=== PATIENT | female | born 1985 | race Caucasian/White ===

== ENCOUNTER 2019-05-02 17:43 | Emergency (ER) | payer MEDICAID ==
[~2019-05-02] VITALS: Ht 160 cm; Wt 68.0 kg
[~2019-05-02 17:43] MED LIST: ACET1TAB43 PO; ACHD5005 PO; AMOX1TAB12; ATOM80CA PO; CEFD300C3 PO; CIPR500T78 PO; CITA10TA PO; CLIN300C3 PO; CODE-54 PO; CPR500T PO; CYAN10007 PO; DEXT10TA24; DOXY100C2 PO; DULO60CA58 PO; DULO60CA6 PO; FLUC150T2; FLUT16SP22; FRS325T PO; HYDR-3730 PO; LAMO100T; LORA1TAB PO; METR-145 PO; METR500T PO; MULT-963 PO; MUPI22OI2; NORG1TAB19; ONDA4TAB11 PO; ONDA8TAB13 PO; PREN1TAB25 PO; PYRI100T2 PO; SULF1TAB35 PO; TRAM-42 PO; TRAM50TA2 PO; VILA1TAB PO; VORT20TA
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
--- NOTE | 2019-05-02 18:00 | NUR ---
SOMEONE CAME AND GOT PT 1/2 WAY THRU MY TRIAGE.
--- NOTE | 2019-05-02 18:49 | ED GU-Female ---
General Chief Complaint: ACIDIZER Stated Complaint: VAG BLEEDING/BILAT LEG NUMBNESS/PELVIC PAIN Nursing Triage Note: PT BROUGHT TO RM 9 BY WHEELCHAIR WITH COMPLAINT OF VAGINAL BLEEDING AND DISCHARGE, SOA, AND OVERALL FEELING OF MALAISE. PT STATE SYMPTOMS HAVE BEEN GOING ON FOR MONTHS. STATES SHE HAS HAD IRREGULAR VAGINAL BLEEDING. STATES SHE IS CONCERNED THAT SHE HAS AN OLD TAMPON IN VAGINAL VAULT. STATES SHE HAS HAD THIS ISSUE IN THE PAST. STATES SHE WENT TO DR PATEL ON THURSDAY, AND THERE WAS CONCERN FOR POSSIBLE PNEUMONIA OR RIGHT LUNG COLLAPSE. Nursing Sepsis Screen: No Definite Risk Source: patient Exam Limitations: no limitations History of Present Illness Date Seen by Provider: May 02, 2019 Time Seen by Provider: 18:10 Initial Comments This 34-year-old woman presents to the emergency room with complaints of pelvic and vaginal pain. She thinks she may have lost a tampon in the vagina. She has generally been feeling ill over the past couple of days. She has had pain after intercourse with her new partner. She also believes there has been some infidelity with her current partner. She had pain with placing a tampon during her last period which was one week ago. She has had some vaginal discharge as well. She denies . She also states on a recent visit to Dr. Patel he expressed some concern she might have pneumonia. She states they "got into it" and she left the appointment without any treatment. She denies any fever. She has had occasional mild cough. Allergies and Home Medications Allergies Coded Allergies: No Known Drug Allergies (Unverified , 01/12/13) Home Medications Sulfamethoxazole/Trimethoprim 1 Each Tablet, 1 EACH PO BID Prescribed by: RD VELIZ on 01/27/16 0800 Patient Home Medication List Home Medication List Reviewed: Yes Review of Systems Review of Systems Constitutional: see HPI EENTM: no symptoms reported Respiratory: see HPI Cardiovascular: no symptoms reported Gastrointestinal: no symptoms reported Genitourinary: see HPI : No LMP: Apr 25, 2019 Musculoskeletal: no symptoms reported Skin: no symptoms reported Psychiatric/Neurological: No Symptoms Reported Endocrine: No Symptoms Reported Hematologic/Lymphatic: No Symptoms Reported Past Imlhftd-Lnuwge-Fafzlw Hx Past Med/Social Hx: Reviewed and Corrections made Patient Social History Alcohol Use: Denies Use Recreational Drug Use: No Smoking Status: Current Everyday Smoker Type Used: Cigarettes Recent Foreign Travel: No Contact w/Someone Who Travel: No Recent Infectious Disease Expo: No Immunizations Up To Date Tetanus Booster (TDap): Unknown Past Medical History Surgeries: Yes (GASTRIC BYPASS 05/30, EAR TUBES) Abdominal, Ear Surgery, Gallbladder Respiratory: No Cardiac: No Neurological: No Reproductive Disorders: No Female Reproductive Disorders: Denies Sexually Transmitted Disease: No HIV/AIDS: No Gastrointestinal: Yes (gastro-bypass 2004) Gall Bladder Disease Musculoskeletal: No Endocrine: No HEENT: Yes Chronic Ear Infection Loss of Vision: Denies Hearing Impairment: Denies Cancer: No Psychosocial: Yes Anxiety, Depression Integumentary: No Blood Disorders: Yes (ANEMIA) Adverse Reaction/Blood Tranf: No Family Medical History Not obtainable due to adoption No Pertinent Family Hx Physical Exam Vital Signs Vital Signs - First Documented 05/02/19 17:57 Temp 97.5 Pulse 88 Resp 16 B/P (MAP) 112/75 (87) Pulse Ox 100 O2 Delivery Room Air Capillary Refill : Less Than 3 Seconds Height, Weight, BMI Height: 5'3.00" Weight: 150lbs. oz. 68.818966ic; BMI Method:Stated General Appearance: WD/WN, no apparent distress HEENT: PERRL/EOMI, normal ENT inspection Neck: normal inspection Cardiovascular: regular rate, rhythm, no edema, no murmur Respiratory: lungs clear, normal breath sounds, no respiratory distress, no accessory muscle use Gastrointestinal: normal bowel sounds, non tender, soft Pelvic: normal external exam, no cerv. motion tender, discharge (copious purulent discharge pooled in the vagina), other (no vaginal foreign bodies) Extremities: normal inspection, no pedal edema Neurologic/Psychiatric: education adviser II-XII nml as tested, no motor/sensory deficits, alert, normal mood/affect, oriented x 3 Skin: normal color, warm/dry Progress/Results/Core Measures Suspected Sepsis Recent Fever Within 48 Hours: No Infection Criteria Present: None New/Unexplained Altered Menta: No Sepsis Screen: No Definite Risk SIRS Temperature:97.4 Pulse: 83 Respiratory Rate: 17 Blood Pressure 102 /55 Mean: 71 Results/Orders Lab Results Laboratory Tests Test 05/02/19 18:43 Range/Units My Orders Orders - RD ROSE MD Urine Bedside (05/02/19 18:18) Wet Prep (05/02/19 18:18) Neisseria Gonorrhea Swab (05/02/19 18:18) Genital Culture (05/02/19 18:18) Lisa Prep (05/02/19 18:18) Chlamydia Trachomatis Swab (05/02/19 18:18) Azithromycin Tablet (Zithromax Tablet) (05/02/19 19:00) Ceftriaxone For Im Use (Rocephin For Im (05/02/19 19:00) Lidocaine 1% Inj 20 Ml (Xylocaine 1% Inj (05/02/19 19:00) Hcg,Qualitative Urine (05/02/19 18:50) Ua Culture If Indicated (05/02/19 18:50) Ondansetron Oral Dissolve Tab (Zofran (05/02/19 19:00) Metronidazole Tablet (Flagyl Tablet) (05/02/19 19:00) Vital Signs/I&O 05/02/19 05/02/19 05/02/19 17:57 18:00 19:22 Temp 97.5 97.4 97.4 Pulse 88 83 83 Resp 16 17 17 B/P (MAP) 112/75 (87) 102/55 (71) 102/55 (71) Pulse Ox 100 100 100 O2 Delivery Room Air Room Air Capillary Refill : Less Than 3 Seconds Blood Pressure Mean: 71 Progress Note #1: Time: 19:00 Progress Note White cells and Trichomonas were seen on the vaginal smear. Patient will be emp irically treated with Rocephin, azithromycin, and Flagyl. Progress Note #2: Time: 19:22 Progress Note Patient became belligerent and angry at waiting for her treatments. She refused to give a urine sample. She refused to wait to have results communicated to her before leaving. I pleaded with the patient to wait for her treatments as she had an infection that needed treated. She refused and walked out of the ER without her discharge papers or treatment. She left AGAINST MEDICAL ADVICE. Departure Impression Primary Impression: Pelvic pain Additional Impressions: Trichomonas infection Left against medical advice Disposition: AGAINST MEDICAL ADVICE Condition: Stable/Unchanged Departure-Patient Inst. Referrals: WINIFRED PATEL MD (PCP/Family) Primary Care Physician Patient Instructions: Sexually-Transmitted Diseases, Trichomoniasis Add. Discharge Instructions: You were treated for possible gonorrhea, chlamydia, and Trichomonas today in the emergency room. Abstain from sexual intercourse or any placement of intravaginal objects including tampons until cleared by your physician. Your physician will need to review the final vaginal culture results before you're cleared for sexual activity. Disposes of any intravaginal items that may cause reinfection. Noti fy any partners you have had that they need to be screened for Trichomonas and other sexually transmitted infections. Return to care if you have worsening symptoms. All discharge instructions reviewed with patient and/or family. Voiced understanding. Copy Copies To 1: WINIFRED PATEL MD, JOSHUA T MD May 02, 2019 18:49
[2019-05-02 19:22] VITALS: BP 102/55
[2019-05-02] MEDS: metroNIDAZOLE 500 MG (FLAGYL) TAB PO ONE (19:24)
[2019-05-02] MEDS: LIDOCAINE 1% INJ 20 ML 20 ML VIAL INJ ONE (19:24)
[2019-05-02] MEDS: cefTRIAXone 1,000 MG/2.86 ml vial (IM ONLY) IM ONE (19:24)
[2019-05-02] MEDS: AZITHROMYCIN 250 MG TAB (ZITHROMAX) PO ONE (19:24)
[2019-05-02] MEDS: ONDANSETRON 4 MG (ZOFRAN) ORAL DISSOLVE TAB SL ONE (19:25)
--- NOTE | 2019-05-02 19:25 | NUR ---
PT LEFT AMA PRIOR TO MEDICATION ADMINISTRATION AND DISCHARGE INFORMATION. THIS RN AND PROVIDER FOLLOWED PATIENT TO TRY AND PROVIDED MEDICAL INFO BUT PT REFUSED.
== END 2019-05-02 19:23 | disposition left against medical advice (07) ==
LOC: EDUNIT# 17:43 → ER 17:44
DX: A59.01 Trichomonal vulvovaginitis (principal); F41.9 Anxiety disorder, unspecified; F32.9 Major depressive disorder, single episode, unspecified; F17.210 Nicotine dependence, cigarettes, uncomplicated; Z98.84 Bariatric surgery status
CPT/HCPCS: 36415; 87070; 87205; 87210; 87220; 87491; 87591; 99282

== ENCOUNTER 2019-05-06 00:53 | Emergency (ER) | payer MEDICAID ==
[~2019-05-06] VITALS: Ht 157.5 cm; Wt 68.0 kg
[2019-05-06 01:39] LABS: BILIRUBIN,URINE NEGATIVE (NEGATIVE); CLARITY,URINE CLEAR; COLOR,URINE YELLOW; GLUCOSE, URINE (UA) NEGATIVE (NEGATIVE); KETONES,URINE NEGATIVE (NEGATIVE); LEUKOCYTE ESTERASE ,URINE 3+ (NEGATIVE); NITRITE,URINE NEGATIVE (NEGATIVE); PH,URINE 6 (5-9); PROTEIN,URINE NEGATIVE (NEGATIVE); UROBILINOGEN,URINE NORMAL (NORMAL)
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
[2019-05-06 01:48] LABS: BACTERIA,URINE TRACE /HPF; RBC,URINE 0-2 /HPF; TRICHOMONAS,URINE MODERATE /HPF
[2019-05-06 01:58] LABS: AMPHETAMINE SCREEN, URINE POSITIVE (NEGATIVE); BARBITURATE SCREEN URINE NEGATIVE (NEGATIVE); BENZODIAZEPINES SCREEN URINE NEGATIVE (NEGATIVE); CANNABINOID SCREEN, URINE NEGATIVE (NEGATIVE); COCAINE SCREEN URINE NEGATIVE (NEGATIVE); METHADONE STAT NEGATIVE (NEGATIVE); METHAMPHETAMINE SCREEN URINE S POSITIVE (NEGATIVE); OPIATE SCREEN URINE POSITIVE (NEGATIVE); OXYCODONE STAT NEGATIVE (NEGATIVE); PROPOXYPHENE STAT NEGATIVE (NEGATIVE); TRICYCLIC ANTIDEPRESSANTS SCRE NEGATIVE (NEGATIVE)
[2019-05-06] MEDS ORDERED: METR500T PO (02:11)
[2019-05-06 02:17] VITALS: BP 120/81
== END 2019-05-06 02:17 | disposition home or self-care (01) ==
LOC: EDUNIT# 00:53 → ER 00:56
DX: A59.8 Trichomoniasis of other sites (principal); F41.9 Anxiety disorder, unspecified; F32.9 Major depressive disorder, single episode, unspecified; F17.210 Nicotine dependence, cigarettes, uncomplicated; Z98.84 Bariatric surgery status
CPT/HCPCS: 80306; 81000; 84703

== ENCOUNTER 2020-02-15 11:47 | Outpatient (CLI) | payer MEDICAID ==
[~2020-02-15] VITALS: Ht 157.5 cm; Wt 80.8 kg
[~2020-02-15 11:47] MED LIST changes: -DULO60CA58 PO; +DULO60CA59 PO; -LAMO100T; +LAMO100T5; +TRM50T PO
--- NOTE | 2020-02-15 11:53 | NUR ---
JHONNY MENDOZA presented to unit via ambulation from ED, with c/o decreased FM Pt. weighed, gowned, voided, and to bed. EFHM and TOCO applied, VS taken. Pt. oriented to bed controls, call light, TV, heat, and A/C controls.
--- NOTE | 2020-02-15 12:00 | NUR ---
pt reports decreased FM today- see's and @ [facility].
[2020-02-15 12:08] VITALS: BP 112/60
[2020-02-15 12:27] VITALS: BP 112/60
--- NOTE | 2020-02-15 12:34 | NUR ---
was called r/t admission c/o's. status reviewed, dismissal orders received.
[2020-02-15] MEDS ORDERED: FERR-84 PO (12:43)
[2020-02-15] MEDS ORDERED: FOLI0.4T2 PO (12:43)
[2020-02-15] MEDS ORDERED: SERT20OR PO (12:43)
[2020-02-15] MEDS ORDERED: PREN1TAB79 PO (12:43)
--- NOTE | 2020-02-15 12:45 | NUR ---
monitors dc'd. audible FM noted by RN. pt "not feeling" kicks. monitor tracing reviewed. FHR 150's. variability appropriate for gestation. no ctx's noted . Reactive NST.
--- NOTE | 2020-02-15 12:46 | NUR ---
dismissal instructions given. reviewed sx's to RTC. signature page signed, placed on chart.
--- NOTE | 2020-02-15 12:50 | NUR ---
pt ambulated to private vehicle with no sx's of distress noted.
--- NOTE | 2020-02-16 08:19 | Physician Query-Final Dx ---
AUGUSTINE BOWSER 02/16/20 0819: Clinic Account Progress/Dx Physician Query: Please give diagnosis Please include # weeks gestation Date of Service Feb 15, 2020 at 11:47 TIFFANY BRAVO MD 02/24/20 0715: Clinic Account Progress/Dx DIAGNOSIS: Diagnosis 1. IUP in 3rd trimester 2. Decreased movement-reassuring AUGUSTINE BOWSER Feb 16, 2020 08:19 TIFFANY BRAVO MD February 24, 2020 07:15
== END 2020-02-15 12:50 | disposition home or self-care (01) ==
LOC: WSo 11:47 → LDRP 11:49 → WSo 12:50
PROVIDERS: ATTEND Family Medicine
DX: O36.8130 Decreased fetal movements, third trimester, not applicable or unspecified (principal)
CPT/HCPCS: 99213

== ENCOUNTER 2020-03-27 20:47 | Outpatient (CLI) | payer MEDICAID ==
[~2020-03-27] VITALS: Ht 160 cm; Wt 84.4 kg
[2020-03-27] MEDS: NS IV 1000 ML 1,000 ML IV ONE ×2 (00:07→20:45)
[~2020-03-27 20:47] MED LIST changes: +FERR-84 PO; +FOLI0.4T2 PO; +PREN1TAB79 PO; +SERT20OR PO
--- NOTE | 2020-03-27 20:55 | NUR ---
JHONNY MENDOZA presented to unit via from ED, accompanied by mom, with c/o FLUID LEAKING. JHONNY MENDOZA weighed, gowned, voided, and to bed. EFHM and TOCO applied, VS taken. JHONNY MENDOZA oriented to bed controls, call light, TV, heat, and A/C controls.
[2020-03-27 21:00] VITALS: BP 108/75
--- NOTE | 2020-03-27 21:12 | NUR ---
DR SHER CALLED WITH REPORT OF PT ARRIVAL AND C/O GIVEN. NEW ORDERS RECEIVED.
[2020-03-27] MEDS ORDERED: NS IV 1000 ML 1,000 ML ONE (21:15)
[2020-03-27 22:00] VITALS: BP 108/75
[2020-03-27 22:25] LABS: BILIRUBIN,URINE 2+ (NEGATIVE); CLARITY,URINE SL CLOUDY; COLOR,URINE YELLOW; GLUCOSE, URINE (UA) NEGATIVE (NEGATIVE); KETONES,URINE 1+ (NEGATIVE); LEUKOCYTE ESTERASE ,URINE TRACE (NEGATIVE); NITRITE,URINE NEGATIVE (NEGATIVE); PROTEIN,URINE 3+ (NEGATIVE)
[2020-03-27 22:34] LABS: BACTERIA,URINE MODERATE /HPF; SQUAMOUS EPITHELIAL CELL,UR 25-50 /HPF
[2020-03-27] MEDS ORDERED: D5 LR IV SOLUTION 1,000 ML IV SCH (23:00)
[2020-03-27] MEDS ORDERED: diphenhydrAMINE 25 MG TAB (BENADRYL) PO ONE (23:00)
--- NOTE | 2020-03-28 07:24 | NUR ---
DR. SHER NOTIFIED OF WET PREP RESULTS. WILL SEND SCRIPT OVER TO PHARMACY. PT TO EAT AND BE DISCHARGED HOME.
[2020-03-28] MEDS ORDERED: metroNIDAZOLE 500 MG (FLAGYL) TAB PO NR (07:45)
[2020-03-28] MEDS ORDERED: METR-145 PO (07:49)
--- NOTE | 2020-03-28 08:07 | Physician Query-Final Dx ---
AUGUSTINE BOWSER 03/28/20 0807: Clinic Account Progress/Dx Physician Query: Please give diagnosis Please include # weeks gestation Date of Service Mar 27, 2020 at 20:47 FERN SHER DO 03/30/20 1308: Clinic Account Progress/Dx DIAGNOSIS: Diagnosis 33 week gestation bacterial vaginosis contractions AUGUSTINE BOWSER Mar 28, 2020 08:07 FERN SHER DO Mar 30, 2020 13:08
--- NOTE | 2020-03-28 08:35 | NUR ---
DISCHARGE PAPERS PROVIDED AND REVIEWED WITH PT, PT VERBALIZES UNDERSTANDING. QUESTIONS ANSWERED. PAPER SIGNED.
--- NOTE | 2020-03-28 08:40 | NUR ---
DR. SHER CALLED UNIT WHILE IN ROOM WITH PT. @ OFFICE AND HAS DISCOVERED THAT PT HAS A HX OF LABOR AND WAS UNAWARE. NO CHANGE IN POC, ENCOURAGED PT TO CALL IF CONDITION CHANGES; PT VERBALIZES UNDERSTANDING. MOTHER @ BEDSIDE.
--- NOTE | 2020-03-28 08:50 | NUR ---
PT DISCHARGED FROM -319 TO PERSONAL AUTO VIA AMBULATORY IN STABLE CONDITION ACC BY PT'S MOTHER.
== END 2020-03-28 08:50 | disposition home or self-care (01) ==
LOC: LDRP 20:47 → WSo 20:47
PROVIDERS: ATTEND Obstetrics & Gynecology
DX: O42.90 Premature rupture of membranes, unspecified as to length of time between rupture and onset of labor, unspecified weeks of gestation (principal); Z3A.00 Weeks of gestation of pregnancy not specified
CPT/HCPCS: 81000; 87088; 87210; 96360; 96361; 99214

== ENCOUNTER 2020-05-03 17:54 | Outpatient (CLI) | payer MEDICAID ==
[~2020-05-03] VITALS: Ht 154.9 cm; Wt 91.5 kg
--- NOTE | 2020-05-03 18:00 | NUR ---
KELLYJHONNY presented to unit via ambulation from ED, accompanied by mother, with c/o vaginal bleeding and contractions. Pt. weighed, gowned, voided, and to bed. EFHM and TOCO applied, VS taken. Pt. oriented to bed controls, call light, TV, heat, and A/C controls.
--- NOTE | 2020-05-03 18:03 | NUR ---
pt reports seeing ISA Medrano in office today, SVE 2cm. unable to give contraction frequency upon admission. describes vaginal bleeding as dark red.
[2020-05-03 18:05] VITALS: BP_SYST 108; BP_DIAS 0; BP_DIAS 70
--- NOTE | 2020-05-03 18:16 | NUR ---
pt placed on bedpan, SVE per this RN. unable to determine cervical dilation r/t moving up bed, clamping legs closed.
--- NOTE | 2020-05-03 18:18 | NUR ---
up to BR
--- NOTE | 2020-05-03 18:27 | NUR ---
SVe per Dr. Galindo. 2cm, thick, posterior.
--- NOTE | 2020-05-03 20:18 | NUR ---
discharge packet given and expalined, PT Ambulatory off unit accompanied by mother. no ss distress. no concerns voiced from pt.
--- NOTE | 2020-05-04 08:32 | Physician Query-Final Dx ---
AUGUSTINE BOWSER 05/04/20 0832: Clinic Account Progress/Dx Physician Query: Please give diagnosis Please include # weeks gestation Date of Service May 03, 2020 at 17:54 JOYCE SHELTON DO 05/04/20 1059: Clinic Account Progress/Dx DIAGNOSIS: Diagnosis 38 week IUP Vaginal spotting Contractions AUGUSTINE BOWSER May 04, 2020 08:32 JOYCE SHELTON DO May 04, 2020 10:59
== END 2020-05-03 20:18 | disposition home or self-care (01) ==
LOC: LDRP 17:54 → WSo 17:54
PROVIDERS: ATTEND Obstetrics & Gynecology
DX: O26.853 Spotting complicating pregnancy, third trimester (principal); O62.9 Abnormality of forces of labor, unspecified; Z3A.38 38 weeks gestation of pregnancy
CPT/HCPCS: 99213

== ENCOUNTER 2020-05-08 05:57 | Inpatient (IN) | payer MEDICAID ==
[2020-05-08] VITALS (61 sets, daily range): BP systolic 93–132; BP diastolic 50–84
[~2020-05-08] VITALS: Ht 160 cm; Wt 92.0 kg
--- NOTE | 2020-05-08 06:00 | NUR ---
JHONNY MENDOZA presented to unit via ambulatory from ED, accompanied by mother, with c/o 39WKS induction. JHONNY MENDOZA weighed, gowned, voided, and to bed. EFHM and TOCO applied, VS taken. JHONNY MENDOZA oriented to bed controls, call light, TV, heat, and A/C controls.
--- OUTSIDE RECORDS SUMMARY | 2020-05-08 06:35 | XMS REPORT | Encounter Summary ---
Author Author [facility] Address Unknown Phone Unavailable Care Team Providers Care Planer Hand Name Role Phone FloresDelmar PCP Encounter Details Care Team Description Date Type Department Amador Valverde DO [address] [facility] [address] [place] [address] Iron deficiency anemia, unspecified iron deficiency anemia type (Primary Dx) 02/24/2020 Orders Only [facility] [address] 5 Pod C [id number] Social History Date Tobacco Use Types Packs/Day Years Used Never Smoker Smokeless Tobacco: Never Used Sex Assigned at Date Recorded Female 01/09/2020 10:13 AM CDT Industry Job Start Date Occupation Not on file Not on file Not on file Travel End Travel History Travel Start No recent travel history available. Date Recorded COVID-19 Exposure Response 01/26/2020 9:36 AM CDT In the last month, have you been in contact with No / Unsure someone who was confirmed or suspected to have Coronavirus / COVID-19? documented as of this encounter Functional Status Date of Assessment Functional Status Response 01/23/2020 Does the patient have a hearing impairment: No 01/23/2020 Does the patient have a visual impairment: No 01/23/2020 Does the patient have impaired ambulation: No 01/23/2020 Does the patient have an activity of daily living No (ADL) impairment: 01/23/2020 Does the patient have an instrumental activity of No daily living (IADL) impairment: Date of Assessment Cognitive Status Response 01/23/2020 Does the patient have a cognitive impairment: No documented as of this encounter Plan of Treatment Not on filedocumented as of this encounter Results * ULTRASOUND [facility] ORDER (02/27/2020 9:34 AM CDT) Specimen Impressions Performed At IMPRESSION: [facility] Adequate interval growth. Within the limits of this examination, no structural abnormalities noted. Umbilical artery Doppler assessment is reassuring. RECOMMENDATIONS: Repeat growth in 4 weeks. Thank-you for allowing us to participat e in the care of your patient. If you have any questio ns regarding this visit, please do not hesitate to call. Narrative Performed At [facility] REPORT (Signed Final 02/27/2020 02:57 pm) PATIENT INFO: ID #: [id number] : [birth year] (35 yrs)(F) Name: GEORGIANA SAVAGE Visit Date: 02/27/2020 09:34 am PERFORMED BY: Performed By: Karolyn Constantino RDMS, T, RDCS Attending: Amador Valverde D.O. Referred By: NORA SANTIAGO MD Ref. Address: [facility] Location: Out-Patient [facility] SERVICE(S) PROVIDED: Ultrasound, Follow-up [id number] Umbilical Cord Doppler 62677 INDICATIONS: Previous gastric bypass affecting pre gnancy, O99.842 2nd trimester Maternal Anemia; second trimester O99.012 EVALUATION: Num Of Fetuses: 1 Preg. Location: Intrauterin e Heart Rate(bpm): 153 Cardiac Activity: Observed Presentation: Breech Placenta: Anterior Amniotic Fluid RICHARD FV: Within normal limits RICHARD Sum(cm) Lar gest Pocket(cm) 21.94 6.03 RUQ(cm) RLQ(cm) LUQ(c m) LLQ(cm) 4.92 5.93 5 .06 6.03 BIOMETRY: BPD: 71.7 mm G.Age: 28w 5d OFD: 97.3 mm HC: 270.6 mm G.Age: 29w 4d 37 % AC: 243.5 mm G.Age: 28w 5d 36 % FL: 53.3 mm G.Age: 28w 2d 21 % HUM: 48.1 mm G.Age: 28w 1d 32 % CER: 34.7 mm G.Age: 29w 2d 71 % CI: 73.7 % 70 - 86 FL/HC: 19.7 % 19.6 - 20.8 HC/AC: 1.11 0.99 - 1.21 FL/BPD: 74.3 % 71 - 87 FL/AC: 21.9 % 20 - 24 Est. FW: 1254 gm 2 lb 12 oz 32 % GESTATIONAL AGE: U/S Today: 28w 6d TRACY: 05/15/20 Best: 28w 6d Det. By: Early TRACY: 05/15/20 Ultrasound (11/02/19) ANATOMY: Cranium: Appears n ormal Cavum: Appears normal Ventricles: Appears no rmal Choroid Plexus: Normal; no c ysts Cerebellum: Appears no rmal Posterior Fossa: Appears louie l Heart: 4 chambe r view and axis RVOT: Appears normal LVOT: Appears normal Aortic Arch: Appears nor mal Ductal Arch: Appears nor mal Diaphragm: Within Nor mal Limits Stomach: Visualize d Abdomen: No abnorm alities seen Abdominal Wall: Appears norm al Cord Vessels: [address] Kidneys: Visualize d Bladder: Visualize d Spine: No abnor malities seen Upper Extremities: Present Lower Extremities: Present Other: Limited views of face du e to position DOPPLER - VESSELS: Umbilical Artery S/D %tile RI PI PSV (cm/s) 3.23 62 0.68 1.04 42.45 Middle Cerebral Artery S/D RI PI %tile PSV MoM (cm/s) 11.4 0.92 2.71 90 50.36 1.34 8 Cerebroplacental Ratio MCA PI / UA PI %tile 2.61 78 CERVIX UTERUS ADNEXA: Uterus Within Normal Limits COMMENTS: Procedure orders were added/modified by the attending physician listed above with p stefany from the referring physician. Previously ent ered orders will not be altered. Sidney Claudio Electronically Signed Final Report 0 02/27/2020 02:57 pm Performing Organization Address City/State/Zipcode Ph one Number [facility] [id number] [place], [place] [address] [address] documented in this encounter Visit Diagnoses Diagnosis Iron deficiency anemia, unspecified iro n deficiency anemia type documented in this encounter
--- OUTSIDE RECORDS SUMMARY | 2020-05-08 06:35 | XMS REPORT | Encounter Summary ---
Author Author [facility] Organization [facility] Address Unknown Phone Unavailable Care Team Providers Care Sports Apparel Internship Name Role Phone Delmar Flores PCP Reason for Visit * Reason Comments Ultrasound Encounter Details Care Team Description Date Type Department Amador Valverde DO [address] Ortho/Med Pavilion Lvl [address] [place] [id number] Iron deficiency anemia, unspecified iron deficiency anemia type 02/27/2020 Clinical [facility] [address] [place] [id number] Social History Date Tobacco Use Types Packs/Day Years Used Never Smoker Smokeless Tobacco: Never Used Sex Assigned at Date Recorded Female 01/09/2020 10:13 AM CDT Industry Job Start Date Occupation Not on file Not on file Not on file Travel End Travel History Travel Start No recent travel history available. Date Recorded COVID-19 Exposure Response 02/27/2020 9:28 AM CDT In the last month, have [...] impairment: No documented as of this encounter Progress Notes * Karolyn Constantino RDMS,RVT - 02/27/2020 10:00 AM CDT Georgiana Savage presents for an ultrasound encounter. Past Medical, Surgical, Family & Social History; Medications & Allergies contained in the electronic record below were not reviewed today and may not be up-to-date. Please see A/S OBGYN report for all documentation related to this encounter. 02/27/2020 Karolyn Constantino RDMS,RVT documented in this encounter Plan of Treatment Not on filedocumented as of this encounter Procedures Comments Procedure Name Priority Date/Time Associated Diag nosis [place] US PREG UTERUS REAL Routine 02/27/2020 Iron de ficiency anemia, TIME F/U TRNSABDL PER 9:34 AM CDT unspecified iro n FETUS deficiency anemia type documented in this encounter Results * ULTRASOUND [facility] ORDER (02/27/2020 9:34 AM CDT) Specimen Impressions Performed At IMPRESSION: [facility] Adequate interval growth. Within the limits of this examination, no structural abnormalities noted. Umbilical artery Doppler assessment is reassuring. RECOMMENDATIONS: Repeat growth in 4 weeks. Thank-you for allowing us to participat e in the care of your patient. If you have any jane ns regarding this visit, please do not hesitate to call. Narrative Performed At [facility] REPORT (Signed Final 02/27/2020 02:57 pm) PATIENT INFO: ID #: [id number] : [birth year] (35 yrs)(F) Name: GEORGIANA SAVAGE Visit Date: 02/27/2020 09:34 am PERFORMED BY: Performed By: Karolyn Constantino RDMS, VITA Mckay, RDCS Attending: Amador Valverde D.O. Referred By: NORA SANTIAGO MD Ref. Address: [facility] Location: Out-Patient [facility] SERVICE(S) PROVIDED: Ultrasound, Follow-up 14628 Umbilical Cord Doppler 355[address] INDICATIONS: Previous gastric bypass affecting pre gnancy, [...] the attending physician listed above with p ermission from the referring physician. Previously ent ered orders will not be altered. Sidney Claudio Electronically Signed Final Report 0 02/27/2020 02:57 pm Performing Organization Address City/State/Zipcode Ph one Number [facility] [address] [place], [place] [address] [address] documented in this encounter Visit Diagnoses Diagnosis Iron deficiency anemia, unspecified iro n deficiency anemia type documented in this encounter
--- OUTSIDE RECORDS SUMMARY | 2020-05-08 06:35 | XMS REPORT | Clinical Summary ---
Author Author [facility] Organization [facility] Address Unknown Phone Unavailable Care Team Providers Care Batch Attendant Name Role Phone Delmar Flores PCP Source Comments Some departments are not documenting in the electronic medical record. If you d o not see the information that you expected, contact Release of Information in [facility] [employer] Information Management department at [phone] for further assistan ce in locating additional records.[facility] Allergies No Known Allergies Medications End Date Status Medication Sig Dispensed Refills Start Date Active vit Take by 0 calc,iron,folic ( mouth. VITAMIN PO) Active ferrous sulfate (IRON PO) Take by 0 mouth. Active FOLIC ACID PO Take by 0 mouth. Active sertraline (ZOLOFT) 100 Take 100 mg 0 mg tablet by mouth daily. Active Problems Problem Noted Date Iron deficiency anemia 12/27/2019 High-risk 12/27/2019 H/O gastric bypass 12/27/2019 19 weeks gestation of 12/26/2019 History of Garret-en-Y gastric bypass 12/26/2019 Iron deficiency anemia secondary to inadequate dietar y iron intake 12/26/2019 Major depressive disorder with single episode, in rem ission 12/26/2019 Estimated Date of Delivery Comments Yes 05/15/2020 Based on Ultrasound Encounters Care Team Description Date Type Specialty Amador Valverde DO High-risk in third trimester ( Primary Dx); 19 weeks gestation of 02/27/2020 Routine High Risk Amador Valverde DO Iron deficiency anemia, unspecified iron deficiency anemia type 02/27/2020 Clinical High Risk Support 02/27/2020 Travel Amador Valverde DO Iron deficiency anemia, unspecified iron deficiency anemia type (Primary Dx) 02/24/2020 Orders Only High Risk Elvira Irving MD Pre-Visit Planning 02/24/2020 Telephone High Risk Elvira Irving MD 02/15/2020 Documentation High Risk from Last 3 Months Social History Date Tobacco Use Types Packs/Day Years Used Never Smoker Smokeless Tobacco: Never Used Estimated Date of Delivery Comments Yes 05/15/2020 Based on Ultrasound Sex Assigned at Date Recorded Female 01/09/2020 10:13 AM CDT Industry Job Start Date Occupation Not on file Not on file Not on file Travel End Travel History Travel Start No recent travel history available. Last Filed Vital Signs Reading Time Taken Comments Vital Sign 94/49 02/27/2020 9:42 AM CDT Blood Pressure 76 02/27/2020 9:42 AM CDT Pulse 36.9 C (98.5 F) 01/23/2020 7:40 AM CDT Temperature 16 01/23/2020 7:40 AM CDT Respiratory Rate 99% 01/23/2020 7:40 AM CDT Oxygen Saturation - - Inhaled Oxygen Concentration 82.4 kg (181 lb 9.6 oz) 02/27/2020 9:42 AM CDT Weight 154.9 cm (5' 1") 02/27/2020 9:42 AM CDT Height 34.31 02/27/2020 9:42 AM CDT Body Mass Index Plan of Treatment Health Maintenance Due Date Last Done Comments HIV SCREENING 2002 DTAP/TDAP VACCINES (1 - 2005 Tdap) HEPATITIS C SCREENING 2005 PHYSICAL (COMPREHENSIVE) 2005 EXAM CERVICAL CANCER SCREENING 01/20/2008 INFLUENZA VACCINE 07/26/2020 Procedures Comments Procedure Name Priority Date/Time Associated Diag nosis [place] US PREG UTERUS REAL Routine 02/27/2020 Iron de ficiency anemia, TIME F/U TRNSABDL PER 9:34 AM CDT unspecified iro n FETUS deficiency anemia type POC URINE DIPSTICK MANUAL Routine 02/27/2020 High -risk in READ third trimester from Last 3 Months Results * ULTRASOUND [facility] ORDER (02/27/2020 9:34 AM CDT) [...] 02/27/2020 02:57 pm) PATIENT INFO: ID #: [id number] : [birth year] (35 yrs)(F) Name: GEORGIANA SAVAGE Visit Date: 02/27/2020 09:34 am PERFORMED BY: Performed By: Karolyn Constantino RDMS, VITA Mckay, RDISIDRO Attending: Amador Vavlerde D.O. Referred By: NORA SANTIAGO MD Ref. Address: [facility] Location: Out-Patient [facility] SERVICE(S) PROVIDED: Ultrasound, Follow-up 28069 Umbilical Cord Doppler [id number] INDICATIONS: Previous gastric bypass affecting pre gnancy, [...] Address City/State/Zipcode Ph one Number [facility] [address] [place], [place] [address] [address] * POC URINE DIPSTICK MANUAL READ (02/27/2020) Pathologist [facility] Urine Glucose NegComment: Lot#[id number] IN CLINIC POC Exp-04/24/2021 Urine Bilirubin IN CLINIC POC Urine Ketone Neg IN CLINIC POC Urine Specific IN CLINIC [place] POC Urine Blood POC Neg IN CLINIC Urine PH POC IN CLINIC Urine Protein Neg IN CLINIC POC Urine IN CLINIC Urobilinogen POC Urine Nitrite IN CLINIC POC Urine Neg IN CLINIC Leukocytes POC Color,UA IN CLINIC Turbidity,UA IN CLINIC Specimen Urine - Urine Performing Organization Address City/State/Zipcode Ph one Number IN CLINIC from Last 3 Months Insurance Type Payer Benefit Subscriber ID Effective Phone Address Plan / Dates Group Medicaid UHC MEDICAID [place] UHC xxxxxxxxxxx [id number] [place] [place] (Home) [place] [address] Advance Directives 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
--- OUTSIDE RECORDS SUMMARY | 2020-05-08 06:35 | XMS REPORT | Encounter Summary ---
Author Author [facility] Organization [facility] Address Unknown Phone Unavailable Care Team Providers Care Quality Control Representative Name Role Phone MarkPratikDelmar PCP Reason for Visit * Reason Comments Anemia Encounter Details Care Team Description Date Type Department Socrates Polo MD [address] Ortho/Med Pavilion Lvl [address] [place] [address] Anemia 01/30/2020 Telephone [facility] [address] [place] [address] Social History Date Tobacco Use Types Packs/Day [...] impairment: No documented as of this encounter Miscellaneous Notes * Telephone Encounter - Roxanne Kohli RN - 01/30/2020 2:45 PM CDT I called pt to discuss labs and appt change. Pt answered and when I started spe aking she hung up. Called pt again. No answer, voicemail full. * Telephone Encounter - Roxanne Kohli RN - 01/30/2020 2:41 PM CDT ----- Message from Margaux Jacobo MD sent at 01/30/2020 12:19 PM CDT ----- Regarding: Patient to reschedule Good morning! This patient is scheduled for clinic next Thursday. I talked to Dr Valle and plan is to space out her visits in the time of COVID. Therefor, can we call the patient and reschedule her as follows: Change her clinic and growth ultrasound to week of 03/02/20 (she should be about 2 8 wga at this time). I am ordering iron studies and a CBC for her to complete in the next two weeks a s well if we can notify her to do this as well. Thank you my heroes!! Margaux Jacobo MD documented in this encounter Plan of Treatment Not on filedocumented as of this encounter Visit Diagnoses Not on filedocumented in this encounter
--- OUTSIDE RECORDS SUMMARY | 2020-05-08 06:35 | XMS REPORT | Encounter Summary ---
Author Author [facility] Organization [facility] Address Unknown Phone Unavailable Care Team Providers Care Civil Estimator Name Role Phone FloresDelmar PCP Reason for Visit * Reason Comments High Risk Maternal Anemia Encounter Details Care Team Description Date Type Department Santos Newton DO [address] Ortho/Med Pavilion Lvl [address] [place] [address] High-risk in third trimester ( Primary Dx); 19 weeks gestation of 02/27/2020 Routine [facility] [address] [place] [address] Social History Date Tobacco Use [...] / COVID-19? documented as of this encounter Last Filed Vital Signs Reading Time Taken Comments Vital Sign 94/49 02/27/2020 9:42 AM CDT Blood Pressure 76 02/27/2020 9:42 AM CDT Pulse - - Temperature - - Respiratory Rate - - Oxygen Saturation - - Inhaled Oxygen Concentration 82.4 kg (181 lb 9.6 oz) 02/27/2020 9:42 AM CDT Weight 154.9 cm (5' 1") 02/27/2020 9:42 AM CDT Height 34.31 02/27/2020 9:42 AM CDT Body Mass Index documented in this encounter Functional Status Date of Assessment [...] as of this encounter Progress Notes * More Raphael MD - 02/27/2020 10:30 AM CDT pickling solution maker - Return Visit HPI: Georgiana Savage is a 35 y.o. F at 28w6d by 12 wk U/S (OSH). Estimated Date of Delivery: 05/15/20. She presents today for follow-up, primary OB is a yuval avalos from Dr. Galindo. She also has possible alpha-thalassemia trait, previou s gastric bypass surgery (linn-en-Y), history of substance use disorder, anxiety /depression, history of labor with delivery at 36 weeks. She has no concerns today and is feeling well. Wonders about transferring care t [facility] as drive is only 40 minutes to there from [place], [place] vs 2.5 hrs to [facility]. +FM, -VB, -CTX, -LOF Objective: BP 94/49 (BP Source: Arm, Right Upper, Patient Position: Sitting) | Pulse 76 | Ht 154.9 cm (61") | Wt 82.4 kg (181 lb 9.6 oz) | BMI 34.31 kg/m Gen: NAD CV: regular rate Lungs: non-labored Abd: soft, nttp, gravid Ext: no LE edema, nttp BLE Labs: Outside records reviewed Blood type A POS Ab Neg Rubella Immune HepB Neg Syph Ab Neg GC/CT Neg/Neg HIV Neg Urine culture - results requested 11/30/19 quad DS (age related risk 1 in 460). Negative NIPS (innatal). Bailey ier screening neg (including neg alpha thal sequencing) SONO: 12/26/19 19w6d, EFW 42%, normal anatomy.CL 3.6 cm 01/26/20: EFW 647g, 31%ile, RICHARD 18, placenta anterior 02/27/20: in process Assessment 35 y.o. F @28w6d by 12wk U/S. Estimated Date of Delivery: 05/15/20 H/o Gastric Bypass H/o delivery H/o LEEOleg 2003 Anemia - likely iron deficiency, poor absorption due to gastric bypass. Anxiety/depression Obesity Rh positive Plan: Anemia, likely iron or GI absorption issue: Microcytic anemia, Hgb 8.6, MCV 75. Hgb 9.8, MCV 39.4 (02/14/20) Neg alpha thal genetic testing (Progenity testing) Reports she has had anemia in the past requiring blood transfusions Hemoglobin electrophoresis shows normal HgbA1, HgbA2 Ordered CBC, iron studies, B12, folate, MMA, homocysteine, intrinsic factor t castillo. Results c/w iron deficiency and mild B12 deficiency. Recommend cont PO iron, ascorbic acid, and B12 replacement. S/p IV Iron infus ion Anxiety/Depression: Assess mood at each visit - stable today Medications: Zoloft 100 mg QD History of gastric bypass: Gastric bypass in 2004 (age 18) Currently taking iron TID with orange juice, folic acid QD Check iron, vitamin D, B12, folate q trimester. 12/26/19: B12 low; iron studies with low iron, ferritin, %sat, high TIBC; folat e WNL 02/14/20: Recommend growth ultrasounds every 4 weeks History of late delivery: Previously counseled by Dr. Valle on 17-OHP injections and why we don't typical ly recommend them - she stopped them. Cervical length at 20 weeks was 3.69 cm Given the late gestational age (34-36 weeks, previously documented as 34 weeks, patient states 36 weeks), with reassuring CL, we did not recommend fu rther surveillance or interventions for PTB prevention. , Dr. Galindo Primary: PNV NIPS low risk Recommend msAFP @15-22wga Detailed US: LVEF, otherwise WNL 2hr GTT, CBC, Ab screen, syph ab @28 wks Recommend flu shot during flu season - patient declines Recommend Tdap in 3rd trimester, needs 28 week labs drawn - pt to call Dr. Randi bourne for scheduling of these labs and appointment Collect GBS @ 36wga PP BCM: to be determined Third trimester anesthesia consult needed: N Primary OB: Dr. Galindo Discussed with patient no longer needs regular HROB appointments at . Recommen d continued monitoring of Vitamin levels and Hgb - with IV Iron PRN. If High Ris k assistance is needed, can call or patient can be seen in [place] if easier. D/w Dr. Abram Raphael MD PGY-2, Obstetrics and Gynecology Attending Attestation I was present and participated in the discussion and evaluation of the patient a nd agree with Dr. Raphael's note as documented. I spent 25 minutes counseling and coordinating care for Catrina of which >50% of that time (15 minutes) was spent in direct face to face consultation with the patient. documented in this encounter Miscellaneous Notes * Addendum Note - Santos Newton DO - 02/27/2020 10:30 AM CDT Addended by: SANTOS NEWTON on: 02/27/2020 02:38 PM Modules accepted: Level of Service documented in this encounter Plan of Treatment Not on filedocumented as of this encounter Procedures Comments Procedure Name Priority Date/Time Associated Diag nosis POC URINE DIPSTICK MANUAL Routine 02/27/2020 High -risk in READ third trimester documented in this encounter Results * POC URINE DIPSTICK MANUAL READ (02/27/2020) Urine Glucose NegComment: Lot#[id number] IN CLINIC POC Exp-04/24/2021 Urine Bilirubin IN CLINIC POC Urine Ketone Neg IN CLINIC POC Urine Specific IN CLINIC [place] POC Urine Blood POC Neg IN CLINIC Urine PH POC IN CLINIC Urine Protein Neg IN CLINIC POC Urine IN CLINIC Urobilinogen POC Urine Nitrite IN CLINIC POC Urine Neg IN CLINIC Leukocytes POC Color,UA IN CLINIC Turbidity,UA IN CLINIC Specimen Urine - Urine Performing Organization Address City/State/Zipcofl Ph one Number IN CLINIC documented in this encounter Visit Diagnoses Diagnosis 19 weeks gestation of state, incidental High-risk in third trimester documented in this encounter
--- OUTSIDE RECORDS SUMMARY | 2020-05-08 06:35 | XMS REPORT | Encounter Summary ---
Author Author [facility] Organization [facility] Address Unknown Phone Unavailable Care Team Providers Care Tax Map Technician Name Role Phone Delmar Flores PCP Encounter Details Care Team Description Date Type Department 02/27/2020 Travel Social History Date Tobacco Use Types Packs/Day [...]
--- OUTSIDE RECORDS SUMMARY | 2020-05-08 06:35 | XMS REPORT | Encounter Summary ---
Author Author [facility] Organization [facility] Address Unknown Phone Unavailable Care Team Providers Care Collections Officer Name Role Phone MarkPratikDelmar PCP Reason for Visit * Reason Comments Pre-Visit Planning Encounter Details Care Team Description Date Type Department Elvira Irving MD [address] Ortho/Med Pavilion Lvl [address] [place] [address] Pre-Visit Planning 02/24/2020 Telephone [facility] [address] [place] [id number] Social History Date Tobacco Use Types Packs/Day [...] encounter Miscellaneous Notes * Telephone Encounter - Azul Barr RN - 02/24/2020 9:26 AM CDT Appointment information: Next Visit Date & Time 02/27/2020 10:00 AM Provider SAVI HOPSON [address] [facility] Dept. MPBGYN Swab status: No COVID symptoms? No Patient experiencing any life-threatening symptoms? No Extreme difficulty breathing, blue lips/face, severe/constant pain or pressure i n the chest, altered mental status, slurred speech, seizure, coughing up blood, too weak to stand, etc. - If yes, 911 or ED recommended. Screening: GREEN (COVID recovered, no COVID suspected) The following education provided to the patient: Please plan to keep your appointment as scheduled. For your safety and the safet y of everybody entering the health system, we have adjusted our appointment chec k in process. Wear a mask when in the building if you have one, if you do not o ne will be provided to you. Once you have arrived, go straight to the temperatVigo e screening station. The staff at the temperature screening station will provide instructions for proceeding to the clinic. Upon arrival in the clinic, you will be escorted to an exam room or treatment area to complete the appointment check- in. Your clinic team will give directions for how to proceed once your appoint ment is completed. Do you have any questions? As a reminder, our visitor policy has been changed to better protect our patient s and staff. No visitors are allowed unless there has been a pre-approved except ion. We recognize this is difficult and encourage you to utilize [employer] or a s peaker phone function during your visit. We also encourage family and friends t o return home to await news of their loved ones, but they may wait in their vehi nirav if they wish. Unless you have a scheduled pediatric appointment, visitors un myron the age of 14 will not be allowed in clinic until further notice. documented in this encounter Plan of Treatment Not on filedocumented as of this encounter Visit Diagnoses Not on filedocumented in this encounter
--- OUTSIDE RECORDS SUMMARY | 2020-05-08 06:35 | XMS REPORT | Encounter Summary ---
Author Author [facility] Organization [facility] Address Unknown Phone Unavailable Care Team Providers Care Stereotype Caster Name Role Phone FloresDelmar PCP Encounter Details Care Team Description Date Type Department Elvira Irving MD [address] Ortho/Med Pavilion Lvl 5C [place] [address] 02/15/2020 Documentation [facility] [address] [place] [address] Social History Date Tobacco Use [...] as of this encounter Progress Notes * Glenna Lemus BSN - 02/15/2020 7:57 AM CDT CBC and iron study results sent to us from [facility]. Results sent t o the front end java developer to be scanned into chart. documented in this encounter Plan of Treatment Not on filedocumented as of this encounter Visit Diagnoses Not on filedocumented in this encounter
--- OUTSIDE RECORDS SUMMARY | 2020-05-08 06:35 | XMS REPORT | Encounter Summary ---
Author Author [facility] Organization [facility] Address Unknown Phone Unavailable Care Team Providers Care Tight Barrel Inspector Name Role Phone FloresDelmar PCP Encounter Details Care Team Description Date Type Department Socrates Polo MD [address] Ortho/Med Pavilion Lvl [address] [place] [address] 01/31/2020 Documentation [facility] [address] [place] [address] Social History Date Tobacco Use [...] Progress Notes * Glenna Lemus BSN - 01/31/2020 11:11 AM CDT Informed patient that Dr. Jacobo wants her to get a CBC and iron study drawn wi thin the next two weeks. Orders have been placed. Patient [place] [address] [place] from [facility] and would prefer to get labs drawn at [facility] which is much closer to her. Called to inform lab at [facility] and sent orders over to them. Also requested results when they are ready. Patient will get this done within two weeks from today. Fax#[phone] Future Appointments Date Time Provider Department Center 02/27/2020 10:00 AM OBGYZackery [facility] 4 MP[facility] FOOD AND BEVERAGE MANAGER 02/27/2020 10:30 AM [facility] MPBGYN FOOD AND BEVERAGE MANAGER documented in this encounter Plan of Treatment Not on filedocumented as of this encounter Visit Diagnoses Not on filedocumented in this encounter
--- OUTSIDE RECORDS SUMMARY | 2020-05-08 06:35 | XMS REPORT | Encounter Summary ---
Author Author [facility] Organization [facility] Address Unknown Phone Unavailable Care Team Providers Care Grade Recorder Name Role Phone MarkPratikDelmar PCP Encounter Details Care Team Description Date Type Department Margaux Jacobo MD [address] [place] [address] Anemia complicating , second tr imester (Primary Dx) 01/30/2020 Orders Only [facility] [address] [facility] [address] [place] [address] Social History Date Tobacco Use [...] as of this encounter Plan of Treatment Order Schedule Name Type Priority Associated Diag noses Expected: 01/30/2020 (Approximate), Expi res: 01/29/2021 CBC Lab Routine Anemia complica ting , second trimester Expected: 01/30/2020 (Approximate), Expi res: 01/29/2021 IRON + BINDING CAPACITY + Lab Routine Anem ia complicating %SAT+ FERRITIN , second trimester documented as of this encounter Visit Diagnoses Diagnosis Anemia complicating , second t rimester documented in this encounter
--- OUTSIDE RECORDS SUMMARY | 2020-05-08 06:36 | XMS REPORT | Encounter Summary ---
Author Author [facility] Address Unknown Phone Unavailable Care Team Providers Care Manager Medicare Marketing Name Role Phone Delmar Flores PCP Reason for Visit * Reason Comments Infusion Therapy * Treatment (Routine) Referred By Contact Referred To Contact Status Reason Specialty Diagnoses / Procedures [facility]5 Supervisor Type [facility] [address] [place] [address] [facility] Infusion Cl [address] [address] Closed Infusion Diagnoses Iron deficiency anemia, unspecified iron deficiency anemia type High-risk H/O gastric bypass Other vitamin B12 deficiency anemias P rocedures iron dextran (INFED) cyanocobalamin (RUBRAMIN) Encounter Details Care Team Description Date Type Department Srinivasa Valle MD [address] [facility] [address] [place] [address] [phone] Iron deficiency anemia, unspecified iron deficiency anemia type (Primary Dx); High-risk in second trimester; H/O gastric bypass 01/23/2020 Infusion [facility] [address] [id number] Social History Date Tobacco Use Types Packs/Day Years Used Never Smoker Smokeless Tobacco: Never Used Sex Assigned at Date Recorded Female 01/09/2020 10:13 AM CDT Industry Job Start Date Occupation Not on file Not on file Not on file Travel End Travel History Travel Start No recent travel history available. Date Recorded COVID-19 Exposure Response 01/23/2020 7:11 AM CDT In the last month, have you been in contact with No / Unsure someone who was confirmed or suspected to have Coronavirus / COVID-19? documented as of this encounter Last Filed Vital Signs Reading Time Taken Comments Vital Sign 94/51 01/23/2020 10:46 AM CDT Blood Pressure 69 01/23/2020 10:46 AM CDT Pulse 36.9 C (98.5 F) 01/23/2020 7:40 AM CDT Temperature 16 01/23/2020 7:40 AM CDT Respiratory Rate 99% 01/23/2020 7:40 AM CDT Oxygen Saturation - - Inhaled Oxygen Concentration 77.3 kg (170 lb 6.4 oz) 01/23/2020 7:40 AM CDT Weight 154.9 cm (5' 1") 01/23/2020 7:40 AM CDT Height 32.2 01/23/2020 7:40 AM CDT Body Mass Index documented in [...] impairment: No documented as of this encounter Patient Instructions * Patient Instructions* Alexys Reed RN - 01/23/2020 7:45 AM CDT Iron Dextran injection Brand Name: INFeD What is this medicine? IRON DEXTRAN (AHY imer DEX villanueva) is an iron complex. Iron is used to make healthy red blood cells, which carry oxygen and nutrients through the body. This medici ne is used to treat people who cannot take iron by mouth and have low levels of iron in the blood. How should I use this medicine? This medicine is for injection into a vein or a muscle. It is given by a health school childcare attendant in a hospital or clinic setting. Talk to your boring mill operator regarding the use of this medicine in children. While this drug may be prescribed for children as young as 4 months old for selected c onditions, precautions do apply. What side effects may I notice from receiving this medicine? Side effects that you should report to your doctor or health school childcare attendant a s soon as possible: allergic reactions like skin rash, itching or hives, swelling of the face, li ps, or tongue blue lips, nails, or skin breathing problems changes in blood pressure chest pain confusion fast, irregular heartbeat feeling faint or lightheaded, falls fever or chills flushing, sweating, or hot feelings joint or muscle aches or pains pain, tingling, numbness in the hands or feet seizures unusually weak or tired Side effects that usually do not require medical attention (report to your docto r or health school childcare attendant if they continue or are bothersome): change in taste (metallic taste) diarrhea headache irritation at site where injected nausea, vomiting stomach upset What may interact with this medicine? Do not take this medicine with any of the following medications: deferoxamine dimercaprol other iron products This medicine may also interact with the following medications: chloramphenicol deferasirox What if I miss a dose? It is important not to miss your dose. Call your doctor or health care profsubhash farooq if you are unable to keep an appointment. Where should I keep my medicine? This drug is given in a hospital or clinic and will not be stored at home. What should I tell my health care provider before I take this medicine? They need to know if you have any of these conditions: anemia not caused by low iron levels heart disease high levels of iron in the blood kidney disease liver disease an unusual or allergic reaction to iron, other medicines, foods, dyes, or pre servatives or trying to get breast-feeding What should I watch for while using this medicine? Visit your doctor or health school childcare attendant regularly. Tell your doctor if you r symptoms do not start to get better or if they get worse. You may need blood w ork done while you are taking this medicine. You may need to follow a special diet. Talk to your doctor. Foods that contain i riley include: whole grains/cereals, dried fruits, beans, or peas, leafy green veg etables, and organ meats (liver, kidney). Long-term use of this medicine may increase your risk of some cancers. Talk to y our doctor about how to limit your risk. NOTE:This sheet is a summary. It may not cover all possible information. If you have questions about this medicine, talk to your doctor, pharmacist, or health c are provider. Copyright 2020 [employer] documented in this encounter Plan of Treatment Not on filedocumented as of this encounter Visit Diagnoses Diagnosis Iron deficiency anemia, unspecified iro n deficiency anemia type High-risk in second trimester H/O gastric bypass Bariatric surgery status documented in this encounter Administered Medications Action Date Dose Rate Site Medication Order MAR Action 01/23/2020 8:52 AM CDT 500 mg acetaminophen (TYLENOL) tablet 500 mg Given 500 mg, Oral, ONCE, 1 dose, 01/23/20 at 0921, TOTAL ACETAMINOPHEN DOSE NOT T O EXCEED 4GM DAILY, 01/23/2020 7:55 AM CDT 1,000 mcg Arm, Lef t cyanocobalamin (RUBRAMIN) injection Given 1,000 mcg 1,000 mcg, Intramuscular, ONCE, 1 dose, Thu01/23/20 at 0807 01/23/2020 8:52 AM CDT 25 mg diphenhydrAMINE (BENADRYL) capsule 25 mg Given 25 mg, Oral, ONCE, 1 dose, Thu01/23/20 at 0921 01/23/2020 7:58 AM CDT 25 mg 202 mL/hr iron dextran (INFED) 25 mg in sodium Given - New chloride 0.9% (NS) 50.5 mL IVPB Bag 25 mg, 50.5 mL, at 202 mL/hr, Administe r over 15 Minutes, Intravenous, ONCE, 1 dose, Thu01/23/20 at 0807, 1) No pre-medications are to be given prior t o the test dose. 2) Infuse over 15 minutes. 3) Observe for 1 hour for any reaction to the infusion. 4) If no reaction, proceed with pre-medications for the full dose., 01/23/2020 9:34 AM CDT 975 mg 520 mL/hr iron dextran (INFED) 975 mg in sodium Given - New chloride 0.9% (NS) 519.5 mL IVPB Bag 975 mg, 519.5 mL, at 520 mL/hr, Administer over 1 Hours, Intravenous, ONCE, 1 dose, Thu01/23/20 at 0951, Infuse over 1 hour if patient tolerates test dose., documented in this encounter
--- OUTSIDE RECORDS SUMMARY | 2020-05-08 06:36 | XMS REPORT | Encounter Summary ---
Author Author [facility] Organization [facility] Address Unknown Phone Unavailable Care Team Providers Care Car Wash Manager Name Role Phone MarkDelmar PCP Reason for Visit * Reason Comments Ultrasound Encounter Details Care Team Description Date Type Department Shaka Ponce DO [address] Orth[facility] Lvl 5C [place] [address] High-risk in second trimester; Bariatric surgery status complicating , second trimester; Encounter for screening for malformations; Encounter for screening for cervical length; Anemia complicating , second trimester 12/26/2019 Clinical [facility] [address] [place] [address] Social History Date Tobacco Use Types Packs/Day Years Used Never Smoker Smokeless Tobacco: Never Used Sex Assigned at Date Recorded Female Industry Job Start Date Occupation Not on file Not on file Not on file Travel End Travel History Travel Start No recent travel history available. documented as of this encounter Progress Notes * Tanvi Peterson - 12/26/2019 10:45 AM LAPEL PADDER Georgiana Savage presents for an ultrasound encounter. Past Medical, Surgical, Family & Social History; Medications & Allergies contained in the electronic record below were not reviewed today and may not be up-to-date. Please see A/S OBGYN report for all documentation related to this encounter. 12/26/2019 Tanvi Peterson L PADDER documented in this encounter Plan of Treatment Not on filedocumented as of this encounter Procedures Comments Procedure Name Priority Date/Time Associated Diag nosis ULTRASOUND [facility] CLINIC Routine 12/26/2019 High-ri sk in ORDER 10:32 AM LAPEL PADDER second trimester Bariatric surgery status complicating , second trimester Encounter for screening for malformations Encounter for screening for cervical length Anemia complicating , second trimester documented in this encounter Results * ULTRASOUND [facility] CLINIC ORDER (12/26/2019 10:32 AM LAPEL PADDER) Specimen Impressions Performed At IMPRESSION: [facility] fetus with biometry consisten t an TRACY of 05/16/2020. Echogenic cardiac foci noted. German byrd had normal NIPS testing, this is likely a normal v ariant. Within the limits of this examination, no structural abnormalities noted. Umbilical and uterine artery Doppler as sessment is reassuring. Normal cervical length suggests a reduc ed risk for spontaneous . RECOMMENDATIONS: Repeat growth every 4 weeks carmen cates to history of gastric bypass. These can be perform ed in your office. Thank-you for allowing us to participat e in the care of your patient. If you have any questio ns regarding this visit, please do not hesitate to call. Narrative Performed At [facility] REPORT (Signed Final 12/26/2019 04:44 pm) PATIENT INFO: ID #: [id number] : [phone] (34 yrs)(F) Name: GEORGIANA SAVAGE Visit Date: 12/26/2019 10:32 am PERFORMED BY: Performed By: Tanvi JEFFERSON, LINWOOD Attending: Shaka Olivas Referred By: Moses Galindo MD Ref. Address: [address], [facility] [address] Location: Out-Patient [facility]FC SERVICE(S) PROVIDED: Ultrasound, after first trimester > o r = 14 weeks 0 [id number] days Maternal Uterine Artery Doppler [address] Ultrasound, transvaginal, [address] INDICATIONS: Previous gastric bypass affecting pre gnancy, O99.842 2nd trimester Encounter for screening for Z36.3 malformations Encounter for screening for Z36.86 cervical length Maternal Anemia; second trimester O99.012 EVALUATION: Num Of Fetuses: 1 Preg. Location: Intrauterin e Heart Rate(bpm): 157 Cardiac Activity: Observed Presentation: Cephalic Placenta: Anterior P. Cord Insertion: Normal Amniotic Fluid RICHARD FV: Within normal limits BIOMETRY: BPD: 45.2 mm G.Age: 19w 5d OFD: 60.7 mm HC: 169.1 mm G.Age: 19w 4d 28 % AC: 151.4 mm G.Age: 20w 2d 61 % FL: 29.7 mm G.Age: 19w 1d 20 % HUM: 28.2 mm G.Age: 19w 1d 33 % CER: 21.4 mm G.Age: 20w 2d 59 % CI: 74.5 % 70 - 86 FL/HC: 17.6 % 16.8 - 19.8 HC/AC: 1.12 1.09 - 1.39 FL/BPD: 65.7 % FL/AC: 19.6 % 20 - 24 Est. FW: 312 gm 0 lb 11 oz 42 % GESTATIONAL AGE: U/S Today: 19w 5d TRACY: 05/16/20 Best: 19w 6d Det. By: Early TRACY: 05/15/20 Ultrasound (11/02/19) 2ND TRIMESTER GENETIC SONOGRAM - TRISOM Y 21 SCREENING: Age At TRACY: 35 Risk=1: 389 NB: 5.95 mm 29 % NFT: 4.1 mm Echogenic cardiac focus: Yes LR : 5.83 Ventriculomegaly of >= 10 mm: No LR : 0.94 Nuchal fold thickening >= 6 mm: No LR : 0.8 Echogenic bowel: No LR : 0.9 Mild hydronephrosis: No LR : 0.92 Short humerus: No LR : 0.74 Short femur: No LR : 0.8 Aberrant right subclavian artery: No LR : 0.71 Hypoplastic/absent Nasal bone: No LR : 0.46 9 Of 9 Criteria Were Visualized and 1 A bnormal(s) Were Seen. Ultrasound Modified Risk for Down Syndrome = 1:554 ANATOMY: Cranium: Appears n ormal Cavum: Appears normal Ventricles: Within Nor mal Limits Choroid Plexus: Normal; no c ysts Cerebellum: Normal siz e and shape Posterior Fossa: Within Normal Limits Nuchal Fold: Within Norm al Limits Face: Normal profile (nasal bone/chin) Lips: Appears normal Palate: Appears normal Heart: 4 chambe r view and axis RVOT: Appears normal LVOT: Appears normal Aortic Arch: Appears nor mal Ductal Arch: Appears nor mal Diaphragm: Within Nor mal Limits Stomach: Visualize d Abdomen: No abnorm alities seen Abdominal Wall: Appears norm al Cord Vessels: [address] Kidneys: Visualize d Bladder: Visualize d Spine: No abnor malities seen Upper Extremities: Present Lower Extremities: Legs and feet appear normal DOPPLER - VESSELS: Umbilical Artery S/D %tile RI PI PSV (cm/s) 3.04 9 0.67 1.09 24.82 Middle Cerebral Artery S/D RI PI PSV MoM (cm/s) 5.11 0.8 1.73 21.17 < 1 Cerebroplacental Ratio MCA PI / UA PI 1.59 DOPPLER - UTERINE ARTERY: Right S/D Ratio: 2.07 RI: 0.52 PI: 0.78 9 %Tile Left S/D Ratio: 3.09 RI: 0.68 PI: 1.28 65 %Tile Right Notching: No early diastoli c notching seen. Left Notching: No early diastol ic notching seen. CERVIX UTERUS ADNEXA: Cervix Length: 3.69 cm. Closed. Measured transvaginally. Uterus Within Normal Limits Left Ovary Size(cm) 3.55 x 1.55 Appears normal Right Ovary Not seen. Adnexa No adnexal masses noted COMMENTS: Procedure orders were added/modified by the attending physician listed above with p ermission from the referring physician. Previously ent ered orders will not be altered. Sidney Medrano Electronically Signed Final Report 0 12/26/2019 04:44 pm Performing Organization Address [facility] Number [place] [facility] [id number] [place] [id number] [address] documented in this encounter Visit Diagnoses Diagnosis High-risk in second trimester Bariatric surgery status complicating p regnancy, second trimester Encounter for screening for m alformations Encounter for screening for c ervical length Anemia complicating , second t rimester documented in this encounter
--- OUTSIDE RECORDS SUMMARY | 2020-05-08 06:36 | XMS REPORT | Encounter Summary ---
Author Author [facility] Organization [facility] Address Unknown Phone Unavailable Care Team Providers Care First Line Supervisor Name Role Phone FloresDelmar PCP Reason for Visit * Reason Comments High Risk Encounter Details Care Team Description Date Type Department Srinivasa Valle MD [address] [facility] Lvl [address] [place] [id number] High-risk in third trimester ( Primary Dx); Iron deficiency anemia, unspecified iron deficiency anemia type; 19 weeks gestation of ; History of Linn-en-Y gastric bypass; Iron deficiency anemia secondary to inadequate dietary iron intake; Major depressive disorder with single episode, in remission (HCC); H/O gastric bypass 12/26/2019 Office Visit [facility] [address] [place] [address] Social History Date Tobacco Use Types Packs/Day Years Used Never Smoker Smokeless Tobacco: Never Used Sex Assigned at Date Recorded Female Industry Job Start Date Occupation Not on file Not on file Not on file Travel End Travel History Travel Start No recent travel history available. documented as of this encounter Last Filed Vital Signs Reading Time Taken Comments Vital Sign 109/61 12/26/2019 10:15 AM PURCHASING SPECIALIST Blood Pressure 83 12/26/2019 10:15 AM PURCHASING SPECIALIST Pulse - - Temperature - - Respiratory Rate - - Oxygen Saturation - - Inhaled Oxygen Concentration 74.1 kg (163 lb 6.4 oz) 12/26/2019 10:15 AM PURCHASING SPECIALIST Weight 154.9 cm (5' 1") 12/26/2019 10:15 AM PURCHASING SPECIALIST Height 30.87 12/26/2019 10:15 AM PURCHASING SPECIALIST Body Mass Index documented in this encounter Progress Notes * Glenna Lemsu BSN - 12/26/2019 10:00 AM PURCHASING SPECIALIST Patient's most recent iron and b12 lab results indicated a deficiency. Dr. Leonard barakat equested for patient to receive one dose of 1000 mg of iv iron (dextran) and 100 mcg of iv b12 infusions. Orders placed and reviewed by pharmacist. Patient will need to get levels re-checked sometime within two weeks-one month post infusion. Will continue to monitor and treat appropriately. HASING SPECIALIST * Srinivasa Valle MD - 12/26/2019 10:00 AM PURCHASING SPECIALIST production analyst - Initial Visit HPI: Georgiana Savage is a 34 y.o. F at 19w6d by 12 wk U/S (OSH). Estimated Date of Delivery: 05/15/20. She presents today as a referral from Dr. Galindo for an initial HR appt for possible alpha-thalassemia trait, previous gastric bypass surgery (linn-en-Y), history of substance use disorder, anxiety/depression, h istory of labor with delivery at 34 weeks. She has no concerns today and is feeling well. +FM, -VB, -CTX, -LOF Obstetrical History: Year GA Delivery Wt Notes/Complications 2014 34 weeks Vaginal 5 lb. 12 oz. 2018 Gynecologic History: Pap: last pap smear done at 12wga with Dr. Galindo, normal per pt; remote history of LEEP in 2003 STDs: No history of STD; has been tested in this , all negative Menses: Menstrual History Age at menarche Duration of menses Length of Cycle Menopause? Age at menopause Past Medical History: Anemia requiring transfusion Anxiety/depression Past Surgical History: Cholecystectomy (2016) Gastric bypass linn en y, (2005) LEEP (2004) Family History: Neg for anemia Social History: Reports a history of tobacco use - denies current use Reports a history of substance abuse - denies current use Alcohol - denies current use Per records, substance use stopped at age 31 Allergies: No Known Allergies Medications: Outpatient Encounter Medications as of 12/26/2019 Medication Sig Dispense Refill ferrous sulfate (IRON PO) Take by mouth. FOLIC ACID PO Take by mouth. vit calc,iron,folic ( VITAMIN PO) Take by mouth. No facility-administered encounter medications on file as of 12/26/2019. Objective: Blood pressure 109/61, pulse 83, height 154.9 cm (61"), weight 74.1 kg (163 lb 6 .4 oz). Body mass index is 30.87 kg/m. Gen: NAD CV: regular rate Lungs: non-labored Abd: soft, nttp, gravid Ext: no LE edema, nttp BLE SSE: Deferred SVE: Deferred Labs: Outside records reviewed Blood type A POS Ab Neg Rubella Immune HepB Neg Syph Ab Neg GC/CT Neg/Neg HIV Neg Urine culture - results requested 11/30/19 quad DS 400, carrier screening neg (including neg alpha thal sequencing ), NIPS wnl 12/15/19 Hemoglobin 8.3, MCV 78 SONO: 12/26/19 19w6d, EFW 42%, normal anatomy. Assessment 34 y.o. F @ 19w6d by 12wk U/S. Estimated Date of Delivery: 05/15/20 H/o Gastric Bypass H/o delivery Anemia - likely iron deficiency, poor absorption due to gastric bypass. Anxiety/depression Obesity Rh positive Plan: Anemia, likely iron or absorption issue: Neg alpha thal genetic testing (THYME testing) Reports she has had anemia in the past requiring blood transfusions Hemoglobin electrophoresis shows normal HgbA1, HgbA2 Obtain CBC, iron studies, B12, folate, MMA, homocysteine, intrinsic factor to day. May need several IV iron infusions Anxiety/Depression: Assess mood at each visit - stable today Medications: Zoloft 100 mg QD History of gastric bypass: Gastric bypass in 2004 (age 18) Reports weight gain this - 10 lb. Since October Currently taking iron TID with orange juice, folic acid QD Recommend growth ultrasounds every 4 weeks History of delivery: Cervical length today - 3.69 cm , Dr. Galindo Primary: PNV PNLs reviewed - will request urine culture and pap smear results NIPS low risk Recommend msAFP @15-22wga - ordered today Detailed US @18-20wga 2hr GTT, CBC, Ab screen, syph ab @28 wks Recommend flu shot during flu season - patient declines Recommend Tdap in 3rd trimester Collect GBS @35wga PP BCM: to be determined Third trimester anesthesia consult needed: N Primary OB: Dr. Galindo RTC in 2 weeks. Srinivasa Valle MD HASING SPECIALIST * Debbie Sher MA - 12/26/2019 10:00 AM PURCHASING SPECIALIST 1. Have you or your sexual partner traveled away from [facility] in the last 12 w eeks? No HASING SPECIALIST documented in this encounter Miscellaneous Notes * Addendum Note - Glenna Lemus BSN - 12/26/2019 10:00 AM PURCHASING SPECIALIST Addended by: GLENNA LEMUS on: 12/27/2019 03:56 PM Modules accepted: Orders HASING SPECIALIST * Addendum Note - Glenna Lemus BSN - 12/26/2019 10:00 AM PURCHASING SPECIALIST Addended by: GLENNA LEMUS on: 12/27/2019 02:35 PM Modules accepted: Orders HASING SPECIALIST documented in this encounter Plan of Treatment Not on filedocumented as of this encounter Procedures Comments Procedure Name Priority Date/Time Associated Diag nosis HC IRON BINDING CAPACITY Routine 12/26/2019 Iron deficiency anemia, + %SAT 11:33 AM PURCHASING SPECIALIST unspecified iron deficiency anemia type HC METHYLMALONIC Routine 12/26/2019 Iron deficien cy anemia, ACID;QUANT 11:33 AM PURCHASING SPECIALIST unspecified iron deficiency anemia type HC ANTI-INTRINSIC FACTOR, Routine 12/26/2019 Iron deficiency anemia, SERUM 11:33 AM PURCHASING SPECIALIST unspecified iron deficiency anemia type HC CBC,AUTOMATED Routine 12/26/2019 Iron deficien cy anemia, 11:33 AM PURCHASING SPECIALIST unspecified iron deficiency anemia type HC HOMOCYSTEINE, PLASMA Routine 12/26/2019 Iron d eficiency anemia, 11:33 AM PURCHASING SPECIALIST unspecified iron deficiency anemia type HC FOLATE, SERUM Routine 12/26/2019 Iron deficien cy anemia, 11:33 AM PURCHASING SPECIALIST unspecified iron deficiency anemia type HC VITAMIN B12 Routine 12/26/2019 Iron deficiency anemia, 11:33 AM PURCHASING SPECIALIST unspecified iron deficiency anemia type POC URINE DIPSTICK MANUAL Routine 12/26/2019 High -risk in READ 10:17 AM PURCHASING SPECIALIST third trimester documented in this encounter Results * CBC (12/26/2019 11:33 AM PURCHASING SPECIALIST) [facility] White Blood 6.4 4.5 - 11.0 K/UL [facility] Cells RBC 3.64 (L) 4.0 - 5.0 M/UL [facility] Hemoglobin 8.6 (L) 12.0 - 15.0 GM/DL [facility] Hematocrit 27.3 (L) 36 - 45 % [facility] MCV 74.9 (L) 80 - 100 FL [facility] MCH 23.6 (L) 26 - 34 PG [facility] MCHC 31.5 (L) 32.0 - 36.0 G/DL [facility] RDW 21.6 (H) 11 - 15 % [facility] Platelet Count 204 150 - 400 K/UL [facility] MPV 8.5 7 - 11 FL [facility] Specimen Blood Performing Organization Address [facility] Ph one Number [facility] MAIN [facility] [address] [place] [address] * INTRINSIC FACTOR BLOCKING AB (12/26/2019 11:33 AM PURCHASING SPECIALIST) [facility] Intrinsic Negative REFERENCE LAB Factor Antibody Reference range: Negative Positive in 50% of persons with pernicious anemia. [facility], [address] [place] [id number] Specimen Blood Performing Organization Address [facility] Ph one Number REFERENCE LAB REFERENCE LAB See results for address. * METHYLMALONIC ACID QUANT (12/26/2019 11:33 AM PURCHASING SPECIALIST) [facility] Methylmalonic 0.46 (H) REFERENCE LAB Acid Comment: Reference range: <=0.40 Unit: nmol/mL In this sample, the concentration of methylmalonic acid (MMA) was minimally elevated. As the upper limit of the reference range varies in different laboratories from 0.4 to 0.6 nmol/mL. This finding could be considered normal, especially if the patient does not show other signs of vitamin B12 deficiency. ADDITIONAL INFORMATION This test was developed and its performance characteristics determined by [facility] in a manner consistent with CLIA requirements. This test has not been cleared or approved by the U.S. Food and Drug Administration. [facility] Specimen Blood Performing Organization Address [facility] one Number REFERENCE LAB REFERENCE LAB See results for address. * FOLATE, SERUM (12/26/2019 11:33 AM PURCHASING SPECIALIST) Pathologist [facility] Serum Folate >22.3Comment: NOTE NEW >3.9 NG/ML MAIN LAB REFERENCE RANGES Specimen Blood Performing Organization Address [facility] one Number MAIN LAB [address] [place] [address] * VITAMIN B12 (12/26/2019 11:33 AM PURCHASING SPECIALIST) Vitamin B12 131 (L) 180 - 914 PG/ML MAIN LAB Specimen Blood Performing Organization Address [facility] one Number MAIN LAB [address] [place] [address] * HOMOCYSTEINE (12/26/2019 11:33 AM PURCHASING SPECIALIST) [facility] Homocysteine 7.7 5 - 15 UMOL/L MAIN LAB Specimen Blood Performing Organization Address [facility] one Number MAIN LAB [address] [place] [address] * IRON + BINDING CAPACITY + %SAT+ FERRITIN (12/26/2019 11:33 AM PURCHASING SPECIALIST) Iron 20 (L) 50 - 160 MCG/DL MAIN LAB Iron 630 (H) 270 - 380 MCG/DL MAIN LAB Binding-TIBC % Saturation 3 (L) 28 - 42 % MAIN LAB Ferritin 9 (L) 10 - 200 NG/ML MAIN LAB Specimen Blood Performing Organization Address [facility] one Number MAIN LAB [address] [place] [address] * POC URINE DIPSTICK MANUAL READ (12/26/2019 10:17 AM PURCHASING SPECIALIST) Urine Glucose negComment: Lot#[id number] IN CLINIC POC exp-02/22/2021 Urine Bilirubin IN CLINIC POC Urine Ketone neg IN CLINIC POC Urine Specific IN CLINIC [place] POC Urine Blood POC neg IN CLINIC Urine PH POC IN CLINIC Urine Protein neg IN CLINIC POC Urine IN CLINIC Urobilinogen POC Urine Nitrite IN CLINIC POC Urine neg IN CLINIC Leukocytes POC Color,UA IN CLINIC Turbidity,UA IN CLINIC Specimen Urine - Urine Performing Organization Address City/State/[facility] Ph one Number IN CLINIC documented in this encounter Visit Diagnoses Diagnosis High-risk in third trimester Iron deficiency anemia, unspecified iro n deficiency anemia type 19 weeks gestation of state, incidental History of Linn-en-Y gastric bypass Bariatric surgery status Iron deficiency anemia secondary to jose dequate dietary iron intake Major depressive disorder with single e pisode, in remission (HCC) H/O gastric bypass Bariatric surgery status documented in this encounter
--- OUTSIDE RECORDS SUMMARY | 2020-05-08 06:36 | XMS REPORT | Encounter Summary ---
Author Author [facility] Organization [facility] Address Unknown Phone Unavailable Care Team Providers Care Income Tax Auditor Name Role Phone Delmar Flores PCP Encounter Details Care Team Description Date Type Department Memo Mccain RPH 01/17/2020 Orders Only The [address] [address] Social History Date Tobacco Use Types Packs/Day Years Used Never Smoker Smokeless Tobacco: Never Used Sex Assigned at Date Recorded Female 01/09/2020 10:13 AM CDT Industry Job Start Date Occupation Not on file Not on file Not on file Travel End Travel History Travel Start No recent travel history available. documented as of this encounter Plan of Treatment Not on filedocumented as of this encounter Visit Diagnoses Not on filedocumented in this encounter
--- OUTSIDE RECORDS SUMMARY | 2020-05-08 06:36 | XMS REPORT | Encounter Summary ---
Author Author [facility] Organization [facility] Address Unknown Phone Unavailable Care Team Providers Care Real Estate Sales Manager Name Role Phone Delmar Flores PCP Encounter Details Care Team Description Date Type Department 01/09/2020 Travel Social History Date Tobacco Use Types [...]
--- OUTSIDE RECORDS SUMMARY | 2020-05-08 06:36 | XMS REPORT | Encounter Summary ---
Author Author [facility] Organization [facility] Address Unknown Phone Unavailable Care Team Providers Care Paint Roller Assembler Name Role Phone Delmar Flores PCP Encounter Details Care Team Description Date Type Department Socrates Polo MD [address] Ortho[facility]Med Pavilion Lvl [address] [place] [address] 12/28/2019 Documentation [facility] [address] [place] [address] Social History Date Tobacco Use [...]
--- OUTSIDE RECORDS SUMMARY | 2020-05-08 06:36 | XMS REPORT | Encounter Summary ---
Author Author [facility] Organization [facility] Address Unknown Phone Unavailable Care Team Providers Care Liquor Maker Name Role Phone Delmar Flores PCP Encounter Details Care Team Description Date Type Department 01/23/2020 Travel Social History Date Tobacco Use Types [...]
--- OUTSIDE RECORDS SUMMARY | 2020-05-08 06:36 | XMS REPORT | Encounter Summary ---
Author Author [facility] Organization [facility] Address Unknown Phone Unavailable Care Team Providers Care Pointer Helper Name Role Phone Delmar Flores PCP Encounter Details Care Team Description Date Type Department 01/26/2020 Travel Social History Date Tobacco Use Types [...]
--- OUTSIDE RECORDS SUMMARY | 2020-05-08 06:36 | XMS REPORT | Encounter Summary ---
Author Author [facility] Organization [facility] Address Unknown Phone Unavailable Care Team Providers Care Physician Office Assistant Name Role Phone FloresDelmar PCP Reason for Visit * Reason Comments High Risk Encounter Details Care Team Description Date Type Department Elvira Irving MD [address] Orth[facility] Lvl [address] [place] [phone] 19 weeks gestation of 01/09/[address] [facility] [address] [place] [id number] Social History Date Tobacco Use Types Packs/Day [...] Signs Reading Time Taken Comments Vital Sign 120/57 01/09/2020 10:07 AM CDT Blood Pressure 97 01/09/2020 10:07 AM CDT Pulse - - Temperature - - Respiratory Rate - - Oxygen Saturation - - Inhaled Oxygen Concentration 76.7 kg (169 lb 3.2 oz) 01/09/2020 10:07 AM CDT Weight 154.9 cm (5' 1") 01/09/2020 10:07 AM CDT Height 31.97 01/09/2020 10:07 AM CDT Body Mass Index documented in this encounter Progress Notes * Debbie Sher MA - 01/09/2020 11:00 AM CDT 1. Have you or your sexual partner traveled away from [place] in the last 12 w eeks? No * Elvira Irving MD - 01/09/2020 11:00 AM CDT production tester - Return Visit HPI: Georgiana Savage is a 34 y.o. F at 21w6d by 12 wk U/S (OSH). Estimated Date of Delivery: 05/15/20. She presents today for follow-up, primary OB is a r charisseal from Dr. Galindo. She also has possible alpha-thalassemia trait, previou s gastric bypass surgery (linn-en-Y), history of substance use disorder, anxiety /depression, history of labor with delivery at 36 weeks. Of not e, we have documented a 34 week delivery - but she reports to me today that she thought she was 36 weeks. Infant weighed 5 lbs 12 oz. She has no concerns today and is feeling well. Brought in her Nichole injections for us to dispose of since we have recommended that she discontinue these. She i s very relieved that she does not have to take them! +FM, -VB, -CTX, -LOF Obstetrical History: Year GA Delivery Wt Notes/Complications 2014 36 weeks Vaginal 5 lb. 12 oz. 2018 Gynecologic History: Pap: last pap smear done at 12wga with Dr. Galindo, normal per pt; remote history of LEEP in 2003 STDs: No history of STD; has been tested in this , all negative Past Medical History: Anemia requiring transfusion Anxiety/depression Past Surgical History: Cholecystectomy (2016) Gastric bypass linn en y, (2005) LEEP (2003) Family History: Neg for anemia Social History: Reports a history of tobacco use - denies current use Reports a history of substance abuse - denies current use Alcohol - denies current use Per records, substance use stopped at age 31 Allergies: No Known Allergies Medications: Outpatient Encounter Medications as of 01/09/2020 Medication Sig Dispense Refill ferrous sulfate (IRON PO) Take by mouth. FOLIC ACID PO Take by mouth. vit calc,iron,folic ( VITAMIN PO) Take by mouth. sertraline (ZOLOFT) 100 mg tablet Take 100 mg by mouth daily. No facility-administered encounter medications on file as of 01/09/2020. Objective: BP 120/57 (BP Source: Arm, Right Upper, Patient Position: Sitting) | Pulse 97 | Ht 154.9 cm (61") | Wt 76.7 kg (169 lb 3.2 oz) | BMI 31.97 kg/m Gen: NAD CV: regular rate Lungs: non-labored Abd: soft, nttp, gravid Ext: no LE edema, nttp BLE SSE: Deferred SVE: Deferred FHR: 155 Labs: Outside records reviewed Blood type A POS Ab Neg Rubella Immune HepB Neg Syph Ab Neg GC/CT Neg/Neg HIV Neg Urine culture - results requested 11/30/19 quad DS (age related risk 1 in 460). Negative NIPS (innatal). Bailey ier screening neg (including neg alpha thal sequencing) SONO: 12/26/19 19w6d, EFW 42%, normal anatomy.CL 3.6 cm Assessment 34 y.o. F @21w6d by 12wk U/S. Estimated Date of Delivery: 05/15/20 H/o Gastric Bypass H/o delivery Anemia - likely iron deficiency, poor absorption due to gastric bypass. Anxiety/depression Obesity Rh positive Plan: Anemia, likely iron or GI absorption issue: Microcytic anemia, Hgb 8.6, MCV 75. Neg alpha thal genetic testing (Progenity testing) Reports she has had anemia in the past requiring blood transfusions Hemoglobin electrophoresis shows normal HgbA1, HgbA2 Last visit we ordered CBC, iron studies, B12, folate, MMA, homocysteine, intr insic factor today. Results c/w iron deficiency and mild B12 deficiency. Recommend cont iron, ascorbic acid, and B12 replacement. Scheduled for IV iro n transfusion on 01/23/2020. Anxiety/Depression: Assess mood at each visit - stable today Medications: Zoloft 100 mg QD History of gastric bypass: Gastric bypass in 2004 (age 18) Currently taking iron TID with orange juice, folic acid QD Check iron, vitamin D, B12, folate q trimester. Recommend growth ultrasounds every 4 weeks History of late delivery: Previously counseled by Dr. Valle on 17-OHP injections and why we don't typical ly recommend them - she stopped them. Cervical length at 20 weeks was 3.69 cm Given the late gestational age (34-36 weeks, previously documented as 34 weeks, today patient states 36 weeks), with reassuring CL, we did not recomm end further surveillance or interventions for PTB prevention. , Dr. Galindo Primary: PNV PNLs reviewed - will request urine culture and pap smear results NIPS low risk Recommend msAFP @15-22wga Detailed US @18-20wga 2hr GTT, CBC, Ab screen, syph ab @28 wks Recommend flu shot during flu season - patient declines Recommend Tdap in 3rd trimester Collect GBS @35wga PP BCM: to be determined Third trimester anesthesia consult needed: N Primary OB: Dr. Galindo RTC in 4 weeks. Continue to see Dr. Galindo for routine OB care. Margie Osborn MD I saw and evaluated Georgiana with Dr. Osborn and agree with the documented as sessment and plan. No further surveillance or intervention for PTB prevention gi ector late with long cervical length at 20 weeks. Continue routine care. IV iron infusions scheduled due to iron deficient microcytic ane kristy. Repeat CBC, iron studies with folate, B12, vitamin D in third trimester. A total of 15 minutes were spent with the patient, > 50% was spent in [id number] counseling on the risks and management of the above complications in . Elvira Irving MD Maternal- Medicine documented in this encounter Plan of Treatment Not on filedocumented as of this encounter Procedures Comments Procedure Name Priority Date/Time Associated Diag nosis POC URINE DIPSTICK MANUAL Routine 01/09/2020 19 w eeks gestation of READ 10:11 AM CDT documented in this encounter Results * POC URINE DIPSTICK MANUAL READ (01/09/2020 10:11 AM CDT) Urine Glucose negComment: Lot#[id number] IN CLINIC POC exp-03/25/2021 Urine Bilirubin IN CLINIC POC Urine Ketone neg IN CLINIC POC Urine Specific IN CLINIC [place] POC Urine Blood POC neg IN CLINIC Urine PH POC IN CLINIC Urine Protein neg IN CLINIC POC Urine IN CLINIC Urobilinogen POC Urine Nitrite IN CLINIC POC Urine neg IN CLINIC Leukocytes POC Color,UA IN CLINIC Turbidity,UA IN CLINIC Specimen Urine - Urine Performing Organization Address City/State/Zipcode Ph one Number IN CLINIC documented in this encounter Visit Diagnoses Diagnosis 19 weeks gestation of state, incidental documented in this encounter
--- OUTSIDE RECORDS SUMMARY | 2020-05-08 06:36 | XMS REPORT | Encounter Summary ---
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 Caf[facility] Cl [address] Level 5 Pod [place] [address] Closed High Risk Diagnoses GROWTH/FU P rocedures SONOGRAM Encounter Details Care Team Description Date Type Department Doctor, Miscellaneous Feliberto Aleman MD [address] Ortho[facility] Pavilion Lvl 1 [place] [address] History of Garret-en-Y gastric bypass (Zulema charan Dx); Bariatric surgery status complicating , second trimester; Anemia complicating , second trimester 01/26/2020 Clinical [facility] [address] Level 5 [address] [place] [address] Social History Date Tobacco Use [...] as of this encounter Progress Notes * Heide Hernandez - 01/26/2020 10:30 AM CDT Georgiana Savage presents for an ultrasound encounter. Past Medical, Surgical, Family & Social History; Medications & Allergies contained in the electronic record below were not reviewed today and may not be up-to-date. Please see A/S OBGYN report for all documentation related to this encounter. 01/26/2020 Heide Hernandez documented in this encounter Plan of Treatment Not on filedocumented as of this encounter Procedures Comments Procedure Name Priority Date/Time Associated Diag nosis [facility]OUND [facility] Routine 01/26/2020 History of Garret-en-Y ORDER 9:48 AM CDT gastric bypass Bariatric surgery status complicating , second trimester Anemia complicating , second trimester documented in this encounter Results * [facility] ORDER (01/26/2020 9:48 AM CDT) Specimen Impressions Performed At IMPRESSION: [facility] Adequate interval growth. Within the limits of this examination, no structural abnormalities noted. Umbilical artery Doppler assessment is reassuring. RECOMMENDATIONS: Repeat growth in 6 weeks. (Appointment given) Thank-you for allowing us to participat e in the care of your patient. If you have any questio ns regarding this visit, please do not hesitate to call. Narrative Performed At [facility]PORT (Signed Final 01/30/2020 08:08 am) PATIENT INFO: ID #: [id number] : [birth year] (35 yrs)(F) Name: GEORGIANA SAVAGE Visit Date: 01/26/2020 09:48 am PERFORMED BY: Performed By: Heide Daniels i RDMS, RVT, RDCS Attending: Socrates Olivas Referred By: NORA SANTIAGO MD Ref. Address: [facility] Location: Out-Patient [facility](S) PROVIDED: Ultrasound, Follow-up 88289 Umbilical Cord Doppler 48436 INDICATIONS: Previous gastric bypass affecting pre gnancy, O99.842 2nd trimester Maternal Anemia; second trimester O99.012 EVALUATION: Num Of Fetuses: 1 Heart Rate(bpm): 161 Cardiac Activity: Observed Presentation: Transverse Lie, head to left Placenta: Anterior P. Cord Insertion: Normal Amniotic Fluid RICHARD FV: Within normal limits RICHARD Sum(cm) Lar gest Pocket(cm) 18.66 5.86 RUQ(cm) RLQ(cm) LUQ(c m) LLQ(cm) 5.86 4.65 4 .42 3.73 BIOMETRY: BPD: 59.5 mm G.Age: 24w 2d OFD: 78.2 mm HC: 216 mm G.Age: 23w 4d 13 % AC: 197.3 mm G.Age: 24w 3d 45 % FL: 41.4 mm G.Age: 23w 3d 15 % HUM: 38.7 mm G.Age: 23w 5d 29 % CER: 27.7 mm G.Age: 24w 5d 64 % CI: 76.1 % 70 - 86 FL/HC: 19.2 % 18.7 - 20.9 HC/AC: 1.09 1.05 - 1.21 FL/BPD: 69.6 % 71 - 87 FL/AC: 21.0 % 20 - 24 Est. FW: 647 gm 1 lb 7 oz 31 % GESTATIONAL AGE: U/S Today: 24w 0d TRACY: 05/17/20 Best: 24w 2d Det. By: Early TRACY: 05/15/20 Ultrasound (11/02/19) ANATOMY: Cranium: Appears n ormal Ventricles: Appears no rmal Cerebellum: Appears no rmal Posterior Fossa: Appears louie l Heart: 4 chambe r view and axis RVOT: Appears normal LVOT: Appears normal Aortic Arch: Appears nor mal Ductal Arch: Appears nor mal Stomach: Visualize d Kidneys: Visualize d Bladder: Visualize d DOPPLER - VESSELS: Umbilical Artery S/D %tile RI PI PSV (cm/s) 2.81 20 0.64 1.03 37.15 Middle Cerebral Artery S/D RI PI %tile PSV MoM (cm/s) 6.08 0.83 2.02 64 32.8 1.07 Cerebroplacental Ratio MCA PI / UA PI %tile 1.96 66 COMMENTS: Procedure orders were added/modified by the attending physician listed above with p ermission from the referring physician. Previously ent ered orders will not be altered. Socrates Polo M.D. Electronically Signed Final Report 0 01/30/2020 08:08 am Performing Organization Address City/State/[facility] Ph one Number [facility] [address] [place], [place] [address] [address] documented in this encounter Visit Diagnoses Diagnosis History of Garret-en-Y gastric bypass Bariatric surgery status Bariatric surgery status complicating p regnancy, second trimester Anemia complicating , second t rimester documented in this encounter
--- OUTSIDE RECORDS SUMMARY | 2020-05-08 06:36 | XMS REPORT | Encounter Summary ---
Author Author [facility] Organization [facility] Address Unknown Phone Unavailable Care Team Providers Care Dental Prosthetist Name Role Phone PCP Unavailable Encounter Details Care Team Description Date Type Department Srinivasa Valle MD [address] Ortho[facility] Pavilion Lvl 5C [place] [address] High-risk in second trimester (Primary Dx) 12/23/2019 Orders Only [facility] [address] [place] [address] Social History Date Tobacco Use Types Packs/Day Years Used Never Assessed Sex Assigned at Date Recorded Female Industry Job Start Date Occupation Not on file Not on file Not on file Travel End Travel History Travel Start No recent travel history available. documented as of this encounter Plan of Treatment Not on filedocumented as of this encounter Results * [facility]ASOUND [facility] ORDER (12/26/2019 10:32 AM DIRECTOR OF CREATIVE SERVICES) Specimen Impressions Performed At IMPRESSION: [facility] [...] not hesitate to call. Narrative Performed At [facility] (Signed Final 12/26/2019 04:44 pm) PATIENT INFO: ID #: [id number] : [birth year] (34 yrs)(F) Name: GEORGIANA SAVAGE Visit Date: 12/26/2019 10:32 am PERFORMED BY: Performed By: Tanvi JEFFERSON RDCS Attending: Shaka Olivas Referred By: Moses Galindo MD Ref. Address: Via [address] [address] Location: Out-Patient [facility] SERVICE(S) PROVIDED: Ultrasound, after first trimester > o r = 14 weeks 0 6[address] days Maternal Uterine Artery Doppler 21327 Ultrasound, transvaginal, [address] INDICATIONS: Previous gastric bypass affecting pre gnancy, [...] - TRISOM Y 21 SCREENING: Age At RTACY: 35 Risk=1: 389 NB: 5.95 mm 29 [...] 0 12/26/2019 04:44 pm Performing Organization Address City/State/Zipcode Ph one Number [facility] [address] [place], [place] [address] [address] documented in this encounter Visit Diagnoses Diagnosis High-risk in second trimester documented in this encounter
--- OUTSIDE RECORDS SUMMARY | 2020-05-08 06:37 | XMS REPORT ---
Author Author Georgiana HARKINS Organization [facility] Address [address] [place] [address] Care Team Providers Care Mathematics Faculty Member Name Role Phone STEPHANY HARKINS Unavailable PROBLEMS Type Condition ICD9-CM Code XTR02-PH Code Onset Dates Condition S tatus SNOMED Code Problem Attention-deficit hyperactivity disorder, combined type F90.2 Active 18163640 Problem Chronic fatigue R53.82 Active 8422 9001 Problem Bipolar II disorder F31.81 Active 33137743 Problem Iron deficiency anemia due to chronic blood loss D 50.0 Active [id number] ALLERGIES No Information ENCOUNTERS Encounter Location Date Diagnosis [facility] [address] [id number] [address] [place] [address] Aug, [facility] [address] [id number] [address] [place] [address] Jan, Iron deficiency anemia due t o chronic blood loss D50.0 ; Chronic fatigue R53.82 ; Arthralgia, unspecified joint M25.50 ; Hair loss L65.9 ; S/P gastric bypass Z98.84 ; Vesicles R23.8 and Recurrent acute suppurative otitis media of right ear without spontaneous rupture of tympanic membrane H66.004 [facility] [address] [id number] [address] [place] [address] February, [facility] [address] [id number] [address] [place] [address] February, Attention-deficit hyperactiv ity disorder, combined type F90.2 [facility] [address] [facility] [id number] [address] [place] [address] February, [facility] [address] [id number] [address] [place] [address] Dec, Bipolar II disorder F31.81 [place] [id number] [place] [address] Oct, [place] [address] [place] [id number] [address] [place] [address] Oct, Bipolar II disorder F31.81 a nd Attention-deficit hyperactivity disorder, combined type F90.[address] [address] Oct, Encounter to establish care Z76.89 ; Iron deficiency anemia due to chronic blood loss D50.0 and Bipolar II disorder F31.81 [place] [address] [address] Apr, Well woman exam with routine gynecological exam Z01.419 ; Screen for STD (sexually transmitted disease) Z11.3 ; Screening breast examination Z12.39 and Encounter for initial prescription of contraceptive pills Z30.011 [place] [address] [place] [id number] [address] [place] [address] Jan, Bipolar II disorder F31.81 [place] [address] [address] Apr, Fatigue 780.[address] [address] Apr, Iron deficiency 280.[address] [address] Apr, Vitamin B 12 deficiency 266. 2 and Iron deficiency 280.9 [place] [address] [place] [id number] [place] [address] Apr, Joint pain 719.40 [place] [id number] [address] [place] [address] Apr, [place] [address] [place] [place] [id number] [address] [place] [address] Apr, Fatigue 780.79 and Bilateral knee pain 719.46 [facility] [address] [id number] [address] [place] [address] February, General counseling on prescr iption of oral contraceptives V25.01 [facility] [address] [id number] [address] [place] [address] February, Cough 786.2 [facility] [address] [facility] [id number] [address] [place] [address] February, Sinusitis 473.9 ; Suppurativ e otitis media of left ear 382.4 ; Otalgia of both ears 388.70 and Allergic rhinitis 477.9 [facility] [address] [id number] [address] [place] [address] Jan, [facility] [address] [facility] [id number] [address] [place] [address] Jan, [facility] [address] [facility] [id number] [address] [place] [address] Oct, [facility] [address] [id number] [address] [place] [address] Oct, [facility] [address] [id number] [address] [place] [address] Sep, [facility] [address] [id number] [address] [place] [address] Sep, [facility] [address] [id number] [address] [place] [address] Sep, [facility] [address] [id number] [address] [place] [address] Sep, [facility] [address] [id number] [address] [place] [address] Jun, [facility] [address] [id number] [address] [place] [address] Jun, [facility] [address] [facility] [id number] [address] [place] [address] Jun, [facility] [address] [id number] [address] [place] [address], [place] [address] Jun, [facility] [address] [id number] [address] [place] [address], [place] [address] May, [facility] [address] [id number] [address] [place] [address], [place] [address] May, [facility] [address] [id number] [address] [place] [address], [place] [address] May, [facility] [address] [id number] [address] [place] [address], [place] [address] May, [facility] [address] [id number] [address] [address], [place] [address] May, [facility] [address] [id number] [address] [address], [place] [address] May, [facility] [address] [id number] [address] [address], [place] [address] May, [facility] [address] [id number] [address] [address], [place] [address] May, [facility] [address] [id number] [address] [address], [place] [address] May, [facility] [address] [id number] [address] [address], [place] [address] May, [facility] [address] [id number] [address] [address], [place] [address] May, [facility] [address] [id number] [address] [address], [place] [address] May, [facility] [address] [id number] [address] [address], [place] [address] May, [facility] [address] [id number] [address] [address], [place] [address] May, [facility] [address] [id number] [address] [address], [place] [address] May, [facility] [address] [id number] [facility] [place] [address] May, [facility] [address] [id number] [address] [address], [place] [address] May, [facility] [address] [id number] [address] [address], [place] [address] May, [facility] [address] [id number] [address] [address], [place] [address] Apr, [facility] [address] [id number] [address] [address], [place] [address] Apr, [facility] [address] [id number] [address] [address], [place] [address] Apr, [facility] [address] [id number] [address] [address], [place] [address] Apr, [facility] [address] [id number] [address] [address], [place] [address] Apr, [facility] [address] [id number] [address] [place] [address], [place] [address] Apr, [facility] [address] [id number] [address] [address], [place] [address] Apr, [facility] [address] [id number] [address] [address], [place] [address] Apr, [facility] [address] [id number] [address] [address], [place] [address] Apr, [facility] [address] [id number] [address] [address], [place] [address] Apr, [facility] [address] [id number] [address] [address], [place] [address] Apr, [facility] [address] [id number] [address] [address], [place] [address] Apr, [facility] [address] [id number] [facility] [place] [address] 14 Apr, 2014 [facility] [address] [id number] [facility] [place] [address] 14 Apr, 2014 [facility] [address] [id number] [facility] [place] [address] Apr, [facility] [address] [id number] [facility] [place] [address] Apr, [facility] [address] [id number] [facility] [place] [address] Apr, [facility] [address] [id number] [facility] [place] [address] Apr, [facility] [address] [id number] [address] [place] [address], [place] [address] Apr, [facility] [address] [id number] [address] [place] [address], [place] [address] Mar, [facility] [address] [id number] [address] [place] [address], [place] [address] Mar, [facility] [address] [id number] [address] [place] [address], [place] [address] February, [facility] [address] [id number] [address] [place] [address], [place] [address] February, [facility] [address] [id number] [address] [place] [address], [place] [address] February, [facility] [address] [id number] [address] [place] [address], [place] [address] February, [facility] [address] [id number] [address] [place] [address], [place] [address] February, [facility] [address] [id number] [address] [place] [address], [place] [address] Jan, [facility] [address] [id number] [address] [place] [address], [place] [address] Jan, [facility] [address] [id number] [address] [place] [address], [place] [address] Jan, [facility] [address] [id number] [address] [place] [address], [place] [address] Jan, [facility] [address] [id number] [address] [place] [address], [place] [address] Jan, [facility] [address] [id number] [address] [place] [address], [place] [address] Jan, [facility] [address] [id number] [address] [place] [address], [place] [address] Nov, [facility] [address] [id number] [address] [place] [address], [place] [address] Nov, [facility] [address] [id number] [address] [place] [address], [place] [address] Oct, [facility] [address] [id number] [address] [place] [address], [place] [address] Oct, [facility] [address] [id number] [address] [address], [place] [address] Aug, [facility] [address] [id number] [address] [address], [place] [address] Aug, [facility] [address] [id number] [address] [address], [place] [address] Aug, [facility] [address] [id number] [address] [place] [address], [place] [address] Aug, [facility] [address] [id number] [address] [address], [place] [address] Jul, [facility] [address] [id number] [address] [place] [address], [place] [address] Jul, [facility] [address] [id number] [address] [place] [address], [place] [address] Jul, [facility] [address] [id number] [address] [address], [place] [address] 29 Jul, 2013 [facility] [address] [id number] [address] [address], [place] [address] 28 Jul, 2013 [facility] [address] [id number] [address] [place] [address], [place] [address] 28 Jul, 2013 [facility] [address] [id number] [address] [place] [address], [place] [address] 15 Jul, 2013 [facility] [address] [id number] [address] [place] [address], [place] [address] 15 Jul, 2013 [facility] [address] [id number] [address] [place] [address], [place] [address] Mar, [facility] [address] [id number] [address] [place] [address], [place] [address] February, [facility] [address] [id number] [address] [place] [address], [place] [address] February, [facility] [address] [id number] [address] [place] [address], [place] [address] Jan, [facility] [address] [id number] [address] [place] [address], [place] [address] Jan, [facility] [address] [id number] [address] [place] [address], [place] [address] Jan, [facility] [address] [id number] [address] [address], [place] [address] Jan, [facility] [address] [id number] [address] [place] [address], [place] [address] Dec, [facility] [address] [id number] [address] [place] [address], [place] [address] Dec, [facility] [address] [id number] [address] [place] [address], [place] [address] Dec, [facility] [address] [id number] [address], [place] [address] Nov, [facility] [address] [facility] [id number] [address] [place] [address] Dec, IMMUNIZATIONS No Known Immunizations SOCIAL HISTORY Never Assessed REASON FOR VISIT PLAN OF CARE VITAL SIGNS MEDICATIONS Unknown Medications RESULTS No Results PROCEDURES Procedure Date Ordered Result Body Site CHORIONIC GONADOTROPIN ASSAY Aug 23, 2013 VENIPUNCT, ROUTINE* Aug 23, 2013 INSTRUCTIONS MEDICATIONS ADMINISTERED No Known Medications MEDICAL (GENERAL) HISTORY Type Description Date Medical History LEEP Medical History cervical biopsy Medical History GASTRIC BYPASS 2004 Medical History DEPRESSION Medical History Bipolar II disorder Medical History Iron deficiency anemia due to chronic bl ood loss Medical History Attention-deficit hyperactivity disorder , combined type Surgical History cholecystectomy Surgical History gastric bypass 05/2005 Surgical History cervical biposy Surgical History tubes in ears several times Hospitalization History childbirth 2014
--- OUTSIDE RECORDS SUMMARY | 2020-05-08 06:37 | XMS REPORT ---
Author Author OZ Georgiana NILSA [facility] Address [address] [place] [address] Care Team Providers Care Catalog Specialist Name Role Phone NILSA CLINTON Unavailable PROBLEMS Type Condition ICD9-CM Code SXN67-ED Code Onset Dates Condition S tatus SNOMED Code Problem Attention-deficit hyperactivity disorder, combined type F90.2 Active 32955016 Problem Chronic fatigue R53.82 Active 8422 9001 Problem Bipolar II disorder F31.81 Active 79736801 Problem Iron deficiency anemia due to chronic blood loss D 50.0 Active [id number] ALLERGIES No Information ENCOUNTERS Encounter Location Date Diagnosis [facility] [address] [id number] [address] [place] [id number] Aug, [facility] [id number] [address] [place] [id number] Jan, Iron deficiency anemia due t o chronic blood loss D50.0 ; Chronic fatigue R53.82 ; Arthralgia, unspecified joint M25.50 ; Hair loss L65.9 ; S/P gastric bypass Z98.84 ; Vesicles R23.8 and Recurrent acute suppurative otitis media of right ear without spontaneous rupture of tympanic membrane H66.004 [facility] [id number] [address] [place] [address] February, [facility] [id number] [address] [place] [address] February, Attention-deficit hyperactiv ity disorder, combined type F90.2 [facility] [id number] [address] [place] [address] February, [facility] [id number] [address] [place] [address] Dec, Bipolar II disorder F31.81 [place] [address] [id number] [place] [address] Oct, [place] [address] [address] Oct, Bipolar II disorder F31.81 a nd Attention-deficit hyperactivity disorder, combined type F90.[address] [address] Oct, Encounter to establish care Z76.89 ; Iron deficiency anemia due to chronic blood loss D50.0 and Bipolar II disorder F31.[address] [address] Apr, Well woman exam with routine gynecological exam Z01.419 ; Screen for STD (sexually transmitted disease) Z11.3 ; Screening breast examination Z12.39 and Encounter for initial prescription of contraceptive pills Z30.011 [place] [id number] [address] [place] [id number] Jan, Bipolar II disorder F31.[address] [address] Apr, Fatigue 780.[address] [address] Apr, Iron deficiency 280.9 [place] [id number] [address] [place] [address] Apr, Vitamin B 12 deficiency 266. 2 and Iron deficiency 280.9 [place] [id number] [place] [address] Apr, Joint pain 719.40 [place] [id number] [address] [place] [address] Apr, [place] [id number] [place] [address] Apr, Fatigue 780.79 and Bilateral knee pain 719.46 [facility] [address] [id number] [address] [place] [address] February, General counseling on prescr iption of oral contraceptives V25.01 [facility] [address] [id number] [address] [place] [address] February, Cough 786.2 [facility] [address] [id number] [address] [place] [address] February, Sinusitis 473.9 ; Suppurativ e otitis media of left ear 382.4 ; Otalgia of both ears 388.70 and Allergic rhinitis 477.9 [facility] [address] [id number] [address] [place] [address] Jan, [facility] [address] [id number] [address] [place] [phone] Jan, [facility] [address] [id number] [address] [place] [id number] Oct, [facility] [address] [id number] [address] [place] [id number] Oct, [facility] [address] [id number] [address] [place] [id number] Sep, [facility] [address] [id number] [address] [place] [id number] Sep, [facility] [address] [id number] [address] [place] [address] Sep, [facility] [address] [id number] [address] [place] [id number] Sep, [facility] [address] [id number] [address] [place] [address] Jun, [facility] [address] [id number] [address] [place] [address] Jun, [facility] [address] [id number] [address] [place] [address] Jun, [facility] [address] [id number] [facility] [place] [id number] Jun, [facility] [address] [id number] [address] [place] [address], [place] [id number] May, [facility] [address] [id number] [address] [place] [address], [place] [id number] May, [facility] [address] [id number] [address] [place] [address], [place] [id number] May, [facility] [address] [id number] [address] [place] [address], [place] [id number] May, [facility] [address] [id number] [address] [place] [address], [place] [id number] May, [facility] [address] [id number] [address] [place] [address], [place] [id number] May, [facility] [address] [id number] [address] [place] [address], [place] [id number] May, [facility] [address] [id number] [address] [place] [address], [place] [id number] May, [facility] [address] [id number] [address] [place] [address], [place] [id number] May, [facility] [address] [id number] [address] [place] [address], [place] [id number] May, [facility] [address] [id number] [address] [place] [address], [place] [id number] May, [facility] [address] [id number] [address] [place] [address], [place] [id number] May, [facility] [address] [id number] [address] [place] [address], [place] [id number] May, [facility] [address] [id number] [address] [place] [address], [place] [id number] May, [facility] [address] [id number] [address] [place] [address], [place] [id number] May, [facility] [address] [id number] [facility] [place] [id number] May, [facility] [address] [id number] [address] [place] [address], [place] [id number] May, [facility] [address] [id number] [address] [place] [address], [place] [id number] May, [facility] [address] [id number] [address] [place] [address], [place] [id number] Apr, [facility] [address] [id number] [address] [place] [address], [place] [id number] Apr, [facility] [address] [id number] [address] [place] [address], [place] [id number] Apr, [facility] [address] [id number] [address] [place] [address], [place] [id number] Apr, [facility] [address] [id number] [address] [place] [address], [place] [id number] Apr, [facility] [address] [id number] [address] [place] [address], [place] [id number] Apr, [facility] [address] [id number] [address] [place] [address], [place] [id number] Apr, [facility] [address] [id number] [address] [place] [address], [place] [id number] Apr, [facility] [address] [id number] [address] [place] [address], [place] [id number] Apr, [facility] [address] [id number] [address] [place] [address], [place] [id number] Apr, [facility] [address] [id number] [address] [place] [address], [place] [id number] Apr, [facility] [address] [id number] [address] [place] [address], [place] [id number] Apr, [facility] [address] [id number] [facility] [place] [id number] 14 Apr, 2014 [facility] [address] [id number] [facility] [place] [id number] 14 Apr, 2014 [facility] [address] [id number] [facility] [place] [id number] Apr, [facility] [address] [id number] [address] [place] [address], [place] [id number] Apr, [facility] [address] [id number] [address] [place] [address], [place] [id number] Apr, [facility] [address] [id number] [address] [place] [address], [place] [id number] Apr, [facility] [address] [id number] [address] [place] [address], [place] [id number] Apr, [facility] [address] [id number] [address] [place] [address], [place] [id number] Mar, [facility] [address] [id number] [address] [place] [address], [place] [id number] Mar, [facility] [address] [id number] [address] [place] [address], [place] [id number] February, [facility] [address] [id number] [address] [place] [address], [place] [id number] February, [facility] [address] [id number] [address] [place] [address], [place] [id number] February, [facility] [address] [id number] [address] [place] [address], [place] [id number] February, [facility] [address] [id number] [address] [place] [address], [place] [id number] February, [facility] [address] [id number] [address] [place] [address], [place] [id number] Jan, [facility] [address] [id number] [address] [place] [address], [place] [id number] Jan, [facility] [address] [id number] [address] [place] [address], [place] [id number] Jan, [facility] [address] [id number] [address] [place] [address], [place] [id number] Jan, [facility] [address] [id number] [address] [place] [address], [place] [id number] Jan, [facility] [address] [id number] [address] [place] [address], [place] [id number] Jan, [facility] [address] [id number] [address] [place] [address], [place] [id number] Nov, [facility] [address] [id number] [address] [place] [address], [place] [id number] Nov, [facility] [address] [id number] [address] [place] [address], [place] [id number] Oct, [facility] [address] [id number] [address] [place] [address], [place] [id number] Oct, [facility] [address] [id number] [address] [place] [address], [place] [id number] Aug, [facility] [address] [id number] [address] [place] [address], [place] [id number] Aug, [facility] [address] [id number] [address] [place] [id number] Aug, [facility] [address] [id number] [address] [place] [id number] Aug, [facility] [address] [id number] [address] [place] [address], [place] [id number] Jul, [facility] [address] [id number] [address] [place] [address], [place] [id number] Jul, [facility] [address] [id number] [address] [place] [address], [place] [id number] Jul, [facility] [address] [id number] [address] [place] [address], [place] [id number] 29 Jul, 2013 [facility] [address] [id number] [address] [place] [address], [place] [id number] Jul, [facility] [address] [id number] [address] [place] [address], [place] [id number] 28 Jul, 2013 [facility] [address] [id number] [address] [place] [address], [place] [id number] 15 Jul, 2013 [facility] [address] [id number] [address] [place] [address], [place] [id number] 15 Jul, 2013 [facility] [address] [id number] [address] [place] [address], [place] [id number] Mar, [facility] [address] [id number] [address] [place] [address], [place] [id number] February, [facility] [address] [id number] [address] [place] [address], [place] [id number] February, [facility] [address] [id number] [address] [place] [address], [place] [id number] Jan, [facility] [address] [id number] [address] [place] [address], [place] [id number] Jan, [facility] [address] [id number] [address] [place] [address], [place] [id number] Jan, [facility] [address] [id number] [address] [place] [address], [place] [id number] Jan, [facility] [address] [id number] [address] [place] [address], [place] [id number] Dec, [facility] [address] [id number] [address] [place] [address], [place] [id number] Dec, [facility] [address] [id number] [address] [place] [address], [place] [id number] Dec, [facility] [address] [id number] [address] [place] [address], [place] [id number] Nov, [facility] [address] [facility] [id number] [address] [place] [address] Dec, IMMUNIZATIONS No Known Immunizations SOCIAL HISTORY Never Assessed REASON FOR VISIT PLAN OF CARE VITAL SIGNS MEDICATIONS Unknown Medications RESULTS No Results PROCEDURES No Known procedures INSTRUCTIONS MEDICATIONS ADMINISTERED No Known Medications MEDICAL [...]
--- OUTSIDE RECORDS SUMMARY | 2020-05-08 06:37 | XMS REPORT ---
Author Author Georgiana Blanchard Doctor Organization [facility] Address Unknown Phone Unavailable Care Team Providers Care Glazier Stained Glass Name Role Phone Migration, Doctor Unavailable Unavailable PROBLEMS Type Condition ICD9-CM Code [id number] Code Onset Dates Condition S tatus SNOMED Code Problem Attention-deficit hyperactivity disorder, combined type F90.2 Active 71993802 Problem Chronic fatigue R53.82 Active 8422 9001 Problem Bipolar II disorder F31.81 Active 89938625 Problem Iron deficiency anemia due to chronic blood loss D 50.0 Active [id number] ALLERGIES No Information ENCOUNTERS Encounter Location Date Diagnosis [facility] [address] [id number] [address] [place] [address] Aug, [facility] [address] [id number] [address] [place] [address] Jan, Iron deficiency anemia due t o chronic blood loss D50.0 ; Chronic fatigue R53.82 ; Arthralgia, unspecified joint M25.50 ; Hair loss L65.9 ; S/P gastric bypass Z98.84 ; Vesicles R23.8 and Recurrent acute suppurative otitis media of right ear without spontaneous rupture of tympanic membrane H66.004 [facility] [address] [id number] [address] [place] [address] February, [facility] [address] [id number] [address] [place] [address] February, Attention-deficit hyperactiv ity disorder, combined type F90.2 [facility] [id number] [address] [place] [address] February, [facility] [address] [id number] [address] [place] [address] Dec, Bipolar II disorder F31.81 [facility] [address] [id number] [address] [place] [address] Oct, [place] [id number] [address] [place] [address] Oct, Bipolar II disorder F31.81 a nd Attention-deficit hyperactivity disorder, combined type F90.2 [place] [address] [id number] [address] [place] [address] Oct, Encounter to establish care Z76.89 ; Iron deficiency anemia due to chronic blood loss D50.0 and Bipolar II disorder F31.81 [place] [address] [facility] [id number] [address] [place] [address] Apr, Well woman exam with routine gynecological exam Z01.419 ; Screen for STD (sexually transmitted disease) Z11.3 ; Screening breast examination Z12.39 and Encounter for initial prescription of contraceptive pills Z30.011 [place] [id number] [address] [place] [address] Jan, Bipolar II disorder F31.81 [place] [address] [facility] [id number] [address] [place] [address] Apr, Fatigue 780.79 [place] [id number] [address] [place] [address] Apr, Iron deficiency 280.9 [place] [id number] [address] [place] [address] Apr, Vitamin B 12 deficiency 266. 2 and Iron deficiency 280.9 [place] [address] [facility] [id number] [address] [place] [address] Apr, Joint pain 719.40 [place] [id number] [address] [place] [address] Apr, [place] [id number] [place] [address] Apr, Fatigue 780.79 and Bilateral knee pain 719.46 [place] [id number] [place] [address] February, General counseling on prescr iption of oral contraceptives V25.01 [facility] [address] [id number] [address] [place] [address] February, Cough 786.2 [facility] [address] [id number] [address] [place] [address] February, Sinusitis 473.9 ; Suppurativ e otitis media of left ear 382.4 ; Otalgia of both ears 388.70 and Allergic rhinitis 477.9 [facility] [address] [id number] [address] [place] [address] Jan, [facility] [address] [id number] [address] [place] [address] Jan, [facility] [address] [facility] [id number] [address] [place] [address] Oct, [facility] [address] [id number] [address] [place] [address] Oct, [facility] [address] [id number] [address] [place] [address] Sep, [facility] [address] [id number] [address] [place] [address] Sep, [facility] [address] [facility] [id number] [address] [place] [address] Sep, [facility] [address] [id number] [address] [place] [address] Sep, [facility] [address] [id number] [address] [place] [address] Jun, [facility] [address] [id number] [address] [place] [address] Jun, [facility] [address] [id number] [address] [place] [address] 16 Jun, 2014 [facility] [address] [id number] [address] [place] [address] Jun, [facility] [address] [id number] [facility] [place] [address] May, [facility] [address] [id number] [address] [place] [address], [place] [address] May, [facility] [address] [id number] [address] [place] [address], [place] [address] May, [facility] [address] [id number] [address] [place] [address], [place] [address] May, [facility] [address] [id number] [address] [place] [address], [place] [address] May, [facility] [address] [id number] [address] [place] [address], [place] [address] May, [facility] [address] [id number] [address] [place] [address], [place] [address] May, [facility] [address] [id number] [address] [place] [address], [place] [address] May, [facility] [address] [id number] [address] [place] [address], [place] [address] May, [facility] [address] [id number] [address] [place] [address], [place] [address] May, [facility] [address] [id number] [address] [place] [address], [place] [address] May, [facility] [address] [id number] [address] [place] [address], [place] [address] May, [facility] [address] [id number] [address] [place] [address], [place] [address] May, [facility] [address] [id number] [address] [place] [address], [place] [address] May, [facility] [address] [id number] [address] [place] [address], [place] [address] May, [facility] [address] [id number] [facility] [place] [address] May, [facility] [address] [id number] [facility] [place] [address] May, [facility] [address] [id number] [facility] [place] [address] May, [facility] [address] [id number] [address] [place] [address], [place] [address] Apr, [facility] [address] [id number] [address] [place] [address], [place] [address] Apr, [facility] [address] [id number] [address] [place] [address], [place] [address] Apr, [facility] [address] [id number] [address] [place] [address], [place] [address] Apr, [facility] [address] [id number] [address] [place] [address], [place] [address] Apr, [facility] [address] [id number] [address] [place] [address], [place] [address] Apr, [facility] [address] [id number] [address] [place] [address], [place] [address] Apr, [facility] [address] [id number] [address] [place] [address], [place] [address] Apr, [facility] [address] [id number] [address] [place] [address], [place] [address] Apr, [facility] [address] [id number] [address] [place] [address], [place] [address] Apr, [facility] [address] [id number] [address] [place] [address], [place] [address] Apr, [facility] [address] [id number] [address] [place] [address], [place] [address] Apr, [facility] [address] [id number] [address] [place] [address], [place] [address] Apr, [facility] [address] [id number] [address] [place] [address], [place] [address] 14 Apr, 2014 [facility] [address] [id number] [address] [place] [address], [place] [address] Apr, [facility] [address] [id number] [address] [place] [address], [place] [address] Apr, [facility] [address] [id number] [address] [place] [address], [place] [address] Apr, [facility] [address] [id number] [address] [place] [address], [place] [address] Apr, [facility] [address] [id number] [address] [place] [address], [place] [address] Apr, [facility] [address] [id number] [address] [place] [address], [place] [address] Mar, [facility] [address] [id number] [address] [place] [address], [place] [address] Mar, [facility] [address] [id number] [address] [place] [address], [place] [address] February, [facility] [address] [id number] [address] [place] [address], [place] [address] February, [facility] [address] [id number] [address] [place] [address], [place] [address] February, [facility] [address] [id number] [address] [place] [address], [place] [address] February, [facility] [address] [id number] [address] [place] [address], [place] [address] February, [facility] [address] [id number] [address] [place] [address], [place] [address] Jan, [facility] [address] [id number] [address] [place] [address], [place] [address] Jan, [facility] [address] [id number] [address] [place] [address], [place] [address] Jan, [facility] [address] [id number] [address] [place] [address], [place] [address] Jan, [facility] [address] [id number] [address] [place] [address], [place] [address] Jan, [facility] [address] [id number] [address] [place] [address], [place] [address] Jan, [facility] [address] [id number] [address] [place] [address], [place] [address] Nov, [facility] [address] [id number] [address] [place] [address], [place] [address] Nov, [facility] [address] [id number] [address] [place] [address], [place] [address] Oct, [facility] [address] [id number] [address] [place] [address], [place] [address] Oct, [facility] [address] [id number] [address] [place] [address], [place] [address] Aug, [facility] [address] [id number] [address] [place] [address], [place] [address] Aug, [facility] [address] [id number] [address] [place] [address], [place] [address] Aug, [facility] [address] [id number] [address] [place] [address] Aug, [facility] [address] [id number] [address] [place] [address], [place] [address] Jul, [facility] [address] [id number] [address] [place] [address], [place] [address] Jul, [facility] [address] [id number] [address] [place] [address], [place] [address] Jul, [facility] [address] [id number] [address] [place] [address], [place] [address] Jul, [facility] [address] [id number] [address] [place] [address], [place] [address] 28 Jul, 2013 [facility] [address] [id number] [address] [place] [address], [place] [address] 28 Jul, 2013 [facility] [address] [id number] [address] [place] [address], [place] [address] 15 Jul, 2013 [facility] [address] [id number] [address] [place] [address], [place] [address] 15 Jul, 2013 [facility] [address] [id number] [address] [place] [address], [place] [address] Mar, [facility] [address] [id number] [address] [place] [address], [place] [address] February, [facility] [address] [id number] [address] [place] [address], [place] [address] February, [facility] [address] [id number] [address] [place] [address], [place] [address] Jan, [facility] [address] [id number] [address] [place] [address], [place] [address] Jan, [facility] [address] [id number] [address] [place] [address], [place] [address] Jan, [facility] [address] [id number] [address] [place] [address], [place] [address] Jan, [facility] [address] [id number] [address] [place] [address], [place] [address] Dec, [facility] [address] [id number] [address] [place] [address], [place] [address] Dec, [facility] [address] [id number] [address] [place] [address], [place] [address] Dec, [facility] [address] [id number] [address] [place] [address], [place] [address] Nov, [facility] [address] [id number] [address] [place] [address] [address] Dec, IMMUNIZATIONS No Known Immunizations SOCIAL HISTORY [...]
--- OUTSIDE RECORDS SUMMARY | 2020-05-08 06:37 | XMS REPORT ---
Author Author Georgiana Calderon Organization [facility] [place] Address [address] [place] [address] Care Team Providers Care Call Center Team Leader Name Role Phone ROSEANN Calderon Unavailable PROBLEMS Type Condition ICD9-CM Code [id number] Code Onset Dates Condition S tatus SNOMED Code Problem Attention-deficit hyperactivity disorder, combined type F90.2 Active 69693879 Problem Chronic fatigue R53.82 Active 8422 9001 Problem Bipolar II disorder F31.81 Active [id number] Problem Iron deficiency anemia due to chronic blood loss D 50.0 Active [id number] ALLERGIES No Information ENCOUNTERS Encounter Location Date Diagnosis [facility] [address] [id number] [address] [place] [address] Aug, [facility] [place] [address] [id number] [address] [place] [address] Jan, Iron deficiency anemia due t o chronic blood loss D50.0 ; Chronic fatigue R53.82 ; Arthralgia, unspecified joint M25.50 ; Hair loss L65.9 ; S/P gastric bypass Z98.84 ; Vesicles R23.8 and Recurrent acute suppurative otitis media of right ear without spontaneous rupture of tympanic membrane H66.004 [facility] [place] [address] [id number] [address] [place] [address] February, [facility] [place] [id number] [address] [place] [address] February, Attention-deficit hyperactiv ity disorder, combined type F90.2 [facility] [place] [id number] [address] [place] [address] February, [facility] [place] [id number] [address] [place] [address] Dec, Bipolar II disorder F31.81 [place] [id number] [place] [address] Oct, [place] [address] [id number] [address] [place] [address] Oct, Bipolar II disorder F31.81 a nd Attention-deficit hyperactivity disorder, combined type F90.[address] [address] Oct, Encounter to establish care Z76.89 ; Iron deficiency anemia due to chronic blood loss D50.0 and Bipolar II disorder F31.81 [place] [id number] [place] [address] Apr, Well woman exam with routine gynecological exam Z01.419 ; Screen for STD (sexually transmitted disease) Z11.3 ; Screening breast examination Z12.39 and Encounter for initial prescription of contraceptive pills Z30.011 [place] [address] [id number] [address] [place] [address] Jan, Bipolar II disorder F31.81 [place] [address] [address] Apr, Fatigue 780.79 [place] [id number] [place] [address] Apr, Iron deficiency 280.9 [place] [id number] [place] [address] Apr, Vitamin B 12 deficiency 266. 2 and Iron deficiency 280.9 [place] [id number] [place] [address] Apr, Joint pain 719.40 [place] [id number] [place] [address] Apr, [place] [id number] [place] [address] Apr, Fatigue 780.79 and Bilateral knee pain 719.46 [facility] [place] [address] [id number] [address] [place] [address] February, General counseling on prescr iption of oral contraceptives V25.01 [facility] [place] [address] [id number] [address] [place] [address] February, Cough 786.2 [facility] [place] [address] [facility] [id number] [address] [place] [address] February, Sinusitis 473.9 ; Suppurativ e otitis media of left ear 382.4 ; Otalgia of both ears 388.70 and Allergic rhinitis 477.9 [facility] [place] [address] [id number] [address] [place] [address] Jan, [facility] [place] [address] [id number] [address] [place] [address] Jan, [facility] [place] [address] [id number] [address] [place] [address] Oct, [facility] [place] [address] [id number] [address] [place] [address] Oct, [facility] [place] [address] [id number] [address] [place] [address] Sep, [facility] [place] [address] [facility] [id number] [address] [place] [address] Sep, [facility] [place] [address] [id number] [address] [place] [address] Sep, [facility] [place] [address] [id number] [address] [place] [address] Sep, [facility] [place] [address] [id number] [address] [place] [address] Jun, [facility] [place] [address] [id number] [address] [place] [address] Jun, [facility] [place] [address] [id number] [address] [place] [address] Jun, [facility] [address] [id number] [facility] [address] Jun, [facility] [address] [id number] [facility] [address] May, [facility] [address] [id number] [facility] [address] May, [facility] [address] [id number] [address] [place] [address], [place] [address] May, [facility] [address] [id number] [address] [place] [address], [place] [address] May, [facility] [address] [id number] [address] [place] [address], [place] [address] May, [facility] [address] [id number] [address] [place] [address], [place] [address] May, [facility] [address] [id number] [address] [place] [address], [place] [address] May, [facility] [address] [id number] [address] [place] [address], [place] [address] May, [facility] [address] [id number] [address] [place] [address], [place] [address] May, [facility] [address] [id number] [address] [place] [address], [place] [address] May, [facility] [address] [id number] [address] [place] [address], [place] [address] May, [facility] [address] [id number] [address] [place] [address], [place] [address] May, [facility] [address] [id number] [address] [place] [address], [place] [address] May, [facility] [address] [id number] [address] [place] [address], [place] [address] May, [facility] [address] [id number] [facility] [address] May, [facility] [address] [id number] [address] [place] [address], [place] [address] May, [facility] [address] [id number] [facility] [address] May, [facility] [address] [id number] [address] [place] [address], [place] [address] May, [facility] [address] [id number] [address] [place] [address], [place] [address] Apr, [facility] [address] [id number] [address] [place] [address], [place] [address] Apr, [facility] [address] [id number] [address] [place] [address], [place] [address] Apr, [facility] [address] [id number] [address] [place] [address], [place] [address] Apr, [facility] [address] [id number] [address] [place] [address], [place] [address] Apr, [facility] [address] [id number] [address] [place] [address], [place] [address] Apr, [facility] [address] [id number] [address] [place] [address], [place] [address] Apr, [facility] [address] [id number] [address] [place] [address], [place] [address] Apr, [facility] [address] [id number] [address] [place] [address], [place] [address] Apr, [facility] [address] [id number] [address] [place] [address], [place] [address] Apr, [facility] [address] [id number] [address] [place] [address], [place] [address] Apr, [facility] [address] [id number] [address] [place] [address], [place] [address] Apr, [facility] [address] [id number] [facility] [address] 14 Apr, 2014 [facility] [address] [id number] [facility] [address] Apr, [facility] [address] [id number] [facility] [address] Apr, [facility] [address] [id number] [address] [place] [address], [place] [address] Apr, [facility] [address] [id number] [facility] [address] Apr, [facility] [address] [id number] [address] [place] [address], [place] [address] Apr, [facility] [address] [id number] [address] [place] [address], [place] [address] Apr, [facility] [address] [id number] [address] [place] [address], [place] [address] Mar, [facility] [address] [id number] [address] [place] [address], [place] [address] Mar, [facility] [address] [id number] [address] [place] [address], [place] [address] February, [facility] [address] [id number] [address] [place] [address], [place] [address] February, [facility] [address] [id number] [address] [place] [address], [place] [address] February, [facility] [address] [id number] [address] [place] [address], [place] [address] February, [facility] [address] [id number] [address] [place] [address], [place] [address] February, [facility] [address] [id number] [address] [place] [address], [place] [address] Jan, [facility] [address] [id number] [address] [address] Jan, [facility] [address] [id number] [address] [place] [address], [place] [address] Jan, [facility] [address] [id number] [address] [place] [address], [place] [address] Jan, [facility] [address] [id number] [address] [place] [address], [place] [address] Jan, [facility] [address] [id number] [address] [place] [address], [place] [address] Jan, [facility] [address] [id number] [address] [place] [address], [place] [address] Nov, [facility] [address] [id number] [address] [place] [address], [place] [address] Nov, [facility] [address] [id number] [address] [place] [address], [place] [address] Oct, [facility] [address] [id number] [address] [place] [address], [place] [address] Oct, [facility] [address] [id number] [address] [place] [address], [place] [address] Aug, [facility] [address] [id number] [address] [place] [address], [place] [address] Aug, [facility] [address] [id number] [address] [place] [address] Aug, [facility] [address] [id number] [address] [place] [address] Aug, [facility] [address] [id number] [address] [place] [address], [place] [address] Jul, [facility] [address] [id number] [address] [place] [address], [place] [address] Jul, [facility] [address] [id number] [address] [place] [address], [place] [address] Jul, [facility] [address] [id number] [address] [place] [address], [place] [address] 29 Jul, 2013 [facility] [address] [id number] [address] [place] [address], [place] [address] Jul, [facility] [address] [id number] [address] [place] [address], [place] [address] 28 Jul, 2013 [facility] [address] [id number] [address] [place] [address], [place] [address] Jul, [facility] [address] [id number] [address] [place] [address], [place] [address] Jul, [facility] [address] [id number] [address] [place] [address], [place] [address] Mar, [facility] [address] [id number] [address] [place] [address], [place] [address] February, [facility] [address] [id number] [address] [place] [address], [place] [address] February, [facility] [address] [id number] [address] [place] [address], [place] [address] Jan, [facility] [address] [id number] [address] [place] [address], [place] [address] Jan, [facility] [address] [id number] [address] [place] [address], [place] [address] Jan, [facility] [address] [id number] [address] [place] [address], [place] [address] Jan, [facility] [address] [id number] [address] [place] [address], [place] [address] Dec, [facility] [address] [id number] [address] [place] [address], [place] [address] Dec, [facility] [address] [id number] [address] [place] [address], [place] [address] Dec, [facility] [address] [id number] [address] [place] [address], [place] [address] Nov, [facility] [place] [address] [facility] [id number] [address] [address] Dec, IMMUNIZATIONS No Known Immunizations SOCIAL HISTORY [...]
--- OUTSIDE RECORDS SUMMARY | 2020-05-08 06:37 | XMS REPORT ---
Author Author OZ Georgiana NILSA [facility] Address [address] [place] [address] Care Team Providers Care Orthotic Fitter Name Role Phone NILSA CLINTON Unavailable PROBLEMS Type Condition ICD9-CM Code ZIA35-LX Code Onset Dates Condition S tatus SNOMED Code Problem Attention-deficit hyperactivity disorder, combined type F90.2 Active 22414034 Problem Chronic fatigue R53.82 Active 8422 9001 Problem Bipolar II disorder F31.81 Active 89932829 Problem Iron deficiency anemia due to chronic blood loss D 50.0 Active [id number] ALLERGIES No Information ENCOUNTERS Encounter Location Date Diagnosis [facility] [address] [id number] [address] [place] [address] Aug, [facility] [address] [id number] [address] [place] [address] Jan, Iron deficiency anemia due t o chronic blood loss D50.0 ; Chronic fatigue R53.82 ; Arthralgia, unspecified joint M25.50 ; Hair loss L65.9 ; S/P gastric bypass Z98.84 ; Vesicles R23.8 and Recurrent acute suppurative otitis media of right ear without spontaneous rupture of tympanic membrane H66.004 [facility] [address] [id number] [address] [place] [address] February, [facility] [address] [id number] [address] [place] [address] February, Attention-deficit hyperactiv ity disorder, combined type F90.2 [facility] [address] [id number] [address] [place] [address] February, [facility] [address] [id number] [address] [place] [address] Dec, Bipolar II disorder F31.81 [place] [address] [id number] [address] [place] [address] Oct, [place] [address] [address] Oct, Bipolar II disorder F31.81 a nd Attention-deficit hyperactivity disorder, combined type F90.[address] [address] Oct, Encounter to establish care Z76.89 ; Iron deficiency anemia due to chronic blood loss D50.0 and Bipolar II disorder F31.[address] [address] Apr, Well woman exam with routine gynecological exam Z01.419 ; Screen for STD (sexually transmitted disease) Z11.3 ; Screening breast examination Z12.39 and Encounter for initial prescription of contraceptive pills Z30.011 [place] [id number] [place] [address] Jan, Bipolar II disorder F31.[address] [address] Apr, Fatigue 780.[address] [address] Apr, Iron deficiency 280.9 [place] [id number] [address] [place] [address] Apr, Vitamin B 12 deficiency 266. 2 and Iron deficiency 280.9 [place] [id number] [address] [place] [address] Apr, Joint pain 719.40 [place] [id number] [address] [place] [address] Apr, [place] [id number] [place] [address] Apr, Fatigue 780.79 and Bilateral knee pain 719.46 [facility] [address] [id number] [address] [place] [address] February, General counseling on prescr iption of oral contraceptives V25.01 [facility] [address] [id number] [address] [place] [address] February, Cough 786.2 [facility] [address] [id number] [address] [place] [address] February, Sinusitis 473.9 ; Suppurativ e otitis media of left ear 382.4 ; Otalgia of both ears 388.70 and Allergic rhinitis 477.9 [facility] [address] [id number] [address] [place] [address] Jan, [facility] [address] [id number] [address] [place] [address] Jan, [facility] [address] [id number] [address] [place] [address] Oct, [facility] [address] [id number] [address] [place] [address] Oct, [facility] [address] [id number] [address] [place] [address] Sep, [facility] [address] [id number] [address] [place] [address] Sep, [facility] [address] [id number] [address] [place] [address] Sep, [facility] [address] [id number] [address] [place] [address] Sep, [facility] [address] [id number] [address] [place] [address] Jun, [facility] [address] [id number] [address] [place] [address] Jun, [facility] [address] [id number] [address] [place] [address] Jun, [facility] [address] [id number] [facility] [address] Jun, [facility] [address] [id number] [address] [place] [address], [place] [address] May, [facility] [address] [id number] [address] [place] [address], [place] [address] May, [facility] [address] [id number] [address] [place] [address], [place] [address] May, [facility] [address] [id number] [address] [place] [address], [place] [address] May, [facility] [address] [id number] [address] [place] [address], [place] [address] May, [facility] [address] [id number] [address] [place] [address], [place] [address] May, [facility] [address] [id number] [address] [place] [address], [place] [address] May, [facility] [address] [id number] [address] [place] [address], [place] [address] May, [facility] [address] [id number] [address] [place] [address], [place] [address] May, [facility] [address] [id number] [address] [place] [address], [place] [address] May, [facility] [address] [id number] [address] [place] [address], [place] [address] May, [facility] [address] [id number] [address] [place] [address], [place] [address] May, [facility] [address] [id number] [address] [place] [address], [place] [address] May, [facility] [address] [id number] [address] [place] [address], [place] [address] May, [facility] [address] [id number] [address] [place] [address], [place] [address] May, [facility] [address] [id number] [facility] [address] May, [facility] [address] [id number] [address] [place] [address], [place] [address] May, [facility] [address] [id number] [address] [place] [address], [place] [address] May, [facility] [address] [id number] [address] [place] [address], [place] [address] Apr, [facility] [address] [id number] [address] [place] [address], [place] [address] Apr, [facility] [address] [id number] [address] [place] [address], [place] [address] Apr, [facility] [address] [id number] [address] [place] [address], [place] [address] Apr, [facility] [address] [id number] [address] [place] [address], [place] [address] Apr, [facility] [address] [id number] [address] [place] [address], [place] [address] Apr, [facility] [address] [id number] [address] [place] [address], [place] [address] Apr, [facility] [address] [id number] [address] [place] [address], [place] [address] Apr, [facility] [address] [id number] [address] [place] [address], [place] [address] Apr, [facility] [address] [id number] [address] [place] [address], [place] [address] Apr, [facility] [address] [id number] [address] [place] [address], [place] [address] Apr, [facility] [address] [id number] [address] [place] [address], [place] [address] Apr, [facility] [address] [id number] [facility] [address] 14 Apr, 2014 [facility] [address] [id number] [facility] [address] 14 Apr, 2014 [facility] [address] [id number] [facility] [address] Apr, [facility] [address] [id number] [address] [place] [address], [place] [address] Apr, [facility] [address] [id number] [address] [place] [address], [place] [address] Apr, [facility] [address] [id number] [address] [place] [address], [place] [address] Apr, [facility] [address] [id number] [address] [place] [address], [place] [address] Apr, [facility] [address] [id number] [address] [place] [address], [place] [address] Mar, [facility] [address] [id number] [address] [place] [address], [place] [address] Mar, [facility] [address] [id number] [address] [place] [address], [place] [address] February, [facility] [address] [id number] [address] [place] [address], [place] [address] February, [facility] [address] [id number] [address] [place] [address], [place] [address] February, [facility] [address] [id number] [address] [place] [address], [place] [address] February, [facility] [address] [id number] [address] [place] [address], [place] [address] February, [facility] [address] [id number] [address] [place] [address], [place] [address] Jan, [facility] [address] [id number] [address] [place] [address], [place] [address] Jan, [facility] [address] [id number] [address] [place] [address], [place] [address] Jan, [facility] [address] [id number] [address] [place] [address], [place] [address] Jan, [facility] [address] [id number] [address] [place] [address], [place] [address] Jan, [facility] [address] [id number] [address] [place] [address], [place] [address] Jan, [facility] [address] [id number] [address] [place] [address], [place] [address] Nov, [facility] [address] [id number] [address] [place] [address], [place] [address] Nov, [facility] [address] [id number] [address] [place] [address], [place] [address] Oct, [facility] [address] [id number] [address] [place] [address], [place] [address] Oct, [facility] [address] [id number] [address] [place] [address], [place] [address] Aug, [facility] [address] [id number] [address] [place] [address], [place] [address] Aug, [facility] [address] [id number] [address] [place] [address] Aug, [facility] [address] [id number] [address] [place] [address] Aug, [facility] [address] [id number] [address] [place] [address], [place] [address] Jul, [facility] [address] [id number] [address] [place] [address], [place] [address] Jul, [facility] [address] [id number] [address] [place] [address], [place] [address] Jul, [facility] [address] [id number] [address] [place] [address], [place] [address] 29 Jul, 2013 [facility] [address] [id number] [address] [place] [address], [place] [address] Jul, [facility] [address] [id number] [address] [place] [address], [place] [address] 28 Jul, 2013 [facility] [address] [id number] [address] [place] [address], [place] [address] 15 Jul, 2013 [facility] [address] [id number] [address] [place] [address], [place] [address] 15 Jul, 2013 [facility] [address] [id number] [address] [place] [address], [place] [address] Mar, [facility] [address] [id number] [address] [place] [address], [place] [address] February, [facility] [address] [id number] [address] [place] [address], [place] [address] February, [facility] [address] [id number] [address] [place] [address], [place] [address] Jan, [facility] [address] [id number] [address] [place] [address], [place] [address] Jan, [facility] [address] [id number] [address] [place] [address], [place] [address] Jan, [facility] [address] [id number] [address] [place] [address], [place] [address] Jan, [facility] [address] [id number] [address] [place] [address], [place] [address] Dec, [facility] [address] [id number] [address] [place] [address], [place] [address] Dec, [facility] [address] [id number] [address] [place] [address], [place] [address] Dec, [facility] [address] [id number] [address] [place] [address], [place] [address] Nov, [facility] [address] [facility] [id number] [address] [place] [address] Dec, IMMUNIZATIONS No Known Immunizations SOCIAL HISTORY [...]
--- OUTSIDE RECORDS SUMMARY | 2020-05-08 06:37 | XMS REPORT ---
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 Name Role Phone NAN Mckee Unavailable PROBLEMS Type Condition ICD9-CM Code [id number] Code Onset Dates Condition S tatus SNOMED Code Problem Attention-deficit hyperactivity disorder, combined type F90.2 Active 66160614 Problem Chronic fatigue R53.82 Active 8422 9001 Problem Bipolar II disorder F31.81 Active [id number] Problem Iron deficiency anemia due to chronic blood loss D 50.0 Active [id number] ALLERGIES No Information ENCOUNTERS Encounter Location Date Diagnosis [facility] IN [facility] [address] [id number] [address] [place] [address] Aug, [facility] [address] [id number] [address] [place] [address] Jan, Iron deficiency anemia due t o chronic blood loss D50.0 ; Chronic fatigue R53.82 ; Arthralgia, unspecified joint M25.50 ; Hair loss L65.9 ; S/P gastric bypass Z98.84 ; Vesicles R23.8 and Recurrent acute suppurative otitis media of right ear without spontaneous rupture of tympanic membrane H66.004 [facility] [address] [id number] [address] [place] [address] February, [facility] [address] [id number] [address] [place] [address] February, Attention-deficit hyperactiv ity disorder, combined type F90.2 [facility] [address] [facility] [id number] [address] [place] [address] February, [facility] [address] [id number] [address] [place] [address] Dec, Bipolar II disorder F31.81 [place] [address] [id number] [address] [place] [address] Oct, [place] [address] [place] [id number] [address] [place] [address] Oct, Bipolar II disorder F31.81 a nd Attention-deficit hyperactivity disorder, combined type F90.[address] [address] Oct, Encounter to establish care Z76.89 ; Iron deficiency anemia due to chronic blood loss D50.0 and Bipolar II disorder F31.81 [place] [address] [id number] [address] [place] [address] Apr, Well woman exam with routine gynecological exam Z01.419 ; Screen for STD (sexually transmitted disease) Z11.3 ; Screening breast examination Z12.39 and Encounter for initial prescription of contraceptive pills Z30.011 [place] [address] [id number] [address] [place] [address] Jan, Bipolar II disorder F31.81 [place] [address] [address] Apr, Fatigue 780.79 [place] [id number] [address] [place] [address] Apr, Iron deficiency 280.9 [place] [id number] [address] [place] [address] Apr, Vitamin B 12 deficiency 266. 2 and Iron deficiency 280.9 [place] [address] [id number] [address] [place] [address] Apr, Joint pain 719.40 [place] [address] [id number] [address] [place] [address] Apr, [place] [address] [id number] [address] [place] [address] Apr, Fatigue 780.79 and Bilateral knee pain 719.46 [facility] [address] [id number] [address] [place] [address] February, General counseling on prescr iption of oral contraceptives V25.01 [facility] [address] [id number] [address] [place] [address] February, Cough 786.2 [facility] [address] [id number] [address] [place] [address] February, Sinusitis 473.9 ; Suppurativ e otitis media of left ear 382.4 ; Otalgia of both ears 388.70 and Allergic rhinitis 477.9 [facility] [address] [id number] [address] [place] [address] Jan, [facility] [address] [facility] [id number] [address] [place] [address] Jan, [facility] [address] [id number] [address] [place] [address] Oct, [facility] [address] [id number] [address] [place] [address] Oct, [facility] [address] [id number] [address] [place] [address] Sep, [facility] [address] [id number] [address] [place] [address] Sep, [facility] [address] [id number] [address] [place] [address] Sep, [facility] [address] [id number] [address] [place] [address] Sep, [facility] [address] [id number] [address] [place] [address] Jun, [facility] [address] [id number] [address] [place] [address] Jun, [facility] [address] [id number] [address] [place] [address] Jun, [facility] [address] [id number] [address] [place] [address], [place] [address] Jun, [facility] [address] [id number] [address] [place] [address], [place] [address] May, [facility] [address] [id number] [address] [place] [address], [place] [address] May, [facility] [address] [id number] [address] [place] [address], [place] [address] May, [facility] [address] [id number] [address] [place] [address], [place] [address] May, [facility] [address] [id number] [address] [place] [address], [place] [address] May, [facility] [address] [id number] [address] [place] [address], [place] [address] May, [facility] [address] [id number] [address] [place] [address], [place] [address] May, [facility] [address] [id number] [address] [place] [address], [place] [address] May, [facility] [address] [id number] [address] [place] [address], [place] [address] May, [facility] [address] [id number] [address] [place] [address], [place] [address] May, [facility] [address] [id number] [address] [place] [address], [place] [address] May, [facility] [address] [id number] [address] [place] [address], [place] [address] May, [facility] [address] [id number] [address] [place] [address], [place] [address] May, [facility] [address] [id number] [address] [place] [address], [place] [address] May, [facility] [address] [id number] [facility] [place] [address] May, [facility] [address] [id number] [facility] [place] [address] May, [facility] [address] [id number] [facility] [place] [address] May, [facility] [address] [id number] [address] [place] [address], [place] [address] May, [facility] [address] [id number] [address] [place] [address], [place] [address] Apr, [facility] [address] [id number] [address] [place] [address], [place] [address] Apr, [facility] [address] [id number] [address] [place] [address], [place] [address] Apr, [facility] [address] [id number] [address] [place] [address], [place] [address] Apr, [facility] [address] [id number] [address] [place] [address], [place] [address] Apr, [facility] [address] [id number] [address] [place] [address], [place] [address] Apr, [facility] [address] [id number] [address] [place] [address], [place] [address] Apr, [facility] [address] [id number] [address] [place] [address], [place] [address] Apr, [facility] [address] [id number] [address] [place] [address], [place] [address] Apr, [facility] [address] [id number] [address] [place] [address], [place] [address] Apr, [facility] [address] [id number] [address] [place] [address], [place] [address] Apr, [facility] [address] [id number] [address] [place] [address], [place] [address] Apr, [facility] [address] [id number] [facility] [place] [address] 14 Apr, 2014 [facility] [address] [id number] [address] [place] [address], [place] [address] Apr, [facility] [address] [id number] [address] [place] [address], [place] [address] Apr, [facility] [address] [id number] [address] [place] [address], [place] [address] Apr, [facility] [address] [id number] [address] [place] [address], [place] [address] Apr, [facility] [address] [id number] [address] [place] [address], [place] [address] Apr, [facility] [address] [id number] [address] [place] [address], [place] [address] Apr, [facility] [address] [id number] [address] [place] [address], [place] [address] Mar, [facility] [address] [id number] [address] [place] [address], [place] [address] Mar, [facility] [address] [id number] [address] [address], [place] [address] February, [facility] [address] [id number] [address] [place] [address], [place] [address] February, [facility] [address] [id number] [address] [place] [address], [place] [address] February, [facility] [address] [id number] [address] [place] [address], [place] [address] February, [facility] [address] [id number] [address] [place] [address], [place] [address] February, [facility] [address] [id number] [address] [address], [place] [address] Jan, [facility] [address] [id number] [address] [place] [address], [place] [address] Jan, [facility] [address] [id number] [address] [place] [address], [place] [address] Jan, [facility] [address] [id number] [address] [place] [address], [place] [address] Jan, [facility] [address] [id number] [address] [place] [address], [place] [address] Jan, [facility] [address] [id number] [address] [place] [address], [place] [address] Jan, [facility] [address] [id number] [address] [place] [address], [place] [address] Nov, [facility] [address] [id number] [address] [place] [address], [place] [address] Nov, [facility] [address] [id number] [address] [place] [address], [place] [address] Oct, [facility] [address] [id number] [address] [place] [address], [place] [address] Oct, [facility] [address] [id number] [address] [place] [address], [place] [address] Aug, [facility] [address] [id number] [address] [place] [address], [place] [address] Aug, [facility] [address] [id number] [address] [place] [address], [place] [address] Aug, [facility] [address] [id number] [address] [place] [address], [place] [address] Aug, [facility] [address] [id number] [address] [place] [address], [place] [address] Jul, [facility] [address] [id number] [address] [place] [address], [place] [address] Jul, [facility] [address] [id number] [address] [place] [address], [place] [address] Jul, [facility] [address] [id number] [address] [place] [address], [place] [address] 29 Jul, 2013 [facility] [address] [id number] [address] [place] [address], [place] [address] Jul, [facility] [address] [id number] [address] [place] [address], [place] [address] Jul, [facility] [address] [id number] [address] [place] [address], [place] [address] Jul, [facility] [address] [id number] [address] [place] [address], [place] [address] Jul, [facility] [address] [id number] [address] [place] [address], [place] [address] Mar, [facility] [address] [id number] [address] [place] [address], [place] [address] February, [facility] [address] [id number] [address] [place] [address], [place] [address] February, [facility] [address] [id number] [address] [place] [address], [place] [address] Jan, [facility] [address] [id number] [address] [place] [address], [place] [address] Jan, [facility] [address] [id number] [address] [place] [address], [place] [address] Jan, [facility] [address] [id number] [address] [place] [address], [place] [address] Jan, [facility] [address] [id number] [address] [place] [address], [place] [address] Dec, [facility] [address] [id number] [address] [place] [address], [place] [address] Dec, [facility] [address] [id number] [address] [place] [address], [place] [address] Dec, [facility] [address] [id number] [address] [place] [address], [place] [address] Nov, [facility] [address] [facility] [id number] [address] [place] [address] Dec, IMMUNIZATIONS No Known Immunizations SOCIAL HISTORY [...]
--- OUTSIDE RECORDS SUMMARY | 2020-05-08 06:38 | XMS REPORT ---
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 Role Phone ROSEANN Calderon Unavailable PROBLEMS Type Condition ICD9-CM Code NLJ20-FZ Code Onset Dates Condition S tatus SNOMED Code Problem Attention-deficit hyperactivity disorder, combined type F90.2 Active 55285047 Problem Chronic fatigue R53.82 Active 8422 9001 Problem Bipolar II disorder F31.81 Active 14111981 Problem Iron deficiency anemia due to chronic blood loss D 50.0 Active [id number] ALLERGIES No Information ENCOUNTERS Encounter Location Date Diagnosis [facility] [address] [facility] [id number] [address] [address] Aug, [facility] [id number] [place] [address] Jan, Iron deficiency anemia due to chronic bl ood loss D50.0 ; Chronic fatigue R53.82 ; Arthralgia, unspecified joint M25.50 ; Hair loss L65.9 ; S/P gastric bypass Z98.84 ; Vesicles R23.8 and Recurrent acute suppurative otitis media of right ear without spontaneous rupture of tympanic membrane H66.004 [facility] [id number] [place] [address] February, [facility] [address] [address] February, Attention-deficit hyperactivity disorder , combined type F90.2 [facility] [address] [address] February, [facility] [address] [address] Dec, Bipolar II disorder F31.81 [address] [address] Oct, [address] [address] Oct, Bipolar II disorder F31.81 and Attention -deficit hyperactivity disorder, combined type F90.[address] [address] Oct, Encounter to establish care Z76.89 ; Iro n deficiency anemia due to chronic blood loss D50.0 and Bipolar II disorder F31.[address] [address] Apr, Well woman exam with routine gynecologic al exam Z01.419 ; Screen for STD (sexually transmitted disease) Z11.3 ; Screening breast examination Z12.39 and Encounter for initial prescription of contraceptive pills Z30.[address] [address] Jan, Bipolar II disorder F31.[address] [address] Apr, Fatigue 780.[address] [address] Apr, Iron deficiency 280.[address] [address] Apr, Vitamin B 12 deficiency 266.2 and Iron d eficiency 280.[address] [address] Apr, Joint pain 719.[address] [address] Apr, [address] [address] Apr, Fatigue 780.79 and Bilateral knee pain [address] [address] February, General counseling on prescription of or al contraceptives V25.01 [facility] [address] [address] February, Cough 786.2 [facility] [address] [address] February, Sinusitis 473.9 ; Suppurative otitis med ia of left ear 382.4 ; Otalgia of both ears 388.70 and Allergic rhinitis 477.9 [facility] [address] [address] Jan, [facility] [address] [address] Jan, [facility] [address] [address] Oct, [facility] [address] [address] Oct, [facility] [address] [address] Sep, [facility] [address] [address] Sep, [facility] [address] [address] Sep, [facility] [address] [address] Sep, [facility] [address] [address] Jun, [facility] [address] [address] Jun, [facility] [address] [address] Jun, [facility] [address] [address] Jun, [facility] [address] [address] May, [facility] [place] [facility] [address] [id number] [place] [address] May, [facility] [place] [facility] [address] [id number] [place] [address] May, [facility] [place] [facility] [address] [facility] [id number] [place] [address] May, [facility] [place] [facility] [address] [id number] [place] [address] May, [facility] [place] [facility] [address] [id number] [place] [address] May, [facility] [place] [facility] [address] [id number] [place] [address] May, [facility] [place] [facility] [address] [facility] [id number] [place] [address] May, [facility] [place] [facility] [address] [id number] [place] [address] May, [facility] [place] [facility] [address] [facility] [id number] [place] [address] May, [facility] [place] [facility] [address] [id number] [place] [address] May, [facility] [place] [facility] [address] [facility] [id number] [place] [address] May, [facility] [place] [facility] [address] [id number] [place] [address] May, [facility] [place] [facility] [address] [id number] [place] [address] May, [facility] [place] [facility] [address] [id number] [place] [address] May, [facility] [place] [facility] [address] [facility] [id number] [place] [address] May, [facility] [place] [facility] [address] [id number] [place] [address] May, [facility] [place] [facility] [address] [id number] [place] [address] 05 May, 2013 [facility] [place] [facility] [address] [id number] [place] [address] Apr, [facility] [place] [facility] [address] [facility] [id number] [place] [address] Apr, 2013 [facility] [place] [facility] [address] [facility] [id number] [place] [address] Apr, [facility] [place] [facility] [address] [facility] [id number] [place] [address] Apr, [facility] [place] [facility] [address] [facility] [id number] [place] [address] Apr, [facility] [place] [facility] [address] [facility] [id number] [place] [address] Apr, 2013 [facility] [place] [facility] [address] [id number] [place] [address] 17 Apr, 2013 [facility] [place] [facility] [address] [facility] [id number] [place] [address] 16 Apr, 2013 [facility] [place] [facility] [address] [facility] [id number] [place] [address] 16 Apr, 2013 [facility] [place] [facility] [address] [id number] [place] [address] 14 Apr, 2013 [facility] [place] [facility] [address] [id number] [place] [address] 14 Apr, 2013 [facility] [place] [facility] [address] [facility] [id number] [place] [address] 14 Apr, 2013 [facility] [place] [facility] [address] [id number] [place] [address] 14 Apr, 2013 [facility] [place] [facility] [address] [id number] [place] [address] 14 Apr, 2013 [facility] [place] [facility] [address] [facility] [id number] [place] [address] 14 Apr, 2013 [facility] [place] [facility] [address] [facility] [id number] [place] [address] Apr, 2013 [facility] [place] [facility] [address] [id number] [place] [address] Apr, [facility] [place] [facility] [address] [id number] [place] [address] Apr, [facility] [place] [facility] [address] [id number] [place] [address] Apr, [facility] [place] [facility] [address] [id number] [place] [address] Mar, [facility] [place] [facility] [address] [id number] [place] [address] Mar, [facility] [place] [facility] [address] [id number] [place] [address] February, [facility] [place] [facility] [address] [id number] [place] [address] February, [facility] [place] [facility] [address] [id number] [place] [address] February, [facility] [place] [facility] [address] [id number] [place] [address] February, [facility] [place] [facility] [address] [id number] [place] [address] February, [facility] [place] [facility] [address] [id number] [place] [address] Jan, [facility] [place] [facility] [address] [id number] [place] [address] Jan, [facility] [place] [facility] [address] [id number] [place] [address] Jan, [facility] [place] [facility] [address] [id number] [place] [address] Jan, [facility] [place] [facility] [address] [id number] [place] [address] Jan, [facility] [place] [facility] [address] [id number] [place] [address] Jan, [facility] [place] [facility] [address] [id number] [place] [address] Nov, [facility] [place] [facility] [address] [facility] [id number] [place] [address] Nov, [facility] [place] [facility] [address] [id number] [place] [address] Oct, [facility] [place] [facility] [address] [id number] [place] [address] Oct, [facility] [place] [facility] [address] [id number] [place] [address] Aug, [facility] [place] [facility] [address] [facility] [id number] [place] [address] Aug, [facility] [place] [facility] [address] [id number] [place] [address] Aug, [facility] [place] [facility] [address] [id number] [place] [address] Aug, [facility] [place] [facility] [address] [id number] [place] [address] Jul, [facility] [place] [facility] [address] [id number] [place] [address] Jul, [facility] [place] [facility] [address] [id number] [place] [address] Jul, [facility] [place] [facility] [address] [id number] [place] [address] Jul, [facility] [place] [facility] [address] [id number] [place] [address] Jul, [facility] [place] [facility] [address] [id number] [place] [address] Jul, [facility] [place] [facility] [address] [id number] [place] [address] Jul, [facility] [place] [facility] [address] [id number] [place] [address] Jul, [facility] [place] [facility] [address] [id number] [place] [address] Mar, [facility] [place] [facility] [address] [id number] [place] [address] February, [facility] [address] [id number] [place] [address] February, [facility] [address] [id number] [place] [address] Jan, [facility] [id number] [place] [address] Jan, [facility] [id number] [place] [address] Jan, [facility] [id number] [place] [address] Jan, [facility] [id number] [place] [address] Dec, [facility] [id number] [place] [address] Dec, [facility] [id number] [place] [address] Dec, [facility] [address] [id number] [place] [address] Nov, [facility] [id number] [place] [address] Dec, IMMUNIZATIONS No Known Immunizations SOCIAL HISTORY [...]
--- OUTSIDE RECORDS SUMMARY | 2020-05-08 06:38 | XMS REPORT ---
Author Author OZ Georgiana NILSA [facility] Address [address] [place] [address] Care Team Providers Care Home Performance Consultant Name Role Phone NILSA CLINTON Unavailable PROBLEMS Type Condition ICD9-CM Code EDW47-FF Code Onset Dates Condition S tatus SNOMED Code Problem Attention-deficit hyperactivity disorder, combined type F90.2 Active 58175066 Problem Chronic fatigue R53.82 Active 8422 9001 Problem Bipolar II disorder F31.81 Active 12278796 Problem Iron deficiency anemia due to chronic blood loss D 50.0 Active [id number] ALLERGIES No Information ENCOUNTERS Encounter Location Date Diagnosis [facility] [address] [id number] [address] [place] [address] Aug, [facility] [address] [id number] [address] [place] [address] Jan, Iron deficiency anemia due t o chronic blood loss D50.0 ; Chronic fatigue R53.82 ; Arthralgia, unspecified joint M25.50 ; Hair loss L65.9 ; S/P gastric bypass Z98.84 ; Vesicles R23.8 and Recurrent acute suppurative otitis media of right ear without spontaneous rupture of tympanic membrane H66.004 [facility] [address] [id number] [address] [place] [address] February, [facility] [address] [id number] [address] [place] [address] February, Attention-deficit hyperactiv ity disorder, combined type F90.2 [facility] [address] [id number] [address] [place] [address] February, [facility] [address] [id number] [address] [place] [address] Dec, Bipolar II disorder F31.81 [place] [address] [id number] [address] [place] [address] Oct, [place] [address] [address] Oct, Bipolar II disorder F31.81 a nd Attention-deficit hyperactivity disorder, combined type F90.[address] [address] Oct, Encounter to establish care Z76.89 ; Iron deficiency anemia due to chronic blood loss D50.0 and Bipolar II disorder F31.[address] [address] Apr, Well woman exam with routine gynecological exam Z01.419 ; Screen for STD (sexually transmitted disease) Z11.3 ; Screening breast examination Z12.39 and Encounter for initial prescription of contraceptive pills Z30.011 [place] [id number] [address] [place] [address] Jan, Bipolar II disorder F31.[address] [address] Apr, Fatigue 780.[address] [address] Apr, Iron deficiency 280.9 [place] [id number] [address] [place] [address] Apr, Vitamin B 12 deficiency 266. 2 and Iron deficiency 280.9 [place] [id number] [address] [place] [address] Apr, Joint pain 719.40 [place] [id number] [address] [place] [address] Apr, [place] [id number] [address] [place] [address] Apr, Fatigue 780.79 and Bilateral knee pain 719.46 [facility] [address] [id number] [address] [place] [address] February, General counseling on prescr iption of oral contraceptives V25.01 [facility] [address] [id number] [address] [place] [address] February, Cough 786.2 [facility] [address] [id number] [address] [place] [address] February, Sinusitis 473.9 ; Suppurativ e otitis media of left ear 382.4 ; Otalgia of both ears 388.70 and Allergic rhinitis 477.9 [facility] [address] [id number] [address] [place] [address] Jan, [facility] [address] [id number] [address] [place] [address] Jan, [facility] [address] [id number] [address] [place] [address] Oct, [facility] [address] [id number] [address] [place] [address] Oct, [facility] [address] [id number] [address] [place] [address] Sep, [facility] [address] [id number] [address] [place] [address] Sep, [facility] [address] [id number] [address] [place] [address] Sep, [facility] [address] [id number] [address] [place] [address] Sep, [facility] [address] [id number] [address] [place] [address] Jun, [facility] [address] [id number] [address] [place] [address] Jun, [facility] [address] [id number] [address] [place] [address] Jun, [facility] [address] [id number] [facility] [place] [address] Jun, [facility] [address] [id number] [address] [place] [address], [place] [address] May, [facility] [address] [id number] [address] [place] [address], [place] [address] May, [facility] [address] [id number] [address] [place] [address], [place] [address] May, [facility] [address] [id number] [address] [place] [address], [place] [address] May, [facility] [address] [id number] [address] [place] [address], [place] [address] May, [facility] [address] [id number] [address] [place] [address], [place] [address] May, [facility] [address] [id number] [address] [place] [address], [place] [address] May, [facility] [address] [id number] [address] [place] [address], [place] [address] May, [facility] [address] [id number] [address] [place] [address], [place] [address] May, [facility] [address] [id number] [address] [place] [address], [place] [address] May, [facility] [address] [id number] [address] [place] [address], [place] [address] May, [facility] [address] [id number] [address] [place] [address], [place] [address] May, [facility] [address] [id number] [address] [place] [address], [place] [address] May, [facility] [address] [id number] [address] [place] [address], [place] [address] May, [facility] [address] [id number] [address] [place] [address], [place] [address] May, [facility] [address] [id number] [facility] [place] [address] May, [facility] [address] [id number] [address] [place] [address], [place] [address] May, [facility] [address] [id number] [address] [place] [address], [place] [address] May, [facility] [address] [id number] [address] [place] [address], [place] [address] Apr, [facility] [address] [id number] [address] [place] [address], [place] [address] Apr, [facility] [address] [id number] [address] [place] [address], [place] [address] Apr, [facility] [address] [id number] [address] [place] [address], [place] [address] Apr, [facility] [address] [id number] [address] [place] [address], [place] [address] Apr, [facility] [address] [id number] [address] [place] [address], [place] [address] Apr, [facility] [address] [id number] [address] [place] [address], [place] [address] Apr, [facility] [address] [id number] [address] [place] [address], [place] [address] Apr, [facility] [address] [id number] [address] [place] [address], [place] [address] Apr, [facility] [address] [id number] [address] [place] [address], [place] [address] Apr, [facility] [address] [id number] [address] [place] [address], [place] [address] Apr, [facility] [address] [id number] [address] [place] [address], [place] [address] Apr, [facility] [address] [id number] [facility] [place] [address] 14 Apr, 2014 [facility] [address] [id number] [facility] [place] [address] 14 Apr, 2014 [facility] [address] [id number] [facility] [place] [address] Apr, [facility] [address] [id number] [address] [place] [address], [place] [address] Apr, [facility] [address] [id number] [address] [place] [address], [place] [address] Apr, [facility] [address] [id number] [address] [place] [address], [place] [address] Apr, [facility] [address] [id number] [address] [place] [address], [place] [address] Apr, [facility] [address] [id number] [address] [place] [address], [place] [address] Mar, [facility] [address] [id number] [address] [place] [address], [place] [address] Mar, [facility] [address] [id number] [address] [place] [address], [place] [address] February, [facility] [address] [id number] [address] [place] [address], [place] [address] February, [facility] [address] [id number] [address] [place] [address], [place] [address] February, [facility] [address] [id number] [address] [place] [address], [place] [address] February, [facility] [address] [id number] [address] [place] [address], [place] [address] February, [facility] [address] [id number] [address] [place] [address], [place] [address] Jan, [facility] [address] [id number] [address] [place] [address], [place] [address] Jan, [facility] [address] [id number] [address] [place] [address], [place] [address] Jan, [facility] [address] [id number] [address] [place] [address], [place] [address] Jan, [facility] [address] [id number] [address] [place] [address], [place] [address] Jan, [facility] [address] [id number] [address] [place] [address], [place] [address] Jan, [facility] [address] [id number] [address] [place] [address], [place] [address] Nov, [facility] [address] [id number] [address] [place] [address], [place] [address] Nov, [facility] [address] [id number] [address] [place] [address], [place] [address] Oct, [facility] [address] [id number] [address] [place] [address], [place] [address] Oct, [facility] [address] [id number] [address] [place] [address], [place] [address] Aug, [facility] [address] [id number] [address] [place] [address], [place] [address] Aug, [facility] [address] [id number] [address] [place] [address] Aug, [facility] [address] [id number] [address] [place] [address] Aug, [facility] [address] [id number] [address] [place] [address], [place] [address] Jul, [facility] [address] [id number] [address] [place] [address], [place] [address] Jul, [facility] [address] [id number] [address] [place] [address], [place] [address] Jul, [facility] [address] [id number] [address] [place] [address], [place] [address] 29 Jul, 2013 [facility] [address] [id number] [address] [place] [address], [place] [address] Jul, [facility] [address] [id number] [address] [place] [address], [place] [address] 28 Jul, 2013 [facility] [address] [id number] [address] [place] [address], [place] [address] 15 Jul, 2013 [facility] [address] [id number] [address] [place] [address], [place] [address] 15 Jul, 2013 [facility] [address] [id number] [address] [place] [address], [place] [address] Mar, [facility] [address] [id number] [address] [place] [address], [place] [address] February, [facility] [address] [id number] [address] [place] [address], [place] [address] February, [facility] [address] [id number] [address] [place] [address], [place] [address] Jan, [facility] [address] [id number] [address] [place] [address], [place] [address] Jan, [facility] [address] [id number] [address] [place] [address], [place] [address] Jan, [facility] [address] [id number] [address] [place] [address], [place] [address] Jan, [facility] [address] [id number] [address] [place] [address], [place] [address] Dec, [facility] [address] [id number] [address] [place] [address], [place] [address] Dec, [facility] [address] [id number] [address] [place] [address], [place] [address] Dec, [facility] [address] [id number] [address] [place] [address], [place] [address] Nov, [facility] [address] [facility] [id number] [address] [place] [address] Dec, IMMUNIZATIONS No Known Immunizations SOCIAL HISTORY [...]
--- OUTSIDE RECORDS SUMMARY | 2020-05-08 06:38 | XMS REPORT ---
Author Author Georgiana HARKINS Organization [facility] Address [address] [place] [address] Care Team Providers Care Adolescent Counselor Name Role Phone STEPHANY HARKINS Unavailable PROBLEMS Type Condition ICD9-CM Code RVD26-RT Code Onset Dates Condition S tatus SNOMED Code Problem Attention-deficit hyperactivity disorder, combined type F90.2 Active [id number] Problem Chronic fatigue R53.82 Active 8422 9001 Problem Bipolar II disorder F31.81 Active 81894611 Problem Iron deficiency anemia due to chronic blood loss D 50.0 Active [id number] ALLERGIES No Information ENCOUNTERS Encounter Location Date Diagnosis [facility] [id number] [place] [address] Aug, [facility] [address] [id number] [address] [place] [address] Jan, Iron deficiency anemia due t o chronic blood loss D50.0 ; Chronic fatigue R53.82 ; Arthralgia, unspecified joint M25.50 ; Hair loss L65.9 ; S/P gastric bypass Z98.84 ; Vesicles R23.8 and Recurrent acute suppurative otitis media of right ear without spontaneous rupture of tympanic membrane H66.004 [facility] [address] [id number] [address] [place] [address] February, [facility] [address] [id number] [address] [place] [address] February, Attention-deficit hyperactiv ity disorder, combined type F90.2 [facility] [address] [facility] [id number] [address] [place] [address] February, [facility] [id number] [address] [place] [address] Dec, Bipolar II disorder F31.81 [place] [id number] [place] [address] Oct, [place] [address] [id number] [address] [place] [address] Oct, Bipolar II disorder F31.81 a nd Attention-deficit hyperactivity disorder, combined type F90.[address] [address] Oct, Encounter to establish care Z76.89 ; Iron deficiency anemia due to chronic blood loss D50.0 and Bipolar II disorder F31.81 [place] [address] [address] Apr, Well woman exam with routine gynecological exam Z01.419 ; Screen for STD (sexually transmitted disease) Z11.3 ; Screening breast examination Z12.39 and Encounter for initial prescription of contraceptive pills Z30.011 [place] [address] [id number] [address] [place] [address] Jan, Bipolar II disorder F31.81 [place] [address] [address] Apr, Fatigue 780.[address] [address] Apr, Iron deficiency 280.[address] [address] Apr, Vitamin B 12 deficiency 266. 2 and Iron deficiency 280.9 [place] [id number] [place] [address] Apr, Joint pain 719.40 [place] [id number] [place] [address] Apr, [place] [id number] [place] [address] Apr, Fatigue 780.79 and Bilateral knee pain 719.46 [facility] [address] [id number] [address] [place] [address] February, General counseling on prescr iption of oral contraceptives V25.01 [facility] [address] [id number] [address] [place] [address] February, Cough 786.2 [facility] [address] [facility] [id number] [address] [place] [address] February, Sinusitis 473.9 ; Suppurativ e otitis media of left ear 382.4 ; Otalgia of both ears 388.70 and Allergic rhinitis 477.9 [facility] [address] [id number] [address] [place] [address] Jan, [facility] [address] [facility] [id number] [address] [place] [address] Jan, [facility] [address] [facility] [id number] [address] [place] [address] Oct, [facility] [address] [id number] [address] [place] [address] Oct, [facility] [address] [id number] [address] [place] [address] Sep, [facility] [address] [id number] [address] [place] [address] Sep, [facility] [address] [id number] [address] [place] [address] Sep, [facility] [address] [id number] [address] [place] [address] Sep, [facility] [address] [id number] [address] [place] [address] Jun, [facility] [address] [id number] [address] [place] [address] Jun, [facility] [address] [facility] [id number] [address] [place] [address] Jun, [facility] [address] [id number] [address] [place] [address], [place] [address] Jun, [facility] [address] [id number] [address] [place] [address], [place] [address] May, [facility] [address] [id number] [address] [place] [address], [place] [address] May, [facility] [address] [id number] [address] [place] [address], [place] [address] May, [facility] [address] [id number] [address] [place] [address], [place] [address] May, [facility] [address] [id number] [address] [place] [address], [place] [address] May, [facility] [address] [id number] [address] [place] [address], [place] [address] May, [facility] [address] [id number] [address] [place] [address], [place] [address] May, [facility] [address] [id number] [address] [place] [address], [place] [address] May, [facility] [address] [id number] [address] [place] [address], [place] [address] May, [facility] [address] [id number] [address] [place] [address], [place] [address] May, [facility] [address] [id number] [address] [place] [address], [place] [address] May, [facility] [address] [id number] [address] [place] [address], [place] [address] May, [facility] [address] [id number] [address] [place] [address], [place] [address] May, [facility] [address] [id number] [address] [place] [address], [place] [address] May, [facility] [address] [id number] [address] [place] [address], [place] [address] May, [facility] [address] [id number] [facility] [place] [address] May, [facility] [address] [id number] [address] [place] [address], [place] [address] May, [facility] [address] [id number] [address] [place] [address], [place] [address] May, [facility] [address] [id number] [address] [place] [address], [place] [address] Apr, [facility] [address] [id number] [address] [place] [address], [place] [address] Apr, [facility] [address] [id number] [address] [place] [address], [place] [address] Apr, [facility] [address] [id number] [address] [place] [address], [place] [address] Apr, [facility] [address] [id number] [address] [place] [address], [place] [address] Apr, [facility] [address] [id number] [address] [place] [address], [place] [address] Apr, [facility] [address] [id number] [address] [place] [address], [place] [address] Apr, [facility] [address] [id number] [address] [place] [address], [place] [address] Apr, [facility] [address] [id number] [address] [place] [address], [place] [address] Apr, [facility] [address] [id number] [address] [place] [address], [place] [address] Apr, [facility] [address] [id number] [address] [place] [address], [place] [address] Apr, [facility] [address] [id number] [address] [place] [address], [place] [address] Apr, [facility] [address] [id number] [facility] [place] [address] 14 Apr, 2014 [facility] [address] [id number] [facility] [place] [address] 14 Apr, 2014 [facility] [address] [id number] [facility] [place] [address] Apr, [facility] [address] [id number] [facility] [place] [address] Apr, [facility] [address] [id number] [facility] [place] [address] Apr, [facility] [address] [id number] [facility] [place] [address] Apr, [facility] [address] [id number] [address] [place] [address], [place] [address] Apr, [facility] [address] [id number] [address] [place] [address], [place] [address] Mar, [facility] [address] [id number] [address] [place] [address], [place] [address] Mar, [facility] [address] [id number] [address] [place] [address], [place] [address] February, [facility] [address] [id number] [address] [place] [address], [place] [address] February, [facility] [address] [id number] [address] [place] [address], [place] [address] February, [facility] [address] [id number] [address] [place] [address], [place] [address] February, [facility] [address] [id number] [address] [place] [address], [place] [address] February, [facility] [address] [id number] [address] [place] [address], [place] [address] Jan, [facility] [address] [id number] [address] [place] [address], [place] [address] Jan, [facility] [address] [id number] [address] [place] [address], [place] [address] Jan, [facility] [address] [id number] [address] [place] [address], [place] [address] Jan, [facility] [address] [id number] [address] [place] [address], [place] [address] Jan, [facility] [address] [id number] [address] [place] [address], [place] [address] Jan, [facility] [address] [id number] [address] [place] [address], [place] [address] Nov, [facility] [address] [id number] [address] [place] [address], [place] [address] Nov, [facility] [address] [id number] [address] [place] [address], [place] [address] Oct, [facility] [address] [id number] [address] [place] [address], [place] [address] Oct, [facility] [address] [id number] [address] [place] [address], [place] [address] Aug, [facility] [address] [id number] [address] [place] [address], [place] [address] Aug, [facility] [address] [id number] [address] [place] [address], [place] [address] Aug, [facility] [address] [id number] [address] [place] [address], [place] [address] Aug, [facility] [address] [id number] [address] [place] [address], [place] [address] Jul, [facility] [address] [id number] [address] [place] [address], [place] [address] Jul, [facility] [address] [id number] [address] [place] [address], [place] [address] Jul, [facility] [address] [id number] [address] [place] [address], [place] [address] 29 Jul, 2013 [facility] [address] [id number] [address] [place] [address], [place] [address] 28 Jul, 2013 [facility] [address] [id number] [address] [place] [address], [place] [address] 28 Jul, 2013 [facility] [address] [id number] [address] [place] [address], [place] [address] 15 Jul, 2013 [facility] [address] [id number] [address] [place] [address], [place] [address] 15 Jul, 2013 [facility] [address] [id number] [address] [place] [address], [place] [address] Mar, [facility] [address] [id number] [address] [place] [address], [place] [address] February, [facility] [address] [id number] [address] [place] [address], [place] [address] February, [facility] [address] [id number] [address] [place] [address], [place] [address] Jan, [facility] [address] [id number] [address] [place] [address], [place] [address] Jan, [facility] [address] [id number] [address] [place] [address], [place] [address] Jan, [facility] [address] [id number] [address] [place] [address], [place] [address] Jan, [facility] [address] [id number] [address] [place] [address], [place] [address] Dec, [facility] [address] [id number] [address] [place] [address], [place] [address] Dec, [facility] [address] [id number] [address] [place] [address], [place] [address] Dec, [facility] [address] [id number] [address] [place] [address], [place] [address] Nov, [facility] [address] [facility] [id number] [address] [place] [address] Dec, IMMUNIZATIONS No Known Immunizations SOCIAL HISTORY [...]
--- OUTSIDE RECORDS SUMMARY | 2020-05-08 06:38 | XMS REPORT ---
Author Author Georgiana Samaniego Organization [facility] Address [address] [place] [address] Care Team Providers Care Substance Abuse Nurse Name Role Phone EMILI Samaniego Unavailable PROBLEMS Type Condition ICD9-CM Code WSF50-SO Code Onset Dates Condition S tatus SNOMED Code Problem Attention-deficit hyperactivity disorder, combined type F90.2 Active [id number] Problem Chronic fatigue R53.82 Active 8422 9001 Problem Bipolar II disorder F31.81 Active [id number] Problem Iron deficiency anemia due to chronic blood loss D 50.0 Active [id number] ALLERGIES No Information ENCOUNTERS Encounter Location Date Diagnosis [facility] [address] [facility] [id number] [address] [place] [address] Aug, [facility] [id number] [place] [address] Jan, Iron deficiency anemia due to chronic bl ood loss D50.0 ; Chronic fatigue R53.82 ; Arthralgia, unspecified joint M25.50 ; Hair loss L65.9 ; S/P gastric bypass Z98.84 ; Vesicles R23.8 and Recurrent acute suppurative otitis media of right ear without spontaneous rupture of tympanic membrane H66.004 [facility] [id number] [place] [address] February, [facility] [address] [address] February, Attention-deficit hyperactivity disorder , combined type F90.2 [facility] [address] [address] February, [facility] [address] [address] Dec, Bipolar II disorder F31.81 [place] [address] [address] Oct, [address] [address] Oct, Bipolar II disorder F31.81 and Attention -deficit hyperactivity disorder, combined type F90.[address] [address] Oct, Encounter to establish care Z76.89 ; Iro n deficiency anemia due to chronic blood loss D50.0 and Bipolar II disorder F31.[address] [address] Apr, Well woman exam with routine gynecologic al exam Z01.419 ; Screen for STD (sexually transmitted disease) Z11.3 ; Screening breast examination Z12.39 and Encounter for initial prescription of contraceptive pills Z30.[address] [address] Jan, Bipolar II disorder F31.[address] [address] Apr, Fatigue 780.[address] [address] Apr, Iron deficiency 280.[address] [address] Apr, Vitamin B 12 deficiency 266.2 and Iron d eficiency 280.[address] [address] Apr, Joint pain 719.[address] [address] Apr, [address] [address] Apr, Fatigue 780.79 and Bilateral knee pain [address] [address] February, General counseling on prescription of or al contraceptives V25.01 [facility] [address] [address] February, Cough 786.2 [facility] [address] [address] February, Sinusitis 473.9 ; Suppurative otitis med ia of left ear 382.4 ; Otalgia of both ears 388.70 and Allergic rhinitis 477.9 [facility] [address] [address] Jan, [facility] [address] [address] Jan, [facility] [address] [address] Oct, [facility] [address] [address] Oct, [facility] [address] [address] Sep, [facility] [address] [address] Sep, [facility] [address] [address] Sep, [facility] [address] [address] Sep, [facility] [address] [address] Jun, [facility] [address] [address] Jun, [facility] [address] [address] Jun, [facility] [address] [address] Jun, [facility] [address] [address] May, [facility] [place] [facility] [address] [id number] [facility] [address] May, [facility] [place] [facility] [address] [id number] [place] [address] May, [facility] [place] [facility] [address] [facility] [id number] [facility] [place] [address] May, [facility] [place] [facility] [address] [id number] [place] [address] May, [facility] [place] [facility] [address] [id number] [place] [address] May, [facility] [place] [facility] [address] [id number] [place] [address] May, [facility] [place] [facility] [address] [facility] [id number] [facility] [place] [address] May, [facility] [place] [facility] [address] [id number] [facility] [place] [address] May, [facility] [place] [facility] [address] [facility] [id number] [place] [address] May, [facility] [place] [facility] [address] [id number] [facility] [place] [address] May, [facility] [place] [facility] [address] [facility] [id number] [facility] [place] [address] May, [facility] [place] [facility] [address] [id number] [facility] [place] [address] May, [facility] [place] [facility] [address] [id number] [facility] [place] [address] May, [facility] [place] [facility] [address] [id number] [facility] [place] [address] May, [facility] [place] [facility] [address] [facility] [id number] [facility] [place] [address] May, [facility] [place] [facility] [address] [id number] [facility] [place] [address] May, [facility] [place] [facility] [address] [id number] [facility] [address] 05 May, 2013 [facility] [place] [facility] [address] [id number] [place] [address] Apr, [facility] [place] [facility] [address] [facility] [id number] [facility] [place] [address] Apr, 2013 [facility] [place] [facility] [address] [facility] [id number] [facility] [place] [address] Apr, [facility] [place] [facility] [address] [facility] [id number] [facility] [place] [address] Apr, [facility] [place] [facility] [address] [facility] [id number] [place] [address] Apr, [facility] [place] [facility] [address] [facility] [id number] [place] [address] Apr, 2013 [facility] [place] [facility] [address] [id number] [facility] [place] [address] 17 Apr, 2013 [facility] [place] [facility] [address] [facility] [id number] [facility] [place] [address] 16 Apr, 2013 [facility] [place] [facility] [address] [facility] [id number] [facility] [place] [address] 16 Apr, 2013 [facility] [place] [facility] [address] [id number] [place] [address] 14 Apr, 2013 [facility] [place] [facility] [address] [id number] [place] [address] 14 Apr, 2013 [facility] [place] [facility] [address] [facility] [id number] [facility] [place] [address] 14 Apr, 2013 [facility] [place] [facility] [address] [id number] [facility] [place] [address] 14 Apr, 2013 [facility] [place] [facility] [address] [id number] [facility] [place] [address] 14 Apr, 2013 [facility] [place] [facility] [address] [facility] [id number] [place] [address] 14 Apr, 2013 [facility] [place] [facility] [address] [facility] [id number] [place] [address] Apr, 2013 [facility] [place] [facility] [address] [id number] [place] [address] Apr, [facility] [place] [facility] [address] [id number] [place] [address] Apr, [facility] [place] [facility] [address] [id number] [place] [address] Apr, [facility] [place] [facility] [address] [id number] [place] [address] Mar, [facility] [place] [facility] [address] [id number] [place] [address] Mar, [facility] [place] [facility] [address] [id number] [place] [address] February, [facility] [place] [facility] [address] [id number] [place] [address] February, [facility] [place] [facility] [address] [id number] [place] [address] February, [facility] [place] [facility] [address] [id number] [place] [address] February, [facility] [place] [facility] [address] [id number] [place] [address] February, [facility] [place] [facility] [address] [id number] [place] [address] Jan, [facility] [place] [facility] [address] [id number] [place] [address] Jan, [facility] [place] [facility] [address] [id number] [place] [address] Jan, [facility] [place] [facility] [address] [id number] [place] [address] Jan, [facility] [place] [facility] [address] [id number] [place] [address] Jan, [facility] [place] [facility] [address] [id number] [place] [address] Jan, [facility] [place] [facility] [address] [id number] [place] [address] Nov, [facility] [place] [facility] [address] [facility] [id number] [place] [address] Nov, [facility] [place] [facility] [address] [id number] [place] [address] Oct, [facility] [place] [facility] [address] [id number] [place] [address] Oct, [facility] [place] [facility] [address] [id number] [place] [address] Aug, [facility] [place] [facility] [address] [facility] [id number] [place] [address] Aug, [facility] [place] [facility] [address] [id number] [place] [address] Aug, [facility] [place] [facility] [address] [id number] [place] [address] Aug, [facility] [place] [facility] [address] [id number] [place] [address] Jul, [facility] [place] [facility] [address] [id number] [place] [address] Jul, [facility] [place] [facility] [address] [id number] [place] [address] Jul, [facility] [place] [facility] [address] [id number] [place] [address] Jul, [facility] [place] [facility] [address] [id number] [place] [address] Jul, [facility] [place] [facility] [address] [id number] [place] [address] Jul, [facility] [place] [facility] [address] [id number] [place] [address] Jul, [facility] [place] [facility] [address] [id number] [place] [address] Jul, [facility] [place] [facility] [address] [id number] [place] [address] Mar, [facility] [place] [facility] [address] [id number] [place] [address] February, [facility] [address] [id number] [place] [address] February, [facility] [address] [id number] [place] [address] Jan, [facility] [id number] [place] [address] Jan, [facility] [id number] [place] [address] Jan, [facility] [id number] [place] [address] Jan, [facility] [id number] [place] [address] Dec, [facility] [id number] [place] [address] Dec, [facility] [id number] [place] [address] Dec, [facility] [id number] [place] [address] Nov, [facility] [id number] [place] [address] Dec, IMMUNIZATIONS No Known Immunizations SOCIAL HISTORY Never Assessed REASON FOR VISIT PLAN OF CARE VITAL SIGNS Weight 136.38 lbs 2014-01-24 Temperature 98.4 degrees Fahrenheit 2014-01-24 Heart Rate 88 bpm 2014-01-24 Respiratory Rate 24 2014-01-24 Blood pressure systolic 132 mmHg 2014-01-24 Blood pressure diastolic 92 mmHg 2014-01-24 MEDICATIONS Unknown Medications RESULTS No Results PROCEDURES [...]
--- OUTSIDE RECORDS SUMMARY | 2020-05-08 06:38 | XMS REPORT ---
Author Author Georgiana Samaniego Organization [facility] Address [address] [place] [address] Care Team Providers Care Roof Assembler Name Role Phone EMILI Samaniego Unavailable PROBLEMS Type Condition ICD9-CM Code QSN06-ZL Code Onset Dates Condition S tatus SNOMED Code Problem Attention-deficit hyperactivity disorder, combined type F90.2 Active 51178185 Problem Chronic fatigue R53.82 Active 8422 9001 Problem Bipolar II disorder F31.81 Active 86940660 Problem Iron deficiency anemia due to chronic blood loss D 50.0 Active [id number] ALLERGIES No Information ENCOUNTERS Encounter Location Date Diagnosis [facility] [address] [facility] [id number] [address] [place] [address] Aug, [facility] [id number] [place] [address] Jan, Iron deficiency anemia due to chronic bl ood loss D50.0 ; Chronic fatigue R53.82 ; Arthralgia, unspecified joint M25.50 ; Hair loss L65.9 ; S/P gastric bypass Z98.84 ; Vesicles R23.8 and Recurrent acute suppurative otitis media of right ear without spontaneous rupture of tympanic membrane H66.004 [facility] [id number] [place] [address] February, [facility] [address] [address] February, Attention-deficit hyperactivity disorder , combined type F90.2 [facility] [address] [address] February, [facility] [address] [address] Dec, Bipolar II disorder F31.81 [place] [address] [address] Oct, [address] [address] Oct, Bipolar II disorder F31.81 and Attention -deficit hyperactivity disorder, combined type F90.[address] [address] Oct, Encounter to establish care Z76.89 ; Iro n deficiency anemia due to chronic blood loss D50.0 and Bipolar II disorder F31.[address] [address] Apr, Well woman exam with routine gynecologic al exam Z01.419 ; Screen for STD (sexually transmitted disease) Z11.3 ; Screening breast examination Z12.39 and Encounter for initial prescription of contraceptive pills Z30.[address] [address] Jan, Bipolar II disorder F31.[address] [address] Apr, Fatigue 780.[address] [address] Apr, Iron deficiency 280.[address] [address] Apr, Vitamin B 12 deficiency 266.2 and Iron d eficiency 280.[address] [address] Apr, Joint pain 719.[address] [address] Apr, [address] [address] Apr, Fatigue 780.79 and Bilateral knee pain [address] [address] February, General counseling on prescription of or al contraceptives V25.01 [facility] [address] [address] February, Cough 786.2 [facility] [address] [address] February, Sinusitis 473.9 ; Suppurative otitis med ia of left ear 382.4 ; Otalgia of both ears 388.70 and Allergic rhinitis 477.9 [facility] [address] [address] Jan, [facility] [address] [address] Jan, [facility] [address] [address] Oct, [facility] [address] [address] Oct, [facility] [address] [address] Sep, [facility] [address] [address] Sep, [facility] [address] [address] Sep, [facility] [address] [address] Sep, [facility] [address] [address] Jun, [facility] [address] [address] Jun, [facility] [address] [address] Jun, [facility] [address] [address] Jun, [facility] [address] [address] May, [facility] [place] [facility] [address] [id number] [facility] [place] [address] May, [facility] [place] [facility] [address] [id number] [place] [address] May, [facility] [place] [facility] [address] [facility] [id number] [facility] [address] May, [facility] [place] [facility] [address] [id number] [place] [address] May, [facility] [place] [facility] [address] [id number] [place] [address] May, [facility] [place] [facility] [address] [id number] [place] [address] May, [facility] [place] [facility] [address] [facility] [id number] [facility] [address] May, [facility] [place] [facility] [address] [id number] [facility] [address] May, [facility] [place] [facility] [address] [facility] [id number] [place] [address] May, [facility] [place] [facility] [address] [id number] [facility] [address] May, [facility] [place] [facility] [address] [facility] [id number] [facility] [address] May, [facility] [place] [facility] [address] [id number] [facility] [address] May, [facility] [place] [facility] [address] [id number] [facility] [address] May, [facility] [place] [facility] [address] [id number] [facility] [address] May, [facility] [place] [facility] [address] [facility] [id number] [facility] [address] May, [facility] [place] [facility] [address] [id number] [facility] [address] May, [facility] [place] [facility] [address] [id number] [facility] [address] 05 May, 2013 [facility] [place] [facility] [address] [id number] [place] [address] Apr, [facility] [place] [facility] [address] [facility] [id number] [facility] [address] Apr, 2013 [facility] [place] [facility] [address] [facility] [id number] [facility] [address] Apr, [facility] [place] [facility] [address] [facility] [id number] [facility] [address] Apr, [facility] [place] [facility] [address] [facility] [id number] [place] [address] Apr, [facility] [place] [facility] [address] [facility] [id number] [place] [address] Apr, 2013 [facility] [place] [facility] [address] [id number] [facility] [address] 17 Apr, 2013 [facility] [place] [facility] [address] [facility] [id number] [facility] [address] 16 Apr, 2013 [facility] [place] [facility] [address] [facility] [id number] [facility] [address] 16 Apr, 2013 [facility] [place] [facility] [address] [id number] [place] [address] 14 Apr, 2013 [facility] [place] [facility] [address] [id number] [place] [address] 14 Apr, 2013 [facility] [place] [facility] [address] [facility] [id number] [facility] [address] 14 Apr, 2013 [facility] [place] [facility] [address] [id number] [facility] [address] 14 Apr, 2013 [facility] [place] [facility] [address] [id number] [facility] [address] 14 Apr, 2013 [facility] [place] [facility] [address] [facility] [id number] [place] [address] 14 Apr, 2013 [facility] [place] [facility] [address] [facility] [id number] [place] [address] Apr, 2013 [facility] [place] [facility] [address] [id number] [place] [address] Apr, [facility] [place] [facility] [address] [id number] [place] [address] Apr, [facility] [place] [facility] [address] [id number] [place] [address] Apr, [facility] [place] [facility] [address] [id number] [place] [address] Mar, [facility] [place] [facility] [address] [id number] [place] [address] Mar, [facility] [place] [facility] [address] [id number] [place] [address] February, [facility] [place] [facility] [address] [id number] [place] [address] February, [facility] [place] [facility] [address] [id number] [place] [address] February, [facility] [place] [facility] [address] [id number] [place] [address] February, [facility] [place] [facility] [address] [id number] [place] [address] February, [facility] [place] [facility] [address] [id number] [place] [address] Jan, [facility] [place] [facility] [address] [id number] [place] [address] Jan, [facility] [place] [facility] [address] [id number] [place] [address] Jan, [facility] [place] [facility] [address] [id number] [place] [address] Jan, [facility] [place] [facility] [address] [id number] [place] [address] Jan, [facility] [place] [facility] [address] [id number] [place] [address] Jan, [facility] [place] [facility] [address] [id number] [place] [address] Nov, [facility] [place] [facility] [address] [facility] [id number] [place] [address] Nov, [facility] [place] [facility] [address] [id number] [place] [address] Oct, [facility] [place] [facility] [address] [id number] [place] [address] Oct, [facility] [place] [facility] [address] [id number] [place] [address] Aug, [facility] [place] [facility] [address] [facility] [id number] [place] [address] Aug, [facility] [place] [facility] [address] [id number] [place] [address] Aug, [facility] [place] [facility] [address] [id number] [place] [address] Aug, [facility] [place] [facility] [address] [id number] [place] [address] Jul, [facility] [place] [facility] [address] [id number] [place] [address] Jul, [facility] [place] [facility] [address] [id number] [place] [address] Jul, [facility] [place] [facility] [address] [id number] [place] [address] Jul, [facility] [place] [facility] [address] [id number] [place] [address] Jul, [facility] [place] [facility] [address] [id number] [place] [address] Jul, [facility] [place] [facility] [address] [id number] [place] [address] Jul, [facility] [place] [facility] [address] [id number] [place] [address] Jul, [facility] [place] [facility] [address] [id number] [place] [address] Mar, [facility] [place] [facility] [address] [id number] [place] [address] February, [facility] [address] [id number] [place] [address] February, [facility] [address] [id number] [place] [address] Jan, [facility] [id number] [place] [address] Jan, [facility] [id number] [place] [address] Jan, [facility] [id number] [place] [address] Jan, [facility] [id number] [place] [address] Dec, [facility] [id number] [place] [address] Dec, [facility] [id number] [place] [address] Dec, [facility] [address] [id number] [place] [address] Nov, [facility] [id number] [place] [address] Dec, IMMUNIZATIONS No Known Immunizations SOCIAL HISTORY [...]
--- OUTSIDE RECORDS SUMMARY | 2020-05-08 06:38 | XMS REPORT ---
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 Name Role Phone EMILI Samaniego Unavailable PROBLEMS Type Condition ICD9-CM Code BTH58-QB Code Onset Dates Condition S tatus SNOMED Code Problem Attention-deficit hyperactivity disorder, combined type F90.2 Active 14198218 Problem Chronic fatigue R53.82 Active 8422 9001 Problem Bipolar II disorder F31.81 Active 76846084 Problem Iron deficiency anemia due to chronic blood loss D 50.0 Active [id number] ALLERGIES No Information ENCOUNTERS Encounter Location Date Diagnosis [facility] [address] [facility] [id number] [address] [place] [address] Aug, [facility] [id number] [place] [address] Jan, Iron deficiency anemia due to chronic bl ood loss D50.0 ; Chronic fatigue R53.82 ; Arthralgia, unspecified joint M25.50 ; Hair loss L65.9 ; S/P gastric bypass Z98.84 ; Vesicles R23.8 and Recurrent acute suppurative otitis media of right ear without spontaneous rupture of tympanic membrane H66.004 [facility] [id number] [place] [address] February, [facility] [address] [address] February, Attention-deficit hyperactivity disorder , combined type F90.2 [facility] [address] [address] February, [facility] [address] [address] Dec, Bipolar II disorder F31.81 [place] [address] [address] Oct, [address] [address] Oct, Bipolar II disorder F31.81 and Attention -deficit hyperactivity disorder, combined type F90.[address] [address] Oct, Encounter to establish care Z76.89 ; Iro n deficiency anemia due to chronic blood loss D50.0 and Bipolar II disorder F31.[address] [address] Apr, Well woman exam with routine gynecologic al exam Z01.419 ; Screen for STD (sexually transmitted disease) Z11.3 ; Screening breast examination Z12.39 and Encounter for initial prescription of contraceptive pills Z30.[address] [address] Jan, Bipolar II disorder F31.[address] [address] Apr, Fatigue 780.[address] [address] Apr, Iron deficiency 280.[address] [address] Apr, Vitamin B 12 deficiency 266.2 and Iron d eficiency 280.[address] [address] Apr, Joint pain 719.[address] [address] Apr, [address] [address] Apr, Fatigue 780.79 and Bilateral knee pain [address] [address] February, General counseling on prescription of or al contraceptives V25.01 [facility] [address] [address] February, Cough 786.2 [facility] [address] [address] February, Sinusitis 473.9 ; Suppurative otitis med ia of left ear 382.4 ; Otalgia of both ears 388.70 and Allergic rhinitis 477.9 [facility] [address] [address] Jan, [facility] [address] [address] Jan, [facility] [address] [address] Oct, [facility] [address] [address] Oct, [facility] [address] [address] Sep, [facility] [address] [address] Sep, [facility] [address] [address] Sep, [facility] [address] [address] Sep, [facility] [address] [address] Jun, [facility] [address] [address] Jun, [facility] [address] [address] Jun, [facility] [address] [address] Jun, [facility] [address] [address] May, [facility] [place] [facility] [address] [id number] [facility] [address] May, [facility] [place] [facility] [address] [id number] [place] [address] May, [facility] [place] [facility] [address] [facility] [id number] [facility] [address] May, [facility] [place] [facility] [address] [id number] [place] [address] May, [facility] [place] [facility] [address] [id number] [place] [address] May, [facility] [place] [facility] [address] [id number] [place] [address] May, [facility] [place] [facility] [address] [facility] [id number] [facility] [address] May, [facility] [place] [facility] [address] [id number] [facility] [place] [address] May, [facility] [place] [facility] [address] [facility] [id number] [place] [address] May, [facility] [place] [facility] [address] [id number] [facility] [address] May, [facility] [place] [facility] [address] [facility] [id number] [facility] [place] [address] May, [facility] [place] [facility] [address] [id number] [facility] [address] May, [facility] [place] [facility] [address] [id number] [facility] [place] [address] May, [facility] [place] [facility] [address] [id number] [facility] [place] [address] May, [facility] [place] [facility] [address] [facility] [id number] [facility] [place] [address] May, [facility] [place] [facility] [address] [id number] [facility] [place] [address] May, [facility] [place] [facility] [address] [id number] [facility] [place] [address] 05 May, 2013 [facility] [place] [facility] [address] [id number] [place] [address] Apr, [facility] [place] [facility] [address] [facility] [id number] [facility] [place] [address] Apr, 2013 [facility] [place] [facility] [address] [facility] [id number] [facility] [place] [address] Apr, [facility] [place] [facility] [address] [facility] [id number] [facility] [place] [address] Apr, [facility] [place] [facility] [address] [facility] [id number] [place] [address] Apr, [facility] [place] [facility] [address] [facility] [id number] [place] [address] Apr, 2013 [facility] [place] [facility] [address] [id number] [facility] [place] [address] 17 Apr, 2013 [facility] [place] [facility] [address] [facility] [id number] [facility] [place] [address] 16 Apr, 2013 [facility] [place] [facility] [address] [facility] [id number] [facility] [place] [address] 16 Apr, 2013 [facility] [place] [facility] [address] [id number] [place] [address] 14 Apr, 2013 [facility] [place] [facility] [address] [id number] [place] [address] 14 Apr, 2013 [facility] [place] [facility] [address] [facility] [id number] [facility] [place] [address] 14 Apr, 2013 [facility] [place] [facility] [address] [id number] [facility] [place] [address] 14 Apr, 2013 [facility] [place] [facility] [address] [id number] [facility] [address] 14 Apr, 2013 [facility] [place] [facility] [address] [facility] [id number] [place] [address] 14 Apr, 2013 [facility] [place] [facility] [address] [facility] [id number] [place] [address] Apr, 2013 [facility] [place] [facility] [address] [id number] [place] [address] Apr, [facility] [place] [facility] [address] [id number] [place] [address] Apr, [facility] [place] [facility] [address] [id number] [place] [address] Apr, [facility] [place] [facility] [address] [id number] [place] [address] Mar, [facility] [place] [facility] [address] [id number] [place] [address] Mar, [facility] [place] [facility] [address] [id number] [place] [address] February, [facility] [place] [facility] [address] [id number] [place] [address] February, [facility] [place] [facility] [address] [id number] [place] [address] February, [facility] [place] [facility] [address] [id number] [place] [address] February, [facility] [place] [facility] [address] [id number] [place] [address] February, [facility] [place] [facility] [address] [id number] [place] [address] Jan, [facility] [place] [facility] [address] [id number] [place] [address] Jan, [facility] [place] [facility] [address] [id number] [place] [address] Jan, [facility] [place] [facility] [address] [id number] [place] [address] Jan, [facility] [place] [facility] [address] [id number] [place] [address] Jan, [facility] [place] [facility] [address] [id number] [place] [address] Jan, [facility] [place] [facility] [address] [id number] [place] [address] Nov, [facility] [place] [facility] [address] [facility] [id number] [place] [address] Nov, [facility] [place] [facility] [address] [id number] [place] [address] Oct, [facility] [place] [facility] [address] [id number] [place] [address] Oct, [facility] [place] [facility] [address] [id number] [place] [address] Aug, [facility] [place] [facility] [address] [facility] [id number] [place] [address] Aug, [facility] [place] [facility] [address] [id number] [place] [address] Aug, [facility] [place] [facility] [address] [id number] [place] [address] Aug, [facility] [place] [facility] [address] [id number] [place] [address] Jul, [facility] [place] [facility] [address] [id number] [place] [address] Jul, [facility] [place] [facility] [address] [id number] [place] [address] Jul, [facility] [place] [facility] [address] [id number] [place] [address] Jul, [facility] [place] [facility] [address] [id number] [place] [address] Jul, [facility] [place] [facility] [address] [id number] [place] [address] Jul, [facility] [place] [facility] [address] [id number] [place] [address] Jul, [facility] [place] [facility] [address] [id number] [place] [address] Jul, [facility] [place] [facility] [address] [id number] [place] [address] Mar, [facility] [place] [facility] [address] [id number] [place] [address] February, [facility] [address] [id number] [place] [address] February, [facility] [address] [id number] [place] [address] Jan, [facility] [address] [id number] [place] [address] Jan, [facility] [id number] [place] [address] Jan, [facility] [id number] [place] [address] Jan, [facility] [id number] [place] [address] Dec, [facility] [id number] [place] [address] Dec, [facility] [id number] [place] [address] Dec, [facility] [address] [id number] [place] [address] Nov, [facility] [id number] [place] [address] Dec, IMMUNIZATIONS No Known Immunizations SOCIAL HISTORY Never Assessed REASON FOR VISIT PLAN OF CARE VITAL SIGNS Weight 135 lbs 2014-02-21 Temperature 98 degrees Fahrenheit 2014-02-21 Heart Rate 80 bpm 2014-02-21 Respiratory Rate 28 2014-02-21 Blood pressure systolic 130 mmHg 2014-02-21 Blood pressure diastolic 94 mmHg 2014-02-21 MEDICATIONS Unknown Medications RESULTS No Results PROCEDURES [...]
--- OUTSIDE RECORDS SUMMARY | 2020-05-08 06:38 | XMS REPORT ---
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 Name Role Phone ROSEANN Calderon Unavailable PROBLEMS Type Condition ICD9-CM Code JFI73-CC Code Onset Dates Condition S tatus SNOMED Code Problem Attention-deficit hyperactivity disorder, combined type F90.2 Active 52337095 Problem Chronic fatigue R53.82 Active 8422 9001 Problem Bipolar II disorder F31.81 Active [id number] Problem Iron deficiency anemia due to chronic blood loss D 50.0 Active [id number] ALLERGIES No Information ENCOUNTERS Encounter Location Date Diagnosis [facility] [address] [facility] [id number] [address] [address] Aug, [facility] [place] [id number] [place] [address] Jan, Iron deficiency anemia due to chronic bl ood loss D50.0 ; Chronic fatigue R53.82 ; Arthralgia, unspecified joint M25.50 ; Hair loss L65.9 ; S/P gastric bypass Z98.84 ; Vesicles R23.8 and Recurrent acute suppurative otitis media of right ear without spontaneous rupture of tympanic membrane H66.004 [facility] [place] [id number] [place] [address] February, [facility] [place] [address] [address] February, Attention-deficit hyperactivity disorder , combined type F90.2 [facility] [place] [address] [address] February, [facility] [place] [address] [address] Dec, Bipolar II disorder F31.81 [address] [address] Oct, [address] [address] Oct, Bipolar II disorder F31.81 and Attention -deficit hyperactivity disorder, combined type F90.[address] [address] Oct, Encounter to establish care Z76.89 ; Iro n deficiency anemia due to chronic blood loss D50.0 and Bipolar II disorder F31.[address] [address] Apr, Well woman exam with routine gynecologic al exam Z01.419 ; Screen for STD (sexually transmitted disease) Z11.3 ; Screening breast examination Z12.39 and Encounter for initial prescription of contraceptive pills Z30.[address] [address] Jan, Bipolar II disorder F31.[address] [address] Apr, Fatigue 780.[address] [address] Apr, Iron deficiency 280.[address] [address] Apr, Vitamin B 12 deficiency 266.2 and Iron d eficiency 280.[address] [address] Apr, Joint pain 719.[address] [address] Apr, [address] [address] Apr, Fatigue 780.79 and Bilateral knee pain [address] [address] February, General counseling on prescription of or al contraceptives V25.01 [facility] [place] [address] [address] February, Cough 786.2 [facility] [place] [address] [address] February, Sinusitis 473.9 ; Suppurative otitis med ia of left ear 382.4 ; Otalgia of both ears 388.70 and Allergic rhinitis 477.9 [facility] [place] [address] [address] Jan, [facility] [place] [address] [address] Jan, [facility] [place] [address] [address] Oct, [facility] [place] [address] [address] Oct, [facility] [place] [address] [address] Sep, [facility] [place] [address] [address] Sep, [facility] [place] [address] [address] Sep, [facility] [place] [address] [address] Sep, [facility] [place] [address] [address] Jun, [facility] [place] [address] [address] Jun, [facility] [place] [address] [address] Jun, [facility] [place] [address] [address] Jun, [facility] [place] [address] [address] May, [facility] [place] [facility] [address] [id number] [facility] [place] [address] May, [facility] [place] [facility] [address] [id number] [place] [address] May, [facility] [place] [facility] [address] [facility] [id number] [facility] [place] [address] May, [facility] [place] [facility] [address] [id number] [place] [address] May, [facility] [place] [facility] [address] [id number] [place] [address] May, [facility] [place] [facility] [address] [id number] [place] [address] May, [facility] [place] [facility] [address] [facility] [id number] [facility] [place] [address] May, [facility] [place] [facility] [address] [id number] [facility] [place] [address] May, [facility] [place] [facility] [address] [facility] [id number] [place] [address] May, [facility] [place] [facility] [address] [id number] [facility] [place] [address] May, [facility] [place] [facility] [address] [facility] [id number] [facility] [place] [address] May, [facility] [place] [facility] [address] [id number] [facility] [place] [address] May, [facility] [place] [facility] [address] [id number] [facility] [place] [address] May, [facility] [place] [facility] [address] [id number] [facility] [place] [address] May, [facility] [place] [facility] [address] [facility] [id number] [facility] [place] [address] May, [facility] [place] [facility] [address] [id number] [facility] [place] [address] May, [facility] [place] [facility] [address] [id number] [facility] [place] [address] 05 May, 2013 [facility] [place] [facility] [address] [id number] [place] [address] Apr, [facility] [place] [facility] [address] [facility] [id number] [facility] [place] [address] Apr, 2013 [facility] [place] [facility] [address] [facility] [id number] [facility] [place] [address] Apr, [facility] [place] [facility] [address] [facility] [id number] [facility] [place] [address] Apr, [facility] [place] [facility] [address] [facility] [id number] [place] [address] Apr, [facility] [place] [facility] [address] [facility] [id number] [place] [address] Apr, 2013 [facility] [place] [facility] [address] [id number] [facility] [place] [address] 17 Apr, 2013 [facility] [place] [facility] [address] [facility] [id number] [facility] [place] [address] 16 Apr, 2013 [facility] [place] [facility] [address] [facility] [id number] [facility] [place] [address] 16 Apr, 2013 [facility] [place] [facility] [address] [id number] [place] [address] 14 Apr, 2013 [facility] [place] [facility] [address] [id number] [place] [address] 14 Apr, 2013 [facility] [place] [facility] [address] [facility] [id number] [facility] [place] [address] 14 Apr, 2013 [facility] [place] [facility] [address] [id number] [facility] [place] [address] 14 Apr, 2013 [facility] [place] [facility] [address] [id number] [facility] [place] [address] 14 Apr, 2013 [facility] [place] [facility] [address] [facility] [id number] [place] [address] 14 Apr, 2013 [facility] [place] [facility] [address] [facility] [id number] [place] [address] Apr, 2013 [facility] [place] [facility] [address] [id number] [place] [address] Apr, [facility] [place] [facility] [address] [id number] [place] [address] Apr, [facility] [place] [facility] [address] [id number] [place] [address] Apr, [facility] [place] [facility] [address] [id number] [place] [address] Mar, [facility] [place] [facility] [address] [id number] [place] [address] Mar, [facility] [place] [facility] [address] [id number] [place] [address] February, [facility] [place] [facility] [address] [id number] [place] [address] February, [facility] [place] [facility] [address] [id number] [place] [address] February, [facility] [place] [facility] [address] [id number] [place] [address] February, [facility] [place] [facility] [address] [id number] [place] [address] February, [facility] [place] [facility] [address] [id number] [place] [address] Jan, [facility] [place] [facility] [address] [id number] [place] [address] Jan, [facility] [place] [facility] [address] [id number] [place] [address] Jan, [facility] [place] [facility] [address] [id number] [place] [address] Jan, [facility] [place] [facility] [address] [id number] [place] [address] Jan, [facility] [place] [facility] [address] [id number] [place] [address] Jan, [facility] [place] [facility] [address] [id number] [place] [address] Nov, [facility] [place] [facility] [address] [facility] [id number] [place] [address] Nov, [facility] [place] [facility] [address] [id number] [place] [address] Oct, [facility] [place] [facility] [address] [id number] [place] [address] Oct, [facility] [place] [facility] [address] [id number] [place] [address] Aug, [facility] [place] [facility] [address] [facility] [id number] [place] [address] Aug, [facility] [place] [facility] [address] [id number] [place] [address] Aug, [facility] [place] [facility] [address] [id number] [place] [address] Aug, [facility] [place] [facility] [address] [id number] [place] [address] Jul, [facility] [place] [facility] [address] [id number] [place] [address] Jul, [facility] [place] [facility] [address] [id number] [place] [address] Jul, [facility] [place] [facility] [address] [id number] [place] [address] Jul, [facility] [place] [facility] [address] [id number] [place] [address] Jul, [facility] [place] [facility] [address] [id number] [place] [address] Jul, [facility] [place] [facility] [address] [id number] [place] [address] Jul, [facility] [place] [facility] [address] [id number] [place] [address] Jul, [facility] [place] [facility] [address] [id number] [place] [address] Mar, [facility] [place] [facility] [address] [id number] [place] [address] February, [facility] [place] [address] [id number] [place] [address] February, [facility] [place] [address] [id number] [place] [address] Jan, [facility] [place] [id number] [place] [address] Jan, [facility] [place] [id number] [place] [address] Jan, [facility] [place] [id number] [place] [address] Jan, [facility] [place] [id number] [place] [address] Dec, [facility] [place] [id number] [place] [address] Dec, [facility] [place] [id number] [place] [address] Dec, [facility] [place] [address] [id number] [place] [address] Nov, [facility] [place] [id number] [place] [address] Dec, IMMUNIZATIONS No Known Immunizations SOCIAL HISTORY [...]
--- OUTSIDE RECORDS SUMMARY | 2020-05-08 06:38 | XMS REPORT ---
Author Author Georgiana Samaniego Organization [facility] [place] Address [address] [place] [address] Care Team Providers Care Retail Merchandising Specialist Name Role Phone EMILI Samaniego Unavailable PROBLEMS Type Condition ICD9-CM Code GXL27-KX Code Onset Dates Condition S tatus SNOMED Code Problem Attention-deficit hyperactivity disorder, combined type F90.2 Active 36009105 Problem Chronic fatigue R53.82 Active 8422 9001 Problem Bipolar II disorder F31.81 Active 22217533 Problem Iron deficiency anemia due to chronic blood loss D 50.0 Active [id number] ALLERGIES No Information ENCOUNTERS Encounter Location Date Diagnosis [facility] [address] [facility] [id number] [address] [place] [address] Aug, [facility] [place] [id number] [place] [address] Jan, Iron deficiency anemia due to chronic bl ood loss D50.0 ; Chronic fatigue R53.82 ; Arthralgia, unspecified joint M25.50 ; Hair loss L65.9 ; S/P gastric bypass Z98.84 ; Vesicles R23.8 and Recurrent acute suppurative otitis media of right ear without spontaneous rupture of tympanic membrane H66.004 [facility] [place] [id number] [place] [address] February, [facility] [place] [address] [address] February, Attention-deficit hyperactivity disorder , combined type F90.2 [facility] [place] [address] [address] February, [facility] [place] [address] [address] Dec, Bipolar II disorder F31.81 [place] [address] [address] Oct, [address] [address] Oct, Bipolar II disorder F31.81 and Attention -deficit hyperactivity disorder, combined type F90.[address] [address] Oct, Encounter to establish care Z76.89 ; Iro n deficiency anemia due to chronic blood loss D50.0 and Bipolar II disorder F31.[address] [address] Apr, Well woman exam with routine gynecologic al exam Z01.419 ; Screen for STD (sexually transmitted disease) Z11.3 ; Screening breast examination Z12.39 and Encounter for initial prescription of contraceptive pills Z30.[address] [address] Jan, Bipolar II disorder F31.[address] [address] Apr, Fatigue 780.[address] [address] Apr, Iron deficiency 280.[address] [address] Apr, Vitamin B 12 deficiency 266.2 and Iron d eficiency 280.[address] [address] Apr, Joint pain 719.[address] [address] Apr, [address] [address] Apr, Fatigue 780.79 and Bilateral knee pain [address] [address] February, General counseling on prescription of or al contraceptives V25.01 [facility] [place] [address] [address] February, Cough 786.2 [facility] [place] [address] [address] February, Sinusitis 473.9 ; Suppurative otitis med ia of left ear 382.4 ; Otalgia of both ears 388.70 and Allergic rhinitis 477.9 [facility] [place] [address] [address] Jan, [facility] [place] [address] [address] Jan, [facility] [place] [address] [address] Oct, [facility] [place] [address] [address] Oct, [facility] [place] [address] [address] Sep, [facility] [place] [address] [address] Sep, [facility] [place] [address] [address] Sep, [facility] [place] [address] [address] Sep, [facility] [place] [address] [address] Jun, [facility] [place] [address] [address] Jun, [facility] [place] [address] [address] Jun, [facility] [place] [address] [address] Jun, [facility] [place] [address] [address] May, [facility] [place] [facility] [address] [id number] [facility] [address] May, [facility] [place] [facility] [address] [id number] [place] [address] May, [facility] [place] [facility] [address] [facility] [id number] [facility] [address] May, [facility] [place] [facility] [address] [id number] [place] [address] May, [facility] [place] [facility] [address] [id number] [place] [address] May, [facility] [place] [facility] [address] [id number] [place] [address] May, [facility] [place] [facility] [address] [facility] [id number] [facility] [address] May, [facility] [place] [facility] [address] [id number] [facility] [address] May, [facility] [place] [facility] [address] [facility] [id number] [place] [address] May, [facility] [place] [facility] [address] [id number] [facility] [address] May, [facility] [place] [facility] [address] [facility] [id number] [facility] [address] May, [facility] [place] [facility] [address] [id number] [facility] [address] May, [facility] [place] [facility] [address] [id number] [facility] [address] May, [facility] [place] [facility] [address] [id number] [facility] [address] May, [facility] [place] [facility] [address] [facility] [id number] [facility] [address] May, [facility] [place] [facility] [address] [id number] [facility] [address] May, [facility] [place] [facility] [address] [id number] [facility] [address] 05 May, 2013 [facility] [place] [facility] [address] [id number] [place] [address] Apr, [facility] [place] [facility] [address] [facility] [id number] [facility] [place] [address] Apr, 2013 [facility] [place] [facility] [address] [facility] [id number] [facility] [place] [address] Apr, [facility] [place] [facility] [address] [facility] [id number] [facility] [place] [address] Apr, [facility] [place] [facility] [address] [facility] [id number] [place] [address] Apr, [facility] [place] [facility] [address] [facility] [id number] [place] [address] Apr, 2013 [facility] [place] [facility] [address] [id number] [facility] [place] [address] 17 Apr, 2013 [facility] [place] [facility] [address] [facility] [id number] [facility] [place] [address] 16 Apr, 2013 [facility] [place] [facility] [address] [facility] [id number] [facility] [address] 16 Apr, 2013 [facility] [place] [facility] [address] [id number] [place] [address] 14 Apr, 2013 [facility] [place] [facility] [address] [id number] [place] [address] 14 Apr, 2013 [facility] [place] [facility] [address] [facility] [id number] [facility] [address] 14 Apr, 2013 [facility] [place] [facility] [address] [id number] [facility] [place] [address] 14 Apr, 2013 [facility] [place] [facility] [address] [id number] [facility] [place] [address] 14 Apr, 2013 [facility] [place] [facility] [address] [facility] [id number] [place] [address] 14 Apr, 2013 [facility] [place] [facility] [address] [facility] [id number] [place] [address] Apr, 2013 [facility] [place] [facility] [address] [id number] [place] [address] Apr, [facility] [place] [facility] [address] [id number] [place] [address] Apr, [facility] [place] [facility] [address] [id number] [place] [address] Apr, [facility] [place] [facility] [address] [id number] [place] [address] Mar, [facility] [place] [facility] [address] [id number] [place] [address] Mar, [facility] [place] [facility] [address] [id number] [place] [address] February, [facility] [place] [facility] [address] [id number] [place] [address] February, [facility] [place] [facility] [address] [id number] [place] [address] February, [facility] [place] [facility] [address] [id number] [place] [address] February, [facility] [place] [facility] [address] [id number] [place] [address] February, [facility] [place] [facility] [address] [id number] [place] [address] Jan, [facility] [place] [facility] [address] [id number] [place] [address] Jan, [facility] [place] [facility] [address] [id number] [place] [address] Jan, [facility] [place] [facility] [address] [id number] [place] [address] Jan, [facility] [place] [facility] [address] [id number] [place] [address] Jan, [facility] [place] [facility] [address] [id number] [place] [address] Jan, [facility] [place] [facility] [address] [id number] [place] [address] Nov, [facility] [place] [facility] [address] [facility] [id number] [place] [address] Nov, [facility] [place] [facility] [address] [id number] [place] [address] Oct, [facility] [place] [facility] [address] [id number] [place] [address] Oct, [facility] [place] [facility] [address] [id number] [place] [address] Aug, [facility] [place] [facility] [address] [facility] [id number] [place] [address] Aug, [facility] [place] [facility] [address] [id number] [place] [address] Aug, [facility] [place] [facility] [address] [id number] [place] [address] Aug, [facility] [place] [facility] [address] [id number] [place] [address] Jul, [facility] [place] [facility] [address] [id number] [place] [address] Jul, [facility] [place] [facility] [address] [id number] [place] [address] Jul, [facility] [place] [facility] [address] [id number] [place] [address] Jul, [facility] [place] [facility] [address] [id number] [place] [address] Jul, [facility] [place] [facility] [address] [id number] [place] [address] Jul, [facility] [place] [facility] [address] [id number] [place] [address] Jul, [facility] [place] [facility] [address] [id number] [place] [address] Jul, [facility] [place] [facility] [address] [id number] [place] [address] Mar, [facility] [place] [facility] [address] [id number] [place] [address] February, [facility] [place] [address] [id number] [place] [address] February, [facility] [place] [address] [id number] [place] [address] Jan, [facility] [place] [id number] [place] [address] Jan, [facility] [place] [id number] [place] [address] Jan, [facility] [place] [id number] [place] [address] Jan, [facility] [place] [id number] [place] [address] Dec, [facility] [place] [id number] [place] [address] Dec, [facility] [place] [id number] [place] [address] Dec, [facility] [place] [address] [id number] [place] [address] Nov, [facility] [place] [id number] [place] [address] Dec, IMMUNIZATIONS No Known Immunizations SOCIAL HISTORY [...]
--- OUTSIDE RECORDS SUMMARY | 2020-05-08 06:39 | XMS REPORT ---
Author Author Georgiana Samaniego Organization [facility] Address [address] [place] [address] Care Team Providers Care Accounts Receivable Manager Name Role Phone EMILI Samaniego Unavailable PROBLEMS Type Condition ICD9-CM Code [id number] Code Onset Dates Condition S tatus SNOMED Code Problem Attention-deficit hyperactivity disorder, combined type F90.2 Active 87461398 Problem Chronic fatigue R53.82 Active 8422 9001 Problem Bipolar II disorder F31.81 Active 60176289 Problem Iron deficiency anemia due to chronic blood loss D 50.0 Active [id number] ALLERGIES No Information ENCOUNTERS Encounter Location Date Diagnosis [facility] [address] [facility] [id number] [address] [place] [address] Aug, [facility] [id number] [place] [address] Jan, Iron deficiency anemia due to chronic bl ood loss D50.0 ; Chronic fatigue R53.82 ; Arthralgia, unspecified joint M25.50 ; Hair loss L65.9 ; S/P gastric bypass Z98.84 ; Vesicles R23.8 and Recurrent acute suppurative otitis media of right ear without spontaneous rupture of tympanic membrane H66.004 [facility] [id number] [place] [address] February, [facility] [address] [address] February, Attention-deficit hyperactivity disorder , combined type F90.2 [facility] [address] [address] February, [facility] [address] [address] Dec, Bipolar II disorder F31.81 [place] [address] [address] Oct, [address] [address] Oct, Bipolar II disorder F31.81 and Attention -deficit hyperactivity disorder, combined type F90.[address] [address] Oct, Encounter to establish care Z76.89 ; Iro n deficiency anemia due to chronic blood loss D50.0 and Bipolar II disorder F31.[address] [address] Apr, Well woman exam with routine gynecologic al exam Z01.419 ; Screen for STD (sexually transmitted disease) Z11.3 ; Screening breast examination Z12.39 and Encounter for initial prescription of contraceptive pills Z30.[address] [address] Jan, Bipolar II disorder F31.[address] [address] Apr, Fatigue 780.[address] [address] Apr, Iron deficiency 280.[address] [address] Apr, Vitamin B 12 deficiency 266.2 and Iron d eficiency 280.[address] [address] Apr, Joint pain 719.[address] [address] Apr, [address] [address] Apr, Fatigue 780.79 and Bilateral knee pain [address] [address] February, General counseling on prescription of or al contraceptives V25.01 [facility] [address] [address] February, Cough 786.2 [facility] [address] [address] February, Sinusitis 473.9 ; Suppurative otitis med ia of left ear 382.4 ; Otalgia of both ears 388.70 and Allergic rhinitis 477.9 [facility] [address] [address] Jan, [facility] [address] [address] Jan, [facility] [address] [address] Oct, [facility] [address] [address] Oct, [facility] [address] [address] Sep, [facility] [address] [address] Sep, [facility] [address] [address] Sep, [facility] [address] [address] Sep, [facility] [address] [address] Jun, [facility] [address] [address] Jun, [facility] [address] [address] Jun, [facility] [address] [address] Jun, [facility] [address] [address] May, [facility] [place] [facility] [address] [id number] [place] [address] May, [facility] [place] [facility] [address] [id number] [place] [address] May, [facility] [place] [facility] [address] [facility] [id number] [place] [address] May, [facility] [place] [facility] [address] [id number] [place] [address] May, [facility] [place] [facility] [address] [id number] [place] [address] May, [facility] [place] [facility] [address] [id number] [place] [address] May, [facility] [place] [facility] [address] [facility] [id number] [place] [address] May, [facility] [place] [facility] [address] [id number] [place] [address] May, [facility] [place] [facility] [address] [facility] [id number] [place] [address] May, [facility] [place] [facility] [address] [id number] [place] [address] May, [facility] [place] [facility] [address] [facility] [id number] [place] [address] May, [facility] [place] [facility] [address] [id number] [place] [address] May, [facility] [place] [facility] [address] [id number] [place] [address] May, [facility] [place] [facility] [address] [id number] [place] [address] May, [facility] [place] [facility] [address] [facility] [id number] [place] [address] May, [facility] [place] [facility] [address] [id number] [place] [address] May, [facility] [place] [facility] [address] [id number] [place] [address] 05 May, 2013 [facility] [place] [facility] [address] [id number] [place] [address] Apr, [facility] [place] [facility] [address] [facility] [id number] [place] [address] Apr, 2013 [facility] [place] [facility] [address] [facility] [id number] [place] [address] Apr, [facility] [place] [facility] [address] [facility] [id number] [place] [address] Apr, [facility] [place] [facility] [address] [facility] [id number] [place] [address] Apr, [facility] [place] [facility] [address] [facility] [id number] [place] [address] Apr, 2013 [facility] [place] [facility] [address] [id number] [place] [address] 17 Apr, 2013 [facility] [place] [facility] [address] [facility] [id number] [place] [address] 16 Apr, 2013 [facility] [place] [facility] [address] [facility] [id number] [place] [address] 16 Apr, 2013 [facility] [place] [facility] [address] [id number] [place] [address] 14 Apr, 2013 [facility] [place] [facility] [address] [id number] [place] [address] 14 Apr, 2013 [facility] [place] [facility] [address] [facility] [id number] [place] [address] 14 Apr, 2013 [facility] [place] [facility] [address] [id number] [place] [address] 14 Apr, 2013 [facility] [place] [facility] [address] [id number] [place] [address] 14 Apr, 2013 [facility] [place] [facility] [address] [facility] [id number] [place] [address] 14 Apr, 2013 [facility] [place] [facility] [address] [facility] [id number] [place] [address] Apr, 2013 [facility] [place] [facility] [address] [id number] [place] [address] Apr, [facility] [place] [facility] [address] [id number] [place] [address] Apr, [facility] [place] [facility] [address] [id number] [place] [address] Apr, [facility] [place] [facility] [address] [id number] [place] [address] Mar, [facility] [place] [facility] [address] [id number] [place] [address] Mar, [facility] [place] [facility] [address] [id number] [place] [address] February, [facility] [place] [facility] [address] [id number] [place] [address] February, [facility] [place] [facility] [address] [id number] [place] [address] February, [facility] [place] [facility] [address] [id number] [place] [address] February, [facility] [place] [facility] [address] [id number] [place] [address] February, [facility] [place] [facility] [address] [id number] [place] [address] Jan, [facility] [place] [facility] [address] [id number] [place] [address] Jan, [facility] [place] [facility] [address] [id number] [place] [address] Jan, [facility] [place] [facility] [address] [id number] [place] [address] Jan, [facility] [place] [facility] [address] [id number] [place] [address] Jan, [facility] [place] [facility] [address] [id number] [place] [address] Jan, [facility] [place] [facility] [address] [id number] [place] [address] Nov, [facility] [place] [facility] [address] [facility] [id number] [place] [address] Nov, [facility] [place] [facility] [address] [id number] [place] [address] Oct, [facility] [place] [facility] [address] [id number] [place] [address] Oct, [facility] [place] [facility] [address] [id number] [place] [address] Aug, [facility] [place] [facility] [address] [facility] [id number] [place] [address] Aug, [facility] [place] [facility] [address] [id number] [place] [address] Aug, [facility] [place] [facility] [address] [id number] [place] [address] Aug, [facility] [place] [facility] [address] [id number] [place] [address] Jul, [facility] [place] [facility] [address] [id number] [place] [address] Jul, [facility] [place] [facility] [address] [id number] [place] [address] Jul, [facility] [place] [facility] [address] [id number] [place] [address] Jul, [facility] [place] [facility] [address] [id number] [place] [address] Jul, [facility] [place] [facility] [address] [id number] [place] [address] Jul, [facility] [place] [facility] [address] [id number] [place] [address] Jul, [facility] [place] [facility] [address] [id number] [place] [address] Jul, [facility] [place] [facility] [address] [id number] [place] [address] Mar, [facility] [place] [facility] [address] [id number] [place] [address] February, [facility] [address] [id number] [place] [address] February, [facility] [address] [id number] [place] [address] Jan, [facility] [id number] [place] [address] Jan, [facility] [id number] [place] [address] Jan, [facility] [id number] [place] [address] Jan, [facility] [id number] [place] [address] Dec, [facility] [id number] [place] [address] Dec, [facility] [id number] [place] [address] Dec, [facility] [address] [id number] [place] [address] Nov, [facility] [id number] [place] [address] Dec, IMMUNIZATIONS No Known Immunizations SOCIAL HISTORY [...]
--- OUTSIDE RECORDS SUMMARY | 2020-05-08 06:39 | XMS REPORT ---
Author Author Georgiana Samaniego Organization [facility] Address [address] [place] [address] Care Team Providers Care Welding Technician Name Role Phone EMILI Samaniego Unavailable PROBLEMS Type Condition ICD9-CM Code [id number] Code Onset Dates Condition S tatus SNOMED Code Problem Attention-deficit hyperactivity disorder, combined type F90.2 Active 28886001 Problem Chronic fatigue R53.82 Active 8422 9001 Problem Bipolar II disorder F31.81 Active 88619693 Problem Iron deficiency anemia due to chronic blood loss D 50.0 Active [id number] ALLERGIES No Information ENCOUNTERS Encounter Location Date Diagnosis [facility] WALK IN [facility] [address] [facility] [id number] [address] [place] [address] Aug, [facility] [id number] [place] [address] Jan, Iron deficiency anemia due to chronic bl ood loss D50.0 ; Chronic fatigue R53.82 ; Arthralgia, unspecified joint M25.50 ; Hair loss L65.9 ; S/P gastric bypass Z98.84 ; Vesicles R23.8 and Recurrent acute suppurative otitis media of right ear without spontaneous rupture of tympanic membrane H66.004 [facility] [id number] [place] [address] February, [facility] [address] [address] February, Attention-deficit hyperactivity disorder , combined type F90.2 [facility] [address] [address] February, [facility] [address] [address] Dec, Bipolar II disorder F31.81 [place] [address] [address] Oct, [address] [address] Oct, Bipolar II disorder F31.81 and Attention -deficit hyperactivity disorder, combined type F90.[address] [address] Oct, Encounter to establish care Z76.89 ; Iro n deficiency anemia due to chronic blood loss D50.0 and Bipolar II disorder F31.[address] [address] Apr, Well woman exam with routine gynecologic al exam Z01.419 ; Screen for STD (sexually transmitted disease) Z11.3 ; Screening breast examination Z12.39 and Encounter for initial prescription of contraceptive pills Z30.[address] [address] Jan, Bipolar II disorder F31.[address] [address] Apr, Fatigue 780.[address] [address] Apr, Iron deficiency 280.[address] [address] Apr, Vitamin B 12 deficiency 266.2 and Iron d eficiency 280.[address] [address] Apr, Joint pain 719.[address] [address] Apr, [address] [address] Apr, Fatigue 780.79 and Bilateral knee pain [address] [address] February, General counseling on prescription of or al contraceptives V25.01 [facility] [address] [address] February, Cough 786.2 [facility] [address] [address] February, Sinusitis 473.9 ; Suppurative otitis med ia of left ear 382.4 ; Otalgia of both ears 388.70 and Allergic rhinitis 477.9 [facility] [address] [address] Jan, [facility] [address] [address] Jan, [facility] [address] [address] Oct, [facility] [address] [address] Oct, [facility] [address] [address] Sep, [facility] [address] [address] Sep, [facility] [address] [address] Sep, [facility] [address] [address] Sep, [facility] [address] [address] Jun, [facility] [address] [address] Jun, [facility] [address] [address] Jun, [facility] [address] [address] Jun, [facility] [address] [address] May, [facility] [place] [facility] [address] [id number] [facility] [place] [address] May, [facility] [place] [facility] [address] [id number] [place] [address] May, [facility] [place] [facility] [address] [facility] [id number] [facility] [place] [address] May, [facility] [place] [facility] [address] [id number] [place] [address] May, [facility] [place] [facility] [address] [id number] [place] [address] May, [facility] [place] [facility] [address] [id number] [place] [address] May, [facility] [place] [facility] [address] [facility] [id number] [facility] [place] [address] May, [facility] [place] [facility] [address] [id number] [facility] [place] [address] May, [facility] [place] [facility] [address] [facility] [id number] [place] [address] May, [facility] [place] [facility] [address] [id number] [facility] [place] [address] May, [facility] [place] [facility] [address] [facility] [id number] [facility] [place] [address] May, [facility] [place] [facility] [address] [id number] [facility] [place] [address] May, [facility] [place] [facility] [address] [id number] [facility] [place] [address] May, [facility] [place] [facility] [address] [id number] [facility] [place] [address] May, [facility] [place] [facility] [address] [facility] [id number] [facility] [place] [address] May, [facility] [place] [facility] [address] [id number] [facility] [place] [address] May, [facility] [place] [facility] [address] [id number] [facility] [place] [address] 05 May, 2013 [facility] [place] [facility] [address] [id number] [place] [address] Apr, [facility] [place] [facility] [address] [facility] [id number] [facility] [place] [address] Apr, 2013 [facility] [place] [facility] [address] [facility] [id number] [facility] [place] [address] Apr, [facility] [place] [facility] [address] [facility] [id number] [facility] [place] [address] Apr, [facility] [place] [facility] [address] [facility] [id number] [place] [address] Apr, [facility] [place] [facility] [address] [facility] [id number] [place] [address] Apr, 2013 [facility] [place] [facility] [address] [id number] [facility] [place] [address] 17 Apr, 2013 [facility] [place] [facility] [address] [facility] [id number] [facility] [place] [address] 16 Apr, 2013 [facility] [place] [facility] [address] [facility] [id number] [facility] [place] [address] 16 Apr, 2013 [facility] [place] [facility] [address] [id number] [place] [address] 14 Apr, 2013 [facility] [place] [facility] [address] [id number] [place] [address] 14 Apr, 2013 [facility] [place] [facility] [address] [facility] [id number] [facility] [place] [address] 14 Apr, 2013 [facility] [place] [facility] [address] [id number] [facility] [place] [address] 14 Apr, 2013 [facility] [place] [facility] [address] [id number] [facility] [place] [address] 14 Apr, 2013 [facility] [place] [facility] [address] [facility] [id number] [place] [address] 14 Apr, 2013 [facility] [place] [facility] [address] [facility] [id number] [place] [address] Apr, 2013 [facility] [place] [facility] [address] [id number] [place] [address] Apr, [facility] [place] [facility] [address] [id number] [place] [address] Apr, [facility] [place] [facility] [address] [id number] [place] [address] Apr, [facility] [place] [facility] [address] [id number] [place] [address] Mar, [facility] [place] [facility] [address] [id number] [place] [address] Mar, [facility] [place] [facility] [address] [id number] [place] [address] February, [facility] [place] [facility] [address] [id number] [place] [address] February, [facility] [place] [facility] [address] [id number] [place] [address] February, [facility] [place] [facility] [address] [id number] [place] [address] February, [facility] [place] [facility] [address] [id number] [place] [address] February, [facility] [place] [facility] [address] [id number] [place] [address] Jan, [facility] [place] [facility] [address] [id number] [place] [address] Jan, [facility] [place] [facility] [address] [id number] [place] [address] Jan, [facility] [place] [facility] [address] [id number] [place] [address] Jan, [facility] [place] [facility] [address] [id number] [place] [address] Jan, [facility] [place] [facility] [address] [id number] [place] [address] Jan, [facility] [place] [facility] [address] [id number] [place] [address] Nov, [facility] [place] [facility] [address] [facility] [id number] [place] [address] Nov, [facility] [place] [facility] [address] [id number] [place] [address] Oct, [facility] [place] [facility] [address] [id number] [place] [address] Oct, [facility] [place] [facility] [address] [id number] [place] [address] Aug, [facility] [place] [facility] [address] [facility] [id number] [place] [address] Aug, [facility] [place] [facility] [address] [id number] [place] [address] Aug, [facility] [place] [facility] [address] [id number] [place] [address] Aug, [facility] [place] [facility] [address] [id number] [place] [address] Jul, [facility] [place] [facility] [address] [id number] [place] [address] Jul, [facility] [place] [facility] [address] [id number] [place] [address] Jul, [facility] [place] [facility] [address] [id number] [place] [address] Jul, [facility] [place] [facility] [address] [id number] [place] [address] Jul, [facility] [place] [facility] [address] [id number] [place] [address] Jul, [facility] [place] [facility] [address] [id number] [place] [address] Jul, [facility] [place] [facility] [address] [id number] [place] [address] Jul, [facility] [place] [facility] [address] [id number] [place] [address] Mar, [facility] [place] [facility] [address] [id number] [place] [address] February, [facility] [address] [id number] [place] [address] February, [facility] [address] [id number] [place] [address] Jan, [facility] [id number] [place] [address] Jan, [facility] [id number] [place] [address] Jan, [facility] [id number] [place] [address] Jan, [facility] [id number] [place] [address] Dec, [facility] [id number] [place] [address] Dec, [facility] [id number] [place] [address] Dec, [facility] [address] [id number] [place] [address] Nov, [facility] [id number] [place] [address] Dec, IMMUNIZATIONS No Known Immunizations SOCIAL HISTORY [...]
--- OUTSIDE RECORDS SUMMARY | 2020-05-08 06:39 | XMS REPORT ---
Author Author Georgiana CLINTON [facility] Address [address] [place] [address] Care Team Providers Care Automotive Software Engineer Name Role Phone NILSA CLINTON Unavailable PROBLEMS Type Condition ICD9-CM Code [id number] Code Onset Dates Condition S tatus SNOMED Code Problem Attention-deficit hyperactivity disorder, combined type F90.2 Active 80622513 Problem Chronic fatigue R53.82 Active 8422 9001 Problem Bipolar II disorder F31.81 Active 23396573 Problem Iron deficiency anemia due to chronic blood loss D 50.0 Active [id number] ALLERGIES No Information ENCOUNTERS Encounter Location Date Diagnosis [place] [address] [id number] [place] [id number] Jan, Iron deficiency anemia due t o chronic blood loss D50.0 ; Chronic fatigue R53.82 ; Arthralgia, unspecified joint M25.50 ; Hair loss L65.9 ; S/P gastric bypass Z98.84 ; Vesicles R23.8 and Recurrent acute suppurative otitis media of right ear without spontaneous rupture of tympanic membrane H66.004 [place] [address] [address] [place] [id number] [address] [place] [address] February, [place] [address] [address] [place] [id number] [address] [place] [address] February, Attention-deficit hyperactiv ity disorder, combined type F90.2 [place] [address] [address] [place] [id number] [address] [place] [address] February, [place] [address] [address] [place] [id number] [address] [place] [address] Dec, Bipolar II disorder F31.81 [place] [address] [address] [place] [id number] [address] [place] [address] Oct, [place] [address] [address] [facility] [id number] [address] [place] [address] Oct, Bipolar II disorder F31.81 a nd Attention-deficit hyperactivity disorder, combined type F90.2 [place] [address] [address] [facility] [id number] [address] [place] [phone] Oct, Encounter to establish care Z76.89 ; Iron deficiency anemia due to chronic blood loss D50.0 and Bipolar II disorder F31.81 [place] [address] [address] [facility] [id number] [address] [place] [address] Apr, Well woman exam with routine gynecological exam Z01.419 ; Screen for STD (sexually transmitted disease) Z11.3 ; Screening breast examination Z12.39 and Encounter for initial prescription of contraceptive pills Z30.011 [place] [address] [address] [place] [id number] [address] [place] [address] Jan, Bipolar II disorder F31.81 [place] [address] [address] [place] [id number] [address] [place] [address] Apr, Fatigue 780.[address] [address] Apr, Iron deficiency 280.9 [place] [id number] [address] [place] [address] Apr, Vitamin B 12 deficiency 266. 2 and Iron deficiency 280.9 [place] [address] [address] [place] [id number] [address] [place] [address] Apr, Joint pain 719.40 [place] [address] [address] [place] [id number] [address] [place] [address] Apr, [place] [address] [address] [place] [id number] [address] [place] [address] Apr, Fatigue 780.79 and Bilateral knee pain 719.46 [place] [address] [address] [place] [id number] [address] [place] [address] February, General counseling on prescr iption of oral contraceptives V25.01 [facility] [address] [id number] [address] [place] [address] February, Cough 786.2 [facility] [address] [id number] [address] [place] [address] February, Sinusitis 473.9 ; Suppurativ e otitis media of left ear 382.4 ; Otalgia of both ears 388.70 and Allergic rhinitis 477.9 [facility] [address] [id number] [address] [place] [address] Jan, [facility] [address] [id number] [address] [place] [phone] Jan, [facility] [address] [id number] [address] [place] [address] Oct, [facility] [address] [id number] [address] [place] [address] Oct, [facility] [address] [id number] [address] [place] [address] Sep, [facility] [address] [id number] [address] [place] [address] Sep, [facility] [address] [id number] [address] [place] [address] Sep, [facility] [address] [id number] [address] [place] [address] Sep, [facility] [address] [id number] [address] [place] [address] Jun, [facility] [address] [id number] [address] [place] [address] Jun, [facility] [address] [id number] [address] [place] [id number] 16 Jun, 2014 [facility] [address] [id number] [address] [place] [address] Jun, [facility] [address] [id number] [facility] [place] [address] May, [facility] [address] [id number] [address] [place] [address], [place] [address] May, [facility] [address] [id number] [address] [place] [address], [place] [address] May, [facility] [address] [id number] [address] [place] [address], [place] [address] May, [facility] [address] [id number] [address] [place] [address], [place] [address] May, [facility] [address] [id number] [address] [place] [address], [place] [address] May, [facility] [address] [id number] [address] [place] [address], [place] [address] May, [facility] [address] [id number] [address] [place] [address], [place] [address] May, [facility] [address] [id number] [address] [place] [address], [place] [address] May, [facility] [address] [id number] [address] [place] [address], [place] [address] May, [facility] [address] [id number] [address] [place] [address], [place] [address] May, [facility] [address] [id number] [address] [place] [address], [place] [address] May, [facility] [address] [id number] [address] [place] [address], [place] [address] May, [facility] [address] [id number] [address] [place] [address], [place] [address] May, [facility] [address] [id number] [address] [place] [address], [place] [address] May, [facility] [address] [id number] [address] [place] [address], [place] [address] May, [facility] [address] [id number] [facility] [place] [address] May, [facility] [address] [id number] [address] [place] [address], [place] [address] May, [facility] [address] [id number] [address] [place] [address], [place] [address] Apr, [facility] [address] [id number] [address] [place] [address], [place] [address] Apr, [facility] [address] [id number] [address] [place] [address], [place] [address] Apr, [facility] [address] [id number] [address] [place] [address], [place] [address] Apr, [facility] [address] [id number] [address] [place] [address], [place] [address] Apr, [facility] [address] [id number] [address] [place] [address], [place] [address] Apr, [facility] [address] [id number] [address] [place] [address], [place] [address] Apr, [facility] [address] [id number] [address] [place] [address], [place] [address] Apr, [facility] [address] [id number] [address] [place] [address], [place] [address] Apr, [facility] [address] [id number] [address] [place] [address], [place] [address] Apr, [facility] [address] [id number] [address] [place] [address], [place] [address] Apr, [facility] [address] [id number] [address] [place] [address], [place] [address] Apr, [facility] [address] [id number] [address] [place] [address], [place] [address] Apr, [facility] [address] [id number] [facility] [place] [address] 14 Apr, 2014 [facility] [address] [id number] [facility] [place] [address] 14 Apr, 2014 [facility] [address] [id number] [facility] [place] [address] Apr, [facility] [address] [id number] [facility] [place] [address] Apr, [facility] [address] [id number] [facility] [place] [address] Apr, [facility] [address] [id number] [address] [place] [address], [place] [address] Apr, [facility] [address] [id number] [address] [place] [address], [place] [address] Mar, [facility] [address] [id number] [address] [place] [address], [place] [address] Mar, [facility] [address] [id number] [address] [place] [address], [place] [address] February, [facility] [address] [id number] [address] [place] [address], [place] [address] February, [facility] [address] [id number] [address] [place] [address], [place] [address] February, [facility] [address] [id number] [address] [place] [address], [place] [address] February, [facility] [address] [id number] [address] [place] [address], [place] [address] February, [facility] [address] [id number] [address] [place] [address], [place] [address] Jan, [facility] [address] [id number] [address] [place] [address], [place] [address] Jan, [facility] [address] [id number] [address] [place] [address], [place] [address] Jan, [facility] [address] [id number] [address] [place] [address], [place] [address] Jan, [facility] [address] [id number] [address] [place] [address], [place] [address] Jan, [facility] [address] [id number] [address] [place] [address], [place] [address] Jan, [facility] [address] [id number] [address] [place] [address], [place] [address] Nov, [facility] [address] [id number] [address] [place] [address], [place] [address] Nov, [facility] [address] [id number] [address] [place] [address], [place] [address] Oct, [facility] [address] [id number] [address] [place] [address], [place] [address] Oct, [facility] [address] [id number] [address] [place] [address], [place] [address] Aug, [facility] [address] [id number] [address] [place] [address], [place] [address] Aug, [facility] [address] [id number] [address] [place] [address], [place] [address] Aug, [facility] [address] [id number] [address] [place] [address], [place] [address] Aug, [facility] [address] [id number] [address] [place] [address], [place] [address] Jul, [facility] [address] [id number] [address] [place] [address], [place] [address] Jul, [facility] [address] [id number] [address] [place] [address], [place] [address] Jul, [facility] [address] [id number] [address] [place] [address], [place] [address] Jul, [facility] [address] [id number] [address] [place] [address], [place] [address] 28 Jul, 2013 [facility] [address] [id number] [address] [place] [address], [place] [address] 28 Jul, 2013 [facility] [address] [id number] [address] [place] [address], [place] [address] 15 Jul, 2013 [facility] [address] [id number] [address] [place] [address], [place] [address] 15 Jul, 2013 [facility] [address] [id number] [address] [place] [address], [place] [address] Mar, [facility] [address] [id number] [address] [place] [address], [place] [address] February, [facility] [address] [id number] [address] [place] [address], [place] [address] February, [facility] [address] [id number] [address] [place] [address], [place] [address] Jan, [facility] [address] [id number] [address] [place] [address], [place] [address] Jan, [facility] [address] [id number] [address] [place] [address], [place] [address] Jan, [facility] [address] [id number] [address] [place] [address], [place] [address] Jan, [facility] [address] [id number] [address] [place] [address], [place] [address] Dec, [facility] [address] [id number] [address] [place] [address], [place] [address] Dec, [facility] [address] [id number] [address] [place] [address], [place] [address] Dec, [facility] [address] [id number] [address] [place] [address], [place] [address] Nov, [facility] [address] [id number] [address] [place] [address] Dec, IMMUNIZATIONS No Known Immunizations SOCIAL HISTORY Never Assessed REASON FOR VISIT PLAN OF CARE VITAL SIGNS Height 64 in 2014-05-17 Weight 152.44 lbs 2014-05-17 Temperature 98 degrees Fahrenheit 2014-05-17 Heart Rate 80 bpm 2014-05-17 Respiratory Rate 20 2014-05-17 Blood pressure systolic 138 mmHg 2014-05-17 Blood pressure diastolic 74 mmHg 2014-05-17 MEDICATIONS No Known Medications RESULTS No Results PROCEDURES Procedure Date Ordered Result Body Site COMPLETE CBC W/AUTO DIFF WBC May 17, 2014 COMPREHEN METABOLIC PANEL May 17, 2014 VENIPUNCT, ROUTINE* May 17, 2014 INSTRUCTIONS MEDICATIONS ADMINISTERED No Known Medications MEDICAL [...]
--- OUTSIDE RECORDS SUMMARY | 2020-05-08 06:39 | XMS REPORT ---
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 Role Phone EMILI Samaniego Unavailable PROBLEMS Type Condition ICD9-CM Code ZGB21-JO Code Onset Dates Condition S tatus SNOMED Code Problem Attention-deficit hyperactivity disorder, combined type F90.2 Active 49104249 Problem Chronic fatigue R53.82 Active 8422 9001 Problem Bipolar II disorder F31.81 Active 24978015 Problem Iron deficiency anemia due to chronic blood loss D 50.0 Active [id number] ALLERGIES No Information ENCOUNTERS Encounter Location Date Diagnosis [facility] [address] [facility] [id number] [address] [place] [address] Aug, [facility] [id number] [place] [address] Jan, Iron deficiency anemia due to chronic bl ood loss D50.0 ; Chronic fatigue R53.82 ; Arthralgia, unspecified joint M25.50 ; Hair loss L65.9 ; S/P gastric bypass Z98.84 ; Vesicles R23.8 and Recurrent acute suppurative otitis media of right ear without spontaneous rupture of tympanic membrane H66.004 [facility] [id number] [place] [address] February, [facility] [address] [address] February, Attention-deficit hyperactivity disorder , combined type F90.2 [facility] [address] [address] February, [facility] [address] [address] Dec, Bipolar II disorder F31.81 [place] [address] [address] Oct, [address] [address] Oct, Bipolar II disorder F31.81 and Attention -deficit hyperactivity disorder, combined type F90.[address] [address] Oct, Encounter to establish care Z76.89 ; Iro n deficiency anemia due to chronic blood loss D50.0 and Bipolar II disorder F31.[address] [address] Apr, Well woman exam with routine gynecologic al exam Z01.419 ; Screen for STD (sexually transmitted disease) Z11.3 ; Screening breast examination Z12.39 and Encounter for initial prescription of contraceptive pills Z30.[address] [address] Jan, Bipolar II disorder F31.[address] [address] Apr, Fatigue 780.[address] [address] Apr, Iron deficiency 280.[address] [address] Apr, Vitamin B 12 deficiency 266.2 and Iron d eficiency 280.[address] [address] Apr, Joint pain 719.[address] [address] Apr, [address] [address] Apr, Fatigue 780.79 and Bilateral knee pain [address] [address] February, General counseling on prescription of or al contraceptives V25.01 [facility] [address] [address] February, Cough 786.2 [facility] [address] [address] February, Sinusitis 473.9 ; Suppurative otitis med ia of left ear 382.4 ; Otalgia of both ears 388.70 and Allergic rhinitis 477.9 [facility] [address] [address] Jan, [facility] [address] [address] Jan, [facility] [address] [address] Oct, [facility] [address] [address] Oct, [facility] [address] [address] Sep, [facility] [address] [address] Sep, [facility] [address] [address] Sep, [facility] [address] [address] Sep, [facility] [address] [address] Jun, [facility] [address] [address] Jun, [facility] [address] [address] Jun, [facility] [address] [address] Jun, [facility] [address] [address] May, [facility] [place] [facility] [address] [id number] [place] [address] May, [facility] [place] [facility] [address] [id number] [place] [address] May, [facility] [place] [facility] [address] [facility] [id number] [place] [address] May, [facility] [place] [facility] [address] [id number] [place] [address] May, [facility] [place] [facility] [address] [id number] [place] [address] May, [facility] [place] [facility] [address] [id number] [place] [address] May, [facility] [place] [facility] [address] [facility] [id number] [place] [address] May, [facility] [place] [facility] [address] [id number] [place] [address] May, [facility] [place] [facility] [address] [facility] [id number] [place] [address] May, [facility] [place] [facility] [address] [id number] [place] [address] May, [facility] [place] [facility] [address] [facility] [id number] [place] [address] May, [facility] [place] [facility] [address] [id number] [place] [address] May, [facility] [place] [facility] [address] [id number] [place] [address] May, [facility] [place] [facility] [address] [id number] [place] [address] May, [facility] [place] [facility] [address] [facility] [id number] [place] [address] May, [facility] [place] [facility] [address] [id number] [place] [address] May, [facility] [place] [facility] [address] [id number] [place] [address] 05 May, 2013 [facility] [place] [facility] [address] [id number] [place] [address] Apr, [facility] [place] [facility] [address] [facility] [id number] [place] [address] Apr, 2013 [facility] [place] [facility] [address] [facility] [id number] [place] [address] Apr, [facility] [place] [facility] [address] [facility] [id number] [place] [address] Apr, [facility] [place] [facility] [address] [facility] [id number] [place] [address] Apr, [facility] [place] [facility] [address] [facility] [id number] [place] [address] Apr, 2013 [facility] [place] [facility] [address] [id number] [place] [address] 17 Apr, 2013 [facility] [place] [facility] [address] [facility] [id number] [place] [address] 16 Apr, 2013 [facility] [place] [facility] [address] [facility] [id number] [place] [address] 16 Apr, 2013 [facility] [place] [facility] [address] [id number] [place] [address] 14 Apr, 2013 [facility] [place] [facility] [address] [id number] [place] [address] 14 Apr, 2013 [facility] [place] [facility] [address] [facility] [id number] [place] [address] 14 Apr, 2013 [facility] [place] [facility] [address] [id number] [place] [address] 14 Apr, 2013 [facility] [place] [facility] [address] [id number] [place] [address] 14 Apr, 2013 [facility] [place] [facility] [address] [facility] [id number] [place] [address] 14 Apr, 2013 [facility] [place] [facility] [address] [facility] [id number] [place] [address] Apr, 2013 [facility] [place] [facility] [address] [id number] [place] [address] Apr, [facility] [place] [facility] [address] [id number] [place] [address] Apr, [facility] [place] [facility] [address] [id number] [place] [address] Apr, [facility] [place] [facility] [address] [id number] [place] [address] Mar, [facility] [place] [facility] [address] [id number] [place] [address] Mar, [facility] [place] [facility] [address] [id number] [place] [address] February, [facility] [place] [facility] [address] [id number] [place] [address] February, [facility] [place] [facility] [address] [id number] [place] [address] February, [facility] [place] [facility] [address] [id number] [place] [address] February, [facility] [place] [facility] [address] [id number] [place] [address] February, [facility] [place] [facility] [address] [id number] [place] [address] Jan, [facility] [place] [facility] [address] [id number] [place] [address] Jan, [facility] [place] [facility] [address] [id number] [place] [address] Jan, [facility] [place] [facility] [address] [id number] [place] [address] Jan, [facility] [place] [facility] [address] [id number] [place] [address] Jan, [facility] [place] [facility] [address] [id number] [place] [address] Jan, [facility] [place] [facility] [address] [id number] [place] [address] Nov, [facility] [place] [facility] [address] [facility] [id number] [place] [address] Nov, [facility] [place] [facility] [address] [id number] [place] [address] Oct, [facility] [place] [facility] [address] [id number] [place] [address] Oct, [facility] [place] [facility] [address] [id number] [place] [address] Aug, [facility] [place] [facility] [address] [facility] [id number] [place] [address] Aug, [facility] [place] [facility] [address] [id number] [place] [address] Aug, [facility] [place] [facility] [address] [id number] [place] [address] Aug, [facility] [place] [facility] [address] [id number] [place] [address] Jul, [facility] [place] [facility] [address] [id number] [place] [address] Jul, [facility] [place] [facility] [address] [id number] [place] [address] Jul, [facility] [place] [facility] [address] [id number] [place] [address] Jul, [facility] [place] [facility] [address] [id number] [place] [address] Jul, [facility] [place] [facility] [address] [id number] [place] [address] Jul, [facility] [place] [facility] [address] [id number] [place] [address] Jul, [facility] [place] [facility] [address] [id number] [place] [address] Jul, [facility] [place] [facility] [address] [id number] [place] [address] Mar, [facility] [place] [facility] [id number] [place] [address] February, [facility] [id number] [place] [address] February, [facility] [id number] [place] [address] Jan, [facility] [id number] [place] [address] Jan, [facility] [address] [address] Jan, [facility] [address] [address] Jan, [facility] [address] [address] Dec, [facility] [address] [address] Dec, [facility] [address] [address] Dec, [facility] [id number] [place] [address] Nov, [facility] [id number] [place] [address] Dec, IMMUNIZATIONS No Known Immunizations SOCIAL HISTORY Never Assessed REASON FOR VISIT PLAN OF CARE VITAL SIGNS Height 64 in 2014-05-05 Weight 145 lbs 2014-05-05 Temperature 99.5 degrees Fahrenheit 2014-05-05 Heart Rate 72 bpm 2014-05-05 Respiratory Rate 24 2014-05-05 Blood pressure systolic 112 mmHg 2014-05-05 Blood pressure diastolic 78 mmHg 2014-05-05 MEDICATIONS Unknown Medications RESULTS No Results PROCEDURES Procedure Date Ordered Result Body Site URINE TEST May 05, 2014 DRUG SCREEN, QUALITATE/MULTI May 05, 2014 CHROMOSOME STUDY, ADDITIONAL May 05, 2014 INSTRUCTIONS MEDICATIONS ADMINISTERED No Known Medications [...] in ears several times Hospitalization History childbirth 2015
--- OUTSIDE RECORDS SUMMARY | 2020-05-08 06:39 | XMS REPORT ---
Author Author Georgiana Calderon Organization 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 Role Phone ROSEANN Calderon Unavailable PROBLEMS Type Condition ICD9-CM Code CHI17-EE Code Onset Dates Condition S tatus SNOMED Code Problem Attention-deficit hyperactivity disorder, combined type F90.2 Active 08377115 Problem Chronic fatigue R53.82 Active 8422 9001 Problem Bipolar II disorder F31.81 Active 39007884 Problem Iron deficiency anemia due to chronic blood loss D 50.0 Active [id number] ALLERGIES No Information ENCOUNTERS Encounter Location Date Diagnosis [place] [address] [place] [id number] [place] [address] Jan, Iron deficiency anemia due t o chronic blood loss D50.0 ; Chronic fatigue R53.82 ; Arthralgia, unspecified joint M25.50 ; Hair loss L65.9 ; S/P gastric bypass Z98.84 ; Vesicles R23.8 and Recurrent acute suppurative otitis media of right ear without spontaneous rupture of tympanic membrane H66.004 [place] [id number] [place] [address] February, [place] [id number] [place] [address] February, Attention-deficit hyperactiv ity disorder, combined type F90.2 [facility] [address] [place] [id number] [place] [address] February, [place] [address] [place] [id number] [place] [address] Dec, Bipolar II disorder F31.81 [place] [address] [place] [id number] [place] [address] Oct, [place] [address] [facility] [id number] [address] [place] [address] Oct, Bipolar II disorder F31.81 a nd Attention-deficit hyperactivity disorder, combined type F90.2 [place] [address] [facility] [id number] [address] [place] [address] Oct, Encounter to establish care Z76.89 ; Iron deficiency anemia due to chronic blood loss D50.0 and Bipolar II disorder F31.81 [place] [address] [facility] [id number] [address] [place] [address] Apr, Well woman exam with routine gynecological exam Z01.419 ; Screen for STD (sexually transmitted disease) Z11.3 ; Screening breast examination Z12.39 and Encounter for initial prescription of contraceptive pills Z30.011 [place] [id number] [place] [address] Jan, Bipolar II disorder F31.81 [place] [address] [place] [id number] [address] [place] [address] Apr, Fatigue 780.79 [place] [id number] [place] [address] Apr, Iron deficiency 280.9 [place] [id number] [place] [address] Apr, Vitamin B 12 deficiency 266. 2 and Iron deficiency 280.9 [place] [address] [facility] [id number] [address] [place] [address] Apr, Joint pain 719.40 [place] [address] [place] [id number] [address] [place] [address] Apr, [place] [address] [place] [id number] [address] [place] [address] Apr, Fatigue 780.79 and Bilateral knee pain 719.46 [place] [id number] [place] [address] February, General counseling on prescr iption of oral contraceptives V25.01 [facility] [address] [id number] [address] [place] [address] February, Cough 786.2 [facility] [address] [id number] [address] [place] [address] 13 Feb, 2015 Sinusitis 473.9 ; Suppurativ e otitis media of left ear 382.4 ; Otalgia of both ears 388.[address] All[address] [facility] [address] [id number] [address] [place] [address] Jan, [facility] [address] [id number] [address] [place] [address] Jan, [facility] [address] [id number] [address] [place] [address] Oct, [facility] [address] [id number] [address] [place] [address] Oct, [facility] [address] [id number] [address] [place] [address] Sep, [facility] [address] [id number] [address] [place] [address] Sep, [facility] [address] [id number] [address] [place] [address] Sep, [facility] [address] [id number] [address] [place] [address] Sep, [facility] [address] [id number] [address] [place] [address] Jun, [facility] [address] [id number] [address] [place] [address] Jun, [facility] [address] [id number] [address] [place] [address] Jun, [facility] [address] [id number] [address] [place] [address] Jun, [facility] [address] [id number] [facility] [place] [address] May, [facility] [address] [id number] [address] [place] [address], [place] [address] May, [facility] [address] [id number] [address] [place] [address], [place] [address] May, [facility] [address] [id number] [address] [place] [address], [place] [address] May, [facility] [address] [id number] [address] [place] [address], [place] [address] May, [facility] [address] [id number] [address] [place] [address], [place] [address] May, [facility] [address] [id number] [address] [place] [address], [place] [address] May, [facility] [address] [id number] [address] [place] [address], [place] [address] May, [facility] [address] [id number] [address] [place] [address], [place] [address] May, [facility] [address] [id number] [address] [place] [address], [place] [address] May, [facility] [address] [id number] [address] [place] [address], [place] [address] May, [facility] [address] [id number] [address] [place] [address], [place] [address] May, [facility] [address] [id number] [address] [place] [address], [place] [address] May, [facility] [address] [id number] [address] [place] [address], [place] [address] May, [facility] [address] [id number] [address] [place] [address], [place] [address] May, [facility] [address] [id number] [address] [place] [address], [place] [address] May, [facility] [address] [id number] [facility] [place] [address] May, [facility] [address] [id number] [address] [place] [address], [place] [address] May, [facility] [address] [id number] [facility] [place] [address] Apr, [facility] [address] [id number] [address] [place] [address], [place] [address] Apr, [facility] [address] [id number] [address] [place] [address], [place] [address] Apr, [facility] [address] [id number] [address] [place] [address], [place] [address] Apr, [facility] [address] [id number] [address] [place] [address], [place] [address] Apr, [facility] [address] [id number] [address] [place] [address], [place] [address] Apr, [facility] [address] [id number] [address] [place] [address], [place] [address] Apr, [facility] [address] [id number] [address] [place] [address], [place] [address] Apr, [facility] [address] [id number] [address] [place] [address], [place] [address] Apr, [facility] [address] [id number] [address] [place] [address], [place] [address] Apr, [facility] [address] [id number] [address] [place] [address], [place] [address] Apr, [facility] [address] [id number] [address] [place] [address], [place] [address] Apr, [facility] [address] [id number] [address] [place] [address], [place] [address] Apr, [facility] [address] [id number] [facility] [place] [address] Apr, [facility] [address] [id number] [facility] [place] [address] Apr, [facility] [address] [id number] [facility] [place] [address] Apr, [facility] [address] [id number] [address] [place] [address], [place] [address] Apr, [facility] [address] [id number] [address] [place] [address], [place] [address] Apr, [facility] [address] [id number] [address] [place] [address], [place] [address] Apr, [facility] [address] [id number] [address] [place] [address], [place] [address] Mar, [facility] [address] [id number] [address] [place] [address], [place] [address] Mar, [facility] [address] [id number] [address] [place] [address], [place] [address] February, [facility] [address] [id number] [address] [place] [address], [place] [address] February, [facility] [address] [id number] [address] [place] [address], [place] [address] February, [facility] [address] [id number] [address] [place] [address], [place] [address] February, [facility] [address] [id number] [address] [place] [address], [place] [address] February, [facility] [address] [id number] [address] [place] [address], [place] [address] Jan, [facility] [address] [id number] [address] [place] [address], [place] [address] Jan, [facility] [address] [id number] [address] [place] [address], [place] [address] Jan, [facility] [address] [id number] [address] [place] [address], [place] [address] Jan, [facility] [address] [id number] [address] [place] [address], [place] [address] Jan, [facility] [address] [id number] [address] [place] [address], [place] [address] Jan, [facility] [address] [id number] [address] [place] [address], [place] [address] Nov, [facility] [address] [id number] [address] [place] [address], [place] [address] Nov, [facility] [address] [id number] [address] [place] [address], [place] [address] Oct, [facility] [address] [id number] [address] [place] [address], [place] [address] Oct, [facility] [address] [id number] [address] [place] [address], [place] [address] Aug, [facility] [address] [id number] [address] [place] [address], [place] [address] Aug, [facility] [address] [id number] [address] [place] [address], [place] [address] Aug, [facility] [address] [id number] [address] [place] [address], [place] [address] Aug, [facility] [address] [id number] [address] [place] [address], [place] [address] Jul, [facility] [address] [id number] [address] [place] [address], [place] [address] Jul, [facility] [address] [id number] [address] [place] [address], [place] [address] Jul, [facility] [address] [id number] [address] [place] [address], [place] [address] Jul, [facility] [address] [id number] [address] [place] [address], [place] [address] 28 Jul, 2013 [facility] [address] [id number] [address] [place] [address], [place] [address] 28 Jul, 2013 [facility] [address] [id number] [address] [place] [address], [place] [address] 15 Jul, 2013 [facility] [address] [id number] [address] [place] [address], [place] [address] 15 Jul, 2013 [facility] [address] [id number] [address] [place] [address], [place] [address] Mar, [facility] [address] [id number] [address] [place] [address], [place] [address] February, [facility] [address] [id number] [address] [place] [address], [place] [address] February, [facility] [address] [id number] [address] [place] [address], [place] [address] Jan, [facility] [address] [id number] [address] [place] [address], [place] [address] Jan, [facility] [address] [id number] [address] [place] [address], [place] [address] Jan, [facility] [address] [id number] [address] [place] [address], [place] [address] Jan, [facility] [address] [id number] [address] [place] [address], [place] [address] Dec, [facility] [address] [id number] [address] [place] [address], [place] [address] Dec, [facility] [address] [id number] [address] [place] [address], [place] [address] Dec, [facility] [address] [id number] [address] [place] [address], [place] [address] Nov, [facility] [address] [id number] [address] [place] [address], [place] [address] Dec, IMMUNIZATIONS No Known Immunizations SOCIAL HISTORY Never Assessed REASON FOR VISIT PLAN OF CARE VITAL SIGNS MEDICATIONS No Known Medications RESULTS No Results PROCEDURES No Known [...]
--- OUTSIDE RECORDS SUMMARY | 2020-05-08 06:39 | XMS REPORT ---
Author Author Georgiana Samaniego Organization [facility] Address [address] [place] [address] Care Team Providers Care It Infrastructure Engineer Name Role Phone EMILI Samaniego Unavailable PROBLEMS Type Condition ICD9-CM Code HKG09-NC Code Onset Dates Condition S tatus SNOMED Code Problem Attention-deficit hyperactivity disorder, combined type F90.2 Active 74757985 Problem Chronic fatigue R53.82 Active 8422 9001 Problem Bipolar II disorder F31.81 Active [id number] Problem Iron deficiency anemia due to chronic blood loss D 50.0 Active [id number] ALLERGIES No Information ENCOUNTERS Encounter Location Date Diagnosis [facility] IN [facility] [address] [facility] [id number] [address] [place] [address] Aug, [facility] [id number] [place] [address] Jan, Iron deficiency anemia due to chronic bl ood loss D50.0 ; Chronic fatigue R53.82 ; Arthralgia, unspecified joint M25.50 ; Hair loss L65.9 ; S/P gastric bypass Z98.84 ; Vesicles R23.8 and Recurrent acute suppurative otitis media of right ear without spontaneous rupture of tympanic membrane H66.004 [facility] [id number] [place] [address] February, [facility] [address] [address] February, Attention-deficit hyperactivity disorder , combined type F90.2 [facility] [address] [address] February, [facility] [address] [address] Dec, Bipolar II disorder F31.81 [place] [address] [address] Oct, [address] [address] Oct, Bipolar II disorder F31.81 and Attention -deficit hyperactivity disorder, combined type F90.[address] [address] Oct, Encounter to establish care Z76.89 ; Iro n deficiency anemia due to chronic blood loss D50.0 and Bipolar II disorder F31.[address] [address] Apr, Well woman exam with routine gynecologic al exam Z01.419 ; Screen for STD (sexually transmitted disease) Z11.3 ; Screening breast examination Z12.39 and Encounter for initial prescription of contraceptive pills Z30.[address] [address] Jan, Bipolar II disorder F31.[address] [address] Apr, Fatigue 780.[address] [address] Apr, Iron deficiency 280.[address] [address] Apr, Vitamin B 12 deficiency 266.2 and Iron d eficiency 280.[address] [address] Apr, Joint pain 719.[address] [address] Apr, [address] [address] Apr, Fatigue 780.79 and Bilateral knee pain [address] [address] February, General counseling on prescription of or al contraceptives V25.01 [facility] [address] [address] February, Cough 786.2 [facility] [address] [address] February, Sinusitis 473.9 ; Suppurative otitis med ia of left ear 382.4 ; Otalgia of both ears 388.70 and Allergic rhinitis 477.9 [facility] [address] [address] Jan, [facility] [address] [address] Jan, [facility] [address] [address] Oct, [facility] [address] [address] Oct, [facility] [address] [address] Sep, [facility] [address] [address] Sep, [facility] [address] [address] Sep, [facility] [address] [address] Sep, [facility] [address] [address] Jun, [facility] [address] [address] Jun, [facility] [address] [address] Jun, [facility] [address] [address] Jun, [facility] [address] [address] May, [facility] [place] [facility] [address] [id number] [place] [address] May, [facility] [place] [facility] [address] [id number] [place] [address] May, [facility] [place] [facility] [address] [facility] [id number] [place] [address] May, [facility] [place] [facility] [address] [id number] [place] [address] May, [facility] [place] [facility] [address] [id number] [place] [address] May, [facility] [place] [facility] [address] [id number] [place] [address] May, [facility] [place] [facility] [address] [facility] [id number] [place] [address] May, [facility] [place] [facility] [address] [id number] [place] [address] May, [facility] [place] [facility] [address] [facility] [id number] [place] [address] May, [facility] [place] [facility] [address] [id number] [place] [address] May, [facility] [place] [facility] [address] [facility] [id number] [place] [address] May, [facility] [place] [facility] [address] [id number] [place] [address] May, [facility] [place] [facility] [address] [id number] [place] [address] May, [facility] [place] [facility] [address] [id number] [place] [address] May, [facility] [place] [facility] [address] [facility] [id number] [place] [address] May, [facility] [place] [facility] [address] [id number] [place] [address] May, [facility] [place] [facility] [address] [id number] [place] [address] 05 May, 2013 [facility] [place] [facility] [address] [id number] [place] [address] Apr, [facility] [place] [facility] [address] [facility] [id number] [place] [address] Apr, 2013 [facility] [place] [facility] [address] [facility] [id number] [place] [address] Apr, [facility] [place] [facility] [address] [facility] [id number] [place] [address] Apr, [facility] [place] [facility] [address] [facility] [id number] [place] [address] Apr, [facility] [place] [facility] [address] [facility] [id number] [place] [address] Apr, 2013 [facility] [place] [facility] [address] [id number] [place] [address] 17 Apr, 2013 [facility] [place] [facility] [address] [facility] [id number] [place] [address] 16 Apr, 2013 [facility] [place] [facility] [address] [facility] [id number] [place] [address] 16 Apr, 2013 [facility] [place] [facility] [address] [id number] [place] [address] 14 Apr, 2013 [facility] [place] [facility] [address] [id number] [place] [address] 14 Apr, 2013 [facility] [place] [facility] [address] [facility] [id number] [place] [address] 14 Apr, 2013 [facility] [place] [facility] [address] [id number] [place] [address] 14 Apr, 2013 [facility] [place] [facility] [address] [id number] [place] [address] 14 Apr, 2013 [facility] [place] [facility] [address] [facility] [id number] [place] [address] 14 Apr, 2013 [facility] [place] [facility] [address] [facility] [id number] [place] [address] Apr, 2013 [facility] [place] [facility] [address] [id number] [place] [address] Apr, [facility] [place] [facility] [address] [id number] [place] [address] Apr, [facility] [place] [facility] [address] [id number] [place] [address] Apr, [facility] [place] [facility] [address] [id number] [place] [address] Mar, [facility] [place] [facility] [address] [id number] [place] [address] Mar, [facility] [place] [facility] [address] [id number] [place] [address] February, [facility] [place] [facility] [address] [id number] [place] [address] February, [facility] [place] [facility] [address] [id number] [place] [address] February, [facility] [place] [facility] [address] [id number] [place] [address] February, [facility] [place] [facility] [address] [id number] [place] [address] February, [facility] [place] [facility] [address] [id number] [place] [address] Jan, [facility] [place] [facility] [address] [id number] [place] [address] Jan, [facility] [place] [facility] [address] [id number] [place] [address] Jan, [facility] [place] [facility] [address] [id number] [place] [address] Jan, [facility] [place] [facility] [address] [id number] [place] [address] Jan, [facility] [place] [facility] [address] [id number] [place] [address] Jan, [facility] [place] [facility] [address] [id number] [place] [address] Nov, [facility] [place] [facility] [address] [facility] [id number] [place] [address] Nov, [facility] [place] [facility] [address] [id number] [place] [address] Oct, [facility] [place] [facility] [address] [id number] [place] [address] Oct, [facility] [place] [facility] [address] [id number] [place] [address] Aug, [facility] [place] [facility] [address] [facility] [id number] [place] [address] Aug, [facility] [place] [facility] [address] [id number] [place] [address] Aug, [facility] [place] [facility] [address] [id number] [place] [address] Aug, [facility] [place] [facility] [address] [id number] [place] [address] Jul, [facility] [place] [facility] [address] [id number] [place] [address] Jul, [facility] [place] [facility] [address] [id number] [place] [address] Jul, [facility] [place] [facility] [address] [id number] [place] [address] Jul, [facility] [place] [facility] [address] [id number] [place] [address] Jul, [facility] [place] [facility] [address] [id number] [place] [address] Jul, [facility] [place] [facility] [address] [id number] [place] [address] Jul, [facility] [place] [facility] [address] [id number] [place] [address] Jul, [facility] [place] [facility] [address] [id number] [place] [address] Mar, [facility] [place] [facility] [address] [id number] [place] [address] February, [facility] [address] [id number] [place] [address] February, [facility] [address] [id number] [place] [address] Jan, [facility] [id number] [place] [address] Jan, [facility] [id number] [place] [address] Jan, [facility] [id number] [place] [address] Jan, [facility] [id number] [place] [address] Dec, [facility] [id number] [place] [address] Dec, [facility] [id number] [place] [address] Dec, [facility] [address] [id number] [place] [address] Nov, [facility] [id number] [place] [address] Dec, IMMUNIZATIONS No Known Immunizations SOCIAL HISTORY [...]
--- OUTSIDE RECORDS SUMMARY | 2020-05-08 06:39 | XMS REPORT ---
Author Author Georgiana Calderon Organization [facility] Address [address] [place] [address] Care Team Providers Care Box Sorter Name Role Phone ROSEANN Calderon Unavailable PROBLEMS Type Condition ICD9-CM Code [id number] Code Onset Dates Condition S tatus SNOMED Code Problem Attention-deficit hyperactivity disorder, combined type F90.2 Active 47215943 Problem Chronic fatigue R53.82 Active 8422 9001 Problem Bipolar II disorder F31.81 Active 41420625 Problem Iron deficiency anemia due to chronic blood loss D 50.0 Active [id number] ALLERGIES No Information ENCOUNTERS Encounter Location Date Diagnosis [place] [address] [place] [id number] [address] [place] [address] Jan, Iron deficiency anemia due t o chronic blood loss D50.0 ; Chronic fatigue R53.82 ; Arthralgia, unspecified joint M25.50 ; Hair loss L65.9 ; S/P gastric bypass Z98.84 ; Vesicles R23.8 and Recurrent acute suppurative otitis media of right ear without spontaneous rupture of tympanic membrane H66.004 [place] [id number] [place] [address] February, [place] [id number] [place] [address] February, Attention-deficit hyperactiv ity disorder, combined type F90.2 [facility] [address] [place] [id number] [address] [place] [address] February, [place] [address] [place] [id number] [address] [place] [address] Dec, Bipolar II disorder F31.81 [place] [address] [place] [id number] [address] [place] [address] Oct, [place] [address] [facility] [id number] [address] [place] [address] Oct, Bipolar II disorder F31.81 a nd Attention-deficit hyperactivity disorder, combined type F90.2 [place] [address] [facility] [id number] [address] [place] [address] Oct, Encounter to establish care Z76.89 ; Iron deficiency anemia due to chronic blood loss D50.0 and Bipolar II disorder F31.81 [place] [address] [facility] [id number] [address] [place] [address] Apr, Well woman exam with routine gynecological exam Z01.419 ; Screen for STD (sexually transmitted disease) Z11.3 ; Screening breast examination Z12.39 and Encounter for initial prescription of contraceptive pills Z30.011 [place] [id number] [address] [place] [address] Jan, Bipolar II disorder F31.81 [place] [address] [place] [id number] [address] [place] [address] Apr, Fatigue 780.79 [place] [id number] [address] [place] [address] Apr, Iron deficiency 280.9 [place] [id number] [address] [place] [address] Apr, Vitamin B 12 deficiency 266. 2 and Iron deficiency 280.9 [place] [address] [facility] [id number] [address] [place] [address] Apr, Joint pain 719.40 [place] [address] [place] [id number] [address] [place] [address] Apr, [place] [address] [place] [id number] [address] [place] [address] Apr, Fatigue 780.79 and Bilateral knee pain 719.46 [place] [id number] [address] [place] [address] February, General counseling on prescr iption of oral contraceptives V25.01 [facility] [address] [id number] [address] [place] [id number] February, Cough 786.2 [facility] [address] [id number] [address] [place] [address] 13 Feb, 2015 Sinusitis 473.9 ; Suppurativ e otitis media of left ear 382.4 ; Otalgia of both ears 388.70 and Allergic rhinitis 477.9 [facility] [address] [id number] [address] [place] [address] Jan, [facility] [address] [id number] [address] [place] [address] Jan, [facility] [address] [id number] [address] [place] [address] Oct, [facility] [address] [id number] [address] [place] [address] Oct, [facility] [address] [id number] [address] [place] [address] Sep, [facility] [address] [id number] [address] [place] [address] Sep, [facility] [address] [id number] [address] [place] [address] Sep, [facility] [address] [id number] [address] [place] [address] Sep, [facility] [address] [id number] [address] [place] [address] Jun, [facility] [address] [id number] [address] [place] [address] Jun, [facility] [address] [id number] [address] [place] [address] Jun, [facility] [address] [id number] [address] [place] [address] Jun, [facility] [address] [id number] [facility] [place] [address] May, [facility] [address] [id number] [address] [place] [address], [place] [address] May, [facility] [address] [id number] [address] [place] [address], [place] [address] May, [facility] [address] [id number] [address] [place] [address], [place] [address] May, [facility] [address] [id number] [address] [place] [address], [place] [address] May, [facility] [address] [id number] [address] [place] [address], [place] [address] May, [facility] [address] [id number] [address] [place] [address], [place] [address] May, [facility] [address] [id number] [address] [place] [address], [place] [address] May, [facility] [address] [id number] [address] [place] [address], [place] [address] May, [facility] [address] [id number] [address] [place] [address], [place] [address] May, [facility] [address] [id number] [address] [place] [address], [place] [address] May, [facility] [address] [id number] [address] [place] [address], [place] [address] May, [facility] [address] [id number] [address] [place] [address], [place] [address] May, [facility] [address] [id number] [address] [place] [address], [place] [address] May, [facility] [address] [id number] [address] [place] [address], [place] [address] May, [facility] [address] [id number] [address] [place] [address], [place] [address] May, [facility] [address] [id number] [facility] [place] [address] May, [facility] [address] [id number] [address] [place] [address], [place] [address] May, [facility] [address] [id number] [facility] [place] [address] Apr, [facility] [address] [id number] [address] [place] [address], [place] [address] Apr, [facility] [address] [id number] [address] [place] [address], [place] [address] Apr, [facility] [address] [id number] [address] [place] [address], [place] [address] Apr, [facility] [address] [id number] [address] [place] [address], [place] [address] Apr, [facility] [address] [id number] [address] [place] [address], [place] [address] Apr, [facility] [address] [id number] [address] [place] [address], [place] [address] Apr, [facility] [address] [id number] [address] [place] [address], [place] [address] Apr, [facility] [address] [id number] [address] [place] [address], [place] [address] Apr, [facility] [address] [id number] [address] [place] [address], [place] [address] Apr, [facility] [address] [id number] [address] [place] [address], [place] [address] Apr, [facility] [address] [id number] [address] [place] [address], [place] [address] Apr, [facility] [address] [id number] [address] [place] [address], [place] [address] Apr, [facility] [address] [id number] [facility] [place] [address] Apr, [facility] [address] [id number] [facility] [place] [address] Apr, [facility] [address] [id number] [facility] [place] [address] Apr, [facility] [address] [id number] [address] [place] [address], [place] [address] Apr, [facility] [address] [id number] [address] [place] [address], [place] [address] Apr, [facility] [address] [id number] [address] [place] [address], [place] [address] Apr, [facility] [address] [id number] [address] [place] [address], [place] [address] Mar, [facility] [address] [id number] [address] [place] [address], [place] [address] Mar, [facility] [address] [id number] [address] [place] [address], [place] [address] February, [facility] [address] [id number] [address] [place] [address], [place] [address] February, [facility] [address] [id number] [address] [place] [address], [place] [address] February, [facility] [address] [id number] [address] [place] [address], [place] [address] February, [facility] [address] [id number] [address] [place] [address], [place] [address] February, [facility] [address] [id number] [address] [place] [address], [place] [address] Jan, [facility] [address] [id number] [address] [place] [address], [place] [address] Jan, [facility] [address] [id number] [address] [place] [address], [place] [address] Jan, [facility] [address] [id number] [address] [place] [address], [place] [address] Jan, [facility] [address] [id number] [address] [place] [address], [place] [address] Jan, [facility] [address] [id number] [address] [place] [address], [place] [address] Jan, [facility] [address] [id number] [address] [place] [address], [place] [address] Nov, [facility] [address] [id number] [address] [place] [address], [place] [address] Nov, [facility] [address] [id number] [address] [place] [address], [place] [address] Oct, [facility] [address] [id number] [address] [place] [address], [place] [address] Oct, [facility] [address] [id number] [address] [place] [address], [place] [address] Aug, [facility] [address] [id number] [address] [place] [address], [place] [address] Aug, [facility] [address] [id number] [address] [place] [address], [place] [address] Aug, [facility] [address] [id number] [address] [place] [address], [place] [address] Aug, [facility] [address] [id number] [address] [place] [address], [place] [address] Jul, [facility] [address] [id number] [address] [place] [address], [place] [address] Jul, [facility] [address] [id number] [address] [place] [address], [place] [address] Jul, [facility] [address] [id number] [address] [place] [address], [place] [address] Jul, [facility] [address] [id number] [address] [place] [address], [place] [address] 28 Jul, 2013 [facility] [address] [id number] [address] [place] [address], [place] [address] 28 Jul, 2013 [facility] [address] [id number] [address] [place] [address], [place] [address] 15 Jul, 2013 [facility] [address] [id number] [address] [place] [address], [place] [address] 15 Jul, 2013 [facility] [address] [id number] [address] [place] [address], [place] [address] Mar, [facility] [address] [id number] [address] [place] [address], [place] [address] February, [facility] [address] [id number] [address] [place] [address], [place] [address] February, [facility] [address] [id number] [address] [place] [address], [place] [address] Jan, [facility] [address] [id number] [address] [place] [address], [place] [address] Jan, [facility] [address] [id number] [address] [place] [address], [place] [address] Jan, [facility] [address] [id number] [address] [place] [address], [place] [address] Jan, [facility] [address] [id number] [address] [place] [address], [place] [address] Dec, [facility] [address] [id number] [address] [place] [address], [place] [address] Dec, [facility] [address] [id number] [address] [place] [address], [place] [address] Dec, [facility] [address] [id number] [address] [place] [address], [place] [address] Nov, [facility] [address] [id number] [address] [place] [address], [place] [address] Dec, IMMUNIZATIONS No Known Immunizations SOCIAL HISTORY Never Assessed REASON FOR VISIT PLAN OF CARE VITAL SIGNS MEDICATIONS No Known Medications RESULTS No Results PROCEDURES Procedure Date Ordered Result Body Site OB US < 14 WKS, SINGLE FETUS May 08, 2014 INSTRUCTIONS MEDICATIONS ADMINISTERED No Known Medications [...]
--- OUTSIDE RECORDS SUMMARY | 2020-05-08 06:39 | XMS REPORT ---
Author Author Georgiana CLINTON [facility] Address [address] [place] [address] Care Team Providers Care Automotive Drivability Technician Name Role Phone OZNILSA TA Unavailable PROBLEMS Type Condition ICD9-CM Code UAY09-UE Code Onset Dates Condition S tatus SNOMED Code Problem Attention-deficit hyperactivity disorder, combined type F90.2 Active 07561556 Problem Chronic fatigue R53.82 Active 8422 9001 Problem Bipolar II disorder F31.81 Active 51207307 Problem Iron deficiency anemia due to chronic blood loss D 50.0 Active [id number] ALLERGIES No Information ENCOUNTERS Encounter Location Date Diagnosis [facility] [address] [facility] [place] [id number] [address] [address] Aug, [facility] [id number] [place] [address] Jan, Iron deficiency anemia due to chronic bl ood loss D50.0 ; Chronic fatigue R53.82 ; Arthralgia, unspecified joint M25.50 ; Hair loss L65.9 ; S/P gastric bypass Z98.84 ; Vesicles R23.8 and Recurrent acute suppurative otitis media of right ear without spontaneous rupture of tympanic membrane H66.004 [facility] [id number] [place] [address] February, [facility] [address] [address] February, Attention-deficit hyperactivity disorder , combined type F90.2 [facility] [address] [address] February, [facility] [address] [address] Dec, Bipolar II disorder F31.81 [place] [address] [address] Oct, [address] [address] Oct, Bipolar II disorder F31.81 and Attention -deficit hyperactivity disorder, combined type F90.[address] [address] Oct, Encounter to establish care Z76.89 ; Iro n deficiency anemia due to chronic blood loss D50.0 and Bipolar II disorder F31.81 [place] [address] [address] Apr, Well woman exam with routine gynecologic al exam Z01.419 ; Screen for STD (sexually transmitted disease) Z11.3 ; Screening breast examination Z12.39 and Encounter for initial prescription of contraceptive pills Z30.[address] [address] Jan, Bipolar II disorder F31.81 [place] [address] [address] Apr, Fatigue 780.[address] [address] Apr, Iron deficiency 280.[address] [address] Apr, Vitamin B 12 deficiency 266.2 and Iron d eficiency 280.[address] [address] Apr, Joint pain 719.[address] [address] Apr, [address] [address] Apr, Fatigue 780.79 and Bilateral knee pain [address] [address] February, General counseling on prescription of or al contraceptives V25.01 [facility] [address] [address] February, Cough 786.2 [facility] [address] [address] February, Sinusitis 473.9 ; Suppurative otitis med ia of left ear 382.4 ; Otalgia of both ears 388.70 and Allergic rhinitis 477.9 [facility] [address] [address] Jan, [facility] [address] [address] Jan, [facility] [address] [address] Oct, [facility] [address] [address] Oct, [facility] [address] [address] Sep, [facility] [address] [address] Sep, [facility] [address] [address] Sep, [facility] [address] [address] Sep, [facility] [address] [address] Jun, [facility] [address] [address] Jun, [facility] [address] [address] Jun, [facility] [address] [address] Jun, [facility] [address] [address] May, [facility] [place] [facility] [id number] [place] [address] May, [facility] [place] [facility] [address] [facility] [place] [id number] [place] [address] May, [facility] [place] [facility] [address] [facility] [place] [id number] [place] [address] May, [facility] [place] [facility] [address] [id number] [place] [address] May, [facility] [place] [facility] [address] [facility] [place]] [id number] [place] [address] May, [facility] [place] [facility] [address] [id number] [place] [address] May, [facility] [place] [facility] [address] [id number] [place] [address] May, [facility] [place] [facility] [address] [id number] [place] [address] May, [facility] [place] [facility] [address] [facility] [place]] [id number] [place] [address] May, [facility] [place] [facility] [address] [id number] [place] [address] May, [facility] [place] [facility] [address] [id number] [place] [address] May, [facility] [place] [facility] [address] [id number] [place] [address] May, [facility] [place] [facility] [address] [facility] [place]] [id number] [place] [address] May, [facility] [place] [facility] [address] [id number] [place] [address] May, [facility] [place] [facility] [address] [facility] [place]] [id number] [place] [address] May, [facility] [place] [facility] [address] [id number] [place] [address] May, 2013 [facility] [place] [facility] [address] [id number] [place] [address] 05 May, 2014 [facility] [place] [facility] [address] [id number] [place] [address] Apr, 2013 [facility] [place] [facility] [address] [facility] [place] [id number] [place] [address] Apr, [facility] [place] [facility] [address] [facility] [place]] [id number] [place] [address] Apr, [facility] [place] [facility] [address] [facility] [place]] [id number] [place] [address] Apr, 2013 [facility] [place] [facility] [address] [facility] [place]] [id number] [place] [address] Apr, 2013 [facility] [place] [facility] [address] [facility] [place]] [id number] [place] [address] Apr, 2013 [facility] [place] [facility] [address] [id number] [place] [address] 17 Apr, 2013 [facility] [place] [facility] [address] [facility] [place] [id number] [place] [address] 16 Apr, 2013 [facility] [place] [facility] [address] [facility] [place]] [id number] [place] [address] 16 Apr, 2013 [facility] [place] [facility] [address] [facility] [place]] [id number] [place] [address] 14 Apr, 2013 [facility] [place] [facility] [address] [facility] [place]] [id number] [place] [address] 14 Apr, 2013 [facility] [place] [facility] [address] [facility] [place]] [id number] [place] [address] 14 Apr, 2013 [facility] [place] [facility] [address] [facility] [place]] [id number] [place] [address] 14 Apr, 2013 [facility] [place] [facility] [address] [facility] [place]] [id number] [place] [address] 14 Apr, 2013 [facility] [place] [facility] [address] [facility] [place]] [id number] [place] [address] 14 Apr, 2013 [facility] [place] [facility] [address] [facility] [place]] [id number] [place] [address] 11 Apr, 2013 [facility] [place] [facility] [address] [id number] [place] [address] Apr, [facility] [place] [facility] [address] [facility] [place]] [id number] [place] [address] Apr, [facility] [place] [facility] [address] [id number] [place] [address] Apr, [facility] [place] [facility] [address] [id number] [place] [address] Mar, [facility] [place] [facility] [address] [id number] [place] [address] Mar, [facility] [place] [facility] [address] [id number] [place] [address] February, [facility] [place] [facility] [address] [id number] [place] [address] February, [facility] [place] [facility] [address] [id number] [place] [address] February, [facility] [place] [facility] [address] [id number] [place] [address] February, [facility] [place] [facility] [address] [id number] [place] [address] February, [facility] [place] [facility] [address] [id number] [place] [address] Jan, [facility] [place] [facility] [address] [id number] [place] [address] Jan, [facility] [place] [facility] [address] [id number] [place] [address] Jan, [facility] [place] [facility] [address] [id number] [place] [address] Jan, [facility] [place] [facility] [address] [id number] [place] [address] Jan, [facility] [place] [facility] [address] [id number] [place] [address] Jan, [facility] [place] [facility] [address] [id number] [place] [address] Nov, [facility] [place] [facility] [address] [id number] [place] [address] Nov, [facility] [place] [facility] [address] [id number] [place] [address] Oct, [facility] [place] [facility] [address] [id number] [place] [address] Oct, [facility] [place] [facility] [address] [id number] [place] [address] Aug, [facility] [place] [facility] [address] [id number] [place] [address] Aug, [facility] [place] [facility] [address] [id number] [place] [address] Aug, [facility] [place] [facility] [address] [id number] [place] [address] Aug, [facility] [place] [facility] [address] [id number] [place] [address] Jul, [facility] [place] [facility] [address] [id number] [place] [address] Jul, [facility] [place] [facility] [address] [id number] [place] [address] Jul, [facility] [place] [facility] [address] [id number] [place] [address] Jul, [facility] [place] [facility] [address] [id number] [place] [address] Jul, [facility] [place] [facility] [address] [id number] [place] [address] Jul, [facility] [place] [facility] [address] [id number] [place] [address] 15 Jul, 2013 [facility] [place] [facility] [address] [id number] [place] [address] 15 Jul, 2013 [facility] [place] [facility] [address] [id number] [place] [address] Mar, [facility] [place] [facility] [address] [id number] [place] [address] February, [facility] [address] [id number] [place] [address] February, [facility] [address] [id number] [place] [address] Jan, [facility] [address] [id number] [place] [address] Jan, [facility] [id number] [place] [address] Jan, [facility] [id number] [place] [address] Jan, [facility] [id number] [place] [address] Dec, [facility] [id number] [place] [address] Dec, [facility] [id number] [place] [address] Dec, [facility] [id number] [place] [address] Nov, [facility] [id number] [place] [address] Dec, IMMUNIZATIONS No Known Immunizations SOCIAL HISTORY [...]
--- OUTSIDE RECORDS SUMMARY | 2020-05-08 06:40 | XMS REPORT ---
Author Author Georgiana Samaniego Organization [facility] Address [address] [place] [address] Care Team Providers Care Inker Name Role Phone EMILI Samaniego Unavailable PROBLEMS Type Condition ICD9-CM Code HAW53-FY Code Onset Dates Condition S tatus SNOMED Code Problem Attention-deficit hyperactivity disorder, combined type F90.2 Active 98894062 Problem Chronic fatigue R53.82 Active 8422 9001 Problem Bipolar II disorder F31.81 Active 78714949 Problem Iron deficiency anemia due to chronic blood loss D 50.0 Active [id number] ALLERGIES No Information ENCOUNTERS Encounter Location Date Diagnosis [facility] [id number] [place] [address] Jan, Iron deficiency anemia due t o chronic blood loss D50.0 ; Chronic fatigue R53.82 ; Arthralgia, unspecified joint M25.50 ; Hair loss L65.9 ; S/P gastric bypass Z98.84 ; Vesicles R23.8 and Recurrent acute suppurative otitis media of right ear without spontaneous rupture of tympanic membrane H66.004 [place] [id number] [place] [id number] [address] [place] [address] February, [facility] [address] [place] [id number] [address] [place] [address] February, Attention-deficit hyperactiv ity disorder, combined type F90.2 [facility] [address] [place] [id number] [address] [place] [address] February, [place] [address] [place] [id number] [address] [place] [address] Dec, Bipolar II disorder F31.81 [facility] [address] [place] [id number] [address] [place] [address] Oct, [place] [address] [place] [id number] [address] [place] [address] Oct, Bipolar II disorder F31.81 a nd Attention-deficit hyperactivity disorder, combined type F90.2 [place] [address] [place] [id number] [address] [place] [address] Oct, Encounter to establish care Z76.89 ; Iron deficiency anemia due to chronic blood loss D50.0 and Bipolar II disorder F31.81 [place] [address] [facility] [id number] [address] [place] [address] Apr, Well woman exam with routine gynecological exam Z01.419 ; Screen for STD (sexually transmitted disease) Z11.3 ; Screening breast examination Z12.39 and Encounter for initial prescription of contraceptive pills Z30.011 [place] [id number] [address] [place] [address] Jan, Bipolar II disorder F31.81 [place] [address] [place] [id number] [address] [place] [address] Apr, Fatigue 780.79 [place] [id number] [address] [place] [address] Apr, Iron deficiency 280.9 [place] [id number] [address] [place] [address] Apr, Vitamin B 12 deficiency 266. 2 and Iron deficiency 280.9 [place] [address] [facility] [id number] [address] [place] [address] Apr, Joint pain 719.40 [place] [address] [place] [id number] [address] [place] [address] Apr, [place] [address] [place] [id number] [address] [place] [address] Apr, Fatigue 780.79 and Bilateral knee pain 719.46 [place] [id number] [address] [place] [address] February, General counseling on prescr iption of oral contraceptives V25.01 [facility] [address] [id number] [address] [place] [address] February, Cough 786.2 [facility] [address] [id number] [address] [place] [address] 13 Feb, 2015 Sinusitis 473.9 ; Suppurativ e otitis media of left ear 382.4 ; Otalgia of both ears 388.70 and Allergic rhinitis 477.9 [facility] [address] [id number] [address] [place] [address] Jan, [facility] [address] [id number] [address] [place] [address] Jan, [facility] [address] [id number] [address] [place] [address] Oct, [facility] [address] [id number] [address] [place] [address] Oct, [facility] [address] [id number] [address] [place] [address] Sep, [facility] [address] [id number] [address] [place] [address] Sep, [facility] [address] [id number] [address] [place] [address] Sep, [facility] [address] [id number] [address] [place] [address] Sep, [facility] [address] [id number] [address] [place] [address] Jun, [facility] [address] [id number] [address] [place] [address] Jun, [facility] [address] [id number] [address] [place] [address] Jun, [facility] [address] [id number] [address] [place] [address] Jun, [facility] [address] [id number] [facility] [place] [address] May, [facility] [address] [id number] [address] [place] [address], [place] [address] May, [facility] [address] [id number] [address] [place] [address], [place] [address] May, [facility] [address] [id number] [address] [place] [address], [place] [address] May, [facility] [address] [id number] [address] [place] [address], [place] [address] May, [facility] [address] [id number] [address] [place] [address], [place] [address] May, [facility] [address] [id number] [address] [place] [address], [place] [address] May, [facility] [address] [id number] [address] [place] [address], [place] [address] May, [facility] [address] [id number] [address] [place] [address], [place] [address] May, [facility] [address] [id number] [address] [place] [address], [place] [address] May, [facility] [address] [id number] [address] [place] [address], [place] [address] May, [facility] [address] [id number] [address] [place] [address], [place] [address] May, [facility] [address] [id number] [address] [place] [address], [place] [address] May, [facility] [address] [id number] [address] [place] [address], [place] [address] May, [facility] [address] [id number] [address] [place] [address], [place] [address] May, [facility] [address] [id number] [address] [place] [address], [place] [address] May, [facility] [address] [id number] [facility] [place] [address] May, [facility] [address] [id number] [address] [place] [address], [place] [address] May, [facility] [address] [id number] [facility] [place] [address] Apr, [facility] [address] [id number] [address] [place] [address], [place] [address] Apr, [facility] [address] [id number] [address] [place] [address], [place] [address] Apr, [facility] [address] [id number] [address] [place] [address], [place] [address] Apr, [facility] [address] [id number] [address] [place] [address], [place] [address] Apr, [facility] [address] [id number] [address] [place] [address], [place] [address] Apr, [facility] [address] [id number] [address] [place] [address], [place] [address] Apr, [facility] [address] [id number] [address] [place] [address], [place] [address] Apr, [facility] [address] [id number] [address] [place] [address], [place] [address] Apr, [facility] [address] [id number] [address] [place] [address], [place] [address] Apr, [facility] [address] [id number] [address] [place] [address], [place] [address] Apr, [facility] [address] [id number] [address] [place] [address], [place] [address] Apr, [facility] [address] [id number] [address] [place] [address], [place] [address] Apr, [facility] [address] [id number] [facility] [place] [address] Apr, [facility] [address] [id number] [facility] [place] [address] Apr, [facility] [address] [id number] [facility] [place] [address] Apr, [facility] [address] [id number] [address] [place] [address], [place] [address] Apr, [facility] [address] [id number] [address] [place] [address], [place] [address] Apr, [facility] [address] [id number] [address] [place] [address], [place] [address] Apr, [facility] [address] [id number] [address] [place] [address], [place] [address] Mar, [facility] [address] [id number] [address] [place] [address], [place] [address] Mar, [facility] [address] [id number] [address] [place] [address], [place] [address] February, [facility] [address] [id number] [address] [place] [address], [place] [address] February, [facility] [address] [id number] [address] [place] [address], [place] [address] February, [facility] [address] [id number] [address] [place] [address], [place] [address] February, [facility] [address] [id number] [address] [place] [address], [place] [address] February, [facility] [address] [id number] [address] [place] [address], [place] [address] Jan, [facility] [address] [id number] [address] [place] [address], [place] [address] Jan, [facility] [address] [id number] [address] [place] [address], [place] [address] Jan, [facility] [address] [id number] [address] [place] [address], [place] [address] Jan, [facility] [address] [id number] [address] [place] [address], [place] [address] Jan, [facility] [address] [id number] [address] [place] [address], [place] [address] Jan, [facility] [address] [id number] [address] [place] [address], [place] [address] Nov, [facility] [address] [id number] [address] [place] [address], [place] [address] Nov, [facility] [address] [id number] [address] [place] [address], [place] [address] Oct, [facility] [address] [id number] [address] [place] [address], [place] [address] Oct, [facility] [address] [id number] [address] [place] [address], [place] [address] Aug, [facility] [address] [id number] [address] [place] [address], [place] [address] Aug, [facility] [address] [id number] [address] [place] [address], [place] [address] Aug, [facility] [address] [id number] [address] [place] [address], [place] [address] Aug, [facility] [address] [id number] [address] [place] [address], [place] [address] Jul, [facility] [address] [id number] [address] [place] [address], [place] [address] Jul, [facility] [address] [id number] [address] [place] [address], [place] [address] Jul, [facility] [address] [id number] [address] [place] [address], [place] [address] Jul, [facility] [address] [id number] [address] [place] [address], [place] [address] 28 Jul, 2013 [facility] [address] [id number] [address] [place] [address], [place] [address] 28 Jul, 2013 [facility] [address] [id number] [address] [place] [address], [place] [address] 15 Jul, 2013 [facility] [address] [id number] [address] [place] [address], [place] [address] 15 Jul, 2013 [facility] [address] [id number] [address] [place] [address], [place] [address] Mar, [facility] [address] [id number] [address] [place] [address], [place] [address] February, [facility] [address] [id number] [address] [place] [address], [place] [address] February, [facility] [address] [id number] [address] [place] [address], [place] [address] Jan, [facility] [address] [id number] [address] [place] [address], [place] [address] Jan, [facility] [address] [id number] [address] [place] [address], [place] [address] Jan, [facility] [address] [id number] [address] [place] [address], [place] [address] Jan, [facility] [address] [id number] [address] [place] [address], [place] [address] Dec, [facility] [address] [id number] [address] [place] [address], [place] [address] Dec, [facility] [address] [id number] [address] [place] [address], [place] [address] Dec, [facility] [address] [id number] [address] [place] [address], [place] [address] Nov, [facility] [address] [id number] [address] [place] [address], [place] [address] Dec, IMMUNIZATIONS No Known Immunizations SOCIAL HISTORY [...]
--- OUTSIDE RECORDS SUMMARY | 2020-05-08 06:40 | XMS REPORT ---
Author Author Georgiana CLINTON [facility] Address [address] [place] [address] Care Team Providers Care [employer] Name Role Phone NILSA CLINTON Unavailable PROBLEMS Type Condition ICD9-CM Code [id number] Code Onset Dates Condition S tatus SNOMED Code Problem Attention-deficit hyperactivity disorder, combined type F90.2 Active 15915530 Problem Chronic fatigue R53.82 Active 8422 9001 Problem Bipolar II disorder F31.81 Active 00855394 Problem Iron deficiency anemia due to chronic blood loss D 50.0 Active [id number] ALLERGIES No Information ENCOUNTERS Encounter Location Date Diagnosis [place] [id number] [place] [address] Jan, Iron deficiency anemia due t o chronic blood loss D50.0 ; Chronic fatigue R53.82 ; Arthralgia, unspecified joint M25.50 ; Hair loss L65.9 ; S/P gastric bypass Z98.84 ; Vesicles R23.8 and Recurrent acute suppurative otitis media of right ear without spontaneous rupture of tympanic membrane H66.004 [place] [address] [address] [place] [id number] [address] [place] [address] February, [place] [address] [place] [id number] [address] [place] [address] February, Attention-deficit hyperactiv ity disorder, combined type F90.2 [place] [address] [address] [place] [id number] [address] [place] [address] February, [place] [address] [address] [place] [id number] [address] [place] [address] Dec, Bipolar II disorder F31.81 [place] [address] [place] [id number] [address] [place] [address] Oct, [place] [address] [facility] [id number] [address] [place] [address] Oct, Bipolar II disorder F31.81 a nd Attention-deficit hyperactivity disorder, combined type F90.2 [place] [address] [address] [facility] [id number] [address] [place] [address] Oct, Encounter to establish care Z76.89 ; Iron deficiency anemia due to chronic blood loss D50.0 and Bipolar II disorder F31.81 [place] [address] [address] [facility] [id number] [address] [place] [address] Apr, Well woman exam with routine gynecological exam Z01.419 ; Screen for STD (sexually transmitted disease) Z11.3 ; Screening breast examination Z12.39 and Encounter for initial prescription of contraceptive pills Z30.011 [place] [address] [address] [place] [id number] [place] [address] Jan, Bipolar II disorder F31.81 [place] [address] [address] [place] [id number] [address] [place] [address] Apr, Fatigue 780.[address] [address] Apr, Iron deficiency 280.9 [place] [id number] [place] [address] Apr, Vitamin B 12 deficiency 266. 2 and Iron deficiency 280.9 [place] [address] [address] [place] [id number] [address] [place] [address] Apr, Joint pain 719.40 [place] [address] [address] [place] [id number] [address] [place] [address] Apr, [place] [address] [place] [id number] [address] [place] [address] Apr, Fatigue 780.79 and Bilateral knee pain 719.46 [place] [address] [address] [place] [id number] [address] [place] [address] February, General counseling on prescr iption of oral contraceptives V25.01 [facility] [address] [id number] [address] [place] [address] February, Cough 786.2 [facility] [address] [id number] [address] [place] [address] February, Sinusitis 473.9 ; Suppurativ e otitis media of left ear 382.4 ; Otalgia of both ears 388.70 and Allergic rhinitis 477.9 [facility] [address] [id number] [address] [place] [address] Jan, [facility] [address] [id number] [address] [place] [address] Jan, [facility] [address] [id number] [address] [place] [address] Oct, [facility] [address] [id number] [address] [place] [address] Oct, [facility] [address] [id number] [address] [place] [address] Sep, [facility] [address] [id number] [address] [place] [address] Sep, [facility] [address] [id number] [address] [place] [address] Sep, [facility] [address] [id number] [address] [place] [address] Sep, [facility] [address] [id number] [address] [place] [address] Jun, [facility] [address] [id number] [address] [place] [address] Jun, [facility] [address] [id number] [address] [place] [address] 16 Jun, 2014 [facility] [address] [id number] [address] [place] [address] Jun, [facility] [address] [id number] [facility] [place] [address] May, [facility] [address] [id number] [address] [place] [address], [place] [address] May, [facility] [address] [id number] [address] [place] [address], [place] [address] May, [facility] [address] [id number] [address] [place] [address], [place] [address] May, [facility] [address] [id number] [address] [place] [address], [place] [address] May, [facility] [address] [id number] [address] [place] [address], [place] [address] May, [facility] [address] [id number] [address] [place] [address], [place] [address] May, [facility] [address] [id number] [address] [place] [address], [place] [address] May, [facility] [address] [id number] [address] [place] [address], [place] [address] May, [facility] [address] [id number] [address] [place] [address], [place] [address] May, [facility] [address] [id number] [address] [place] [address], [place] [address] May, [facility] [address] [id number] [address] [place] [address], [place] [address] May, [facility] [address] [id number] [address] [place] [address], [place] [address] May, [facility] [address] [id number] [address] [place] [address], [place] [address] May, [facility] [address] [id number] [address] [place] [address], [place] [address] May, [facility] [address] [id number] [address] [place] [address], [place] [address] May, [facility] [address] [id number] [facility] [place] [address] May, [facility] [address] [id number] [address] [place] [address], [place] [address] May, [facility] [address] [id number] [address] [place] [address], [place] [address] Apr, [facility] [address] [id number] [address] [place] [address], [place] [address] Apr, [facility] [address] [id number] [address] [place] [address], [place] [address] Apr, [facility] [address] [id number] [address] [place] [address], [place] [address] Apr, [facility] [address] [id number] [address] [place] [address], [place] [address] Apr, [facility] [address] [id number] [address] [place] [address], [place] [address] Apr, [facility] [address] [id number] [address] [place] [address], [place] [address] Apr, [facility] [address] [id number] [address] [place] [address], [place] [address] Apr, [facility] [address] [id number] [address] [place] [address], [place] [address] Apr, [facility] [address] [id number] [address] [place] [address], [place] [address] Apr, [facility] [address] [id number] [address] [place] [address], [place] [address] Apr, [facility] [address] [id number] [address] [place] [address], [place] [address] Apr, [facility] [address] [id number] [address] [place] [address], [place] [address] Apr, [facility] [address] [id number] [facility] [place] [address] 14 Apr, 2014 [facility] [address] [id number] [facility] [place] [address] 14 Apr, 2014 [facility] [address] [id number] [facility] [place] [address] Apr, [facility] [address] [id number] [facility] [place] [address] Apr, [facility] [address] [id number] [facility] [place] [address] Apr, [facility] [address] [id number] [address] [place] [address], [place] [address] Apr, [facility] [address] [id number] [address] [place] [address], [place] [address] Mar, [facility] [address] [id number] [address] [place] [address], [place] [address] Mar, [facility] [address] [id number] [address] [place] [address], [place] [address] February, [facility] [address] [id number] [address] [place] [address], [place] [address] February, [facility] [address] [id number] [address] [place] [address], [place] [address] February, [facility] [address] [id number] [address] [place] [address], [place] [address] February, [facility] [address] [id number] [address] [place] [address], [place] [address] February, [facility] [address] [id number] [address] [place] [address], [place] [address] Jan, [facility] [address] [id number] [address] [place] [address], [place] [address] Jan, [facility] [address] [id number] [address] [place] [address], [place] [address] Jan, [facility] [address] [id number] [address] [place] [address], [place] [address] Jan, [facility] [address] [id number] [address] [place] [address], [place] [address] Jan, [facility] [address] [id number] [address] [place] [address], [place] [address] Jan, [facility] [address] [id number] [address] [place] [address], [place] [address] Nov, [facility] [address] [id number] [address] [place] [address], [place] [address] Nov, [facility] [address] [id number] [address] [place] [address], [place] [address] Oct, [facility] [address] [id number] [address] [place] [address], [place] [address] Oct, [facility] [address] [id number] [address] [place] [address], [place] [address] Aug, [facility] [address] [id number] [address] [place] [address], [place] [address] Aug, [facility] [address] [id number] [address] [place] [address], [place] [address] Aug, [facility] [address] [id number] [address] [place] [address], [place] [address] Aug, [facility] [address] [id number] [address] [place] [address], [place] [address] Jul, [facility] [address] [id number] [address] [place] [address], [place] [address] Jul, [facility] [address] [id number] [address] [place] [address], [place] [address] Jul, [facility] [address] [id number] [address] [place] [address], [place] [address] Jul, [facility] [address] [id number] [address] [place] [address], [place] [address] 28 Jul, 2013 [facility] [place] [address] [id number] [address] [place] [address], [place] [address] 28 Jul, 2013 [facility] [address] [id number] [address] [place] [address], [place] [address] 15 Jul, 2013 [facility] [address] [id number] [address] [place] [address], [place] [address] 15 Jul, 2013 [facility] [address] [id number] [address] [place] [address], [place] [address] Mar, [facility] [address] [id number] [address] [place] [address], [place] [address] February, [facility] [address] [id number] [address] [place] [address], [place] [address] February, [facility] [address] [id number] [address] [place] [address], [place] [address] Jan, [facility] [address] [id number] [address] [place] [address], [place] [address] Jan, [facility] [address] [id number] [address] [place] [address], [place] [address] Jan, [facility] [address] [id number] [address] [place] [address], [place] [address] Jan, [facility] [address] [id number] [address] [place] [address], [place] [address] Dec, [facility] [address] [id number] [address] [place] [address], [place] [address] Dec, [facility] [place] [address] [id number] [address] [place] [address], [place] [address] Dec, [facility] [address] [id number] [address] [place] [address], [place] [address] Nov, [facility] [address] [id number] [address] [place] [address] Dec, IMMUNIZATIONS No Known Immunizations SOCIAL HISTORY Never Assessed REASON FOR VISIT PLAN OF CARE VITAL SIGNS Height 64 in 2014-05-31 Weight 156.49 lbs 2014-05-31 Temperature 98.4 degrees Fahrenheit 2014-05-31 Heart Rate 72 bpm 2014-05-31 Respiratory Rate 16 2014-05-31 Blood pressure systolic 112 mmHg 2014-05-31 Blood pressure diastolic 68 mmHg 2014-05-31 MEDICATIONS No Known Medications RESULTS No Results PROCEDURES Procedure Date Ordered Result Body Site HEPATITIS B SURFACE AG, EIA May 31, 2014 RUBELLA ANTIBODY May 31, 2014 URINE CULTURE/COLONY COUNT May 31, 2014 HIV-1 May 31, 2014 BLOOD SEROLOGY, QUALITATIVE May 31, 2014 ASSAY THYROID STIM HORMONE May 31, 2014 COMPREHEN METABOLIC PANEL May 31, 2014 BLOOD TYPING, ABO May 31, 2014 RBC ANTIBODY SCREEN May 31, 2014 COMPLETE CBC W/AUTO DIFF WBC May 31, 2014 VENIPUNCT, ROUTINE* May 31, 2014 URINE-NO MICRO May 31, 2014 INSTRUCTIONS MEDICATIONS ADMINISTERED No Known Medications [...]
--- OUTSIDE RECORDS SUMMARY | 2020-05-08 06:40 | XMS REPORT ---
Author Author Georgiana HOFFMAN Organization [facility] Address [address] [place] [address] Care Team Providers Care Associate Financial Planner Name Role Phone SWAPNA HOFFMAN Unavailable PROBLEMS Type Condition ICD9-CM Code [id number] Code Onset Dates Condition S tatus SNOMED Code Problem Attention-deficit hyperactivity disorder, combined type F90.2 Active 85670669 Problem Chronic fatigue R53.82 Active 8422 9001 Problem Bipolar II disorder F31.81 Active [id number] Problem Iron deficiency anemia due to chronic blood loss D 50.0 Active [id number] ALLERGIES No Information ENCOUNTERS Encounter Location Date Diagnosis [place] [id number] [place] [address] Jul, [place] [id number] [address] [place] [address] Jan, Iron deficiency anemia due t o chronic blood loss D50.0 ; Chronic fatigue R53.82 ; Arthralgia, unspecified joint M25.50 ; Hair loss L65.9 ; S/P gastric bypass Z98.84 ; Vesicles R23.8 and Recurrent acute suppurative otitis media of right ear without spontaneous rupture of tympanic membrane H66.004 [place] [address] [address] [place] [id number] [address] [place] [address] February, [place] [address] [address] [place] [id number] [address] [place] [address] February, Attention-deficit hyperactiv ity disorder, combined type F90.2 [facility] [address] [place] [id number] [address] [place] [address] February, [place] [address] [place] [id number] [address] [place] [address] Dec, Bipolar II disorder F31.81 [facility] [id number] [place] [address] Oct, [place] [address] [address] Oct, Bipolar II disorder F31.81 a nd Attention-deficit hyperactivity disorder, combined type F90.2 [place] [address] [address] Oct, Encounter to establish care Z76.89 ; Iron deficiency anemia due to chronic blood loss D50.0 and Bipolar II disorder F31.81 [place] [address] [address] Apr, Well woman exam with routine gynecological exam Z01.419 ; Screen for STD (sexually transmitted disease) Z11.3 ; Screening breast examination Z12.39 and Encounter for initial prescription of contraceptive pills Z30.011 [place] [address] [address] [place] [id number] [address] [place] [address] Jan, Bipolar II disorder F31.81 [place] [address] [address] Apr, Fatigue 780.[address] [address] Apr, Iron deficiency 280.[address] [address] Apr, Vitamin B 12 deficiency 266. 2 and Iron deficiency 280.9 [place] [address] [place] [id number] [address] [place] [address] Apr, Joint pain 719.40 [place] [address] [place] [id number] [address] [place] [address] Apr, [place] [address] [address] [place] [id number] [address] [place] [address] Apr, Fatigue 780.79 and Bilateral knee pain 719.46 [facility] [address] [id number] [address] [place] [address] February, General counseling on prescr iption of oral contraceptives V25.01 [facility] [address] [id number] [address] [place] [address] February, Cough 786.2 [facility] [address] [facility] [id number] [address] [place] [address] February, Sinusitis 473.9 ; Suppurativ e otitis media of left ear 382.4 ; Otalgia of both ears 388.70 and Allergic rhinitis 477.9 [facility] [address] [id number] [address] [place] [address] Jan, [facility] [address] [id number] [address] [place] [address] Jan, [facility] [address] [facility] [id number] [address] [place] [address] Oct, [facility] [address] [id number] [address] [place] [address] Oct, [facility] [address] [id number] [address] [place] [address] Sep, [facility] [address] [id number] [address] [place] [address] Sep, [facility] [address] [id number] [address] [place] [address] Sep, [facility] [address] [id number] [address] [place] [address] Sep, [facility] [address] [id number] [address] [place] [address] Jun, [facility] [address] [id number] [address] [place] [address] Jun, [facility] [address] [id number] [address] [place] [address] Jun, [facility] [address] [id number] [address] [place] [address], [place] [address] Jun, [facility] [address] [id number] [address] [place] [address], [place] [address] May, [facility] [address] [id number] [address] [place] [address], [place] [address] May, [facility] [address] [id number] [address] [place] [address], [place] [address] May, [facility] [address] [id number] [address] [place] [address], [place] [address] May, [facility] [address] [id number] [address] [place] [address], [place] [address] May, [facility] [address] [id number] [address] [place] [address], [place] [address] May, [facility] [address] [id number] [address] [place] [address], [place] [address] May, [facility] [address] [id number] [address] [place] [address], [place] [address] May, [facility] [address] [id number] [address] [place] [address], [place] [address] May, [facility] [address] [id number] [address] [place] [address], [place] [address] May, [facility] [address] [id number] [address] [place] [address], [place] [address] May, [facility] [address] [id number] [address] [place] [address], [place] [address] May, [facility] [address] [id number] [address] [place] [address], [place] [address] May, [facility] [address] [id number] [address] [place] [address], [place] [address] May, [facility] [address] [id number] [address] [place] [address], [place] [address] May, [facility] [address] [id number] [facility] [place] [address] May, [facility] [address] [id number] [address] [place] [address], [place] [address] May, [facility] [address] [id number] [address] [place] [address], [place] [address] May, [facility] [address] [id number] [address] [place] [address], [place] [address] Apr, [facility] [address] [id number] [address] [place] [address], [place] [address] Apr, [facility] [address] [id number] [address] [place] [address], [place] [address] Apr, [facility] [address] [id number] [address] [place] [address], [place] [address] Apr, [facility] [address] [id number] [address] [place] [address], [place] [address] Apr, [facility] [address] [id number] [address] [place] [address], [place] [address] Apr, [facility] [address] [id number] [address] [place] [address], [place] [address] Apr, [facility] [address] [id number] [address] [place] [address], [place] [address] Apr, [facility] [address] [id number] [address] [place] [address], [place] [address] Apr, [facility] [address] [id number] [address] [place] [address], [place] [address] Apr, [facility] [address] [id number] [address] [place] [address], [place] [address] Apr, [facility] [address] [id number] [address] [place] [address], [place] [address] Apr, [facility] [address] [id number] [facility] [place] [address] 14 Apr, 2014 [facility] [address] [id number] [facility] [place] [address] 14 Apr, 2014 [facility] [address] [id number] [facility] [place] [address] 14 Apr, 2014 [facility] [address] [id number] [address] [place] [address], [place] [address] Apr, [facility] [address] [id number] [address] [place] [address], [place] [address] Apr, [facility] [address] [id number] [address] [place] [address], [place] [address] Apr, [facility] [address] [id number] [address] [place] [address], [place] [address] Apr, [facility] [address] [id number] [address] [place] [address], [place] [address] Mar, [facility] [address] [id number] [address] [place] [address], [place] [address] Mar, [facility] [address] [id number] [address] [place] [address], [place] [address] February, [facility] [address] [id number] [address] [place] [address], [place] [address] February, [facility] [address] [id number] [address] [place] [address], [place] [address] February, [facility] [address] [id number] [address] [place] [address], [place] [address] February, [facility] [address] [id number] [address] [place] [address], [place] [address] February, [facility] [address] [id number] [address] [place] [address], [place] [address] Jan, [facility] [address] [id number] [address] [place] [address], [place] [address] Jan, [facility] [address] [id number] [address] [place] [address], [place] [address] Jan, [facility] [address] [id number] [address] [place] [address], [place] [address] Jan, [facility] [address] [id number] [address] [place] [address], [place] [address] Jan, [facility] [address] [id number] [address] [place] [address], [place] [address] Jan, [facility] [address] [id number] [address] [place] [address], [place] [address] Nov, [facility] [address] [id number] [address] [place] [address], [place] [address] Nov, [facility] [address] [id number] [address] [place] [address], [place] [address] Oct, [facility] [address] [id number] [address] [place] [address], [place] [address] Oct, [facility] [address] [id number] [address] [place] [address], [place] [address] Aug, [facility] [address] [id number] [address] [place] [address], [place] [address] Aug, [facility] [address] [id number] [address] [place] [address], [place] [address] Aug, [facility] [address] [id number] [address] [place] [address] Aug, [facility] [address] [id number] [address] [place] [address], [place] [address] Jul, [facility] [address] [id number] [address] [place] [address], [place] [address] Jul, [facility] [address] [id number] [address] [place] [address], [place] [address] Jul, [facility] [address] [id number] [address] [place] [address], [place] [address] 29 Jul, 2013 [facility] [address] [id number] [address] [place] [address], [place] [address] 28 Jul, 2013 [facility] [address] [id number] [address] [place] [address], [place] [address] 28 Jul, 2013 [facility] [address] [id number] [address] [place] [address], [place] [address] 15 Jul, 2013 [facility] [address] [id number] [address] [place] [address], [place] [address] 15 Jul, 2013 [facility] [address] [id number] [address] [place] [address], [place] [address] Mar, [facility] [address] [id number] [address] [place] [address], [place] [address] February, [facility] [address] [id number] [address] [place] [address], [place] [address] February, [facility] [address] [id number] [address] [place] [address], [place] [address] Jan, [facility] [address] [id number] [address] [place] [address], [place] [address] Jan, [facility] [address] [id number] [address] [place] [address], [place] [address] Jan, [facility] [address] [id number] [address] [place] [address], [place] [address] Jan, [facility] [address] [id number] [address] [place] [address], [place] [address] Dec, [facility] [address] [id number] [address] [place] [address], [place] [address] Dec, [facility] [address] [id number] [address] [place] [address], [place] [address] Dec, [facility] [address] [id number] [address] [place] [address], [place] [address] Nov, [facility] [address] [facility] [id number] [address] [place] [address] Dec, IMMUNIZATIONS No Known Immunizations SOCIAL HISTORY [...]
--- OUTSIDE RECORDS SUMMARY | 2020-05-08 06:40 | XMS REPORT ---
Author Author Georgiana WYATT Organization [facility] Address [address] [place] [address] Care Team Providers Care Corrections Caseworker Name Role Phone KELLYNitin EZEQUIEL Unavailable PROBLEMS Type Condition ICD9-CM Code FJA96-AM Code Onset Dates Condition S tatus SNOMED Code Problem Attention-deficit hyperactivity disorder, combined type F90.2 Active 24133097 Problem Chronic fatigue R53.82 Active 8422 9001 Problem Bipolar II disorder F31.81 Active 83222795 Problem Iron deficiency anemia due to chronic blood loss D 50.0 Active [id number] ALLERGIES No Information ENCOUNTERS Encounter Location Date Diagnosis [place] [id number] [place] [address] Jun, [place] [address] [place] [id number] [address] [place] [address] Jan, Iron deficiency anemia due t o chronic blood loss D50.0 ; Chronic fatigue R53.82 ; Arthralgia, unspecified joint M25.50 ; Hair loss L65.9 ; S/P gastric bypass Z98.84 ; Vesicles R23.8 and Recurrent acute suppurative otitis media of right ear without spontaneous rupture of tympanic membrane H66.004 [facility] [address] [place] [id number] [place] [address] February, [facility] [address] [place] [id number] [address] [place] [address] February, Attention-deficit hyperactiv ity disorder, combined type F90.2 [facility] [address] [place] [id number] [address] [place] [address] February, [place] [address] [place] [id number] [address] [place] [address] Dec, Bipolar II disorder F31.81 [place] [address] [place] [id number] [address] [place] [address] Oct, [place] [address] [address] Oct, Bipolar II disorder F31.81 a nd Attention-deficit hyperactivity disorder, combined type F90.[address] [address] Oct, Encounter to establish care Z76.89 ; Iron deficiency anemia due to chronic blood loss D50.0 and Bipolar II disorder F31.[address] [address] Apr, Well woman exam with routine gynecological exam Z01.419 ; Screen for STD (sexually transmitted disease) Z11.3 ; Screening breast examination Z12.39 and Encounter for initial prescription of contraceptive pills Z30.011 [place] [id number] [address] [place] [address] Jan, Bipolar II disorder F31.[address] [address] Apr, Fatigue 780.79 [place] [id number] [address] [place] [address] Apr, Iron deficiency 280.9 [place] [id number] [address] [place] [address] Apr, Vitamin B 12 deficiency 266. 2 and Iron deficiency 280.9 [place] [id number] [address] [place] [address] Apr, Joint pain 719.40 [place] [id number] [address] [place] [address] Apr, [place] [id number] [address] [place] [address] Apr, Fatigue 780.79 and Bilateral knee pain 719.46 [facility] [address] [id number] [address] [place] [address] February, General counseling on prescr iption of oral contraceptives V25.01 [facility] [address] [id number] [address] [place] [address] February, Cough 786.2 [facility] [address] [id number] [address] [place] [address] February, Sinusitis 473.9 ; Suppurativ e otitis media of left ear 382.4 ; Otalgia of both ears 388.70 and Allergic rhinitis 477.9 [facility] [address] [id number] [address] [place] [address] Jan, [facility] [address] [id number] [address] [place] [address] Jan, [facility] [address] [id number] [address] [place] [address] Oct, [facility] [address] [id number] [address] [place] [address] Oct, [facility] [address] [id number] [address] [place] [address] Sep, [facility] [address] [id number] [address] [place] [address] Sep, [facility] [address] [id number] [address] [place] [address] Sep, [facility] [address] [id number] [address] [place] [address] Sep, [facility] [address] [id number] [address] [place] [address] Jun, [facility] [address] [id number] [address] [place] [address] Jun, [facility] [address] [id number] [address] [place] [address] Jun, [facility] [address] [id number] [facility] [place] [address] Jun, [facility] [address] [id number] [address] [place] [address], [place] [address] May, [facility] [address] [id number] [address] [place] [address], [place] [address] May, [facility] [address] [id number] [address] [place] [address], [place] [address] May, [facility] [address] [id number] [address] [place] [address], [place] [address] May, [facility] [address] [id number] [address] [place] [address], [place] [address] May, [facility] [address] [id number] [address] [place] [address], [place] [address] May, [facility] [address] [id number] [address] [place] [address], [place] [address] May, [facility] [address] [id number] [address] [place] [address], [place] [address] May, [facility] [address] [id number] [address] [place] [address], [place] [address] May, [facility] [address] [id number] [address] [place] [address], [place] [address] May, [facility] [address] [id number] [address] [place] [address], [place] [address] May, [facility] [address] [id number] [address] [place] [address], [place] [address] May, [facility] [address] [id number] [address] [place] [address], [place] [address] May, [facility] [address] [id number] [address] [place] [address], [place] [address] May, [facility] [address] [id number] [address] [place] [address], [place] [address] May, [facility] [address] [id number] [facility] [place] [address] May, [facility] [address] [id number] [facility] [place] [address] May, [facility] [address] [id number] [address] [place] [address], [place] [address] May, [facility] [address] [id number] [facility] [place] [address] Apr, [facility] [address] [id number] [address] [place] [address], [place] [address] Apr, [facility] [address] [id number] [address] [place] [address], [place] [address] Apr, [facility] [address] [id number] [address] [place] [address], [place] [address] Apr, [facility] [address] [id number] [address] [place] [address], [place] [address] Apr, [facility] [address] [id number] [address] [place] [address], [place] [address] Apr, [facility] [address] [id number] [address] [place] [address], [place] [address] Apr, [facility] [address] [id number] [address] [place] [address], [place] [address] Apr, [facility] [address] [id number] [address] [place] [address], [place] [address] Apr, [facility] [address] [id number] [address] [place] [address], [place] [address] Apr, [facility] [address] [id number] [address] [place] [address], [place] [address] Apr, [facility] [address] [id number] [address] [place] [address], [place] [address] Apr, [facility] [address] [id number] [facility] [place] [address] 14 Apr, 2014 [facility] [address] [id number] [facility] [place] [address] Apr, [facility] [address] [id number] [facility] [place] [address] Apr, [facility] [address] [id number] [address] [place] [address], [place] [address] Apr, [facility] [address] [id number] [address] [place] [address], [place] [address] Apr, [facility] [address] [id number] [address] [place] [address], [place] [address] Apr, [facility] [address] [id number] [address] [place] [address], [place] [address] Apr, [facility] [address] [id number] [address] [place] [address], [place] [address] Mar, [facility] [address] [id number] [address] [place] [address], [place] [address] Mar, [facility] [address] [id number] [address] [place] [address], [place] [address] February, [facility] [address] [id number] [address] [place] [address], [place] [address] February, [facility] [address] [id number] [address] [place] [address], [place] [address] February, [facility] [address] [id number] [address] [place] [address], [place] [address] February, [facility] [address] [id number] [address] [place] [address], [place] [address] February, [facility] [address] [id number] [address] [place] [address], [place] [address] Jan, [facility] [address] [id number] [address] [place] [address], [place] [address] Jan, [facility] [address] [id number] [address] [place] [address], [place] [address] Jan, [facility] [address] [id number] [address] [place] [address], [place] [address] Jan, [facility] [address] [id number] [address] [place] [address], [place] [address] Jan, [facility] [address] [id number] [address] [place] [address], [place] [address] Jan, [facility] [address] [id number] [address] [place] [address], [place] [address] Nov, [facility] [address] [id number] [address] [place] [address], [place] [address] Nov, [facility] [address] [id number] [address] [place] [address], [place] [address] Oct, [facility] [address] [id number] [address] [place] [address], [place] [address] Oct, [facility] [address] [id number] [address] [place] [address], [place] [address] Aug, [facility] [address] [id number] [address] [place] [address], [place] [address] Aug, [facility] [address] [id number] [address] [place] [address], [place] [address] Aug, [facility] [address] [id number] [address] [place] [address] Aug, [facility] [address] [id number] [address] [place] [address], [place] [address] Jul, [facility] [address] [id number] [address] [place] [address], [place] [address] Jul, [facility] [address] [id number] [address] [place] [address], [place] [address] Jul, [facility] [address] [id number] [address] [place] [address], [place] [address] 29 Jul, 2013 [facility] [address] [id number] [address] [place] [address], [place] [address] Jul, [facility] [address] [id number] [address] [place] [address], [place] [address] 28 Jul, 2013 [facility] [address] [id number] [address] [place] [address], [place] [address] 15 Jul, 2013 [facility] [address] [id number] [address] [place] [address], [place] [address] 15 Jul, 2013 [facility] [address] [id number] [address] [place] [address], [place] [address] Mar, [facility] [address] [id number] [address] [place] [address], [place] [address] February, [facility] [address] [id number] [address] [place] [address], [place] [address] February, [facility] [address] [id number] [address] [place] [address], [place] [address] Jan, [facility] [address] [id number] [address] [place] [address], [place] [address] Jan, [facility] [address] [id number] [address] [place] [address], [place] [address] Jan, [facility] [address] [id number] [address] [place] [address], [place] [address] Jan, [facility] [address] [id number] [address] [place] [address], [place] [address] Dec, [facility] [address] [id number] [address] [place] [address], [place] [address] Dec, [facility] [address] [id number] [address] [place] [address], [place] [address] Dec, [facility] [address] [id number] [address] [place] [address], [place] [address] Nov, [facility] [address] [facility] [id number] [address] [place] [address] Dec, IMMUNIZATIONS No Known Immunizations SOCIAL HISTORY [...]
--- OUTSIDE RECORDS SUMMARY | 2020-05-08 06:40 | XMS REPORT ---
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 Name Role Phone Migration, Doctor Unavailable Unavailable PROBLEMS Type Condition ICD9-CM Code YZZ39-GL Code Onset Dates Condition S tatus SNOMED Code Problem Attention-deficit hyperactivity disorder, combined type F90.2 Active 12387758 Problem Chronic fatigue R53.82 Active 8422 9001 Problem Bipolar II disorder F31.81 Active 67774851 Problem Iron deficiency anemia due to chronic blood loss D 50.0 Active [id number] ALLERGIES No Information ENCOUNTERS Encounter Location Date Diagnosis [place] [address] [place] [id number] [place] [address] Jun, [place] [address] [place] [id number] [place] [address] Jan, Iron deficiency anemia due t o chronic blood loss D50.0 ; Chronic fatigue R53.82 ; Arthralgia, unspecified joint M25.50 ; Hair loss L65.9 ; S/P gastric bypass Z98.84 ; Vesicles R23.8 and Recurrent acute suppurative otitis media of right ear without spontaneous rupture of tympanic membrane H66.004 [place] [address] [place] [id number] [address] [place] [address] February, [place] [address] [place] [id number] [address] [place] [address] February, Attention-deficit hyperactiv ity disorder, combined type F90.2 [place] [address] [place] [id number] [address] [place] [address] February, [place] [address] [place] [id number] [place] [address] Dec, Bipolar II disorder F31.81 [place] [address] [place] [id number] [place] [address] Oct, [place] [address] [place] [id number] [place] [address] Oct, Bipolar II disorder F31.81 a nd Attention-deficit hyperactivity disorder, combined type F90.2 [place] [address] [place] [id number] [place] [address] Oct, Encounter to establish care Z76.89 ; Iron deficiency anemia due to chronic blood loss D50.0 and Bipolar II disorder F31.81 [place] [address] [place] [id number] [place] [address] Apr, Well woman exam with routine gynecological exam Z01.419 ; Screen for STD (sexually transmitted disease) Z11.3 ; Screening breast examination Z12.39 and Encounter for initial prescription of contraceptive pills Z30.[id number] [place] [address] Jan, Bipolar II disorder F31.81 [place] [address] [place] [id number] [place] [address] Apr, Fatigue 780.[address] [address] Apr, Iron deficiency 280.9 [place] [id number] [address] [place] [address] Apr, Vitamin B 12 deficiency 266. 2 and Iron deficiency 280.9 [place] [address] [place] [id number] [place] [address] Apr, Joint pain 719.40 [place] [id number] [place] [address] Apr, [place] [address] [place] [id number] [place] [address] Apr, Fatigue 780.79 and Bilateral knee pain 719.46 [place] [id number] [place] [address] February, General counseling on prescr iption of oral contraceptives V25.01 [facility] [address] [id number] [address] [place] [address] February, Cough 786.2 [facility] [address] [id number] [address] [place] [address] 13 Feb, 2015 Sinusitis 473.9 ; Suppurativ e otitis media of left ear 382.4 ; Otalgia of both ears 388.70 and Allergic rhinitis 477.9 [facility] [address] [id number] [address] [place] [address] Jan, [facility] [address] [id number] [address] [place] [address] Jan, [facility] [address] [id number] [address] [place] [address] Oct, [facility] [address] [id number] [address] [place] [address] Oct, [facility] [address] [id number] [address] [place] [address] Sep, [facility] [address] [id number] [address] [place] [address] Sep, [facility] [address] [id number] [address] [place] [address] Sep, [facility] [address] [id number] [address] [place] [address] Sep, [facility] [address] [id number] [address] [place] [address] Jun, [facility] [address] [id number] [address] [place] [address] Jun, [facility] [address] [id number] [address] [place] [address] 16 Jun, 2014 [facility] [address] [id number] [address] [place] [address] Jun, [facility] [address] [id number] [facility] [place] [address] May, [facility] [address] [id number] [address] [place] [address], [place] [address] May, [facility] [address] [id number] [address] [place] [address], [place] [address] May, [facility] [address] [id number] [address] [place] [address], [place] [address] May, [facility] [address] [id number] [address] [place] [address], [place] [address] May, [facility] [address] [id number] [address] [place] [address], [place] [address] May, [facility] [address] [id number] [address] [place] [address], [place] [address] May, [facility] [address] [id number] [address] [place] [address], [place] [address] May, [facility] [address] [id number] [address] [place] [address], [place] [address] May, [facility] [address] [id number] [address] [place] [address], [place] [address] May, [facility] [address] [id number] [address] [place] [address], [place] [address] May, [facility] [address] [id number] [address] [place] [address], [place] [address] May, [facility] [address] [id number] [address] [place] [address], [place] [address] May, [facility] [address] [id number] [address] [place] [address], [place] [address] May, [facility] [address] [id number] [address] [place] [address], [place] [address] May, [facility] [address] [id number] [facility] [place] [address] May, [facility] [address] [id number] [address] [place] [address], [place] [address] May, [facility] [address] [id number] [address] [place] [address], [place] [address] May, [facility] [address] [id number] [address] [place] [address], [place] [address] Apr, [facility] [address] [id number] [address] [place] [address], [place] [address] Apr, [facility] [address] [id number] [address] [place] [address], [place] [address] Apr, [facility] [address] [id number] [address] [place] [address], [place] [address] Apr, [facility] [address] [id number] [address] [place] [address], [place] [address] Apr, [facility] [address] [id number] [address] [place] [address], [place] [address] Apr, [facility] [address] [id number] [address] [place] [address], [place] [address] Apr, [facility] [address] [id number] [address] [place] [address], [place] [address] Apr, [facility] [address] [id number] [address] [place] [address], [place] [address] Apr, [facility] [address] [id number] [address] [place] [address], [place] [address] Apr, [facility] [address] [id number] [address] [place] [address], [place] [address] Apr, [facility] [address] [id number] [address] [place] [address], [place] [address] Apr, [facility] [address] [id number] [address] [place] [address], [place] [address] Apr, [facility] [address] [id number] [address] [place] [address], [place] [address] Apr, [facility] [address] [id number] [address] [place] [address], [place] [address] Apr, [facility] [address] [id number] [address] [place] [address], [place] [address] Apr, [facility] [address] [id number] [address] [place] [address], [place] [address] Apr, [facility] [address] [id number] [address] [place] [address], [place] [address] Apr, [facility] [address] [id number] [address] [place] [address], [place] [address] Apr, [facility] [address] [id number] [address] [place] [address], [place] [address] Mar, [facility] [address] [id number] [address] [place] [address], [place] [address] Mar, [facility] [address] [id number] [address] [place] [address], [place] [address] February, [facility] [address] [id number] [address] [place] [address], [place] [address] February, [facility] [address] [id number] [address] [place] [address], [place] [address] February, [facility] [address] [id number] [address] [place] [address], [place] [address] February, [facility] [address] [id number] [address] [place] [address], [place] [address] February, [facility] [address] [id number] [address] [place] [address], [place] [address] Jan, [facility] [address] [id number] [address] [place] [address], [place] [address] Jan, [facility] [address] [id number] [address] [place] [address], [place] [address] Jan, [facility] [address] [id number] [address] [place] [address], [place] [address] Jan, [facility] [address] [id number] [address] [place] [address], [place] [address] Jan, [facility] [address] [id number] [address] [place] [address], [place] [address] Jan, [facility] [address] [id number] [address] [place] [address], [place] [address] Nov, [facility] [address] [id number] [address] [place] [address], [place] [address] Nov, [facility] [address] [id number] [address] [place] [address], [place] [address] Oct, [facility] [address] [id number] [address] [place] [address], [place] [address] Oct, [facility] [address] [id number] [address] [place] [address], [place] [address] Aug, [facility] [address] [id number] [address] [place] [address], [place] [address] Aug, [facility] [address] [id number] [address] [place] [address], [place] [address] Aug, [facility] [address] [id number] [address] [place] [address] Aug, [facility] [address] [id number] [address] [place] [address], [place] [address] Jul, [facility] [address] [id number] [address] [place] [address], [place] [address] Jul, [facility] [address] [id number] [address] [place] [address], [place] [address] Jul, [facility] [address] [id number] [address] [place] [address], [place] [address] Jul, [facility] [address] [id number] [address] [place] [address], [place] [address] 28 Jul, 2013 [facility] [address] [id number] [address] [place] [address], [place] [address] 28 Jul, 2013 [facility] [address] [id number] [address] [place] [address], [place] [address] 15 Jul, 2013 [facility] [address] [id number] [address] [place] [address], [place] [address] 15 Jul, 2013 [facility] [address] [id number] [address] [place] [address], [place] [address] Mar, [facility] [address] [id number] [address] [place] [address], [place] [address] February, [facility] [address] [id number] [address] [place] [address], [place] [address] February, [facility] [address] [id number] [address] [place] [address], [place] [address] Jan, [facility] [address] [id number] [address] [place] [address], [place] [address] Jan, [facility] [address] [id number] [address] [place] [address], [place] [address] Jan, [facility] [address] [id number] [address] [place] [address], [place] [address] Jan, [facility] [address] [id number] [address] [place] [address], [place] [address] Dec, [facility] [address] [id number] [address] [place] [address], [place] [address] Dec, [facility] [address] [id number] [address] [place] [address], [place] [address] Dec, [facility] [address] [id number] [address] [place] [address], [place] [address] Nov, [facility] [address] [id number] [address] [place] [address], [place] [address] Dec, IMMUNIZATIONS No Known Immunizations SOCIAL HISTORY [...]
--- OUTSIDE RECORDS SUMMARY | 2020-05-08 06:40 | XMS REPORT ---
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 Role Phone NILSA CLINTON Unavailable PROBLEMS Type Condition ICD9-CM Code WOS66-QD Code Onset Dates Condition S tatus SNOMED Code Problem Attention-deficit hyperactivity disorder, combined type F90.2 Active 10203624 Problem Chronic fatigue R53.82 Active 8422 9001 Problem Bipolar II disorder F31.81 Active 12439230 Problem Iron deficiency anemia due to chronic blood loss D 50.0 Active 75662443 ALLERGIES No Information ENCOUNTERS Encounter Location Date Diagnosis [place] [id number] [place] [id number] Jun, [place] [address] [place] [id number] [address] [place] [address] Jan, Iron deficiency anemia due t o chronic blood loss D50.0 ; Chronic fatigue R53.82 ; Arthralgia, unspecified joint M25.50 ; Hair loss L65.9 ; S/P gastric bypass Z98.84 ; Vesicles R23.8 and Recurrent acute suppurative otitis media of right ear without spontaneous rupture of tympanic membrane H66.004 [place] [address] [place] [id number] [address] [place] [address] February, [place] [address] [place] [id number] [address] [place] [address] February, Attention-deficit hyperactiv ity disorder, combined type F90.2 [facility] [address] [place] [id number] [address] [place] [address] February, [place] [address] [place] [id number] [address] [place] [address] Dec, Bipolar II disorder F31.81 [place] [address] [place] [id number] [address] [place] [address] Oct, [place] [address] [address] Oct, Bipolar II disorder F31.81 a nd Attention-deficit hyperactivity disorder, combined type F90.[address] [address] Oct, Encounter to establish care Z76.89 ; Iron deficiency anemia due to chronic blood loss D50.0 and Bipolar II disorder F31.[address] [address] Apr, Well woman exam with routine gynecological exam Z01.419 ; Screen for STD (sexually transmitted disease) Z11.3 ; Screening breast examination Z12.39 and Encounter for initial prescription of contraceptive pills Z30.011 [place] [address] [place] [id number] [address] [place] [address] Jan, Bipolar II disorder F31.81 [place] [address] [address] Apr, Fatigue 780.[address] [address] Apr, Iron deficiency 280.[address] [address] Apr, Vitamin B 12 deficiency 266. 2 and Iron deficiency 280.9 [place] [address] [place] [id number] [address] [place] [address] Apr, Joint pain 719.40 [place] [id number] [place] [address] Apr, [place] [address] [place] [id number] [address] [place] [address] Apr, Fatigue 780.79 and Bilateral knee pain 719.46 [facility] [address] [id number] [address] [place] [address] February, General counseling on prescr iption of oral contraceptives V25.01 [facility] [address] [id number] [address] [place] [address] February, Cough 786.2 [facility] [address] [id number] [address] [place] [address] February, Sinusitis 473.9 ; Suppurativ e otitis media of left ear 382.4 ; Otalgia of both ears 388.70 and Allergic rhinitis 477.9 [facility] [address] [id number] [address] [place] [address] Jan, [facility] [address] [facility] [id number] [address] [place] [address] Jan, [facility] [address] [id number] [address] [place] [address] Oct, [facility] [address] [id number] [address] [place] [address] Oct, [facility] [address] [id number] [address] [place] [phone] Sep, [facility] [address] [facility] [id number] [address] [place] [phone] Sep, [facility] [address] [id number] [address] [place] [address] Sep, [facility] [address] [id number] [address] [place] [address] Sep, [facility] [address] [id number] [address] [place] [address] Jun, [facility] [address] [id number] [address] [place] [address] Jun, [facility] [address] [id number] [address] [place] [address] Jun, [facility] [address] [id number] [address] [place] [address], [place] [address] Jun, [facility] [address] [id number] [address] [place] [address], [place] [address] May, [facility] [address] [id number] [address] [place] [address], [place] [address] May, [facility] [address] [id number] [address] [place] [address], [place] [address] May, [facility] [address] [id number] [address] [place] [address], [place] [address] May, [facility] [address] [id number] [address] [place] [address], [place] [address] May, [facility] [address] [id number] [address] [place] [address], [place] [address] May, [facility] [address] [id number] [address] [place] [address], [place] [address] May, [facility] [address] [id number] [address] [place] [address], [place] [address] May, [facility] [address] [id number] [address] [place] [address], [place] [address] May, [facility] [address] [id number] [address] [place] [address], [place] [address] May, [facility] [address] [id number] [address] [place] [address], [place] [address] May, [facility] [address] [id number] [address] [place] [address], [place] [address] May, [facility] [address] [id number] [address] [place] [address], [place] [address] May, [facility] [address] [id number] [address] [place] [address], [place] [address] May, [facility] [address] [id number] [address] [place] [address], [place] [address] May, [facility] [address] [id number] [facility] [place] [address] May, [facility] [address] [id number] [address] [place] [address], [place] [address] May, [facility] [address] [id number] [address] [place] [address], [place] [address] May, [facility] [address] [id number] [address] [place] [address], [place] [address] Apr, [facility] [address] [id number] [address] [place] [address], [place] [address] Apr, [facility] [address] [id number] [address] [place] [address], [place] [address] Apr, [facility] [address] [id number] [address] [place] [address], [place] [address] Apr, [facility] [address] [id number] [address] [place] [address], [place] [address] Apr, [facility] [address] [id number] [address] [place] [address], [place] [address] Apr, [facility] [address] [id number] [address] [place] [address], [place] [address] Apr, [facility] [address] [id number] [address] [place] [address], [place] [address] Apr, [facility] [address] [id number] [address] [place] [address], [place] [address] Apr, [facility] [address] [id number] [address] [place] [address], [place] [address] Apr, [facility] [address] [id number] [address] [place] [address], [place] [address] Apr, [facility] [address] [id number] [address] [place] [address], [place] [address] Apr, [facility] [address] [id number] [facility] [place] [address] 14 Apr, 2014 [facility] [address] [id number] [facility] [place] [address] 14 Apr, 2014 [facility] [address] [id number] [facility] [place] [address] Apr, [facility] [address] [id number] [facility] [place] [address] Apr, [facility] [address] [id number] [facility] [place] [address] Apr, [facility] [address] [id number] [address] [place] [address], [place] [address] Apr, [facility] [address] [id number] [address] [place] [address], [place] [address] Apr, [facility] [address] [id number] [address] [place] [address], [place] [address] Mar, [facility] [address] [id number] [address] [place] [address], [place] [address] Mar, [facility] [address] [id number] [address] [place] [address], [place] [address] February, [facility] [address] [id number] [address] [place] [address], [place] [address] February, [facility] [address] [id number] [address] [place] [address], [place] [address] February, [facility] [address] [id number] [address] [place] [address], [place] [address] February, [facility] [address] [id number] [address] [place] [address], [place] [address] February, [facility] [address] [id number] [address] [place] [address], [place] [address] Jan, [facility] [address] [id number] [address] [place] [address], [place] [address] Jan, [facility] [address] [id number] [address] [place] [address], [place] [address] Jan, [facility] [address] [id number] [address] [place] [address], [place] [address] Jan, [facility] [address] [id number] [address] [place] [address], [place] [address] Jan, [facility] [address] [id number] [address] [place] [address], [place] [address] Jan, [facility] [address] [id number] [address] [place] [address], [place] [address] Nov, [facility] [address] [id number] [address] [place] [address], [place] [address] Nov, [facility] [address] [id number] [address] [place] [address], [place] [address] Oct, [facility] [address] [id number] [address] [place] [address], [place] [address] Oct, [facility] [address] [id number] [address] [place] [address], [place] [address] Aug, [facility] [address] [id number] [address] [place] [address], [place] [address] Aug, [facility] [address] [id number] [address] [place] [address], [place] [address] Aug, [facility] [address] [id number] [address] [place] [address] Aug, [facility] [address] [id number] [address] [place] [address], [place] [address] Jul, [facility] [address] [id number] [address] [place] [address], [place] [address] Jul, [facility] [address] [id number] [address] [place] [address], [place] [address] Jul, [facility] [address] [id number] [address] [place] [address], [place] [address] 29 Jul, 2013 [facility] [address] [id number] [address] [place] [address], [place] [address] Jul, [facility] [address] [id number] [address] [place] [address], [place] [address] 28 Jul, 2013 [facility] [address] [id number] [address] [place] [address], [place] [address] 15 Jul, 2013 [facility] [address] [id number] [address] [place] [address], [place] [address] 15 Jul, 2013 [facility] [address] [id number] [address] [place] [address], [place] [address] Mar, [facility] [address] [id number] [address] [place] [address], [place] [address] February, [facility] [address] [id number] [address] [place] [address], [place] [address] February, [facility] [address] [id number] [address] [place] [address], [place] [address] Jan, [facility] [address] [id number] [address] [place] [address], [place] [address] Jan, [facility] [address] [id number] [address] [place] [address], [place] [address] Jan, [facility] [address] [id number] [address] [place] [address], [place] [address] Jan, [facility] [address] [id number] [address] [place] [address], [place] [address] Dec, [facility] [address] [id number] [address] [place] [address], [place] [address] Dec, [facility] [address] [id number] [address] [place] [address], [place] [address] Dec, [facility] [address] [id number] [address] [place] [address], [place] [address] Nov, [facility] [address] [facility] [id number] [address] [place] [address] Dec, IMMUNIZATIONS No Known Immunizations SOCIAL HISTORY [...]
--- OUTSIDE RECORDS SUMMARY | 2020-05-08 06:40 | XMS REPORT ---
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 Name Role Phone ROSEANN Calderon Unavailable PROBLEMS Type Condition ICD9-CM Code [id number] Code Onset Dates Condition S tatus SNOMED Code Problem Attention-deficit hyperactivity disorder, combined type F90.2 Active 32638922 Problem Chronic fatigue R53.82 Active 8422 9001 Problem Bipolar II disorder F31.81 Active 43257851 Problem Iron deficiency anemia due to chronic blood loss D 50.0 Active 60448349 ALLERGIES No Information ENCOUNTERS Encounter Location Date Diagnosis [place] [address] [place] [id number] [place] [phone] Jan, Iron deficiency anemia due t o chronic blood loss D50.0 ; Chronic fatigue R53.82 ; Arthralgia, unspecified joint M25.50 ; Hair loss L65.9 ; S/P gastric bypass Z98.84 ; Vesicles R23.8 and Recurrent acute suppurative otitis media of right ear without spontaneous rupture of tympanic membrane H66.004 [place] [id number] [place] [id number] February, [place] [id number] [place] [id number] February, Attention-deficit hyperactiv ity disorder, combined type F90.2 [facility] [address] [place] [id number] [place] [phone] February, [place] [address] [place] [id number] [place] [phone] Dec, Bipolar II disorder F31.81 [place] [address] [place] [id number] [place] [id number] Oct, [place] [address] [facility] [id number] [address] [place] [id number] Oct, Bipolar II disorder F31.81 a nd Attention-deficit hyperactivity disorder, combined type F90.2 [place] [address] [facility] [id number] [address] [place] [id number] Oct, Encounter to establish care Z76.89 ; Iron deficiency anemia due to chronic blood loss D50.0 and Bipolar II disorder F31.81 [place] [address] [facility] [id number] [address] [place] [id number] Apr, Well woman exam with routine gynecological exam Z01.419 ; Screen for STD (sexually transmitted disease) Z11.3 ; Screening breast examination Z12.39 and Encounter for initial prescription of contraceptive pills Z30.011 [place] [id number] [place] [phone] Jan, Bipolar II disorder F31.81 [place] [address] [place] [id number] [place] [phone] Apr, Fatigue 780.79 [place] [id number] [place] [address] Apr, Iron deficiency 280.9 [place] [id number] [place] [id number] Apr, Vitamin B 12 deficiency 266. 2 and Iron deficiency 280.9 [place] [address] [facility] [id number] [address] [place] [id number] Apr, Joint pain 719.40 [place] [address] [place] [id number] [place] [id number] Apr, [place] [address] [place] [id number] [place] [id number] Apr, Fatigue 780.79 and Bilateral knee pain 719.46 [place] [id number] [place] [id number] February, General counseling on prescr iption of oral contraceptives V25.01 [facility] [address] [id number] [address] [place] [id number] February, Cough 786.2 [facility] [address] [id number] [address] [place] [id number] 13 Feb, 2015 Sinusitis 473.9 ; Suppurativ e otitis media of left ear 382.4 ; Otalgia of both ears 388.70 and Allergic rhinitis 477.9 [facility] [address] [id number] [address] [place] [phone] Jan, [facility] [address] [id number] [address] [place] [id number] Jan, [facility] [address] [id number] [address] [place] [phone] Oct, [facility] [address] [id number] [address] [place] [phone] Oct, [facility] [address] [id number] [address] [place] [id number] Sep, [facility] [address] [id number] [address] [place] [id number] Sep, [facility] [address] [id number] [address] [place] [phone] Sep, [facility] [address] [id number] [address] [place] [phone] Sep, [facility] [address] [id number] [address] [place] [id number] Jun, [facility] [address] [id number] [address] [place] [phone] Jun, [facility] [address] [id number] [address] [place] [id number] Jun, [facility] [address] [id number] [address] [place] [phone] Jun, [facility] [address] [id number] [facility] [place] [address] May, [facility] [address] [id number] [address] [place] [address], [place] [address] May, [facility] [address] [id number] [address] [place] [address], [place] [address] May, [facility] [address] [id number] [address] [place] [address], [place] [address] May, [facility] [address] [id number] [address] [place] [address], [place] [address] May, [facility] [address] [id number] [address] [place] [address], [place] [address] May, [facility] [address] [id number] [address] [place] [address], [place] [address] May, [facility] [address] [id number] [address] [place] [address], [place] [address] May, [facility] [address] [id number] [address] [place] [address], [place] [address] May, [facility] [address] [id number] [address] [place] [address], [place] [address] May, [facility] [address] [id number] [address] [place] [address], [place] [address] May, [facility] [address] [id number] [address] [place] [address], [place] [address] May, [facility] [address] [id number] [address] [place] [address], [place] [address] May, [facility] [address] [id number] [address] [place] [address], [place] [address] May, [facility] [address] [id number] [address] [place] [address], [place] [address] May, [facility] [address] [id number] [address] [place] [address], [place] [address] May, [facility] [address] [id number] [facility] [place] [address] May, [facility] [address] [id number] [address] [place] [address], [place] [address] May, [facility] [address] [id number] [facility] [place] [address] Apr, [facility] [address] [id number] [address] [place] [address], [place] [address] Apr, [facility] [address] [id number] [address] [place] [address], [place] [address] Apr, [facility] [address] [id number] [address] [place] [address], [place] [address] Apr, [facility] [address] [id number] [address] [place] [address], [place] [address] Apr, [facility] [address] [id number] [address] [place] [address], [place] [address] Apr, [facility] [address] [id number] [address] [place] [address], [place] [address] Apr, [facility] [address] [id number] [address] [place] [address], [place] [address] Apr, [facility] [address] [id number] [address] [place] [address], [place] [address] Apr, [facility] [address] [id number] [address] [place] [address], [place] [address] Apr, [facility] [address] [id number] [address] [place] [address], [place] [address] Apr, [facility] [address] [id number] [address] [place] [address], [place] [address] Apr, [facility] [address] [id number] [address] [place] [address], [place] [address] Apr, [facility] [address] [id number] [facility] [place] [address] Apr, [facility] [address] [id number] [facility] [place] [address] Apr, [facility] [address] [id number] [facility] [place] [address] Apr, [facility] [address] [id number] [address] [place] [address], [place] [address] Apr, [facility] [address] [id number] [address] [place] [address], [place] [address] Apr, [facility] [address] [id number] [address] [place] [address], [place] [address] Apr, [facility] [address] [id number] [address] [place] [address], [place] [address] Mar, [facility] [address] [id number] [address] [place] [address], [place] [address] Mar, [facility] [address] [id number] [address] [place] [address], [place] [address] February, [facility] [address] [id number] [address] [place] [address], [place] [address] February, [facility] [address] [id number] [address] [place] [address], [place] [address] February, [facility] [address] [id number] [address] [place] [address], [place] [address] February, [facility] [address] [id number] [address] [place] [address], [place] [address] February, [facility] [address] [id number] [address] [place] [address], [place] [id number] Jan, [facility] [address] [id number] [address] [place] [address], [place] [address] Jan, [facility] [address] [id number] [address] [place] [address], [place] [address] Jan, [facility] [address] [id number] [address] [place] [address], [place] [address] Jan, [facility] [address] [id number] [address] [place] [address], [place] [address] Jan, [facility] [address] [id number] [address] [place] [address], [place] [address] Jan, [facility] [address] [id number] [address] [place] [address], [place] [address] Nov, [facility] [address] [id number] [address] [place] [address], [place] [address] Nov, [facility] [address] [id number] [address] [place] [address], [place] [address] Oct, [facility] [address] [id number] [address] [place] [address], [place] [address] Oct, [facility] [address] [id number] [address] [place] [address], [place] [address] Aug, [facility] [address] [id number] [address] [place] [address], [place] [address] Aug, [facility] [address] [id number] [address] [place] [address], [place] [address] Aug, [facility] [address] [id number] [address] [place] [address], [place] [address] Aug, [facility] [address] [id number] [address] [place] [address], [place] [address] Jul, [facility] [address] [id number] [address] [place] [address], [place] [address] Jul, [facility] [address] [id number] [address] [place] [address], [place] [address] Jul, [facility] [address] [id number] [address] [place] [address], [place] [address] Jul, [facility] [address] [id number] [address] [place] [address], [place] [address] 28 Jul, 2013 [facility] [address] [id number] [address] [place] [address], [place] [id number] 28 Jul, 2013 [facility] [address] [id number] [address] [place] [address], [place] [id number] 15 Jul, 2013 [facility] [address] [id number] [address] [place] [address], [place] [address] 15 Jul, [address] [facility] [address] [id number] [address] [place] [address], [place] [address] Mar, [facility] [address] [id number] [address] [place] [address], [place] [address] February, [facility] [address] [id number] [address] [place] [address], [place] [address] February, [facility] [address] [id number] [address] [place] [address], [place] [address] Jan, [facility] [address] [id number] [address] [place] [address], [place] [address] Jan, [facility] [address] [id number] [address] [place] [address], [place] [address] Jan, [facility] [address] [id number] [address] [place] [address], [place] [address] Jan, [facility] [address] [id number] [address] [place] [address], [place] [address] Dec, [facility] [address] [id number] [address] [place] [address], [place] [address] Dec, [facility] [address] [id number] [address] [place] [address], [place] [address] Dec, [facility] [address] [id number] [address] [place] [address], [place] [address] Nov, [facility] [address] [id number] [address] [place] [address], [place] [address] Dec, IMMUNIZATIONS No Known Immunizations SOCIAL HISTORY [...]
--- OUTSIDE RECORDS SUMMARY | 2020-05-08 06:40 | XMS REPORT ---
Author Author Georgiana Saamniego Organization [facility] Address [address] [place] [address] Care Team Providers Care Concrete Inspector Name Role Phone EMILI Samaniego Unavailable PROBLEMS Type Condition ICD9-CM Code XGW46-NZ Code Onset Dates Condition S tatus SNOMED Code Problem Attention-deficit hyperactivity disorder, combined type F90.2 Active 31078764 Problem Chronic fatigue R53.82 Active 8422 9001 Problem Bipolar II disorder F31.81 Active 12502168 Problem Iron deficiency anemia due to chronic blood loss D 50.0 Active 83878092 ALLERGIES No Information ENCOUNTERS Encounter Location Date Diagnosis [facility] [id number] [place] [phone] Jan, Iron deficiency anemia due t o chronic blood loss D50.0 ; Chronic fatigue R53.82 ; Arthralgia, unspecified joint M25.50 ; Hair loss L65.9 ; S/P gastric bypass Z98.84 ; Vesicles R23.8 and Recurrent acute suppurative otitis media of right ear without spontaneous rupture of tympanic membrane H66.004 [place] [id number] [place] [id number] [address] [place] [address] February, [facility] [address] [place] [id number] [address] [place] [address] February, Attention-deficit hyperactiv ity disorder, combined type F90.2 [facility] [address] [place] [id number] [address] [place] [address] February, [place] [address] [place] [id number] [address] [place] [address] Dec, Bipolar II disorder F31.81 [facility] [address] [place] [id number] [address] [place] [address] Oct, [place] [address] [facility] [id number] [address] [place] [address] Oct, Bipolar II disorder F31.81 a nd Attention-deficit hyperactivity disorder, combined type F90.2 [place] [address] [facility] [id number] [address] [place] [address] Oct, Encounter to establish care Z76.89 ; Iron deficiency anemia due to chronic blood loss D50.0 and Bipolar II disorder F31.81 [place] [address] [facility] [id number] [address] [place] [address] Apr, Well woman exam with routine gynecological exam Z01.419 ; Screen for STD (sexually transmitted disease) Z11.3 ; Screening breast examination Z12.39 and Encounter for initial prescription of contraceptive pills Z30.011 [place] [id number] [address] [place] [address] Jan, Bipolar II disorder F31.81 [place] [address] [place] [id number] [address] [place] [address] Apr, Fatigue 780.79 [place] [id number] [address] [place] [address] Apr, Iron deficiency 280.9 [place] [id number] [address] [place] [address] Apr, Vitamin B 12 deficiency 266. 2 and Iron deficiency 280.9 [place] [address] [facility] [id number] [address] [place] [address] Apr, Joint pain 719.40 [place] [address] [place] [id number] [address] [place] [address] Apr, [place] [address] [place] [id number] [address] [place] [address] Apr, Fatigue 780.79 and Bilateral knee pain 719.46 [place] [id number] [place] [address] February, General counseling on prescr iption of oral contraceptives V25.01 [facility] [address] [id number] [address] [place] [address] February, Cough 786.2 [facility] [address] [id number] [address] [place] [id number] 13 Feb, 2015 Sinusitis 473.9 ; Suppurativ e otitis media of left ear 382.4 ; Otalgia of both ears 388.70 and Allergic rhinitis 477.9 [facility] [address] [id number] [address] [place] [address] Jan, [facility] [address] [id number] [address] [place] [address] Jan, [facility] [address] [id number] [address] [place] [address] Oct, [facility] [address] [id number] [address] [place] [phone] Oct, [facility] [address] [id number] [address] [place] [address] Sep, [facility] [address] [id number] [address] [place] [address] Sep, [facility] [address] [id number] [address] [place] [address] Sep, [facility] [address] [id number] [address] [place] [phone] Sep, [facility] [address] [id number] [address] [place] [address] Jun, [facility] [address] [id number] [address] [place] [address] Jun, [facility] [address] [id number] [address] [place] [address] Jun, [facility] [address] [id number] [address] [place] [address] Jun, [facility] [address] [id number] [facility] [place] [address] May, [facility] [address] [id number] [address] [place] [address], [place] [address] May, [facility] [address] [id number] [address] [place] [address], [place] [address] May, [facility] [address] [id number] [address] [place] [address], [place] [address] May, [facility] [address] [id number] [address] [place] [address], [place] [address] May, [facility] [address] [id number] [address] [place] [address], [place] [address] May, [facility] [address] [id number] [address] [place] [address], [place] [address] May, [facility] [address] [id number] [address] [place] [address], [place] [address] May, [facility] [address] [id number] [address] [place] [address], [place] [address] May, [facility] [address] [id number] [address] [place] [address], [place] [address] May, [facility] [address] [id number] [address] [place] [address], [place] [address] May, [facility] [address] [id number] [address] [place] [address], [place] [address] May, [facility] [address] [id number] [address] [place] [address], [place] [address] May, [facility] [address] [id number] [address] [place] [address], [place] [address] May, [facility] [address] [id number] [address] [place] [address], [place] [address] May, [facility] [address] [id number] [address] [place] [address], [place] [address] May, [facility] [address] [id number] [facility] [place] [address] May, [facility] [address] [id number] [address] [place] [address], [place] [address] May, [facility] [address] [id number] [facility] [place] [address] Apr, [facility] [address] [id number] [address] [place] [address], [place] [address] Apr, [facility] [address] [id number] [address] [place] [address], [place] [address] Apr, [facility] [address] [id number] [address] [place] [address], [place] [address] Apr, [facility] [address] [id number] [address] [place] [address], [place] [address] Apr, [facility] [address] [id number] [address] [place] [address], [place] [address] Apr, [facility] [address] [id number] [address] [place] [address], [place] [address] Apr, [facility] [address] [id number] [address] [place] [address], [place] [address] Apr, [facility] [address] [id number] [address] [place] [address], [place] [address] Apr, [facility] [address] [id number] [address] [place] [address], [place] [address] Apr, [facility] [address] [id number] [address] [place] [address], [place] [address] Apr, [facility] [address] [id number] [address] [place] [address], [place] [address] Apr, [facility] [address] [id number] [address] [place] [address], [place] [address] Apr, [facility] [address] [id number] [facility] [place] [address] Apr, [facility] [address] [id number] [facility] [place] [address] Apr, [facility] [address] [id number] [facility] [place] [address] Apr, [facility] [address] [id number] [address] [place] [address], [place] [address] Apr, [facility] [address] [id number] [address] [place] [address], [place] [address] Apr, [facility] [address] [id number] [address] [place] [address], [place] [address] Apr, [facility] [address] [id number] [address] [place] [address], [place] [address] Mar, [facility] [address] [id number] [address] [place] [address], [place] [address] Mar, [facility] [address] [id number] [address] [place] [address], [place] [address] February, [facility] [address] [id number] [address] [place] [address], [place] [address] February, [facility] [address] [id number] [address] [place] [address], [place] [address] February, [facility] [address] [id number] [address] [place] [address], [place] [address] February, [facility] [address] [id number] [address] [place] [address], [place] [address] February, [facility] [address] [id number] [address] [place] [address], [place] [address] Jan, [facility] [address] [id number] [address] [place] [address], [place] [address] Jan, [facility] [address] [id number] [address] [place] [address], [place] [address] Jan, [facility] [address] [id number] [address] [place] [address], [place] [address] Jan, [facility] [address] [id number] [address] [place] [address], [place] [address] Jan, [facility] [address] [id number] [address] [place] [address], [place] [address] Jan, [facility] [address] [id number] [address] [place] [address], [place] [address] Nov, [facility] [address] [id number] [address] [place] [address], [place] [address] Nov, [facility] [address] [id number] [address] [place] [address], [place] [address] Oct, [facility] [address] [id number] [address] [place] [address], [place] [address] Oct, [facility] [address] [id number] [address] [place] [address], [place] [address] Aug, [facility] [address] [id number] [address] [place] [address], [place] [address] Aug, [facility] [address] [id number] [address] [place] [address], [place] [address] Aug, [facility] [address] [id number] [address] [place] [address], [place] [address] Aug, [facility] [address] [id number] [address] [place] [address], [place] [address] Jul, [facility] [address] [id number] [address] [place] [address], [place] [address] Jul, [facility] [address] [id number] [address] [place] [address], [place] [address] Jul, [facility] [address] [id number] [address] [place] [address], [place] [address] Jul, [facility] [address] [id number] [address] [place] [address], [place] [address] 28 Jul, 2013 [facility] [address] [id number] [address] [place] [address], [place] [address] 28 Jul, 2013 [facility] [address] [id number] [address] [place] [address], [place] [address] 15 Jul, 2013 [facility] [address] [id number] [address] [place] [address], [place] [address] 15 Jul, 2013 [facility] [address] [id number] [address] [place] [address], [place] [address] Mar, [facility] [address] [id number] [address] [place] [address], [place] [address] February, [facility] [address] [id number] [address] [place] [address], [place] [address] February, [facility] [address] [id number] [address] [place] [address], [place] [address] Jan, [facility] [address] [id number] [address] [place] [address], [place] [address] Jan, [facility] [address] [id number] [address] [place] [address], [place] [address] Jan, [facility] [address] [id number] [address] [place] [address], [place] [address] Jan, [facility] [address] [id number] [address] [place] [address], [place] [address] Dec, [facility] [address] [id number] [address] [place] [address], [place] [address] Dec, [facility] [address] [id number] [address] [place] [address], [place] [address] Dec, [facility] [address] [id number] [address] [place] [address], [place] [address] Nov, [facility] [address] [id number] [address] [place] [address], [place] [address] Dec, IMMUNIZATIONS No Known Immunizations SOCIAL HISTORY [...]
--- OUTSIDE RECORDS SUMMARY | 2020-05-08 06:41 | XMS REPORT ---
Author Author Georgiana Leonard Organization [facility] Address [address] [place] [address] Care Team Providers Care Manager House Name Role Phone TWAN Leonard Unavailable PROBLEMS Type Condition ICD9-CM Code JDJ11-NQ Code Onset Dates Condition S tatus SNOMED Code Problem Attention-deficit hyperactivity disorder, combined type F90.2 Active 23957580 Problem Iron deficiency anemia due to chronic blood loss D 50.0 Active 59000032 Problem Bipolar II disorder F31.81 Active 10488889 ALLERGIES Substance Reaction Event Type Date Status N.K.D.A. Unknown Non Drug Allergy Oct, Unknown SOCIAL HISTORY No smoking Hx information available PLAN OF CARE Activity Details Follow Up 6 Weeks Reason: VITAL SIGNS Height 64 in 2016-10-31 Weight 147.4 lbs 2016-10-31 Temperature 98.7 degrees Fahrenheit 2016-10-31 Heart Rate 92 bpm 2016-10-31 Respiratory Rate 18 2016-10-31 BMI 25.30 kg/m2 2016-10-31 Blood pressure systolic 122 mmHg 2016-10-31 Blood pressure diastolic 82 mmHg 2016-10-31 MEDICATIONS Medication Instructions Dosage Frequency Start Date End Date Duration S tatus Lamictal 25 MG Orally Once a day 1 tablets 24h 14 da ys Active Lamictal 25 MG Orally Once a day x 14 days after comple ting 25 mg dosing. 2 tablets Oct, 30 day(s) Active Trintellix 20 mg Orally Once a day 1 tablet 24h Oct, 30 day(s) Active Nuvigil 150 MG Orally Once a day 1 tablet in the morning 24h Active Lamictal 100 MG Orally Once a day 1 tablet 24h Oct, 30 day(s) Active Multivitamins - Active RESULTS No Results PROCEDURES Procedure Date Ordered Related Diagnosis Body Site MH Office Visit, Est Pt., Level 5 Oct 31, 2016 IMMUNIZATIONS No Known Immunizations
--- OUTSIDE RECORDS SUMMARY | 2020-05-08 06:41 | XMS REPORT ---
Author Author Georgiana Blanchard Doctor Organization [facility] Address Unknown Phone Unavailable Care Team Providers Care Conventional Machinist Name Role Phone Migration, Doctor Unavailable Unavailable PROBLEMS Type Condition ICD9-CM Code CXB61-LN Code Onset Dates Condition S tatus SNOMED Code Problem Attention-deficit hyperactivity disorder, combined type F90.2 Active 91858461 Problem Chronic fatigue R53.82 Active 8422 9001 Problem Bipolar II disorder F31.81 Active 60087925 Problem Iron deficiency anemia due to chronic blood loss D 50.0 Active [id number] ALLERGIES No Information ENCOUNTERS Encounter Location Date Diagnosis [place] [address] [place] [id number] [place] [address] Jan, Iron deficiency anemia due t o chronic blood loss D50.0 ; Chronic fatigue R53.82 ; Arthralgia, unspecified joint M25.50 ; Hair loss L65.9 ; S/P gastric bypass Z98.84 ; Vesicles R23.8 and Recurrent acute suppurative otitis media of right ear without spontaneous rupture of tympanic membrane H66.004 [place] [address] [place] [id number] [address] [place] [address] February, [place] [id number] [place] [address] February, Attention-deficit hyperactiv ity disorder, combined type F90.2 [facility] [address] [place] [id number] [address] [place] [address] February, [place] [address] [place] [id number] [address] [place] [address] Dec, Bipolar II disorder F31.81 [place] [address] [place] [id number] [address] [place] [address] Oct, [place] [address] [place] [id number] [place] [address] Oct, Bipolar II disorder F31.81 a nd Attention-deficit hyperactivity disorder, combined type F90.[address] [address] Oct, Encounter to establish care Z76.89 ; Iron deficiency anemia due to chronic blood loss D50.0 and Bipolar II disorder F31.[address] [address] Apr, Well woman exam with routine gynecological exam Z01.419 ; Screen for STD (sexually transmitted disease) Z11.3 ; Screening breast examination Z12.39 and Encounter for initial prescription of contraceptive pills Z30.[address] [address] 13 Jan, 2016 Bipolar II disorder F31.[address] [address] Apr, Fatigue 780.[address] [address] Apr, Iron deficiency 280.[address] [address] Apr, Vitamin B 12 deficiency 266. 2 and Iron deficiency 280.9 [place] [id number] [place] [address] Apr, Joint pain 719.40 [place] [address] [place] [id number] [place] [address] Apr, [address] [address] Apr, Fatigue 780.79 and Bilateral knee pain 719.46 [place] [id number] [place] [address] February, General counseling on prescr iption of oral contraceptives V25.01 [place] [address] [place] [address] February, Cough 786.2 [facility] [address] [id number] [address] [place] [address] February, Sinusitis 473.9 ; Suppurativ e otitis media of left ear 382.4 ; Otalgia of both ears 388.70 and Allergic rhinitis 477.9 [facility] [address] [id number] [address] [place] [address] Jan, [facility] [address] [id number] [address] [place] [address] Jan, [facility] [address] [id number] [address] [place] [address] Oct, [facility] [address] [id number] [address] [place] [address] Oct, [facility] [address] [id number] [address] [place] [address] Sep, [facility] [address] [id number] [address] [place] [address] Sep, [facility] [address] [id number] [address] [place] [address] Sep, [facility] [address] [id number] [address] [place] [address] Sep, [facility] [address] [id number] [address] [place] [address] Jun, [facility] [address] [id number] [address] [place] [address] Jun, [facility] [address] [id number] [address] [place] [address] Jun, [facility] [address] [id number] [address] [place] [address] Jun, [facility] [address] [id number] [address] [place] [address] May, [facility] [place] [facility] [address] [id number] [facility] [place] [address] May, [facility] [place] [facility] [address] [id number] [facility] [place] [address] May, [facility] [place] [facility] [address] [id number] [address] [place] [address], [place] [address] May, [facility] [place] [facility] [address] [id number] [address] [place] [address], [place] [address] May, [facility] [place] [facility] [address] [id number] [address] [place] [address], [place] [address] May, [facility] [place] [facility] [address] [id number] [address] [place] [address], [place] [address] May, [facility] [place] [facility] [address] [id number] [address] [place] [address], [place] [address] May, [facility] [place] [facility] [address] [id number] [address] [place] [address], [place] [address] May, [facility] [place] [facility] [address] [id number] [address] [place] [address], [place] [address] May, [facility] [place] [facility] [address] [id number] [address] [place] [address], [place] [address] May, [facility] [place] [facility] [address] [id number] [address] [place] [address], [place] [address] May, [facility] [place] [facility] [address] [id number] [address] [place] [address], [place] [address] May, [facility] [place] [facility] [address] [id number] [address] [place] [address], [place] [address] May, [facility] [place] [facility] [address] [id number] [address] [place] [address], [place] [address] May, [facility] [place] [facility] [address] [id number] [address] [place] [address], [place] [address] May, [facility] [place] [facility] [address] [id number] [facility] [place] [place] [address] May, [facility] [address] [id number] [address] [place] [address], [place] [address] May, [facility] [place] [facility] [address] [id number] [facility] [place] [place] [address] Apr, [facility] [address] [id number] [address] [place] [address], [place] [address] Apr, [facility] [place] [facility] [address] [id number] [address] [place] [address], [place] [address] Apr, [facility] [address] [id number] [address] [place] [address], [place] [address] Apr, [facility] [address] [id number] [address] [place] [address], [place] [address] Apr, [facility] [address] [id number] [address] [place] [address], [place] [address] Apr, [facility] [address] [id number] [address] [place] [address], [place] [address] Apr, [facility] [address] [id number] [address] [place] [address], [place] [address] 16 Apr, 2014 [facility] [address] [id number] [address] [place] [address], [place] [address] 16 Apr, 2014 [facility] [place] [facility] [address] [id number] [address] [place] [address], [place] [address] Apr, [facility] [place] [facility] [address] [id number] [address] [place] [address], [place] [address] Apr, [facility] [place] [facility] [address] [id number] [address] [place] [address], [place] [address] Apr, [facility] [place] [facility] [address] [id number] [address] [place] [address], [place] [address] Apr, [facility] [place] [facility] [address] [id number] [address] [place] [address], [place] [address] Apr, [facility] [place] [facility] [address] [id number] [address] [place] [address], [place] [address] Apr, [facility] [address] [id number] [address] [place] [address], [place] [address] Apr, [facility] [address] [id number] [address] [place] [address], [place] [address] Apr, [facility] [address] [id number] [address] [place] [address], [place] [address] Apr, [facility] [address] [id number] [address] [place] [address], [place] [address] Apr, [facility] [address] [id number] [address] [place] [address], [place] [address] Mar, [facility] [address] [id number] [address] [place] [address], [place] [address] Mar, [facility] [address] [id number] [address] [place] [address], [place] [address] February, [facility] [address] [id number] [address] [place] [address], [place] [address] February, [facility] [address] [id number] [address] [place] [address], [place] [address] February, [facility] [address] [id number] [address] [place] [address], [place] [address] February, [facility] [address] [id number] [address] [place] [address], [place] [address] February, [facility] [address] [id number] [address] [place] [address], [place] [address] Jan, [facility] [address] [id number] [address] [place] [address], [place] [address] Jan, [facility] [address] [id number] [address] [place] [address], [place] [address] Jan, [facility] [address] [id number] [address] [place] [address] Jan, [facility] [address] [id number] [address] [place] [address], [place] [address] Jan, [facility] [address] [id number] [address] [place] [address], [place] [address] Jan, [facility] [address] [id number] [address] [place] [address], [place] [address] Nov, [facility] [address] [id number] [address] [place] [address] Nov, [facility] [address] [id number] [address] [place] [address], [place] [address] Oct, [facility] [address] [id number] [address] [place] [address], [place] [address] Oct, [facility] [address] [id number] [address] [place] [address], [place] [address] Aug, [facility] [address] [id number] [address] [place] [address], [place] [address] Aug, [facility] [address] [id number] [address] [place] [address] Aug, [facility] [address] [id number] [address] [place] [address] Aug, [facility] [address] [id number] [address] [place] [address] Jul, [facility] [address] [id number] [address] [place] [address] Jul, [facility] [address] [id number] [address] [place] [address], [place] [address] 29 Jul, 2013 [facility] [address] [id number] [address] [place] [address], [place] [address] 29 Jul, 2013 [facility] [address] [id number] [address] [place] [address], [place] [address] 28 Jul, 2013 [facility] [place] [facility] [address] [id number] [address] [place] [address] 28 Jul, 2013 [facility] [address] [id number] [address] [place] [address] Jul, [facility] [address] [id number] [address] [place] [address] Jul, [facility] [address] [id number] [address] [place] [address] Mar, [facility] [address] [id number] [address] [place] [address] February, [facility] [address] [id number] [address] [place] [address] February, [facility] [address] [id number] [address] [place] [address] Jan, [facility] [address] [id number] [address] [place] [address] Jan, [facility] [address] [id number] [address] [place] [address] Jan, [facility] [address] [id number] [address] [place] [address] Jan, [facility] [address] [id number] [address] [place] [address] Dec, [facility] [address] [id number] [address] [place] [address] Dec, [facility] [address] [id number] [address] [place] [address] Dec, [facility] [address] [id number] [address] [place] [address] Nov, [facility] [address] [id number] [address] [place] [address] Dec, IMMUNIZATIONS No Known Immunizations SOCIAL HISTORY Never Assessed REASON FOR VISIT EMR-[facility] PLAN OF CARE VITAL SIGNS MEDICATIONS No Known Medications RESULTS No Results PROCEDURES Procedure Date Ordered Result Body Site CYTOPATH C/V AUTO FLUID REDO March 03, 2013 INSTRUCTIONS MEDICATIONS ADMINISTERED No Known Medications [...]
--- OUTSIDE RECORDS SUMMARY | 2020-05-08 06:41 | XMS REPORT ---
Author Author Georgiana Blanchard Doctor Organization [facility] Address Unknown Phone Unavailable Care Team Providers Care Chief Wheelage Clerk Name Role Phone Migration, Doctor Unavailable Unavailable PROBLEMS Type Condition ICD9-CM Code TQW51-CE Code Onset Dates Condition S tatus SNOMED Code Problem Iron deficiency anemia due to chronic blood loss D 50.0 Active 40709788 Problem Attention-deficit hyperactivity disorder, combined type F90.2 Active 33715101 Problem Bipolar II disorder F31.81 Active 02725820 ALLERGIES No Information ENCOUNTERS Encounter Location Date Diagnosis [facility] [address] [id number] [address] [place] [address] February, [facility] [address] [id number] [address] [place] [address] February, Attention-deficit hyperactiv ity disorder, combined type F90.2 [facility] [address] [id number] [address] [place] [address] February, [facility] [address] [id number] [address] [place] [address] Dec, Bipolar II disorder F31.81 [facility] [address] [id number] [address] [place] [address] Oct, [facility] [address] [id number] [address] [place] [address] Oct, Bipolar II disorder F31.81 a nd Attention-deficit hyperactivity disorder, combined type F90.2 [facility] [address] [id number] [address] [place] [address] Oct, Encounter to establish care Z76.89 ; Iron deficiency anemia due to chronic blood loss D50.0 and Bipolar II disorder F31.81 [facility] [address] [id number] [address] [place] [address] Apr, Well woman exam with routine gynecological exam Z01.419 ; Screen for STD (sexually transmitted disease) Z11.3 ; Screening breast examination Z12.39 and Encounter for initial prescription of contraceptive pills Z30.[address] [address] 13 Jan, 2016 Bipolar II disorder F31.[address] [address] Apr, Fatigue 780.[address] [address] Apr, Iron deficiency 280.[address] [address] Apr, Vitamin B 12 deficiency 266. 2 and Iron deficiency 280.[address] [address] Apr, Joint pain 719.[address] [address] Apr, [address] [address] Apr, Fatigue 780.79 and Bilateral knee pain 719.[address] [address] February, General counseling on prescr iption of oral contraceptives V25.[address] [address] February, Cough 786.[address] [address] February, Sinusitis 473.9 ; Suppurativ e otitis media of left ear 382.4 ; Otalgia of both ears 388.70 and Allergic rhinitis 477.[address] [address] Jan, [facility] [address] [id number] [address] [place] [address], [place] [address] Jan, [facility] [address] [id number] [address] [place] [address], [place] [address] Oct, [facility] [address] [id number] [address] [place] [address], [place] [address] Oct, [facility] [address] [id number] [address] [place] [address], [place] [address] Sep, [facility] [address] [id number] [address] [place] [address], [place] [address] Sep, [facility] [address] [id number] [address] [place] [address], [place] [address] Sep, [facility] [address] [id number] [address] [place] [address], [place] [address] Sep, [facility] [address] [id number] [address] [place] [address], [place] [address] Jun, [facility] [address] [id number] [address] [place] [address], [place] [address] Jun, [facility] [address] [id number] [address] [place] [address], [place] [address] Jun, [facility] [address] [id number] [address] [place] [address], [place] [address] Jun, [facility] [address] [id number] [address] [place] [address], [place] [address] May, [facility] [address] [id number] [address] [place] [address], [place] [address] May, [facility] [address] [id number] [address] [place] [address], [place] [address] May, [facility] [address] [id number] [address] [place] [address], [place] [address] May, [facility] [address] [id number] [address] [place] [address], [place] [address] May, [facility] [address] [id number] [address] [place] [address], [place] [address] May, [facility] [address] [id number] [address] [place] [address], [place] [address] May, [facility] [address] [id number] [address] [place] [address], [place] [address] May, [facility] [address] [id number] [address] [place] [address], [place] [address] May, [facility] [address] [id number] [address] [place] [address], [place] [address] May, [facility] [address] [id number] [address] [place] [address], [place] [address] May, [facility] [address] [id number] [address] [place] [address], [place] [address] May, [facility] [address] [id number] [address] [place] [address], [place] [address] May, [facility] [address] [id number] [address] [place] [address], [place] [address] May, [facility] [address] [id number] [address] [place] [address], [place] [address] May, [facility] [address] [id number] [address] [place] [address], [place] [address] May, [facility] [address] [id number] [address] [place] [address], [place] [address] May, [facility] [address] [id number] [address] [place] [address], [place] [address] May, [facility] [address] [id number] [address] [place] [address], [place] [address] Apr, [facility] [address] [id number] [address] [place] [address], [place] [address] Apr, [facility] [address] [id number] [facility] [address] 24 Apr, 2013 [facility] [address] [id number] [facility] [address] 24 Apr, 2013 [facility] [address] [id number] [facility] [place] [address] 23 Apr, 2013 [facility] [address] [id number] [facility] [address] 23 Apr, 2013 [facility] [address] [id number] [facility] [place] [address] 17 Apr, 2013 [facility] [address] [id number] [facility] [place] [address] 16 Apr, 2013 [facility] [address] [id number] [facility] [address] 16 Apr, 2013 [facility] [address] [id number] [address] [place] [address], [place] [address] 14 Apr, 2013 [facility] [address] [id number] [address] [place] [address], [place] [address] 14 Apr, 2013 [facility] [address] [id number] [address] [place] [address], [place] [address] 14 Apr, 2013 [facility] [address] [id number] [address] [place] [address], [place] [address] 14 Apr, 2013 [facility] [address] [id number] [address] [place] [address], [place] [address] 14 Apr, 2013 [facility] [address] [id number] [address] [place] [address], [place] [address] 14 Apr, 2013 [facility] [address] [id number] [address] [place] [address], [place] [address] 11 Apr, 2013 [facility] [address] [id number] [facility] [place] [address] 11 Apr, 2013 [facility] [address] [id number] [address] [place] [address], [place] [address] Apr, [facility] [address] [id number] [facility] [place] [address] Apr, [facility] [address] [id number] [address] [place] [address], [place] [address] Mar, [facility] [address] [id number] [address] [place] [address], [place] [address] Mar, [facility] [address] [id number] [address] [place] [address], [place] [address] February, [facility] [address] [id number] [address] [place] [address], [place] [address] February, [facility] [address] [id number] [address] [place] [address], [place] [address] February, [facility] [address] [id number] [address] [place] [address], [place] [address] February, [facility] [address] [id number] [address] [place] [address], [place] [address] February, [facility] [address] [id number] [address] [place] [address], [place] [address] Jan, [facility] [address] [id number] [address] [place] [address], [place] [address] Jan, [facility] [address] [id number] [address] [place] [address], [place] [address] Jan, [facility] [address] [id number] [address] [place] [address], [place] [address] Jan, [facility] [address] [id number] [address] [place] [address], [place] [address] Jan, [facility] [address] [id number] [address] [place] [address], [place] [address] Jan, [facility] [address] [id number] [address] [place] [address], [place] [address] Nov, [facility] [address] [id number] [address] [place] [address], [place] [address] Nov, [facility] [address] [id number] [address] [place] [address], [place] [address] Oct, [facility] [address] [id number] [address] [place] [address], [place] [address] Oct, [facility] [address] [id number] [address] [place] [address], [place] [address] Aug, [facility] [address] [id number] [address] [place] [address], [place] [address] Aug, [facility] [address] [id number] [address] [place] [address], [place] [address] Aug, [facility] [address] [id number] [address] [place] [address], [place] [address] Aug, [facility] [address] [id number] [address] [place] [address], [place] [address] Jul, [facility] [address] [id number] [address] [place] [address], [place] [address] Jul, [facility] [address] [id number] [address] [place] [address], [place] [address] 29 Jul, 2013 [facility] [address] [id number] [address] [place] [address], [place] [address] 29 Jul, 2013 [facility] [address] [id number] [address] [place] [address], [place] [address] 28 Jul, 2013 [facility] [address] [id number] [address] [place] [address], [place] [address] 28 Jul, 2013 [facility] [address] [id number] [address] [place] [address], [place] [address] Jul, [facility] [address] [id number] [address] [place] [address], [place] [address] 15 Jul, 2013 [facility] [address] [id number] [address] [place] [address], [place] [address] Mar, [facility] [address] [id number] [address] [place] [address] February, [facility] [address] [id number] [address] [place] [address] February, [facility] [address] [id number] [address] [place] [address] Jan, [facility] [address] [id number] [address] [place] [address] Jan, [facility] [address] [id number] [address] [place] [address] Jan, [facility] [address] [id number] [address] [place] [address] Jan, [facility] [address] [id number] [address] [place] [address] Dec, [facility] [address] [id number] [address] [place] [address] Dec, [facility] [address] [id number] [address] [place] [address] Dec, [facility] [address] [id number] [address] [place] [address] Nov, [facility] [address] [id number] [address] [place] [address] Dec, IMMUNIZATIONS No Known Immunizations SOCIAL HISTORY Never Assessed REASON FOR VISIT [facility] [place] VITAL SIGNS MEDICATIONS Medication Instructions Dosage Frequency Start Date End Date Duration S tatus Hydrocodone-Acetaminophen 5-325 mg take 1 tablet by oral route every 4 hours as needed for pain PRN May, Activ e Ferrous Sulfate 325 mg (65 mg iron) 1 tablet by Oral r oute 1 time per day May, Active RESULTS No Results PROCEDURES No Known procedures INSTRUCTIONS MEDICATIONS ADMINISTERED No Known Medications MEDICAL (GENERAL) HISTORY Type Description Date Medical History LEEP Medical History cervical biopsy Medical History GASTRIC BYPASS 2004 Medical History DEPRESSION Surgical History cholecystectomy Surgical History gastric bypass 05/2005 Hospitalization History childbirth 2015
--- OUTSIDE RECORDS SUMMARY | 2020-05-08 06:41 | XMS REPORT ---
Author Author Georgiana HARKINS [facility] Address [address] [place] [address] Care Team Providers Care Corporate Wellness Coordinator Name Role Phone STEPHANY HARKINS Unavailable PROBLEMS Type Condition ICD9-CM Code [id number] Code Onset Dates Condition S tatus SNOMED Code Problem Attention-deficit hyperactivity disorder, combined type F90.2 Active 20537053 Problem Chronic fatigue R53.82 Active 8422 9001 Problem Bipolar II disorder F31.81 Active 14289279 Problem Iron deficiency anemia due to chronic blood loss D 50.0 Active [id number] ALLERGIES No Information ENCOUNTERS Encounter Location Date Diagnosis [place] [address] [address] [place] [id number] [address] [place] [address] Jan, Iron deficiency anemia due t o chronic blood loss D50.0 ; Chronic fatigue R53.82 ; Arthralgia, unspecified joint M25.50 ; Hair loss L65.9 ; S/P gastric bypass Z98.84 ; Vesicles R23.8 and Recurrent acute suppurative otitis media of right ear without spontaneous rupture of tympanic membrane H66.004 [place] [address] [address] [facility] [id number] [address] [place] [phone] February, [place] [address] [address] [place] [id number] [address] [place] [address] February, Attention-deficit hyperactiv ity disorder, combined type F90.2 [place] [address] [address] [facility] [id number] [address] [place] [address] February, [place] [address] [address] [place] [id number] [address] [place] [address] Dec, Bipolar II disorder F31.81 [place] [address] [address] [place] [id number] [place] [address] Oct, [place] [address] [place] [id number] [address] [place] [address] Oct, Bipolar II disorder F31.81 a nd Attention-deficit hyperactivity disorder, combined type F90.2 [place] [address] [address] [facility] [id number] [address] [place] [phone] Oct, Encounter to establish care Z76.89 ; Iron deficiency anemia due to chronic blood loss D50.0 and Bipolar II disorder F31.81 [place] [address] [address] [place] [id number] [place] [address] Apr, Well woman exam with routine gynecological exam Z01.419 ; Screen for STD (sexually transmitted disease) Z11.3 ; Screening breast examination Z12.39 and Encounter for initial prescription of contraceptive pills Z30.011 [place] [id number] [address] [place] [address] Jan, Bipolar II disorder F31.81 [place] [id number] [place] [address] Apr, Fatigue [address] [address] Apr, Iron deficiency 280.9 [place] [id number] [address] [place] [address] Apr, Vitamin B 12 deficiency 266. 2 and Iron deficiency 280.9 [place] [address] [place] [id number] [place] [address] Apr, Joint pain 719.40 [place] [id number] [address] [place] [address] Apr, [place] [id number] [place] [address] Apr, Fatigue 780.79 and Bilateral knee pain 719.46 [place] [id number] [address] [place] [address] February, General counseling on prescr iption of oral contraceptives V25.01 [facility] [address] [id number] [address] [place] [address] February, Cough 786.2 [facility] [address] [id number] [address] [place] [address] February, Sinusitis 473.9 ; Suppurativ e otitis media of left ear 382.4 ; Otalgia of both ears 388.70 and Allergic rhinitis 477.9 [facility] [address] [id number] [address] [place] [address] Jan, [facility] [address] [id number] [address] [place] [id number] Jan, [facility] [address] [id number] [address] [place] [phone] Oct, [facility] [address] [id number] [address] [place] [phone] Oct, [facility] [address] [id number] [address] [place] [phone] Sep, [facility] [address] [id number] [address] [place] [address] Sep, [facility] [address] [id number] [address] [place] [phone] Sep, [facility] [address] [id number] [address] [place] [address] Sep, [facility] [address] [id number] [address] [place] [phone] Jun, [facility] [address] [id number] [address] [place] [phone] Jun, [facility] [address] [id number] [address] [place] [id number] Jun, [facility] [address] [id number] [address] [place] [phone] Jun, [facility] [address] [id number] [address] [place] [address], [place] [address] May, [facility] [address] [id number] [address] [place] [place] [address], [place] [address] May, [facility] [address] [id number] [address] [place] [place] [address], [place] [address] May, [facility] [address] [id number] [address] [place] [place] [address], [place] [address] May, [facility] [address] [id number] [address] [place] [place] [address], [place] [address] May, [facility] [address] [id number] [address] [place] [place] [address], [place] [address] May, [facility] [address] [id number] [address] [place] [place] [address], [place] [address] May, [facility] [address] [id number] [address] [place] [place] [address], [place] [address] May, [facility] [address] [id number] [address] [place] [place] [address], [place] [address] May, [facility] [address] [id number] [address] [place] [place] [address], [place] [address] May, [facility] [address] [id number] [address] [place] [place] [address], [place] [address] May, [facility] [address] [id number] [address] [place] [place] [address], [place] [address] May, [facility] [address] [id number] [address] [place] [place] [address], [place] [address] May, [facility] [address] [id number] [address] [place] [place] [address], [place] [address] May, [facility] [address] [id number] [address] [place] [address], [place] [address] May, [facility] [address] [id number] [address] [place] [place] [address], [place] [address] May, [facility] [address] [id number] [address] [place] [place] [address], [place] [address] May, [facility] [address] [id number] [address] [place] [place] [address], [place] [address] May, [facility] [address] [id number] [address] [place] [address], [place] [address] Apr, [facility] [address] [id number] [address] [place] [place] [address], [place] [address] Apr, [facility] [address] [id number] [address] [place] [place] [address], [place] [address] Apr, [facility] [address] [id number] [address] [place] [place] [address], [place] [address] Apr, [facility] [address] [id number] [address] [place] [place] [address], [place] [address] Apr, [facility] [address] [id number] [address] [place] [place] [address], [place] [address] Apr, [facility] [address] [id number] [address] [place] [place] [address], [place] [address] Apr, [facility] [address] [id number] [address] [place] [address], [place] [address] Apr, [facility] [address] [id number] [address] [place] [address], [place] [address] Apr, [facility] [address] [id number] [address] [place] [address], [place] [address] Apr, [facility] [address] [id number] [address] [place] [address], [place] [address] Apr, [facility] [address] [id number] [address] [place] [address], [place] [address] Apr, [facility] [address] [id number] [address] [place] [place] [address], [place] [address] Apr, [facility] [address] [id number] [facility] [place] [address] 14 Apr, 2014 [facility] [address] [id number] [facility] [place] [address] 14 Apr, 2014 [facility] [address] [id number] [facility] [place] [address] Apr, [facility] [address] [id number] [facility] [place] [address] Apr, [facility] [address] [id number] [address] [place] [address], [place] [address] Apr, [facility] [address] [id number] [address] [place] [address], [place] [address] Apr, [facility] [address] [id number] [address] [place] [address], [place] [address] Mar, [facility] [address] [id number] [address] [place] [address], [place] [address] Mar, [facility] [address] [id number] [address] [place] [address], [place] [address] February, [facility] [address] [id number] [address] [place] [address], [place] [address] February, [facility] [address] [id number] [address] [place] [address], [place] [address] February, [facility] [address] [id number] [address] [place] [address], [place] [address] February, [facility] [address] [id number] [address] [place] [address], [place] [address] February, [facility] [address] [id number] [address] [place] [address], [place] [address] Jan, [facility] [address] [id number] [address] [place] [address], [place] [address] Jan, [facility] [address] [id number] [address] [place] [address], [place] [address] Jan, [facility] [address] [id number] [address] [place] [address], [place] [address] Jan, [facility] [address] [id number] [address] [place] [address], [place] [address] Jan, [facility] [address] [id number] [address] [place] [address], [place] [address] Jan, [facility] [address] [id number] [address] [place] [place] [address], [place] [address] Nov, [facility] [address] [id number] [address] [place] [place] [address], [place] [address] Nov, [facility] [address] [id number] [address] [place] [place] [address], [place] [address] Oct, [facility] [address] [id number] [address] [place] [address], [place] [address] Oct, [facility] [address] [id number] [address] [place] [place] [address], [place] [address] Aug, [facility] [address] [id number] [address] [place] [place] [address], [place] [address] Aug, [facility] [address] [id number] [address] [place] [address], [place] [address] Aug, [facility] [address] [id number] [address] [place] [place] [address], [place] [address] Aug, [facility] [address] [id number] [address] [place] [address], [place] [address] Jul, [facility] [address] [id number] [address] [place] [place] [address], [place] [address] Jul, [facility] [address] [id number] [address] [place] [place] [address], [place] [address] Jul, [facility] [address] [id number] [address] [place] [place] [address], [place] [address] Jul, [facility] [address] [id number] [address] [place] [place] [address], [place] [address] 28 Jul, 2013 [facility] [address] [id number] [address] [place] [place] [address], [place] [address] 28 Jul, 2013 [facility] [address] [id number] [address] [place] [place] [address], [place] [address] 15 Jul, 2013 [facility] [address] [id number] [address] [place] [place] [address], [place] [address] [address], [address] [facility] [address] [id number] [address] [place] [place] [address], [place] [address] Mar, [facility] [address] [id number] [address] [place] [place] [address], [place] [address] February, [facility] [address] [id number] [address] [place] [place] [address], [place] [address] February, [facility] [address] [id number] [address] [place] [place] [address], [place] [address] Jan, [facility] [address] [id number] [address] [place] [place] [address], [place] [address] Jan, [facility] [address] [id number] [address] [place] [place] [address], [place] [address] Jan, [facility] [address] [id number] [address] [place] [place] [address], [place] [address] Jan, [facility] [address] [id number] [address] [place] [place] [address], [place] [address] Dec, [facility] [address] [id number] [address] [place] [address] Dec, [facility] [address] [id number] [address] [place] [address] Dec, [facility] [address] [id number] [address] [place] [address] Nov, [facility] [address] [id number] [address] [place] [address] Dec, IMMUNIZATIONS No Known Immunizations SOCIAL HISTORY Never Assessed REASON FOR VISIT PLAN OF CARE VITAL SIGNS MEDICATIONS No Known Medications RESULTS No Results PROCEDURES Procedure Date Ordered Result Body Site DRUG SCREEN, QUALITATE/MULTI Jun 12, 2014 COMPREHEN METABOLIC PANEL Jun 12, 2014 VENIPUNCT, ROUTINE* Jun 12, 2014 INSTRUCTIONS MEDICATIONS ADMINISTERED No Known Medications [...]
--- OUTSIDE RECORDS SUMMARY | 2020-05-08 06:41 | XMS REPORT ---
Author Author Georgiana Blanchard Doctor Organization [facility] Address Unknown Phone Unavailable Care Team Providers Care Sales Representative Trainee Name Role Phone Migration, Doctor Unavailable Unavailable PROBLEMS Type Condition ICD9-CM Code SIW95-YH Code Onset Dates Condition S tatus SNOMED Code Problem Attention-deficit hyperactivity disorder, combined type F90.2 Active 63210636 Problem Chronic fatigue R53.82 Active 8422 9001 Problem Bipolar II disorder F31.81 Active 71296407 Problem Iron deficiency anemia due to chronic blood loss D 50.0 Active [id number] ALLERGIES No Information ENCOUNTERS Encounter Location Date Diagnosis [place] [address] [place] [id number] [place] [address] Jan, Iron deficiency anemia due t o chronic blood loss D50.0 ; Chronic fatigue R53.82 ; Arthralgia, unspecified joint M25.50 ; Hair loss L65.9 ; S/P gastric bypass Z98.84 ; Vesicles R23.8 and Recurrent acute suppurative otitis media of right ear without spontaneous rupture of tympanic membrane H66.004 [place] [address] [place] [id number] [place] [address] February, [place] [id number] [place] [address] February, Attention-deficit hyperactiv ity disorder, combined type F90.2 [facility] [address] [place] [id number] [place] [address] February, [place] [address] [place] [id number] [place] [address] Dec, Bipolar II disorder F31.81 [place] [address] [place] [id number] [place] [address] Oct, [place] [address] [place] [id number] [place] [address] Oct, Bipolar II disorder F31.81 a nd Attention-deficit hyperactivity disorder, combined type F90.[address] [address] Oct, Encounter to establish care Z76.89 ; Iron deficiency anemia due to chronic blood loss D50.0 and Bipolar II disorder F31.[address] [address] Apr, Well woman exam with routine gynecological exam Z01.419 ; Screen for STD (sexually transmitted disease) Z11.3 ; Screening breast examination Z12.39 and Encounter for initial prescription of contraceptive pills Z30.[address] [address] 13 Jan, 2016 Bipolar II disorder F31.[address] [address] Apr, Fatigue 780.[address] [address] Apr, Iron deficiency 280.[address] [address] Apr, Vitamin B 12 deficiency 266. 2 and Iron deficiency 280.9 [place] [id number] [place] [address] Apr, Joint pain 719.40 [place] [address] [place] [id number] [place] [address] Apr, [address] [address] Apr, Fatigue 780.79 and Bilateral knee pain 719.46 [place] [id number] [place] [address] February, General counseling on prescr iption of oral contraceptives V25.01 [place] [address] [place] [address] February, Cough 786.2 [facility] [address] [id number] [address] [place] [address] February, Sinusitis 473.9 ; Suppurativ e otitis media of left ear 382.4 ; Otalgia of both ears 388.70 and Allergic rhinitis 477.9 [facility] [address] [id number] [address] [place] [address] Jan, [facility] [address] [id number] [address] [place] [address] Jan, [facility] [address] [id number] [address] [place] [address] Oct, [facility] [address] [id number] [address] [place] [address] Oct, [facility] [address] [id number] [address] [place] [address] Sep, [facility] [address] [id number] [address] [place] [address] Sep, [facility] [address] [id number] [address] [place] [address] Sep, [facility] [address] [id number] [address] [place] [address] Sep, [facility] [address] [id number] [address] [place] [address] Jun, [facility] [address] [id number] [address] [place] [address] Jun, [facility] [address] [id number] [address] [place] [address] Jun, [facility] [address] [id number] [address] [place] [address] Jun, [facility] [address] [id number] [address] [place] [address] May, [facility] [place] [facility] [address] [id number] [facility] [address] May, [facility] [place] [facility] [address] [id number] [facility] [place] [address] May, [facility] [place] [facility] [address] [id number] [address] [place] [address], [place] [address] May, [facility] [place] [facility] [address] [id number] [address] [place] [address], [place] [address] May, [facility] [place] [facility] [address] [id number] [address] [place] [address], [place] [address] May, [facility] [place] [facility] [address] [id number] [address] [place] [address], [place] [address] May, [facility] [place] [facility] [address] [id number] [address] [place] [address], [place] [address] May, [facility] [place] [facility] [address] [id number] [address] [place] [address], [place] [address] May, [facility] [place] [facility] [address] [id number] [address] [place] [address], [place] [address] May, [facility] [place] [facility] [address] [id number] [address] [place] [address], [place] [address] May, [facility] [place] [facility] [address] [id number] [address] [place] [address], [place] [address] May, [facility] [place] [facility] [address] [id number] [address] [place] [address], [place] [address] May, [facility] [place] [facility] [address] [id number] [address] [place] [address], [place] [address] May, [facility] [place] [facility] [address] [id number] [address] [place] [address], [place] [address] May, [facility] [place] [facility] [address] [id number] [address] [place] [address], [place] [address] May, [facility] [place] [facility] [address] [id number] [facility] [address] May, [facility] [address] [id number] [address] [place] [address], [place] [address] May, [facility] [place] [facility] [address] [id number] [facility] [place] [address] Apr, [facility] [address] [id number] [address] [place] [address], [place] [address] Apr, [facility] [place] [facility] [address] [id number] [address] [place] [address], [place] [address] Apr, [facility] [address] [id number] [address] [place] [address], [place] [address] Apr, [facility] [address] [id number] [address] [place] [address], [place] [address] Apr, [facility] [address] [id number] [address] [place] [address], [place] [address] Apr, [facility] [address] [id number] [address] [place] [address], [place] [address] Apr, [facility] [address] [id number] [address] [place] [address], [place] [address] 16 Apr, 2014 [facility] [address] [id number] [address] [place] [address], [place] [address] 16 Apr, 2014 [facility] [place] [facility] [address] [id number] [address] [place] [address], [place] [address] Apr, [facility] [place] [facility] [address] [id number] [address] [place] [address], [place] [address] Apr, [facility] [place] [facility] [address] [id number] [address] [place] [address], [place] [address] Apr, [facility] [place] [facility] [address] [id number] [address] [place] [address], [place] [address] Apr, [facility] [place] [facility] [address] [id number] [address] [place] [address], [place] [address] Apr, [facility] [place] [facility] [address] [id number] [address] [place] [address], [place] [address] Apr, [facility] [address] [id number] [address] [place] [address], [place] [address] Apr, [facility] [address] [id number] [address] [place] [address], [place] [address] Apr, [facility] [address] [id number] [address] [place] [address], [place] [address] Apr, [facility] [address] [id number] [address] [place] [address], [place] [address] Apr, [facility] [address] [id number] [address] [place] [address], [place] [address] Mar, [facility] [address] [id number] [address] [place] [address], [place] [address] Mar, [facility] [address] [id number] [address] [place] [address], [place] [address] February, [facility] [address] [id number] [address] [place] [address], [place] [address] February, [facility] [address] [id number] [address] [place] [address], [place] [address] February, [facility] [address] [id number] [address] [place] [address], [place] [address] February, [facility] [address] [id number] [address] [place] [address], [place] [address] February, [facility] [address] [id number] [address] [place] [address], [place] [address] Jan, [facility] [address] [id number] [address] [place] [address], [place] [address] Jan, [facility] [address] [id number] [address] [place] [address], [place] [address] Jan, [facility] [address] [id number] [address] [place] [address] Jan, [facility] [address] [id number] [address] [place] [address], [place] [address] Jan, [facility] [address] [id number] [address] [place] [address], [place] [address] Jan, [facility] [address] [id number] [address] [place] [address], [place] [address] Nov, [facility] [address] [id number] [address] [place] [address] Nov, [facility] [address] [id number] [address] [place] [address], [place] [address] Oct, [facility] [address] [id number] [address] [place] [address], [place] [address] Oct, [facility] [address] [id number] [address] [place] [address], [place] [address] Aug, [facility] [address] [id number] [address] [place] [address], [place] [address] Aug, [facility] [address] [id number] [address] [place] [address] Aug, [facility] [address] [id number] [address] [place] [address] Aug, [facility] [address] [id number] [address] [place] [address] Jul, [facility] [address] [id number] [address] [place] [address] Jul, [facility] [address] [id number] [address] [place] [address], [place] [address] 29 Jul, 2013 [facility] [address] [id number] [address] [place] [address], [place] [address] 29 Jul, 2013 [facility] [address] [id number] [address] [place] [address], [place] [address] 28 Jul, 2013 [facility] [place] [facility] [address] [id number] [address] [place] [address] 28 Jul, 2013 [facility] [address] [id number] [address] [place] [address] Jul, [facility] [address] [id number] [address] [place] [address] Jul, [facility] [address] [id number] [address] [place] [address] Mar, [facility] [address] [id number] [address] [place] [address] February, [facility] [address] [id number] [address] [place] [address] February, [facility] [address] [id number] [address] [place] [address] Jan, [facility] [address] [id number] [address] [place] [address] Jan, [facility] [address] [id number] [address] [place] [address] Jan, [facility] [address] [id number] [address] [place] [address] Jan, [facility] [address] [id number] [address] [place] [address] Dec, [facility] [address] [id number] [address] [place] [address] Dec, [facility] [address] [id number] [address] [place] [address] Dec, [facility] [address] [id number] [address] [place] [address] Nov, [facility] [address] [id number] [address] [place] [address] Dec, IMMUNIZATIONS No Known Immunizations SOCIAL HISTORY Never Assessed REASON FOR VISIT EMR-[facility] [place] PLAN OF CARE VITAL SIGNS MEDICATIONS No [...]
--- OUTSIDE RECORDS SUMMARY | 2020-05-08 06:41 | XMS REPORT ---
Author Author Georgiana POMPA Organization [facility] Address [address] [place] [address] Care Team Providers Care Costumer Name Role Phone ELIDA POMPA Unavailable PROBLEMS Type Condition ICD9-CM Code [id number] Code Onset Dates Condition S tatus SNOMED Code Problem Attention-deficit hyperactivity disorder, combined type F90.2 Active 01934178 Problem Iron deficiency anemia due to chronic blood loss D 50.0 Active 92342253 Problem Bipolar II disorder F31.81 Active 03633717 ALLERGIES Unknown Allergies SOCIAL HISTORY No smoking Hx information available PLAN OF CARE VITAL SIGNS MEDICATIONS Medication Instructions Dosage Frequency Start Date End Date Duration S tatus Apri 0.15-30 MG-MCG Orally Once a day 1 tablet 24h Oct, 28 day(s) Active RESULTS No Results PROCEDURES No Known procedures IMMUNIZATIONS No Known Immunizations
--- OUTSIDE RECORDS SUMMARY | 2020-05-08 06:41 | XMS REPORT ---
Author Author Georgiana Blanchard Doctor Organization [facility] Address Unknown Phone Unavailable Care Team Providers Care Former Hand Name Role Phone Migration, Doctor Unavailable Unavailable PROBLEMS Type Condition ICD9-CM Code [id number] Code Onset Dates Condition S tatus SNOMED Code Problem Iron deficiency anemia due to chronic blood loss D 50.0 Active 43483267 Problem Attention-deficit hyperactivity disorder, combined type F90.2 Active 51968859 Problem Bipolar II disorder F31.81 Active 77990789 ALLERGIES No Information ENCOUNTERS Encounter Location Date Diagnosis [facility] [address] [id number] [address] [place] [address] February, [facility] [address] [id number] [address] [place] [address] February, Attention-deficit hyperactiv ity disorder, combined type F90.2 [facility] [address] [id number] [address] [place] [address] February, [facility] [address] [id number] [address] [place] [address] Dec, Bipolar II disorder F31.81 [facility] [address] [id number] [address] [place] [address] Oct, [facility] [address] [id number] [address] [place] [address] Oct, Bipolar II disorder F31.81 a nd Attention-deficit hyperactivity disorder, combined type F90.2 [facility] [address] [id number] [address] [place] [address] Oct, Encounter to establish care Z76.89 ; Iron deficiency anemia due to chronic blood loss D50.0 and Bipolar II disorder F31.81 [facility] [address] [id number] [address] [place] [address] Apr, Well woman exam with routine gynecological exam Z01.419 ; Screen for STD (sexually transmitted disease) Z11.3 ; Screening breast examination Z12.39 and Encounter for initial prescription of contraceptive pills Z30.[address] [address] 13 Jan, 2016 Bipolar II disorder F31.[address] [address] Apr, Fatigue 780.[address] [address] Apr, Iron deficiency 280.[address] [address] Apr, Vitamin B 12 deficiency 266. 2 and Iron deficiency 280.[address] [address] Apr, Joint pain 719.[address] [address] Apr, [address] [address] Apr, Fatigue 780.79 and Bilateral knee pain 719.[address] [address] February, General counseling on prescr iption of oral contraceptives V25.[address] [address] February, Cough 786.[address] [address] February, Sinusitis 473.9 ; Suppurativ e otitis media of left ear 382.4 ; Otalgia of both ears 388.70 and Allergic rhinitis 477.[address] [address] Jan, [facility] [address] [id number] [address] [place] [address], [place] [address] Jan, [facility] [address] [id number] [address] [place] [address], [place] [address] Oct, [facility] [address] [id number] [address] [place] [address], [place] [address] Oct, [facility] [address] [id number] [address] [place] [address], [place] [address] Sep, [facility] [address] [id number] [address] [place] [address], [place] [address] Sep, [facility] [address] [id number] [address] [place] [address], [place] [address] Sep, [facility] [address] [id number] [address] [place] [address], [place] [address] Sep, [facility] [address] [id number] [address] [place] [address], [place] [address] Jun, [facility] [address] [id number] [address] [place] [address], [place] [address] Jun, [facility] [address] [id number] [address] [place] [address], [place] [address] Jun, [facility] [address] [id number] [address] [place] [address], [place] [address] Jun, [facility] [address] [id number] [address] [place] [address], [place] [address] May, [facility] [address] [id number] [address] [place] [address], [place] [address] May, [facility] [address] [id number] [address] [place] [address], [place] [address] May, [facility] [address] [id number] [address] [place] [address], [place] [address] May, [facility] [address] [id number] [address] [place] [address], [place] [address] May, [facility] [address] [id number] [address] [place] [address], [place] [address] May, [facility] [address] [id number] [address] [place] [address], [place] [address] May, [facility] [address] [id number] [address] [place] [address], [place] [address] May, [facility] [address] [id number] [address] [place] [address], [place] [address] May, [facility] [address] [id number] [address] [place] [address], [place] [address] May, [facility] [address] [id number] [address] [place] [address], [place] [address] May, [facility] [address] [id number] [address] [place] [address], [place] [address] May, [facility] [address] [id number] [address] [place] [address], [place] [address] May, [facility] [address] [id number] [address] [place] [address], [place] [address] May, [facility] [address] [id number] [address] [place] [address], [place] [address] May, [facility] [address] [id number] [address] [place] [address], [place] [address] May, [facility] [address] [id number] [address] [place] [address], [place] [address] May, [facility] [address] [id number] [address] [place] [address], [place] [address] May, [facility] [address] [id number] [address] [place] [address], [place] [address] Apr, [facility] [address] [id number] [address] [place] [address], [place] [address] Apr, [facility] [address] [id number] [facility] [place] [address] 24 Apr, 2013 [facility] [address] [id number] [facility] [place] [address] 24 Apr, 2013 [facility] [address] [id number] [facility] [place] [address] 23 Apr, 2013 [facility] [address] [id number] [facility] [place] [address] 23 Apr, 2013 [facility] [address] [id number] [facility] [place] [address] 17 Apr, 2013 [facility] [address] [id number] [facility] [place] [address] 16 Apr, 2013 [facility] [address] [id number] [facility] [place] [address] 16 Apr, 2013 [facility] [address] [id number] [address] [place] [address], [place] [address] 14 Apr, 2013 [facility] [address] [id number] [address] [place] [address], [place] [address] 14 Apr, 2013 [facility] [address] [id number] [address] [place] [address], [place] [address] 14 Apr, 2013 [facility] [address] [id number] [address] [place] [address], [place] [address] 14 Apr, 2013 [facility] [address] [id number] [address] [place] [address], [place] [address] 14 Apr, 2013 [facility] [address] [id number] [address] [place] [address], [place] [address] 14 Apr, 2013 [facility] [address] [id number] [address] [place] [address], [place] [address] 11 Apr, 2013 [facility] [address] [id number] [facility] [place] [address] 11 Apr, 2013 [facility] [address] [id number] [address] [place] [address], [place] [address] Apr, [facility] [address] [id number] [facility] [place] [address] Apr, [facility] [address] [id number] [address] [place] [address], [place] [address] Mar, [facility] [address] [id number] [address] [place] [address], [place] [address] Mar, [facility] [address] [id number] [address] [place] [address], [place] [address] February, [facility] [address] [id number] [address] [place] [address], [place] [address] February, [facility] [address] [id number] [address] [place] [address], [place] [address] February, [facility] [address] [id number] [address] [place] [address], [place] [address] February, [facility] [address] [id number] [address] [place] [address], [place] [address] February, [facility] [address] [id number] [address] [place] [address], [place] [address] Jan, [facility] [address] [id number] [address] [place] [address], [place] [address] Jan, [facility] [address] [id number] [address] [place] [address], [place] [address] Jan, [facility] [address] [id number] [address] [place] [address], [place] [address] Jan, [facility] [address] [id number] [address] [place] [address], [place] [address] Jan, [facility] [address] [id number] [address] [place] [address], [place] [address] Jan, [facility] [address] [id number] [address] [place] [address], [place] [address] Nov, [facility] [address] [id number] [address] [place] [address], [place] [address] Nov, [facility] [address] [id number] [address] [place] [address], [place] [address] Oct, [facility] [address] [id number] [address] [place] [address], [place] [address] Oct, [facility] [address] [id number] [address] [place] [address], [place] [address] Aug, [facility] [address] [id number] [address] [place] [address], [place] [address] Aug, [facility] [address] [id number] [address] [place] [address], [place] [address] Aug, [facility] [address] [id number] [address] [place] [address], [place] [address] Aug, [facility] [address] [id number] [address] [place] [address], [place] [address] Jul, [facility] [address] [id number] [address] [place] [address], [place] [address] Jul, [facility] [address] [id number] [address] [place] [address], [place] [address] 29 Jul, 2013 [facility] [address] [id number] [address] [place] [address], [place] [address] 29 Jul, 2013 [facility] [address] [id number] [address] [place] [address], [place] [address] 28 Jul, 2013 [facility] [address] [id number] [address] [place] [address], [place] [address] 28 Jul, 2013 [facility] [address] [id number] [address] [place] [address], [place] [address] Jul, [facility] [address] [id number] [address] [place] [address], [place] [address] 15 Jul, 2013 [facility] [address] [id number] [address] [place] [address], [place] [address] Mar, [facility] [address] [id number] [address] [place] [address] February, [facility] [address] [id number] [address] [place] [address] February, [facility] [address] [id number] [address] [place] [address] Jan, [facility] [address] [id number] [address] [place] [address] Jan, [facility] [address] [id number] [address] [place] [address] Jan, [facility] [address] [id number] [address] [place] [address] Jan, [facility] [address] [id number] [address] [place] [address] Dec, [facility] [address] [id number] [address] [place] [address] Dec, [facility] [address] [id number] [address] [place] [address] Dec, [facility] [address] [id number] [address] [place] [address] Nov, [facility] [address] [id number] [address] [place] [address] Dec, IMMUNIZATIONS No Known Immunizations SOCIAL HISTORY Never Assessed REASON FOR VISIT [facility] PLAN OF CARE VITAL SIGNS MEDICATIONS Unknown Medications RESULTS No Results PROCEDURES No Known procedures INSTRUCTIONS MEDICATIONS ADMINISTERED No Known Medications MEDICAL (GENERAL) HISTORY Type Description Date Medical History LEEP Medical History cervical biopsy Medical History GASTRIC BYPASS 2004 Medical History DEPRESSION Surgical History cholecystectomy Surgical History gastric bypass 05/2005 Hospitalization History childbirth 2015
--- OUTSIDE RECORDS SUMMARY | 2020-05-08 06:41 | XMS REPORT ---
Author Author Georgiana Leonard Organization [facility] Address [address] [place] [address] Care Team Providers Care Verification Lead Name Role Phone TWAN Leonard Unavailable PROBLEMS Type Condition ICD9-CM Code PQZ43-EU Code Onset Dates Condition S tatus SNOMED Code Problem Attention-deficit hyperactivity disorder, combined type F90.2 Active 10032868 Problem Iron deficiency anemia due to chronic blood loss D 50.0 Active 55889104 Problem Bipolar II disorder F31.81 Active 37348540 ALLERGIES No Information SOCIAL HISTORY Never Assessed PLAN OF CARE VITAL SIGNS MEDICATIONS Medication Instructions Dosage Frequency Start Date End Date Duration S tatus Lamictal 25 MG Orally Once a day 1 tablets 24h 30 da ys Active RESULTS No Results PROCEDURES No Known procedures IMMUNIZATIONS No Known Immunizations MEDICAL (GENERAL) HISTORY Type Description Date Medical History LEEP Medical History cervical biopsy Medical History GASTRIC BYPASS 2004 Medical History DEPRESSION Surgical History cholecystectomy Surgical History gastric bypass 05/2005 Hospitalization History childbirth 2014
--- OUTSIDE RECORDS SUMMARY | 2020-05-08 06:41 | XMS REPORT ---
Author Author Georgiana Leonard Organization [facility] Address [address] [place] [address] Care Team Providers Care Pumper Head Name Role Phone TWAN Leonard Unavailable PROBLEMS Type Condition ICD9-CM Code QXN19-DF Code Onset Dates Condition S tatus SNOMED Code Problem Attention-deficit hyperactivity disorder, combined type F90.2 Active 36613603 Problem Iron deficiency anemia due to chronic blood loss D 50.0 Active 40286679 Problem Bipolar II disorder F31.81 Active 94158576 ALLERGIES No Information SOCIAL HISTORY Never Assessed PLAN OF CARE VITAL SIGNS MEDICATIONS Unknown Medications RESULTS No Results PROCEDURES No Known procedures IMMUNIZATIONS No Known Immunizations MEDICAL (GENERAL) HISTORY Type Description Date Medical History LEEP Medical History cervical biopsy Medical History GASTRIC BYPASS 2004 Medical History DEPRESSION Surgical History cholecystectomy Surgical History gastric bypass 05/2005 Hospitalization History childbirth 2014
--- OUTSIDE RECORDS SUMMARY | 2020-05-08 06:41 | XMS REPORT ---
Author Author Georgiana Leonard Organization [facility] Address [address] [place] [address] Care Team Providers Care Boilermaker Apprentice Name Role Phone TWAN Leonard Unavailable PROBLEMS Type Condition ICD9-CM Code NYJ14-OU Code Onset Dates Condition S tatus SNOMED Code Problem Attention-deficit hyperactivity disorder, combined type F90.2 Active 46534892 Problem Iron deficiency anemia due to chronic blood loss D 50.0 Active 75020335 Problem Bipolar II disorder F31.81 Active 52335061 ALLERGIES No Information SOCIAL HISTORY Never Assessed PLAN OF CARE VITAL SIGNS MEDICATIONS Medication Instructions Dosage Frequency Start Date End Date Duration S tatus Nuvigil 150 MG Orally Once a day 1 tablet in the morning 24h Mar, 28 days Active RESULTS No Results PROCEDURES No Known procedures IMMUNIZATIONS No Known Immunizations MEDICAL (GENERAL) HISTORY Type Description Date Medical History LEEP Medical History cervical biopsy Medical History GASTRIC BYPASS 2004 Medical History DEPRESSION Surgical History cholecystectomy Surgical History gastric bypass 05/2005 Hospitalization History childbirth 2014
--- OUTSIDE RECORDS SUMMARY | 2020-05-08 06:41 | XMS REPORT ---
Author Author Georgiana HOFFMAN [employer] Address Unknown Phone Unavailable Care Team Providers Care School Custodian Name Role Phone SWAPNA HOFFMAN Unavailable Allergies No Known Allergies Problems Problem Type Condition Code Onset Dates Condition Statu s Problem Vitamin B 12 deficiency 266.2 Acti ve Problem Iron deficiency 280.9 Active Problem Bipolar II disorder F31.81 Active Problem Fatigue 780.79 Active Assessment Bipolar II disorder F31.81 Active Medications No Known Medications Procedures Procedure Coding System Code Date Psych diagnostic evaluation, established patient CPT-4 10776 February 06, 2016 Results No Known Results Summary Purpose eClinicalWorks Submission
--- OUTSIDE RECORDS SUMMARY | 2020-05-08 06:41 | XMS REPORT ---
Author Author Georgiana Blanchard Doctor Organization [facility] Address Unknown Phone Unavailable Care Team Providers Care Steward Dishwasher Name Role Phone Migration, Doctor Unavailable Unavailable PROBLEMS Type Condition ICD9-CM Code UOK22-PF Code Onset Dates Condition S tatus SNOMED Code Problem Iron deficiency anemia due to chronic blood loss D 50.0 Active 60566359 Problem Attention-deficit hyperactivity disorder, combined type F90.2 Active 19179382 Problem Bipolar II disorder F31.81 Active 17834348 ALLERGIES No Information ENCOUNTERS Encounter Location Date Diagnosis [facility] [id number] [address] [place] [address] February, [facility] [id number] [address] [place] [address] February, Attention-deficit hyperactiv ity disorder, combined type F90.2 [facility] [address] [id number] [address] [place] [address] February, [facility] [address] [id number] [address] [place] [address] Dec, Bipolar II disorder F31.81 [facility] [address] [id number] [address] [place] [address] Oct, [facility] [address] [id number] [address] [place] [address] Oct, Bipolar II disorder F31.81 a nd Attention-deficit hyperactivity disorder, combined type F90.2 [facility] [address] [id number] [address] [place] [address] Oct, Encounter to establish care Z76.89 ; Iron deficiency anemia due to chronic blood loss D50.0 and Bipolar II disorder F31.81 [facility] [address] [id number] [address] [place] [address] Apr, Well woman exam with routine gynecological exam Z01.419 ; Screen for STD (sexually transmitted disease) Z11.3 ; Screening breast examination Z12.39 and Encounter for initial prescription of contraceptive pills Z30.[address] [address] 13 Jan, 2016 Bipolar II disorder F31.[address] [address] Apr, Fatigue 780.[address] [address] Apr, Iron deficiency 280.[address] [address] Apr, Vitamin B 12 deficiency 266. 2 and Iron deficiency 280.[address] [address] Apr, Joint pain 719.[address] [address] Apr, [address] [address] Apr, Fatigue 780.79 and Bilateral knee pain 719.[address] [address] February, General counseling on prescr iption of oral contraceptives V25.[address] [address] February, Cough 786.[address] [address] February, Sinusitis 473.9 ; Suppurativ e otitis media of left ear 382.4 ; Otalgia of both ears 388.70 and Allergic rhinitis 477.[address] [address] Jan, [facility] [address] [id number] [address] [place] [address], [place] [address] Jan, [facility] [address] [id number] [address] [place] [address], [place] [address] Oct, [facility] [address] [id number] [address] [place] [address], [place] [address] Oct, [facility] [address] [id number] [address] [place] [address], [place] [address] Sep, [facility] [address] [id number] [address] [place] [address], [place] [address] Sep, [facility] [address] [id number] [address] [place] [address], [place] [address] Sep, [facility] [address] [id number] [address] [place] [address], [place] [address] Sep, [facility] [address] [id number] [address] [place] [address], [place] [address] Jun, [facility] [address] [id number] [address] [place] [address], [place] [address] Jun, [facility] [address] [id number] [address] [place] [address], [place] [address] Jun, [facility] [address] [id number] [address] [place] [address], [place] [address] Jun, [facility] [address] [id number] [address] [place] [address], [place] [address] May, [facility] [place] [facility] [address] [id number] [address] [place] [address], [place] [address] May, [facility] [address] [id number] [address] [place] [address], [place] [address] May, [facility] [address] [id number] [address] [place] [address], [place] [address] May, [facility] [address] [id number] [address] [place] [address], [place] [address] May, [facility] [place] [facility] [address] [id number] [address] [place] [address], [place] [address] May, [facility] [place] [facility] [address] [id number] [address] [place] [address], [place] [address] May, [facility] [address] [id number] [address] [place] [address], [place] [address] May, [facility] [address] [id number] [address] [place] [address], [place] [address] May, [facility] [address] [id number] [address] [place] [address], [place] [address] May, [facility] [address] [id number] [address] [place] [address], [place] [address] May, [facility] [address] [id number] [address] [place] [address], [place] [address] May, [facility] [facility] [address] [id number] [address] [place] [address], [place] [address] May, [facility] [facility] [address] [id number] [address] [place] [address], [place] [address] May, [facility] [facility] [address] [id number] [address] [place] [address], [place] [address] May, [facility] [facility] [address] [id number] [address] [place] [address], [place] [address] May, [facility] [address] [id number] [address] [place] [address], [place] [address] May, [facility] [address] [id number] [address] [place] [address], [place] [address] May, [facility] [facility] [address] [id number] [address] [place] [address], [place] [address] Apr, [facility] [facility] [address] [id number] [address] [place] [address], [place] [address] Apr, [facility] [address] [id number] [facility] [place] [address] 24 Apr, 2013 [facility] [address] [id number] [facility] [place] [address] 24 Apr, 2013 [facility] [address] [id number] [facility] [address] 23 Apr, 2013 [facility] [address] [id number] [facility] [place] [address] 23 Apr, 2013 [facility] [address] [id number] [facility] [address] 17 Apr, 2013 [facility] [address] [id number] [facility] [address] 16 Apr, 2013 [facility] [address] [id number] [facility] [address] 16 Apr, 2013 [facility] [address] [id number] [address] [place] [address], [place] [address] 14 Apr, 2013 [facility] [address] [id number] [address] [place] [address], [place] [address] 14 Apr, 2013 [facility] [address] [id number] [address] [place] [address], [place] [address] 14 Apr, 2013 [facility] [facility] [address] [id number] [address] [place] [address], [place] [address] 14 Apr, 2013 [facility] [address] [id number] [address] [place] [address], [place] [address] 14 Apr, 2013 [facility] [address] [id number] [address] [place] [address], [place] [address] 14 Apr, 2013 [facility] [address] [id number] [address] [place] [address], [place] [address] 11 Apr, 2013 [facility] [address] [id number] [facility] [address] 11 Apr, 2013 [facility] [facility] [address] [id number] [address] [place] [address], [place] [address] Apr, [facility] [address] [id number] [facility] [place] [address] Apr, [facility] [facility] [address] [id number] [address] [place] [address], [place] [address] Mar, [facility] [address] [id number] [address] [place] [address], [place] [address] Mar, [facility] [address] [id number] [address] [place] [address], [place] [address] February, [facility] [address] [id number] [address] [place] [address], [place] [address] February, [facility] [address] [id number] [address] [place] [address], [place] [address] February, [facility] [address] [id number] [address] [place] [address], [place] [address] February, [facility] [address] [id number] [address] [place] [address], [place] [address] February, [facility] [address] [id number] [address] [place] [address], [place] [address] Jan, [facility] [address] [id number] [address] [place] [address], [place] [address] Jan, [facility] [address] [id number] [address] [place] [address], [place] [address] Jan, [facility] [address] [id number] [address] [place] [address], [place] [address] Jan, [facility] [address] [id number] [address] [place] [address], [place] [address] Jan, [facility] [address] [id number] [address] [place] [address], [place] [address] Jan, [facility] [address] [id number] [address] [place] [address], [place] [address] Nov, [facility] [address] [id number] [address] [place] [address], [place] [address] Nov, [facility] [address] [id number] [address] [place] [address], [place] [address] Oct, [facility] [address] [id number] [address] [place] [address], [place] [address] Oct, [facility] [address] [id number] [address] [place] [address], [place] [address] Aug, [facility] [address] [id number] [address] [place] [address], [place] [address] Aug, [facility] [address] [id number] [address] [place] [address], [place] [address] Aug, [facility] [address] [id number] [address] [place] [address], [place] [address] Aug, [facility] [address] [id number] [address] [place] [address], [place] [address] Jul, [facility] [address] [id number] [address] [place] [address], [place] [address] Jul, [facility] [address] [id number] [address] [place] [address], [place] [address] 29 Jul, 2013 [facility] [address] [id number] [address] [place] [address], [place] [address] 29 Jul, 2013 [facility] [address] [id number] [address] [place] [address], [place] [address] 28 Jul, 2013 [facility] [address] [id number] [address] [place] [address], [place] [address] 28 Jul, 2013 [facility] [address] [id number] [address] [place] [address], [place] [address] Jul, [facility] [address] [id number] [address] [place] [address], [place] [address] 15 Jul, 2013 [facility] [address] [id number] [address] [place] [address], [place] [address] Mar, [facility] [address] [id number] [address] [place] [address] February, [facility] [address] [id number] [address] [place] [address] February, [facility] [address] [id number] [address] [place] [address] Jan, [facility] [address] [id number] [address] [place] [address] Jan, [facility] [address] [id number] [address] [place] [address] Jan, [facility] [address] [id number] [address] [place] [address] Jan, [facility] [address] [id number] [address] [place] [address] Dec, [facility] [address] [id number] [address] [place] [address] Dec, [facility] [address] [id number] [address] [place] [address] Dec, [facility] [address] [id number] [address] [place] [address] Nov, [facility] [address] [id number] [address] [place] [address] Dec, IMMUNIZATIONS No Known Immunizations SOCIAL HISTORY Never Assessed REASON FOR VISIT [facility] PLAN OF CARE VITAL SIGNS MEDICATIONS Unknown Medications RESULTS No Results PROCEDURES No Known procedures INSTRUCTIONS MEDICATIONS ADMINISTERED No Known Medications MEDICAL (GENERAL) HISTORY Type Description Date Medical History LEEP Medical History cervical biopsy Medical History GASTRIC BYPASS 2004 Medical History DEPRESSION Surgical History cholecystectomy Surgical History gastric bypass 05/2005 Hospitalization History childbirth 2015
--- OUTSIDE RECORDS SUMMARY | 2020-05-08 06:41 | XMS REPORT ---
Author Author Georgiana Leonard Organization [facility] Address [address] [place] [address] Care Team Providers Care Newspaper Peddler Name Role Phone TWAN Leonard Unavailable PROBLEMS Type Condition ICD9-CM Code HMP10-BC Code Onset Dates Condition S tatus SNOMED Code Problem Attention-deficit hyperactivity disorder, combined type F90.2 Active 24528259 Problem Iron deficiency anemia due to chronic blood loss D 50.0 Active 14492188 Problem Bipolar II disorder F31.81 Active [id number] ALLERGIES No Information SOCIAL HISTORY Never Assessed [...]
--- OUTSIDE RECORDS SUMMARY | 2020-05-08 06:41 | XMS REPORT ---
Author Author Georgiana PALENCIA [facility] Address [address] [place] [address] Care Team Providers Care Certified Addiction Counselor Name Role Phone CATINA PALENCIA Unavailable PROBLEMS Type Condition ICD9-CM Code [id number] Code Onset Dates Condition S tatus SNOMED Code Problem Attention-deficit hyperactivity disorder, combined type F90.2 Active 38790841 Problem Chronic fatigue R53.82 Active 8422 9001 Problem Bipolar II disorder F31.81 Active 65488512 Problem Iron deficiency anemia due to chronic blood loss D 50.0 Active [id number] ALLERGIES No Information ENCOUNTERS Encounter Location Date Diagnosis [place] [address] [id number] [place] [address] Jan, Iron deficiency anemia due t o chronic blood loss D50.0 ; Chronic fatigue R53.82 ; Arthralgia, unspecified joint M25.50 ; Hair loss L65.9 ; S/P gastric bypass Z98.84 ; Vesicles R23.8 and Recurrent acute suppurative otitis media of right ear without spontaneous rupture of tympanic membrane H66.004 [place] [address] [address] [place] [id number] [place] [address] February, [place] [address] [address] [place] [id number] [address] [place] [address] February, Attention-deficit hyperactiv ity disorder, combined type F90.2 [place] [address] [address] [place] [id number] [address] [place] [address] February, [place] [address] [address] [place] [id number] [address] [place] [address] Dec, Bipolar II disorder F31.81 [place] [address] [address] [place] [id number] [address] [place] [address] Oct, [place] [address] [address] [facility] [id number] [address] [place] [address] Oct, Bipolar II disorder F31.81 a nd Attention-deficit hyperactivity disorder, combined type F90.2 [place] [address] [address] [facility] [id number] [address] [place] [address] Oct, Encounter to establish care Z76.89 ; Iron deficiency anemia due to chronic blood loss D50.0 and Bipolar II disorder F31.81 [place] [address] [address] [facility] [id number] [address] [place] [address] Apr, Well woman exam with routine gynecological exam Z01.419 ; Screen for STD (sexually transmitted disease) Z11.3 ; Screening breast examination Z12.39 and Encounter for initial prescription of contraceptive pills Z30.011 [place] [address] [address] [place] [id number] [address] [place] [address] Jan, Bipolar II disorder F31.81 [place] [address] [address] [place] [id number] [address] [place] [address] Apr, Fatigue 780.[address] [address] Apr, Iron deficiency 280.9 [place] [id number] [place] [address] Apr, Vitamin B 12 deficiency 266. 2 and Iron deficiency 280.9 [place] [address] [place] [id number] [address] [place] [address] Apr, Joint pain 719.40 [place] [address] [address] [place] [id number] [address] [place] [address] Apr, [place] [address] [address] [place] [id number] [address] [place] [address] Apr, Fatigue 780.79 and Bilateral knee pain 719.46 [place] [address] [address] [place] [id number] [address] [place] [address] February, General counseling on prescr iption of oral contraceptives V25.01 [facility] [address] [id number] [address] [place] [address] February, Cough 786.2 [facility] [address] [id number] [address] [place] [address] February, Sinusitis 473.9 ; Suppurativ e otitis media of left ear 382.4 ; Otalgia of both ears 388.70 and Allergic rhinitis 477.9 [facility] [address] [id number] [address] [place] [address] Jan, [facility] [address] [id number] [address] [place] [address] Jan, [facility] [address] [id number] [address] [place] [address] Oct, [facility] [address] [id number] [address] [place] [address] Oct, [facility] [address] [id number] [address] [place] [address] Sep, [facility] [address] [id number] [address] [place] [address] Sep, [facility] [address] [id number] [address] [place] [address] Sep, [facility] [address] [id number] [address] [place] [address] Sep, [facility] [address] [id number] [address] [place] [address] Jun, [facility] [address] [id number] [address] [place] [address] Jun, [facility] [address] [id number] [address] [place] [address] 16 Jun, 2014 [facility] [address] [id number] [address] [place] [address] Jun, [facility] [address] [id number] [facility] [place] [address] May, [facility] [address] [id number] [address] [place] [address], [place] [address] May, [facility] [address] [id number] [address] [place] [address], [place] [address] May, [facility] [address] [id number] [address] [place] [address], [place] [address] May, [facility] [address] [id number] [address] [place] [address], [place] [address] May, [facility] [address] [id number] [address] [place] [address], [place] [address] May, [facility] [address] [id number] [address] [place] [address], [place] [address] May, [facility] [address] [id number] [address] [place] [address], [place] [address] May, [facility] [address] [id number] [address] [place] [address], [place] [address] May, [facility] [address] [id number] [address] [place] [address], [place] [address] May, [facility] [address] [id number] [address] [place] [address], [place] [address] May, [facility] [address] [id number] [address] [place] [address], [place] [address] May, [facility] [address] [id number] [address] [place] [address], [place] [address] May, [facility] [address] [id number] [address] [place] [address], [place] [address] May, [facility] [address] [id number] [address] [place] [address], [place] [address] May, [facility] [address] [id number] [address] [place] [address], [place] [address] May, [facility] [address] [id number] [facility] [place] [address] May, [facility] [address] [id number] [address] [place] [address], [place] [address] May, [facility] [address] [id number] [address] [place] [address], [place] [address] Apr, [facility] [address] [id number] [address] [place] [address], [place] [address] Apr, [facility] [address] [id number] [address] [place] [address], [place] [address] Apr, [facility] [address] [id number] [address] [place] [address], [place] [address] Apr, [facility] [address] [id number] [address] [place] [address], [place] [address] Apr, [facility] [address] [id number] [address] [place] [address], [place] [address] Apr, [facility] [address] [id number] [address] [place] [address], [place] [address] Apr, [facility] [address] [id number] [address] [place] [address], [place] [address] Apr, [facility] [address] [id number] [address] [place] [address], [place] [address] Apr, [facility] [address] [id number] [address] [place] [address], [place] [address] Apr, [facility] [address] [id number] [address] [place] [address], [place] [address] Apr, [facility] [address] [id number] [address] [place] [address], [place] [address] Apr, [facility] [address] [id number] [address] [place] [address], [place] [address] Apr, [facility] [address] [id number] [facility] [place] [address] 14 Apr, 2014 [facility] [address] [id number] [facility] [place] [address] 14 Apr, 2014 [facility] [address] [id number] [facility] [place] [address] Apr, [facility] [address] [id number] [facility] [place] [address] Apr, [facility] [address] [id number] [facility] [place] [address] Apr, [facility] [address] [id number] [address] [place] [address], [place] [address] Apr, [facility] [address] [id number] [address] [place] [address], [place] [address] Mar, [facility] [address] [id number] [address] [place] [address], [place] [address] Mar, [facility] [address] [id number] [address] [place] [address], [place] [address] February, [facility] [address] [id number] [address] [place] [address], [place] [address] February, [facility] [address] [id number] [address] [place] [address], [place] [address] February, [facility] [address] [id number] [address] [place] [address], [place] [address] February, [facility] [address] [id number] [address] [place] [address], [place] [address] February, [facility] [address] [id number] [address] [place] [address], [place] [address] Jan, [facility] [address] [id number] [address] [place] [address], [place] [address] Jan, [facility] [address] [id number] [address] [place] [address], [place] [address] Jan, [facility] [address] [id number] [address] [place] [address], [place] [address] Jan, [facility] [address] [id number] [address] [place] [address], [place] [address] Jan, [facility] [address] [id number] [address] [place] [address], [place] [address] Jan, [facility] [address] [id number] [address] [place] [address], [place] [address] Nov, [facility] [address] [id number] [address] [place] [address], [place] [address] Nov, [facility] [address] [id number] [address] [place] [address], [place] [address] Oct, [facility] [address] [id number] [address] [place] [address], [place] [address] Oct, [facility] [address] [id number] [address] [place] [address], [place] [address] Aug, [facility] [address] [id number] [address] [place] [address], [place] [address] Aug, [facility] [address] [id number] [address] [place] [address], [place] [address] Aug, [facility] [address] [id number] [address] [place] [address], [place] [address] Aug, [facility] [address] [id number] [address] [place] [address], [place] [address] Jul, [facility] [address] [id number] [address] [place] [address], [place] [address] Jul, [facility] [address] [id number] [address] [place] [address], [place] [address] Jul, [facility] [address] [id number] [address] [place] [address], [place] [address] Jul, [facility] [address] [id number] [address] [place] [address], [place] [address] 28 Jul, 2013 [facility] [address] [id number] [address] [place] [address], [place] [address] 28 Jul, 2013 [facility] [address] [id number] [address] [place] [address], [place] [address] 15 Jul, 2013 [facility] [address] [id number] [address] [place] [address], [place] [address] 15 Jul, 2013 [facility] [address] [id number] [address] [place] [address], [place] [address] Mar, [facility] [address] [id number] [address] [place] [address], [place] [address] February, [facility] [address] [id number] [address] [place] [address], [place] [address] February, [facility] [address] [id number] [address] [place] [address], [place] [address] Jan, [facility] [address] [id number] [address] [place] [address], [place] [address] Jan, [facility] [address] [id number] [address] [place] [address], [place] [address] Jan, [facility] [address] [id number] [address] [place] [address], [place] [address] Jan, [facility] [address] [id number] [address] [place] [address], [place] [address] Dec, [facility] [address] [id number] [address] [place] [address], [place] [address] Dec, [facility] [address] [id number] [address] [place] [address], [place] [address] Dec, [facility] [address] [id number] [address] [place] [address], [place] [address] Nov, [facility] [address] [id number] [address] [place] [address] Dec, IMMUNIZATIONS No Known Immunizations SOCIAL HISTORY [...]
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
--- NOTE | 2020-05-08 07:10 | NUR ---
REPORT RECEIVED FROM AUDIE MALCOLM AT THIS TIME
[2020-05-08] MEDS ORDERED: MINERAL OIL CONCENTRATE 99.9% 15 ML UDC TOP PRN (07:15)
[2020-05-08] MEDS: D5 LR IV SOLUTION 1,000 ML IV SCH ×2 (07:22→15:23)
[2020-05-08 07:27] LABS: BASOPHILS % (AUTO) 0 % (0-10); EOSINOPHILS # (AUTO) 0.1 10^3/uL (0.0-0.3); EOSINOPHILS % (AUTO) 1 % (0-10); HEMATOCRIT 35 % (35-52); LYMPHOCYTES # (AUTO) 2.4 X 10^3 (1.0-4.0); LYMPHOCYTES % (AUTO) 25 % (12-44); MEAN CORPUSCULAR HEMOGLOBIN 32 PG (25-34); MEAN CORPUSCULAR HGB CONC 35 G/DL (32-36); MEAN CORPUSCULAR VOLUME 93 FL (80-99); MEAN PLATELET VOLUME 11.8 FL (7.4-10.4); MONOCYTES # (AUTO) 0.9 X 10^3 (0.0-1.0); MONOCYTES % (AUTO) 9 % (0-12); NEUTROPHILS # (AUTO) 6.3 X 10^3 (1.8-7.8); NEUTROPHILS % (AUTO) 65 % (42-75); PLATELET COUNT 152 10^3/uL (130-400); RED CELL DISTRIBUTION WIDTH 15.3 % (10.0-14.5); WHITE BLOOD COUNT 9.6 10^3/uL (4.3-11.0)
--- NOTE | 2020-05-08 08:14 | History & Physical-OB ---
OB - Chief Complaint & HPI Date/Time Date of Admission: Date of Admission: May 08, 2020 at 05:57 Date seen by a Provider: May 08, 2020 Time Seen by a Provider: 08:00 Chief Complaint/History OB-Reason for Admission/Chief: Induction of Labor Hx : 3 Hx Para: 1 Expected Date of Delivery: May 15, 2020 Gestational Age in Weeks: 3 Gestational Age in Days: 1 Admission Nurse Assessment Rev: Yes History of Labs A pos Antibody neg RI RPR HBsAb NR HIV NR GC neg GBS neg Allergies and Home Medications Allergies Coded Allergies: No Known Drug Allergies (Unverified , 01/12/13) Home Medications Ferrous Sulfate 325 Mg Tablet, 325 MG PO DAILY, (Reported) Folic Acid 0.4 Mg Tablet, 0.4 MG PO DAILY, (Reported) Metronidazole 500 Mg Tablet, 500 MG PO BID Prescribed by: FERN SHER on 03/28/20 0749 Vit W-Ca,Fe,FA(<1 mg) 1 Each Tablet, 1 EACH PO DAILY, (Reported) Sertraline HCl 20 Mg/1 Ml Oral.conc, 20 MG PO DAILY, (Reported) Patient Home Medication List Home Medication List Reviewed: Yes OB - History Hx of Present Care: Yes Ultrasounds: Normal mid trimester US Obstetrical Complications: None Medical Complications: Other (Anemia) Delivery History Hx Blood Disorders: Yes (ANEMIA) Adverse Rxn to Tranfusion: No Patient Past Medical History gastric bypass Chronic anemia Social History/Family History HIV/AIDS: No Sexually Transmitted Disease: No Immunizations Tetanus Booster (TDap): Unknown OB - Admission Exam Physical Exam Vitals: Vital Signs 05/08/20 07:00 Temp 36.6 Pulse 80 Resp 18 B/P (MAP) 121/68 (85) O2 Delivery Room Air HEENT: NCAT Heart: Rhythm Normal Lungs: Clear Abdomen: Gravid Extremities: Normal Reflexes: Normal Cervical Dilatation: 3cm Effacement: 50% Station: -1 Membranes: Intact Heart Rate: 130's Accelerations: Accelerations Present Decelerations: No Decelerations Short Term Variability: Present Bakery Assistant Variability: Average (6-25) Contractions on Admission: 6-10 Minutes Apart Intensity: Mild Bustos Scoring Tool (Modified) Dilation (cm): 3-4cm (2) Effacement (%): 51-79% (2) Descent/Station: -1,0 (2) Cervix Consistency: Soft (2) Cervix Position: Anterior (2) Bustos Score: 11 Labs Laboratory Tests Test 05/08/20 06:34 Range/Units White Blood Count 9.6 4.3-11.0 10^3/uL Red Blood Count 3.74 L 4.35-5.85 10^6/uL Hemoglobin 12.0 11.5-16.0 G/DL Hematocrit 35 35-52 % Mean Corpuscular Volume 93 80-99 FL Mean Corpuscular Hemoglobin 32 25-34 PG Mean Corpuscular Hemoglobin Concent 35 32-36 G/DL Red Cell Distribution Width 15.3 H 10.0-14.5 % Platelet Count 152 130-400 10^3/uL Mean Platelet Volume 11.8 H 7.4-10.4 FL Neutrophils (%) (Auto) 65 42-75 % Lymphocytes (%) (Auto) 25 12-44 % Monocytes (%) (Auto) 9 0-12 % Eosinophils (%) (Auto) 1 0-10 % Basophils (%) (Auto) 0 0-10 % Neutrophils # (Auto) 6.3 1.8-7.8 X 10^3 Lymphocytes # (Auto) 2.4 1.0-4.0 X 10^3 Monocytes # (Auto) 0.9 0.0-1.0 X 10^3 Eosinophils # (Auto) 0.1 0.0-0.3 10^3/uL Basophils # (Auto) 0.0 0.0-0.1 10^3/uL OB - Assessment/Plan/Diagnosis Assessment Assessment: induction of labor Admission Dx 35 yo @ 39 weeks Chronic anemia GBS neg Admission Status: Inpatient Order (span 2 midnights) Reason for Inpatient Admission: induction of labor at 39 weeks Plan Plan: Induction Induction Method: JOCYE ERICKSON DO May 08, 2020 08:14
[2020-05-08] MEDS ORDERED: OXYTOCIN PRE-MIX DRIP 500 ML IV SCH (08:26)
[2020-05-08] MEDS ORDERED: OXYTOCIN PRE-MIX DRIP 500 ML IV ONE (08:36)
[2020-05-08] MEDS ORDERED: fentaNYL 2 mcg/ml BUPIVA 0.125 100 ML ONE (09:28)
[2020-05-08] MEDS ORDERED: fentaNYL INJECTION 100 MCG/2 ML AMP ONE (09:31)
[2020-05-08] MEDS ORDERED: BUPIVACAINE 0.25% 30 ML (SENSORCAINE) VIAL ONE (09:31)
[2020-05-08] MEDS: EPIDURAL (fentaNYL 2 MCG/ML BUPIVA 0.125%)100 ML BAG EPI PRN ×2 (09:59→17:50)
[2020-05-08] MEDS ORDERED: LACTATED RINGERS 1,000 ML IV SCH (11:03)
[2020-05-08] MEDS ORDERED: METOCLOPRAMIDE INJ 10 MG/2 ML (REGLAN) IV PRN (11:15)
[2020-05-08] MEDS ORDERED: NALOXONE 0.4 MG/ML 1 ML (NARCAN) VIAL IV PRN ×2 (11:15)
[2020-05-08] MEDS ORDERED: ONDANSETRON 4 MG/2 ML (SDV) Z0FRAN IV PRN (11:15)
[2020-05-08] MEDS ORDERED: diphenhydrAMINE 50 MG/ML INJ (BENADRYL) IV PRN (11:15)
--- NOTE | 2020-05-08 12:45 | NUR ---
THIS RN GIVES DR SHELTON UPDATED PT REPORT AT THIS TIME. LAST SVE, COMFORTABLE WITH EPIDURAL, PITOCIN RATE CURRENTLY AT 8, UC PATTERN, CATEGORY 1 FHT. NO NEW ORDERS AT THIS TIME.
--- NOTE | 2020-05-08 14:14 | NUR ---
DR SHELTON UPDATED ON PT REPORT BY THIS RN AT THIS TIME. PT CO FEELING PUSHY. SVE BY THIS RN RESULTS /. UC PATTERN, FHT CATEGORY 1, PITOCIN RATE AT 12. NO NEW ORDERS RECEIVED AT THIS TIME.
--- NOTE | 2020-05-08 18:26 | NUR ---
dr marquez updated pt status. 8cm, uncomfortable with epidural, breathing through UC. hands and knees now. having variables with every UC. Dr acknowledged, no new orders. Dr will plan to be on OB soon.
--- NOTE | 2020-05-08 19:05 | NUR ---
report given to keke gay at this time.
[2020-05-08] MEDS ORDERED: LIDOCAINE/EPI 2% 1:200,00 (XYLOCAINE) 10 ML VIAL ONE (19:08)
--- NOTE | 2020-05-08 20:03 | NUR ---
DELIVERY OF PLACENTA, PITOCIN INFUSION USED FOR INDUCTION WAS INCREASED TO 999ML/HR PER VERBAL ORDER AND COUNTS FIRST 500ML BAG OF 1,000ML ORDER. NONADMIN ACTION TAKEN ON EMAR.
[2020-05-08] MEDS ORDERED: METHYLERGONOVINE 0.2 MG/ML (METHERGINE) AMP ONE ×2 (20:09→20:12)
[2020-05-08] MEDS: OXYTOCIN PRE-MIX DRIP 500 ML IV SCH ×2 (20:27→21:13)
[2020-05-08] MEDS ORDERED: KETOROLAC 30 MG/ML VIAL ONE (20:38)
[2020-05-08] MEDS ORDERED: KETOROLAC 30 MG/ML VIAL IVP ONE (20:45)
[2020-05-08] MEDS ORDERED: TETANUS,DIPTH,PERTUSS P/F (BOOSTRIX) 0.5 ML VIAL IM ONE (21:00)
[2020-05-08] MEDS ORDERED: WITCH HAZEL(TUCKS) 40 EA JAR TOP PRN (21:00)
[2020-05-08] MEDS ORDERED: DIBUCAINE (NUPERCAINAL) 1% OINT 30 GM TOP PRN (21:00)
[2020-05-08] MEDS ORDERED: MEASLES,MUMPS,RUBELLA 1 EA INJ SQ ONE (21:00)
[2020-05-08] MEDS ORDERED: BENZOCAINE/MENTHOL (DERMOPLAST) 60 ML CAN TP PRN (21:00)
--- NOTE | 2020-05-08 21:03 | OB Labor & Delivery Record ---
L&D History Date of Service Date of Service: May 08, 2020 History Expected Date of Delivery: May 15, 2020 Gestational Age in Weeks: 39 Hx : 3 Hx Para: 1 Complications Events: Routine care (chronic anemia in ) Operative Indications (Cesarea: N/A-Vaginal Delivery Intrapartal Events: Extnded Bradycardia L&D Stage1 Stage One Onset of Labor - Date: May 08, 2020 Monitors and Tracing Monitor Mode: External Heart Rate: 140 Monitor Accelerations: Uniform Monitor Decelerations: Variable Station: 0 Livestock Farm Manager Variability: Average (6-10) Short Term Variability: Present Presentation: Vertex Vital Signs VS - Last 72 Hours, by Label 05/08/20 05/08/20 05/08/20 05/08/20 07:00 07:30 07:30 08:30 Temp 36.6 36.4 36.4 Pulse 80 67 67 65 Resp 18 18 18 B/P (MAP) 121/68 (85) 128/80 (96) 113/70 (84) Pulse Ox 98 98 O2 Delivery Room Air Room Air Room Air Room Air 05/08/20 05/08/20 05/08/20 05/08/20 08:45 09:00 09:15 09:30 Temp 36.4 Pulse 62 69 71 74 B/P (MAP) 115/73 (87) 117/84 (95) 121/61 (81) 115/56 (75) O2 Delivery Room Air Room Air Room Air Room Air 05/08/20 05/08/20 05/08/20 05/08/20 09:45 10:00 10:03 10:06 Pulse 83 89 73 81 Resp 18 B/P (MAP) 123/79 (94) 128/67 (87) 110/56 (74) 110/58 (75) Pulse Ox 98 96 96 O2 Delivery Room Air Room Air Room Air Room Air 05/08/20 05/08/20 05/08/20 05/08/20 10:10 10:13 10:15 10:17 Pulse 75 85 81 88 B/P (MAP) 116/71 (86) 111/66 (81) 109/65 (80) 116/76 (89) Pulse Ox 97 97 97 97 O2 Delivery Room Air Room Air Room Air Room Air 05/08/20 05/08/20 05/08/2005/08/20 10:21 10:25 10:30 10:35 Pulse 78 75 83 76 B/P (MAP) 120/73 (89) 116/57 (76) 108/56 (73) 107/63 (78) Pulse Ox 96 97 97 96 O2 Delivery Room Air Room Air Room Air Room Air 05/08/20 05/08/20 05/08/20 05/08/20 10:40 10:45 10:50 11:00 Temp 36.1 Pulse 89 76 72 79 B/P (MAP) 104/54 (71) 102/59 (73) 120/60 (80) 131/59 (83) Pulse Ox 96 96 97 O2 Delivery Room Air Room Air Room Air Room Air 05/08/20 05/08/20 05/08/20 05/08/20 11:15 11:30 11:45 12:00 Temp 36.7 Pulse 84 80 77 68 Resp 18 B/P (MAP) 112/72 (85) 117/55 (75) 110/62 (78) 103/55 (71) O2 Delivery Room Air Room Air Room Air Room Air 05/08/20 05/08/20 05/08/20 05/08/20 12:15 12:30 12:45 13:00 Pulse 67 67 65 68 B/P (MAP) 100/54 (69) 115/51 (72) 97/50 (66) 104/69 (81) O2 Delivery Room Air Room Air Room Air Room Air 05/08/20 05/08/20 05/08/20 05/08/20 13:15 13:30 13:45 14:00 Pulse 65 64 63 64 Resp 18 B/P (MAP) 103/66 (78) 104/58 (73) 96/58 (71) 114/70 (85) O2 Delivery Room Air Room Air Room Air Room Air 05/08/20 05/08/20 05/08/20 05/08/20 14:15 14:30 14:45 15:00 Temp 36.4 Pulse 79 82 88 75 B/P (MAP) 116/72 (87) 112/61 (78) 124/59 (80) 117/62 (80) O2 Delivery Room Air Room Air Room Air Room Air 05/08/20 05/08/20 05/08/20 05/08/20 15:15 15:30 15:45 16:00 Temp 36.7 Pulse 66 83 74 100 Resp 18 B/P (MAP) 104/54 (71) 108/55 (72) 105/55 (72) 107/72 (84) O2 Delivery Room Air Room Air Room Air Room Air 05/08/20 05/08/20 05/08/20 05/08/20 16:15 16:30 16:45 17:00 Temp 36.5 Pulse 74 71 75 66 Resp 18 B/P (MAP) 123/72 (89) 106/56 (73) 107/58 (74) 108/68 (81) O2 Delivery Room Air Room Air Room Air Room Air 05/08/20 05/08/20 05/08/20 05/08/20 17:15 17:30 17:45 18:00 Pulse 77 66 67 65 B/P (MAP) 116/62 (80) 117/57 (77) 93/51 (65) 132/67 (88) O2 Delivery Room Air Room Air Room Air Room Air 05/08/20 05/08/20 05/08/20 05/08/20 18:15 18:30 18:45 19:00 Pulse 69 64 Resp 20 B/P (MAP) 130/72 (91) 115/71 (86) O2 Delivery Room Air Room Air Room Air Room Air Rupture of Membranes Spontaneous Ruture of Membrane: No Amniotic Membrane Rupture Time: 0820 Amniotic Membrane Fluid Desc.: Clear Vaginal Bleeding Description: Normal Show Induction/Anesthesia Epidural Cath Placement - Time: 0951 Progress/Notes Patient admitted for induction, AROM and Pitocin augmentation was done. Epidural received ,she progressed to complete and +1 station L&D Stage2 Stage Two Stage II Date: May 08, 2020 Monitors and Tracing Monitor Mode: External Heart Rate: 140 Monitor Accelerations: None Monitor Decelerations: Prolonged Livestock Farm Manager Variability: Average (6-10) Short Term Variability: Present Position: Right Occiput Anterior Presentation: Vertex Cord Descript/Complications Cord Vessel Description: 3 Vessels Complications Patient progressed to + 2station when prolonged fhr deceleration occured into the 80s lasting approx 4-5 min, without return. Due to heart rate, decision was made to expedite delivery via vacuum extraction using kiwi. Cup placed over flexion point, 550 mmHg applied using handpiece and with extension of the head, it was delivered over intact perineal at which point suction was released. Delivery Type Delivery Method: Low Vacuum Extraction Anterior Shoulder: Right Episiotomy/Perineal Laceration Laceraction(s)/Extensions: Yes Episiotomy Description: Perineal Extension/lac, 2nd degree Degree (describe repair) 2nd degree perineal laceration repaired using 3-0 rapide and 2-0 vicryl suture Condition of Infant Condition of Condition of Infant: Living Exam: No Observed Abnormalities taken to nursery by RT/RN for further evaluation by peds alina Resuscitation Resuscitation: Bag and Mask L&D Stage3 Stage Three Stage III Date: May 08, 2020 Pictocin Pitocin Administration mu/min: 16 Pitocin ml/hr: 16 Pitocin Administration Comment: wide open at 30 mu time of placenta delivery Placenta Delivery Placenta Delivery: Spontaneous Delivery Summary Summary Estimated blood loss (mL): 350 Attending at delivery: Moses Shelton DO Condition of Delivery Examined: Cervix Examined, Uterus Explored Post Hemorrhage: No Condition of Mother stable Condition of Infant (s) stable MOSES SHELTON DO May 08, 2020 21:03
--- NOTE | 2020-05-08 21:08 | Discharge Inst-Women's Service ---
Discharge Inst-Women's Serv Depart Medication/Instructions New, Converted or Re-Newed RX: RX on Chart Final Diagnosis PPD 2 VAVD Problems Reviewed?: Yes Consults/Follow Up Additional Follow Up: Yes Orders/Referrals Dr. Shelton in 6 weeks Activity Activity: Activity as Tolerated Driving Instructions: No Driving for 1 Week NO SMOKING: NO SMOKING Nothing Inside Vagina: No Douching, No [place], No Tampons Diet Discharge Diet: No Restrictions Symptoms to Report to : Bleeding Excessive, Pain Increased, Fever Over 101 Degrees F, Vaginal Bleeding Increase, Questions/Concerns For Any Problems or Questions: Contact Your Physician JOYCE SHELTON DO May 08, 2020 21:08
[2020-05-08] MEDS ORDERED: HYDR-83 PO (21:14)
[2020-05-08] MEDS ORDERED: DIBU30OI TOP (21:14)
[2020-05-08] MEDS ORDERED: BENZ78AE2 TP (21:14)
[2020-05-08] MEDS ORDERED: IBUP-844 PO (21:14)
[2020-05-08] MEDS ORDERED: DCS100C PO (21:14)
--- NOTE | 2020-05-08 21:50 | NUR ---
Pt to sob, epidural cath removed, tip in tact, site wnl, left oa, pericare pads changed, pt yet to void, transferred to and taken to nsy warmer side. no ss distress noted.
[2020-05-08] MEDS ORDERED: CATHETER FLUSH 10 ML SYR IV SCH (22:00)
[2020-05-09] MEDS: DOCUSATE SODIUM 100 MG (COLACE) CAP PO SCH ×2 (00:12→08:35)
[2020-05-09] MEDS: IBUPROFEN 600 MG (MOTRIN) TAB PO SCH ×2 (00:13→08:35)
[2020-05-09] MEDS: HYDROcodone/APAP 5 MG/325 MG (LORTAB) TAB PO PRN ×2 (00:13→08:37)
[2020-05-09 05:14] VITALS: BP 101/53
[2020-05-09 05:57] LABS: BASOPHILS % (AUTO) 0 % (0-10); EOSINOPHILS % (AUTO) 0 % (0-10); HEMATOCRIT 31 % (35-52); HEMOGLOBIN 10.4 G/DL (11.5-16.0); LYMPHOCYTES # (AUTO) 2.2 X 10^3 (1.0-4.0); LYMPHOCYTES % (AUTO) 13 % (12-44); MEAN CORPUSCULAR HEMOGLOBIN 31 PG (25-34); MEAN CORPUSCULAR HGB CONC 34 G/DL (32-36); MEAN CORPUSCULAR VOLUME 92 FL (80-99); MEAN PLATELET VOLUME 11.6 FL (7.4-10.4); MONOCYTES # (AUTO) 1.2 X 10^3 (0.0-1.0); MONOCYTES % (AUTO) 7 % (0-12); NEUTROPHILS # (AUTO) 13.5 X 10^3 (1.8-7.8); NEUTROPHILS % (AUTO) 80 % (42-75); PLATELET COUNT 134 10^3/uL (130-400); RED CELL DISTRIBUTION WIDTH 14.9 % (10.0-14.5); WHITE BLOOD COUNT 16.9 10^3/uL (4.3-11.0)
[2020-05-09] MEDS ORDERED: PRENATAL VITAMIN 1 EA TAB PO SCH (07:00)
--- NOTE | 2020-05-09 07:52 | Postpartum Progress Note ---
Note Note Day # 1 Subjective: Patient is without complaints. Ambulating, voiding. Tolerating a regular diet without nausea or vomiting. Normal lochia. Pain is well controlled with oral pain medications. Objective: Physical Exam: General - Alert and oriented, no apparent distress Abdomen - Soft, appropriately tender to palpation, non-distended, fundus firm at umbilicus Extremities - no edema, negative Cecily's bilaterally Assessment: PPD 1 VAVD Acute blood loss anemia Plan: Routine care. Encourage breast feeding. Encourage ambulation. Ferrous sulfate supplementation. Plan for discharge tomorrow Vitals - Labs Vital Signs - I&O Vital Signs Date Time Temp Pulse Resp B/P (MAP) Pulse Ox O2 Delivery O2 Flow Rate FiO2 05/09/20 05:14 37.6 68 18 101/53 (69) 68 Room Air 05/08/20 21:45 125/64 (84) Room Air 05/08/20 21:30 37.0 71 120/62 (81) Room Air 05/08/20 21:15 36.8 65 118/65 (82) Room Air 05/08/20 21:00 37.0 68 119/65 (83) Room Air 05/08/20 20:45 36.6 68 119/60 (79) Room Air 05/08/20 20:30 36.8 74 118/73 (88) Room Air 05/08/20 19:42 20 Room Air 05/08/20 19:30 68 20 126/83 (97) Room Air 05/08/20 19:15 64 20 122/70 (87) Room Air 05/08/20 19:00 64 20 115/71 (86) Room Air 05/08/20 18:45 Room Air 05/08/20 18:30 Room Air 05/08/20 18:15 69 130/72 (91) Room Air 05/08/20 18:00 65 132/67 (88) Room Air 05/08/20 17:45 67 93/51 (65) Room Air 05/08/20 17:30 66 117/57 (77) Room Air 05/08/20 17:15 77 116/62 (80) Room Air 05/08/20 17:00 36.5 66 18 108/68 (81) Room Air 05/08/20 16:45 75 107/58 (74) Room Air 05/08/20 16:30 71 106/56 (73) Room Air 05/08/20 16:15 74 123/72 (89) Room Air 05/08/20 16:00 100 107/72 (84) Room Air 05/08/20 15:45 74 18 105/55 (72) Room Air 05/08/20 15:30 83 108/55 (72) Room Air 05/08/20 15:15 36.7 66 104/54 (71) Room Air 05/08/20 15:00 75 117/62 (80) Room Air 05/08/20 14:45 88 124/59 (80) Room Air 05/08/20 14:30 82 112/61 (78) Room Air 05/08/20 14:15 36.4 79 116/72 (87) Room Air 05/08/20 14:00 64 18 114/70 (85) Room Air 05/08/20 13:45 63 96/58 (71) Room Air 05/08/20 13:30 64 104/58 (73) Room Air 05/08/20 13:15 65 103/66 (78) Room Air 05/08/20 13:00 68 104/69 (81) Room Air 05/08/20 12:45 65 97/50 (66) Room Air 05/08/20 12:30 67 115/51 (72) Room Air 05/08/20 12:15 67 100/54 (69) Room Air 05/08/20 12:00 36.7 68 18 103/55 (71) Room Air 05/08/20 11:45 77 110/62 (78) Room Air 05/08/20 11:30 80 117/55 (75) Room Air 05/08/20 11:15 84 112/72 (85) Room Air 05/08/20 11:00 36.1 79 131/59 (83) Room Air 05/08/20 10:50 72 120/60 (80) 97 Room Air 05/08/20 10:45 76 102/59 (73) 96 Room Air 05/08/20 10:40 89 104/54 (71) 96 Room Air 05/08/20 10:35 76 107/63 (78) 96 Room Air 05/08/20 10:30 83 108/56 (73) 97 Room Air 05/08/20 10:25 75 116/57 (76) 97 Room Air 05/08/20 10:21 78 120/73 (89) 96 Room Air 05/08/20 10:17 88 116/76 (89) 97 Room Air 05/08/20 10:15 81 109/65 (80) 97 Room Air 05/08/20 10:13 85 111/66 (81) 97 Room Air 05/08/20 10:10 75 116/71 (86) 97 Room Air 05/08/20 10:06 81 110/58 (75) 96 Room Air 05/08/20 10:03 73 110/56 (74) 96 Room Air 05/08/20 10:00 89 18 128/67 (87) 98 Room Air 05/08/20 09:45 83 123/79 (94) Room Air 05/08/20 09:30 74 115/56 (75) Room Air 05/08/20 09:15 71 121/61 (81) Room Air 05/08/20 09:00 69 117/84 (95) Room Air 05/08/20 08:45 36.4 62 115/73 (87) Room Air 05/08/20 08:30 65 113/70 (84) Room Air I & O 05/09/20 07:00 Intake Total 2000 ml Balance 2000 ml Labs Laboratory Tests 05/09/20 05:10: White Blood Count 16.9H, Red Blood Count 3.31L, Hemoglobin 10.4L, Hematocrit 31L , Mean Corpuscular Volume 92, Mean Corpuscular Hemoglobin 31, Mean Corpuscular Hemoglobin Concent 34, Red Cell Distribution Width 14.9H, Platelet Count 134, Mean Platelet Volume 11.6H, Neutrophils (%) (Auto) 80H, Lymphocytes (%) (Auto) 13, Monocytes (%) (Auto) 7, Eosinophils (%) (Auto) 0, Basophils (%) (Auto) 0, Neutrophils # (Auto) 13.5H, Lymphocytes # (Auto) 2.2, Monocytes # (Auto) 1.2H, Eosinophils # (Auto) 0.0, Basophils # (Auto) 0.0 JOYCE SHELTON DO May 09, 2020 07:52
[2020-05-09 08:33] VITALS: BP 87/48
[2020-05-09] MEDS ORDERED: FERROUS SULF 325 MG (IRON) TAB PO SCH (09:00)
--- NOTE | 2020-05-09 10:45 | NUR ---
Discharge instructions explained signed and copy to patient. prescriptions given to pt and discussed. pt verbalized understanding.
--- NOTE | 2020-05-09 11:15 | NUR ---
Discharged to home. Ambulates self downstairs accompanied by staff. To private vehicle with belongings in hand.
--- NOTE | 2020-05-09 12:03 | Anesthesia-Regional Post-Op ---
Regional Patient Condition Mental Status: Alert, Oriented x3 Circulation: Same as Pre-Op Headache: Absent Sensation: Full Recovery Motor Block: Absent Post Op Complications Complications None Follow Up Care/Instructions Patient Instructions None needed. Anesthesia/Patient Condition Patient is doing well, no complaints, stable vital signs, no apparent adverse anesthesia problems. No complications reported per nursing. MARY STALLWORTH CRNA May 09, 2020 12:03
== END 2020-05-09 11:15 | disposition home or self-care (01) | DRG 806 ==
LOC: LDRP 05:57
PROVIDERS: ADMIT Obstetrics & Gynecology; ATTEND Obstetrics & Gynecology
PROC: 10D07Z6 Extraction of Products of Conception, Vacuum, Via Natural or Artificial Opening (ICD-10-PCS; principal; 2020-05-08)
PROC: 0KQM0ZZ Repair Perineum Muscle, Open Approach (ICD-10-PCS; 2020-05-08)
PROC: 10907ZC Drainage of Amniotic Fluid, Therapeutic from Products of Conception, Via Natural or Artificial Opening (ICD-10-PCS; 2020-05-08)
DX: O99.02 Anemia complicating childbirth (principal); D62 Acute posthemorrhagic anemia; Z37.0 Single live birth; Z3A.39 39 weeks gestation of pregnancy; O70.1 Second degree perineal laceration during delivery; D53.9 Nutritional anemia, unspecified
CPT/HCPCS: 36415; 85025; 86850; 86900; 86901